=== PATIENT | male | born 1980 | race African-American/Black ===

== ENCOUNTER 2017-03-03 12:33 | Inpatient (IN) | payer OTHER ==
[~2017-03-03] VITALS: Ht 185.4 cm; Wt 127.0 kg
[~2017-03-03 12:33] MED LIST: AMOX1TAB11 PO; CYAN10005 PO; FERR325T72 PO; FURO40TA4 PO; GABA-585 PO; METF850T2 PO; OXYB5TAB7 PO; OXYC-323 PO; PANT40TA5 PO; SODIUM BICARB ADULT 8.4% 50 MEQ/50 ML DISP.SYRIN. ONE; WARF10TA PO; WARF7.5T PO
[2017-03-03 13:25] LABS: CALCIUM 8.1 mg/dL (8.5-10.1); CREATININE 3.4 mg/dL (0.7-1.3); GFR 25.1
[2017-03-03 13:28] LABS: BASO % 0 % (0-3); EOS % 0 % (0-3); HEMOGLOBIN 11.4 g/dL (13.0-17.5); LYMPH # 1.8 x10^3/uL (1.0-4.8); LYMPH % 19 % (24-48); MEAN CORPUSCULAR HEMOGLOBIN 25 pg (25-35); MEAN CORPUSCULAR HGB CONC 25 g/dL (31-37); MEAN CORPUSCULAR VOLUME 98 fL (79-100); MONO % 6 % (0-9); NEUT % 75 % (31-73); PLATELET COUNT 244 x10^3/uL (140-400); RED BLOOD COUNT 4.58 x10^6/uL (4.30-5.70); RED CELL DISTRIBUTION WIDTH 17.8 % (11.5-14.5); WHITE BLOOD COUNT 9.7 x10^3/uL (4.0-11.0)
--- NOTE | 2017-03-03 13:34 | EKG ---
[facility] [address] [place] [address] Test Date: 2017-03-03 Test Time: 12:43:57 Pat Name: AKIRA GROSS Department: Room: Gender: M Bi Data Architect: : 1980 Requested By: OMAYRA AVERY Order Number: [id number] Reading MD: Measurements Intervals [place] Rate: 127 P: 158 VA: 172 QRS: 29 QRSD: 106 T: 116 QT: 286 QTc: 421 Interpretive Statements SINUS TACHYCARDIA QRS(T) CONTOUR ABNORMALITY CONSIDER ANTEROSEPTAL MYOCARDIAL DAMAGE ST & T ABNORMALITY, CONSIDER ANTERIOR ISCHEMIA OR LEFT VENTRICULAR STRAIN HIGH LATERAL ISCHEMIA OR LEFT VENTRICULAR STRAIN RI6.01 No previous ECG available for comparison
[2017-03-03] MEDS ORDERED: ETOMIDATE 20 MG/10 ML VIAL. IV ONE (13:35)
[2017-03-03] MEDS ORDERED: MIDAZOLAM PREMIX 100 ML IV ONE (13:45)
[2017-03-03] MEDS ORDERED: SODIUM BICARBONATE VIAL 150 MEQ in IV 1/2 NORMAL SALINE 1,000 ML IV ONE (13:45)
[2017-03-03 13:48] LABS: POTASSIUM 2.8 mmol/L (3.5-5.1)
--- NOTE | 2017-03-03 13:50 | RAD ---
Portable chest, 03/03/2017: History: Check ET tube placement Comparison is made to a study from 04/26/2016. There has been a previous median sternotomy. Surgical clips are projected over the right infraclavicular region. The tip of the ET tube lies 5 cm above the ed. An NG tube extends into the proximal aspect of the stomach. The heart is enlarged. The pulmonary vascularity is within normal limits. No pulmonary. Infiltrates are seen. There is no evidence of pleural fluid. IMPRESSION: 1. The ET tube and NG tube are in satisfactory positions. 2. Mild cardiomegaly.
--- NOTE | 2017-03-03 13:50 | RAD ---
AP abdomen radiograph 03/03/2017 Clinical history: OG tube placement. A portable AP supine digital radiograph of the abdomen was obtained. The tip of an OG tube is seen overlying the expected location of the gastric body/fundus. Surgical clips are seen scattered throughout the mid abdomen. Air distention of small bowel loops is seen within the midabdomen raising the possibility of a small bowel obstruction. A moderate amount of stool is seen throughout the colon. The osseous structures are grossly intact. Impression: The tip of the OG tube overlies the gastric body/fundus.
--- NOTE | 2017-03-03 13:54 | PHYS DOC ---
Past Medical History Past Medical History: Other Additional Past Medical Histor: AAA X 3 Past Surgical History: Other Additional Past Surgical Histo: AAA REPAIR X 3 Alcohol Use: Occasionally Drug Use: None Adult General Chief Complaint Chief Complaint: CPR/FULL ARREST HPI HPI 36-year-old male who presents with history of cardiac arrest in the field. EMS was called out for respiratory difficulties and the patient was bradycardic and then his rhythm declined to asystole. CPR was administered with several rounds of epinephrine with return of spontaneous circulation. Patient arrives with a advanced airway and good pulse and vital signs. Patient is acutely altered and nonverbal. 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 Patient has been bedridden since this time. There is no family at bedside currently to provide any other history. Review of Systems Review of Systems 10 point review systems is unable to be obtained secondary to patient's mental status. Current Medications Current Medications Current Medications Medications (Trade) Dose Ordered Sig/Carlito Start Time Stop Time Status Last Admin Dose Admin Etomidate (Amidate) 20 mg STK-MED ONCE 03/03/17 13:35 03/03/17 13:36 DC Allergies Allergies Allergies Coded Allergies Type Severity Reaction Last Updated Verified iodine Allergy Intermediate 01/13/15 No Physical Exam Physical Exam Constitutional: Moderate distress, toxic in appearance. [] HENT: Normocephalic, atraumatic, bilateral external ears normal, oropharynx moist, no oral exudates, nose normal. [] Eyes: PERRLA, EOMI, conjunctiva normal, no discharge. [] Neck: Normal range of motion, no tenderness, supple, no stridor. [] Cardiovascular:Heart rate tachycardic with regular rhythm, no murmur [] Lungs & Thorax: Bilateral breath sounds clear to auscultation [] Abdomen: Bowel sounds normal, soft, no tenderness, no masses, no pulsatile masses. [] Skin: Warm, dry, no erythema, no rash. [] Back: No tenderness, no CVA tenderness. [] Extremities: No tenderness, no cyanosis, no clubbing, ROM intact, no edema. [] Neurologic: Intubated, unable to assess full neurologic exam, no focal deficits are seen Current Patient Data Vital Signs Vital Signs Date Time Temp Pulse Resp B/P Pulse Ox O2 Delivery O2 Flow Rate FiO2 03/03/17 13:30 Ventilator 03/03/17 12:33 98.7 126 24 98 15 98.7 Lab Values Laboratory Tests Test 03/03/17 12:55 03/03/17 13:07 03/03/17 13:20 White Blood Count 9.7x10^3/uL (4.0-11.0) Red Blood Count 4.58x10^6/uL (4.30-5.70) Hemoglobin 11.4g/dL (13.0-17.5) L Hematocrit 45.1% (39.0-53.0) Mean Corpuscular Volume 98fL (79-100) Mean Corpuscular Hemoglobin 25pg (25-35) Mean Corpuscular Hemoglobin Concent 25g/dL (31-37) L Red Cell Distribution Width 17.8% (11.5-14.5) H Platelet Count 244x10^3/uL (140-400) Neutrophils (%) (Auto) 75% (31-73) H Lymphocytes (%) (Auto) 19% (24-48) L Monocytes (%) (Auto) 6% (0-9) Eosinophils (%) (Auto) 0% (0-3) Basophils (%) (Auto) 0% (0-3) Neutrophils # (Auto) 7.3x10^3uL (1.8-7.7) Lymphocytes # (Auto) 1.8x10^3/uL (1.0-4.8) Monocytes # (Auto) 0.6x10^3/uL (0.0-1.1) Eosinophils # (Auto) 0.0x10^3/uL (0.0-0.7) Basophils # (Auto) 0.0x10^3/uL (0.0-0.2) Prothrombin Time 16.8SEC (11.7-14.0) H Prothrombin Time INR 1.5 (0.8-1.1) H Sodium Level 135mmol/L (136-145) L Potassium Level 2.8mmol/L (3.5-5.1) *L Chloride Level 93mmol/L (98-107) L Carbon Dioxide Level 21mmol/L (21-32) Anion Gap 21 (6-14) H Blood Urea Nitrogen 51mg/dL (8-26) H Creatinine 3.4mg/dL (0.7-1.3) H Estimated GFR (Cockcroft-Gault) 25.1 Glucose Level 2183mg/dL (70-99) *H Calcium Level 8.1mg/dL (8.5-10.1) L Troponin I Quantitative < 0.017ng/mL (0.000-0.055) GB-Yml-U-Type Natriuretic Peptide 930pg/mL (0-124) H Urine Opiates Screen Neg (NEG) Urine Methadone Screen Neg (NEG) Urine Barbiturates Neg (NEG) Urine Phencyclidine Screen Neg (NEG) Urine Amphetamine/Methamphetamine Neg (NEG) Urine Benzodiazepines Screen Neg (NEG) Urine Cocaine Screen Neg (NEG) Urine Cannabinoids Screen Neg (NEG) Urine Ethyl Alcohol Neg (NEG) O2 Saturation 99% (92-99) Arterial Blood pH 7.31 (7.35-7.45) L Arterial Blood pCO2 at Patient Temp 33mmHg (35-46) L Arterial Blood pO2 at Patient Temp 373mmHg (85-108) H Arterial Blood HCO3 16mmol/L (21-28) L Arterial Blood Base Excess -9mmol/L (-3-3) L FiO2 100 Laboratory Tests 03/03/17 12:55 Laboratory Tests 03/03/17 12:55 EKG EKG EKG as interpreted by me shows a sinus tachycardia with a rate of 127 bpm. There are some ST segment depressions in V2-V6. This EKG does not meet STEMI criteria. Radiology/Procedures Radiology/Procedures AP portable chest radiograph 03/03/2017 Clinical History: Post line placement. An AP portable erect digital radiograph of the chest was obtained. Comparison study is dated earlier today at 1317 hours.. The patient is status post CABG procedure. The ET tube and NG tube are unchanged in position. A right internal jugular central venous catheters been placed. The tip of this catheter extends to overlie the right atrium of the heart. Surgical clips overlie the right axilla. Left perihilar infiltrate is noted. The cardiac silhouette is mild to moderately enlarged. The thoracic aorta is tortuous. No pneumothorax or pleural effusion is seen. The osseous structures are unchanged. Impression: Interval placement of a right internal jugular central venous catheter. The tip of this catheter extends to overlie the right atrium of the heart. No pneumothorax is seen. DICTATED and SIGNED BY: LEYDI FULLER MD DATE: 03/03/17 1629 CC: OMAYRA AVERY DO; CECE GIRARD MD ~ AP abdomen radiograph 03/03/2017 Clinical history: OG tube placement. A portable AP supine digital radiograph of the abdomen was obtained. The tip of an OG tube is seen overlying the expected location of the gastric body/fundus. Surgical clips are seen scattered throughout the mid abdomen. Air distention of small bowel loops is seen within the midabdomen raising the possibility of a small bowel obstruction. A moderate amount of stool is seen throughout the colon. The osseous structures are grossly intact. Impression: The tip of the OG tube overlies the gastric body/fundus. DICTATED and SIGNED BY: LEYDI FULLER MD DATE: 03/03/17 1345 CC: OMAYRA AVERY DO; CECE GIRARD MD ~ Portable chest, 03/03/2017: History: Check ET tube placement Comparison is made to a study from 04/26/2016. There has been a previous median sternotomy. Surgical clips are projected over the right infraclavicular region. The tip of the ET tube lies 5 cm above the ed. An NG tube extends into the proximal aspect of the stomach. The heart is enlarged. The pulmonary vascularity is within normal limits. No pulmonary. Infiltrates are seen. There is no evidence of pleural fluid. IMPRESSION: 1. The ET tube and NG tube are in satisfactory positions. 2. Mild cardiomegaly. DICTATED and SIGNED BY: KYLER CARROLL MD DATE: 03/03/17 1346 CC: OMAYRA AVERY DO; CECE GIRARD MD ~ Course & Med Decision Making Course & Med Decision Making Pertinent Labs and Imaging studies reviewed. (See chart for details) 36-year-old male who presents in acute cardiac arrest with return of spontaneous circulation has laboratory workup that significant for a severely elevated blood glucose of 2183. This is likely hyperosmolar hyperglycemic coma. Serum osmolality was also elevated. Patient was intubated in the department so that an established airway could be confirmed. A right internal jugular central venous line was also placed for multiple medications and pressor support as needed. Patient was initially sedated with Versed but his blood pressure trended down on the department which required pressor support. Patient does appear to still be displaying some sort of neurologic function. A cardiology consult was obtained for his EKG findings. An echocardiogram at bedside was performed that was demonstrating a preserved EF of greater than 55% . Multiple chest x-rays confirmed ET tube and central venous line placement. A KUB demonstrated OG placement. Patient was given multiple fluid boluses and insulin bolus. A insulin drip was also initiated and titrated to effect. The case was fully discussed with the hospitalist, Dr. Girard, who agreed to admit to the ICU for further evaluation and management for his hyperglycemic coma. Approximately 30 minutes of critical care time were used in consultation with specialists. Dragon Disclaimer Dragon Disclaimer This electronic medical record was generated, in whole or in part, using a voice recognition dictation system. Critical Care Time Critical care time was 30 minutes exclusive of procedures. Intubation Procedure Intub Indication: Respiratory failure Consent: Unable to give consent due to emergent nature. Medications Used: see nursing note Procedure: The patient was placed in the appropriate position. Intubation was performed and cords were visualized and a 7.5 endotracheal tube was successfully placed and secured. Initial confirmation of placement included bilateral breath sounds, tube fogging, adequate chest rise, adequate pulse oximetry reading. A chest x-ray to verify correct placement of the tube showed appropriate tube position. The patient tolerated the procedure well. Complications: none. Central Line Placement Proc Central Line Indication: Vascular access Consent: The patient provided consent for this procedure. Procedure: The patient was positioned appropriately and the skin over the right internal jugular was prepped and draped in a sterile fashion. Local anesthesia was used. Ultrasound guidance utilized. A large bore needle was used to identify the vein. A guide wire was then inserted into the vein through the needle. A triple lumen catheter was then inserted into the vessel over the guide wire using the Seldinger technique. All ports showed good, free flowing blood return and were flushed with saline solution. The catheter was then securely fastened to the skin with sutures and covered with a sterile dressing. A post procedure X-ray was ordered. The patient tolerated the procedure well. Complications: none. [] Departure Departure Impression: Primary Impression: Acute respiratory failure Additional Impressions: Cardiac arrest Hyperglycemia Disposition: ADMITTED INPATIENT Admitting Physician: Cece Girard Condition: CRITICAL Referrals: CECE GIRARD MD (PCP) Problem Qualifiers OMAYRA AVERY DO Mar 03, 2017 13:54
[2017-03-03] MEDS ORDERED: INSULIN REGULAR VIAL 150 UNIT in 0.9 % SODIUM CHLORIDE 150ML 150 ML IV PRN ×2 (14:00→17:00)
[2017-03-03 14:03] LABS: HEMATOCRIT 45.1 % (39.0-53.0)
[2017-03-03] MEDS ORDERED: INSULIN,REGULAR 150 UNIT DRIP 150 ML IV ONE (14:05)
[2017-03-03 14:23] LABS: INR 1.5 (0.8-1.1); PROTHROMBIN TIME PATIENT 16.8 SEC (11.7-14.0)
[2017-03-03 14:26] LABS: PCO2 COOX 33 mmHg (35-46); PH COOX 7.31 (7.35-7.45)
[2017-03-03 14:27] LABS: PO2 COOX 373 mmHg (85-108)
[2017-03-03 14:28] LABS: BASE EXCESS COOX -9 mmol/L (-3-3); FIO2 COOX 100; HCO3 COOX 16 mmol/L (21-28); SAT O2 COOX 99 % (92-99)
[2017-03-03] MEDS ORDERED: INSULIN REGULAR 100 UNIT/ML 10ML VIAL. IV ONE (14:45)
--- NOTE | 2017-03-03 14:51 | PDOC2 ---
MIRZA GARCIA NUTRITION SERVICES WORKER 03/03/17 1451: CARDIAC CONSULT DATE OF CONSULT Date of Consult DATE: 03/03/17 TIME: 14:51 REASON FOR CONSULT Reason for Consult: CARDIAC ARREST REFERRING PHYSICIAN Referring Physician: DR OMAYRA AVERY SOURCE Source: Caregiver (father), Chart review HISTORY OF PRESENT ILLNESS HISTORY OF PRESENT ILLNESS 36 year old male with at least 2 day history of elevated CBG at home with difficulty speaking and dry mouth. Cardiac arrest with ROSC. Down time - ? SBP Patient now intubated/sedated. Blood glucose level of 2183 POA. Patient lives with girl friend but she is not present. Father reports recent dyspnea and dizziness as well as vomiting today with difficulty eating and drinking. SBP currently 66. EKG ST with ? of LVH. Reason for Visit: cardiac arrest PAST MEDICAL HISTORY Cardiovascular: HTN, Other (? thoracic aneurysm repair; 4 heart surgeries per father with 4th surgery leaving patient paralyzed from waist down) GI: Other (obesity) Endocrine: Diabetes PAST SURGICAL HISTORY Past Surgical History: Other (? 4 cardiac surgeries; repair of fractured leg with pins) FAMILY HISTORY Family History: Diabetes, Hypertension SOCIAL HISTORY Smoke: <1 pack per day (1/2 ppd) ALCOHOL: none Drugs: None Lives: Friends CURRENT MEDICATIONS CURRENT MEDICATIONS Current Medications Medications (Trade) Dose Ordered Sig/Carlito Route PRN Reason Start Time Stop Time Status Last Admin Dose Admin Midazolam HCl (Versed 100mg/ 100ml Premix) 100 ml @ 0 mls/hr 1X ONCE IV 03/03/17 13:45 03/03/17 13:46 DC 03/03/17 14:42 Insulin Human Regular (Novolin R Vial) 10 unit 1X ONCE IV 03/03/17 14:45 03/03/17 14:46 DC 03/03/17 14:37 ALLERGIES ALLERGIES: Coded Allergies: iodine (Unverified Allergy, Intermediate, 01/13/15) ROS Review of System see HPI; full review unobtainable PHYSICAL EXAM General: Other (intubated / sedated) HEENT: Atraumatic Lungs: Other (coarse) Heart: Regular rate, Other (heart tones difficulty to auscultate over breath and vent sounds) Abdomen: Soft Extremities: Other (2-3+ LE edema) VITALS VITALS Vital Signs Date Time Temp Pulse Resp B/P Pulse Ox O2 Delivery O2 Flow Rate FiO2 03/03/17 14:15 100 Ventilator LABS Lab: Laboratory Tests Test 03/03/17 12:55 03/03/17 13:20 White Blood Count 9.7x10^3/uL (4.0-11.0) Red Blood Count 4.58x10^6/uL (4.30-5.70) Hemoglobin 11.4g/dL (13.0-17.5) Hematocrit 45.1% (39.0-53.0) Mean Corpuscular Volume 98fL (79-100) Mean Corpuscular Hemoglobin 25pg (25-35) Mean Corpuscular Hemoglobin Concent 25g/dL (31-37) Red Cell Distribution Width 17.8% (11.5-14.5) Platelet Count 244x10^3/uL (140-400) Neutrophils (%) (Auto) 75% (31-73) Lymphocytes (%) (Auto) 19% (24-48) Monocytes (%) (Auto) 6% (0-9) Eosinophils (%) (Auto) 0% (0-3) Basophils (%) (Auto) 0% (0-3) Neutrophils # (Auto) 7.3x10^3uL (1.8-7.7) Lymphocytes # (Auto) 1.8x10^3/uL (1.0-4.8) Monocytes # (Auto) 0.6x10^3/uL (0.0-1.1) Eosinophils # (Auto) 0.0x10^3/uL (0.0-0.7) Basophils # (Auto) 0.0x10^3/uL (0.0-0.2) Prothrombin Time 16.8SEC (11.7-14.0) Prothromb Time International Ratio 1.5 (0.8-1.1) Sodium Level 135mmol/L (136-145) Potassium Level 2.8mmol/L (3.5-5.1) Chloride Level 93mmol/L (98-107) Carbon Dioxide Level 21mmol/L (21-32) Anion Gap 21 (6-14) Blood Urea Nitrogen 51mg/dL (8-26) Creatinine 3.4mg/dL (0.7-1.3) Estimated GFR (Cockcroft-Gault) 25.1 Glucose Level 2183mg/dL (70-99) Calcium Level 8.1mg/dL (8.5-10.1) Troponin I Quantitative < 0.017ng/mL (0.000-0.055) QM-Nor-P-Type Natriuretic Peptide 930pg/mL (0-124) O2 Saturation 99% (92-99) Arterial Blood pH 7.31 (7.35-7.45) Arterial Blood pCO2 at Patient Temp 33mmHg (35-46) Arterial Blood pO2 at Patient Temp 373mmHg (85-108) Arterial Blood HCO3 16mmol/L (21-28) Arterial Blood Base Excess -9mmol/L (-3-3) FiO2 100 IMAGES IMAGES CXR: Comparison is made to a study from 04/26/2016. There has been a previous median sternotomy. Surgical clips are projected over the right infraclavicular region. The tip of the ET tube lies 5 cm above the ed. An NG tube extends into the proximal aspect of the stomach. The heart is enlarged. The pulmonary vascularity is within normal limits. No pulmonary. Infiltrates are seen. There is no evidence of pleural fluid. IMPRESSION: 1. The ET tube and NG tube are in satisfactory positions. 2. Mild cardiomegaly. CT head pending ECHOCARDIOGRAM ECHOCARDIOGRAM echo pending ASSESSMENT/PLAN ASSESSMENT/PLAN 1. cardiac arrest in the setting of hypokalemia of 2.8 and serum glucose > 2000 insulin gtt and bicarb gtt running will need central line for potassium correction echo to evaluate LV function today and complete echo tomorrow Levophed gtt for hypotension 2. DM with DKA glucose being corrected with insulin and bicarb gtt 3. acute renal failure ? new nephrology consulting 4. paraplegic ? from repair of thoracic aorta records requested from [facility] 5. acuter respiratory failure intubated/vent per pulm 6. tobacco abuse Problems: KIRILL RUIZ MD 03/03/17 5401: CARDIAC CONSULT ALLERGIES ALLERGIES: Coded Allergies: iodine (Unverified Allergy, Intermediate, 01/13/15) ASSESSMENT/PLAN ASSESSMENT/PLAN Pt. seen and examined. Agree with above [employer] note. 36 y.o male presenting with asystolic arrest and resp failure Severe metabolic derangement possible seizure like activity. On exam he is non response, erratic eye movements No significant response to pain labs reviewed supportive care echo wnl No further cardiac w/u levophed for hypotension will follow. Problems: MIRZA GARCIA NUTRITION SERVICES WORKER Mar 03, 2017 14:51 KIRILL RUIZ MD Mar 03, 2017 21:41
--- NOTE | 2017-03-03 15:05 | ACF ---
Admission Forms Criteria INTENSIVE CARE UNIT ADMISSION Intensive Care Admission Guidelines ( Place 'X' for any and all applicable criteria): Admission to ICU may be indicated when need is demonstrated by ANY ONE of the following (1)(2)(3)(4)(5)(6)(7)(8)(9) : [ ]I. Vital sign abnormalities, including ANY ONE of the following: [ ]a) Systolic arterial pressure less than 90 mm Hg, or 20 mm Hg below the patient's usual pressure [ ]b) Diastolic arterial pressure greater than 120 mm Hg [ ]c) Mean arterial pressure less than 70 mm Hg [A] [ ]d) Pulse less than 40 or greater than 140 beats per minute (in adult) [ ]e) Respiratory rate greater than 35 or less than 8 breaths per minute [ ]II. Laboratory findings (new), including ANY ONE of the following (10): [ ]a) Saturation of arterial oxygen less than 88% or partial pressure of oxygen less than 60 mm Hg (8.0 kPa) despite oxygen supplementation [ ]b) Rising partial pressure of carbon dioxide with respiratory acidosis [ ]c) pH less than 7.2 or greater than 7.65 [ ]d) Serum glucose greater than 800 mg/dL (44.4 mmol/L) [ ]e) Serum sodium less than 110 mEq/L (mmol/L) or greater than 160 mEq/L (mmol/L) [ ]f) Serum potassium less than 2 mEq/L (mmol/L) or greater than 7 mEq /L (mmol/L) [ ]g) Serum calcium greater than 15 mg/dL (3.75 mmol/L) [ ]h) Serum phosphorus less than 1 mg/dL (0.32 mmol/L) [ ]i) Toxic drug level or poisoning causing or likely to cause neurologic or Hemodynamic instability [ ]j) Less severe laboratory abnormalities contributing to ANY ONE of the following: [ ]i) Seizure [ ]ii) Altered mental status [ ]iii) Muscle weakness [ ]iv) Arrhythmias [ ]v) Hemodynamic instability [ ]vi) Other significant clinical manifestations [ ]III. Electrocardiogram (or cardiac monitoring) findings, including ANY ONE of the following: [ ]a) Inherently unstable or life-threatening arrhythmia (eg, sustained ventricular tachycardia, ventricular fibrillation, asystole) [ ]b) Arrhythmia causing severe hypotension (eg, bradycardia, tachycardia) [ ]c) Complete heart block causing severe hypotension [ ]d) Other findings indicative of a need for intensive care (eg , VT) [ ]IV.Physical findings, including ANY ONE of the following: [ ]a) Threatened airway [ ]b) Sudden altered mental status [ ]c) Repeated or prolonged seizures [ ]d) Coma [ ]e) New-onset anuria (urine output <0.1 mL/kg/hr over 4 h) [ ]f) Cyanosis (new) [ ]g) Cardiac tamponade [ ]h) Status post respiratory or cardiac arrest [ ]i) Severe childers (eg, partial thickness childers over more than 10% of body surface, third-degree childers) [ ]j) Findings consistent with abdominal emergency (eg, peritoneal signs) [ ]V.Imaging findings, such as dissecting aneurysm or ruptured viscus [X].Specific intervention or monitoring needed, as indicated by ANY ONE of the following: [X]a) New need for assisted ventilation, invasive or noninvasive(11) [X]b) New need for intubation (eg, to protect airway) [ ]c) New tracheostomy (less than 48 hours old) [ ]d) Hourly vital signs or neurologic checks [ ]e) Pulmonary artery line monitoring needed [ ]f) Continuous arterial line monitoring needed [ ]g) Continuous IV vasoactive drugs [ ]h) Continuous IV antiarrhythmics [ ]i) Large volume IV fluid resuscitation (eg, greater than 6 L per day ) [ ]j) Large or rapid transfusion needs (eg, more than 6 units within 24 hours) [ ]k) High-risk IV treatment, such as bolus IV medicatns or mannitol infusion [ ]l) Acute cardiac pacing [ ]m) Intra-aortic balloon pump [ ]n) Ventricular assist device [ ]o) Cardioversion [ ]p) Pericardiocentesis [ ]q) Hemodialysis in unstable patient [ ]r) Continuous renal replacement therapy (eg, continuous veno-venous hemofiltration) [ ]s) Peritoneal dialysis initiation [ ]t) Emergency bronchoscopic therapy (eg, for hemoptysis) [ ]u) Emergency endoscopic therapy for bleeding [ ]v) Balloon tamponade for variceal bleeding [ ]w) Intracranial pressure monitoring or tissue oxygen monitoring [ ]x) Ventriculostomy monitoring [ ]y) Treatment of ongoing seizures [ ]z) Induced hypothermia or coma [ ]aa) Ongoing frequent testing and treatment for acute conditions, including ANY ONE of the following: [ ]i) Correction of severe metabolic acidosis/ alkalosis [ ]ii). Severe fluid overload [ ]iii) Cerebral edema [ ]iv) Monitoring or suctioning for respiratory insufficiency or acidosis [ ]v) Monitoring for active bleeding [ ]bb) Rapid desensitization for high-risk hypersensitivity reaction to required medication (eg, penicillin)(12) [ ]cc) Other need for treatment or monitoring not available outside the ICU [ ]VII.Cardiology diagnoses or procedures, including ANY ONE of the following (13)(14)(15)(16)(17): [ ]a) Chest pain with ANY ONE of the following: [ ]i) Hemodynamic instability [ ]ii) Suspicion of diagnoses needing ICU care (eg, aortic dissection) [ ]iii) New unstable or symptomatic arrhythmia or ECG finding (eg, ventricular tachycardia, ventricular fibrillation, advanced heart block) [ ]iv) Syncope or near-syncope [ ]v) SBP less than 100 mm Hg [ ]vi) Pulmonary edema thought to be due to ischemia [ ]vii) New or worsening mitral regurgitation murmur, S3 , or rales [ ]b) Acute VT with complications as indicated by ANY ONE of the following: [ ]i) Persistent chest pain [ ]ii) Hemodynamic instability [ ]iii) New unstable or symptomatic arrhythmia or ECG finding (eg, ventricular tachycardia, ventricular fibrillation, advanced heart block) [ ]iv) Syncope or near-syncope [ ]v) Pulmonary edema thought to be due to ischemia [ ]vi) New or worsening mitral regurgitation murmur, S3 , or rales [ ]vii) New-onset bundle branch block [ ]viii) Hemorrhagic complication (eg, intracranial or access site bleed following thrombolysis) [ ]c) Cardiac arrhythmia or conduction defect with Hemodynamic instability [ ]d) Complication of cardiac ablation, including ANY ONE of the following(18): [ ]i) Pericardial tamponade [ ]ii) Hemodynamic instability [ ]iii) Thromboembolic stroke [ ]iv) Aortic valve injury [ ]v) Vascular injuries [ ]vi) Esophageal perforation [ ]vii) Severe arrhythmia [ ]viii) Air embolism [ ]ix) Other severe complication [ ]e) Cardiogenic shock [ ]f) Hypertensive emergency, with need for ANY ONE of the following(19): [ ]i) IV antihypertensive therapy [ ]ii) Invasive hemodynamic monitoring (eg, arterial line) [ ]g) Pericardial tamponade [ ]h) Severe heart failure, with ANY ONE of the following(15): [ ]i) Respiratory failure [ ]ii) Cardiogenic shock [ ]iii) Severe arrhythmias [ ]iv) Evidence of cardiac ischemia [ ]i Myocarditis, with ANY ONE of the following [ ]i) Hemodynamic instability [ ]ii) Respiratory failure [ ]iii) Severe arrhythmias [ ]iv) Need for cardiac assist device (eg, left ventricular assist device or extracorporeal membrane oxygenator) [ ]j) Status post cardiac arrest(20) [ ]VIII. Cardiovascular Surgery diagnoses or procedures, including ANY ONE of the following.(21)(22): [ ]a) Acute aortic dissection [ ]b) Aortic surgery for ANY ONE of the following: [ ]i) Thoracic aneurysm [ ]ii) Abdominal aneurysm with ANY ONE of the following(23): [ ]1) Emergency repair [ ]2) Severe cardiopulmonary disease [ ]3) Dialysis-dependent renal failure [ ]4) Need for IV blood pressure control [ ]5) Need for ongoing ventilatory support [ ]6) Perioperative complications, including ANY ONE of the following: [ ]A. Sustained Hemodynamic instability [ ]B. Cardiac ischemia or arrhythmia [ ]C. Hypothermia (less than 35 degrees C (95 degrees F)) [ ]D. Blood transfusion greater than 3 L [ ]iii) Aortic coarctation operative excision or repair [ ]iv) Aortofemoral or aortoiliac bypass with ANY ONE of the following: [ ]1) Continued intubation [ ]2) Hemodynamic instability [ ]3) Need for IV blood pressure control [ ]4) Severe cardiopulmonary disease [ ]c) Cardiac surgery [ ]d) Carotid endarterectomy or stent placement with ANY ONE of the following: [ ]i) Blood pressure <100/60 mm Hg or >160/90 mm Hg despite 4 h of postanesthetic management [ ]ii) New or progressive neurologic defect [ ]iii) Chest pain [ ]iv) Continued intubation [ ]v) Heart failure [ ]vi) Airway compromise by hematoma or vocal cord paralysis [ ]vi) Need for IV blood pressure control [ ]e) Heart transplant [ ]f) Infrainguinal peripheral vascular surgery with ANY ONE of the following: [ ]i) Hemodynamic instability [ ]ii) Acute complications such as persistent chest pain or respiratory distress [ ]iii) Requirement for IV antiarrhythmic or vasoactive agent [ ]iv) Requirement for pulmonary artery catheter [ ]v) Severe hypertension despite 6 hours of recovery room management [ ]g) Complications of any surgery requiring ICU intervention as indicated by ANY ONE of the following(24): [ ]i) Hemodynamic instability [ ]ii) Myocardial infarction with complications (eg, severe arrhythmia, hypotension) [ ]iii) Excessive bleeding or severe coagulopathy [ ]iv) Respiratory failure [ ]v) Renal failure [ ]vi) Airway instability or obstruction [ ]vii) Neurologic deterioration [ ]viii) Infection with likelihood of sepsis syndrome or significant fluid shifts [ ]IX.Endocrinology diagnoses or procedures, including ANY ONE of the following(25)(26): [ ]a) Adrenal crisis with Hemodynamic instability(27) [ ]b) Pheochromocytoma with ANY ONE of the following(28): [ ]i) Hypertensive crisis [ ]ii) Postoperative Hemodynamic instability [ ]iii) Need for IV vasoactive therapy [ ]iv) Need for invasive arterial or central venous pressure monitoring [ ]v) Organ ischemia [ ]c) Diabetic hyperosmolar state with obtundation or coma [ ]d) Diabetic ketoacidosis with ANY ONE of the following: [ ]i) Serum pH less than 7.10 or bicarbonate level less than 10 mEq/L (mmol/L) [ ]ii) Rapidly changing electrolytes [ ]iii) Hypotension [ ]iv) Requirement for large-volume fluid resuscitation [ ]v) Respiratory insufficiency [ ]vi) Life-threatening cardiac dysrhythmias [ ]vii) Obtundation [ ]viii) Severe precipitating condition such as sepsis, stroke, or acute VT [ ]e) Severe hypoglycemia requiring continuous glucose infusion with frequent adjustment or glucagon infusion [ ]f) Hyperthyroidism associated with thyroid storm (also known as thyrotoxic crisis)(29) [ ]g) Myxedema with life-threatening neurologic, cardiovascular, electrolyte, or renal dysfunction(29) [ ]h) Diabetes insipidus that cannot be controlled with routine medication (30) [ ]X. Gastroenterology diagnoses or procedures, including ANY ONE of the following: [ ]a) Esophageal perforation(31) [ ]b) Severe caustic esophageal injury(31) [ ]c) Liver disease complications with ANY ONE of the following(32): [ ]i) Severe hepatic encephalopathy (eg, stage 3 (somnolent) or higher) [ ]ii) Type 1 hepatorenal syndrome [ ]iii) Other cirrhosis-associated causes of acute renal failure ( eg, severe hypovolemia, acute tubular necrosis, abdominal compartment syndrome) [ ]iv) Hemodynamic instability [ ]v) Respiratory insufficiency due to severe ascites [ ]vi) Sepsis due to spontaneous bacterial peritonitis [ ]d) Fulminant hepatic failure when aggressive intervention or transplant is anticipated (32) [ ]e) Gastrointestinal hemorrhage (upper or lower) with ANY ONE of the following(33)(34): [ ]i) Active ongoing bleeding [ ]ii) Transfusion requirement greater than 2 units of packed red cells [ ]iii) Bleeding ulcer or nonbleeding visible vessel seen on endoscopy [ ]iv) Bleeding ulcer, visible blood vessel, bleeding (or recently bleeding) esophageal varices seen on endoscopy [ ]v) Hypotension [ ]vi) Syncope [ ]vii) Coagulopathy [ ]viii) Hepatic cirrhosis [ ]ix) Abnormal mental status [ ]x) Unstable comorbid condition or end organ dysfunction [ ]xi) Ischemia due to poor perfusion [ ]xii) Need for hemodynamic monitoring (eg, for patients with heart failure or valvular disease) [ ]f) Severe pancreatitis indicated by ANY ONE of the following (35)(36): [ ]i) Requirement for aggressive fluid resuscitation [ ]ii) Life-threatening electrolyte abnormality [ ]iii) SBP less than 90 mm Hg [ ]iv) Persistent tachycardia greater than 120 beats per minute [ ]v) Patients at high risk of rapid deterioration, including ANY ONE of the following: [ ]1) Calculated [place] II score greater than 8 [ ]2) Age older than 55 years [ ]3) BMI greater than 30 [ ]4) Greater than 30% pancreatic necrosis on CT scan [ ]5) Admission hematocrit greater than 47% (0.47) [ ]vi) Organ failure as indicated by ANY ONE of the following: [ ]1) Serum creatinine greater than 1.9 mg/dL (168 micromoles/L) [ ]2) Requirement for mechanical ventilation [ ]3) Urine output less than 50 mL/hour [ ]4) Arterial partial pressure of oxygen less than 60 mm Hg (8.0 kPa) despite supplemental oxygen [ ]5) PiO2/FiO2 ratio less than 300 [ ]vii) Expanding pseudocyst [ ]viii) Infected pancreas [ ]ix) Pleural effusion [ ]x) Encephalopathy [ ]xi) Severe comorbidities [ ]XI. General Surgery diagnoses or procedures, including ANY ONE of the following (9)(24)(37): [ ]a) Acute abdominal catastrophe (eg, ischemic bowel, perforated viscus, abdominal compartment syndrome) [ ]b) Complications of any surgery requiring ICU intervention as indicated by ANY ONE of the following: [ ]i) Hemodynamic instability [ ]ii) VT with complications (eg, severe arrhythmia, hypotension) [ ]iii) Excessive bleeding or severe coagulopathy [ ]iv) Respiratory failure [ ]v) Renal failure [ ]vi) Airway instability or obstruction [ ]vii) Neurologic deterioration [ ]viii) Infection with likelihood of sepsis syndrome or significant fluid shifts [ ]c) Multiple trauma with complicating features as indicated by ANY ONE of the following(38): [ ]i) Impending acute respiratory failure due to lung contusion, unstable chest wall, aspiration, or hemorrhage [ ]ii) Facial or neck injury threatening airway patency [ ]iii) Cardiac contusion [ ]iv) Pericardial effusion [ ]v) Bronchial tear [ ]vi) Hemodynamic instability [ ]vii) Rhabdomyolisis requiring large volume IV fluid resuscitation [ ]viii)Other significant complicating feature [ ]d) Organ transplant(39)(40) [ ]e) Esophagectomy(31) [ ]f) Whipple procedure [ ]g) Preoperative or postoperative patients requiring ICU intervention, such as hemodynamic optimization, pulmonary artery monitoring, mechanical ventilation, or extensive nursing care [ ]h) Obesity surgery patients with ANY ONE of the following(41): [ ]i) ICU management needs for comorbid conditions, such as sleep apnea or airway management needs [ ]ii) Failed postoperative extubation [ ]iii) Intraoperative complications [ ]XII. Nephrology diagnoses or procedures, including acute, or acute on chronic renal insufficiency with ANY ONE of the following(44)(45): [ ]a) Life-threatening electrolyte or acid-base disorder [ ]b) Acute pulmonary edema [ ]c) Hypotension or significant volume depletion [ ]d) Hypertensive emergency [ ]e) Underlying critical illness contributing to renal failure (eg, septic shock, hepatorenal syndrome) [ ]f) Need for continuous renal replacement therapy [ ]XIII. Neurology diagnoses or procedures, including ANY ONE of the following (46)(47) [B] : [ ]a) Intracranial hypertension requiring ANY ONE of the following(49 ): [ ]i) Induced barbiturate coma [ ]ii) Pharmacologic paralysis or deep sedation and mechanical ventilation [ ]iii) Intracranial pressure or cerebral perfusion pressure monitoring [ ]iv) IV mannitol or hypertonic saline [ ]v) Frequent serum osmolality measurements [ ]b) Seizures with ANY ONE of the following(50): [ ]i) Status epilepticus [ ]ii) Airway compromise requiring or likely to require mechanical ventilation [ ]iii) Severe electrolyte abnormalities causing seizures [ ]c) Progressive acute neurologic dysfunction requiring or likely to require ANY ONE of the following: [ ]i) Mechanical ventilation [ ]ii) Intracranial pressure or cerebral perfusion pressure monitoring [ ]d) Meningitis with obtundation or respiratory insufficiency [C])(51 ) [ ]e) Stroke with ANY ONE of the following(52)(53): [ ]i) Need for observation after thrombolysis [ ]ii) Altered mental status [ ]iii) Need for mechanical ventilation [ ]iv) Elevated intracranial pressure [ ]v) Hypertensive emergency [ ]vi) High risk of progressive infarction or deterioration based on CT scan or MRI [ ]vii) Hemorrhage [ ]f) Acute coma [ ]g) Acute spontaneous intracranial hemorrhage(53)(54) [ ]h) Drug ingestion with ANY ONE of the following(56)(57): [ ]i) Hemodynamic instability [ ]ii) Respiratory depression (partial pressure of carbon dioxide >45 mm Hg (6.0 kPa), new) [ ]iii) Patient requires or is likely to require mechanical ventilation. [ ]iv) Arrhythmias [ ]v) Seizures [ ]vi) Altered mental status (Quail coma scale score less than 12, new) [ ]vii) Significant risk for acute deterioration (eg, toxic level of hypotension or arrhythmia-producing drug) [ ]viii) Drug-induced hypothermia or hyperthermia [ ]ix) Increasing metabolic acidosis [ ]x) Severe hypoglycemia requiring glucose infusion with frequent adjustment or glucagon administration [ ]xi) Ongoing antidote administration (eg, continuous naloxone infusion, organophosphate toxicity treatment) [ ]xii) Emergency intervention need (eg, dialysis, hemoperfusion, restraints) [ ]i) Brain with preparation for organ donation [ ]j) Traumatic brain injury with ANY ONE of the following(55): [ ]i) Altered mental status (eg, new onset Daya coma scale score less than 10) [ ]ii) Cerebral edema [ ]iii) Cerebral hemorrhage [ ]iv) Increased intracranial pressure [ ]XIV. Neurosurgery diagnoses or procedures, including ANY ONE of the following(49)(58)(59): [ ]a) Emergency craniotomy for tumor, hematoma, or trauma [ ]b) Elective craniotomy for posterior fossa tumor [ ]c) Elective craniotomy (supratentorial) for tumor with ANY ONE of the following: [ ]i) Postoperative neurologic deficit or impaired consciousness 6 hours after completion of procedure [ ]ii) SBP less than 110 mm Hg or greater than 180 mm Hg despite therapy [ ]iii) Extensive operative blood loss [ ]iv) High anesthesia risk (eg, [place] [employer] score greater than 3 [ ]d) Craniotomy for aneurysm with ANY ONE of the following: [ ]i) Postoperative neurologic deficit or impaired consciousness 6 hours after completion of procedure [ ]ii) Preoperative Hernandez-Kelley grade 3 or higher [ ]iii) SBP less than 110 mm Hg or greater than 180 mm Hg despite therapy [ ]iv) Intracranial pressure monitoring [ ]e) Acute spinal cord injury [ ]f) Subarachnoid hemorrhage [ ]g) Traumatic brain injury with ANY ONE of the following: [ ]i) Acute mental status change (Daya coma scale score less than 10) [ ]ii) CT scan showing cerebral edema or hemorrhage [ ]iii) Intracranial pressure monitoring [ ]h) Complications of any surgery requiring ICU intervention as indicated by ANY ONE of the following(60): [ ]i) Hemodynamic instability [ ]ii) VT with complications (eg, severe arrhythmia, hypotension) [ ]iii) Excessive bleeding or severe coagulopathy [ ]iv) Respiratory failure [ ] v) Renal failure [ ]vi) Airway instability or obstruction [ ]vii) Neurologic deterioration [ ]viii) Infection with likelihood of sepsis syndrome or significant fluid shifts [ ]i) Preoperative or postoperative patients requiring ICU intervention, such as hemodynamic optimization, pulmonary artery monitoring, mechanical ventilation, or extensive nursing care [ ]XV.Obstetrics and Gynecology diagnoses or procedures, including ANY ONE of the ffg. (61)(62)(63): [ ]a) Severe peripartum condition as indicated by ANY ONE of the following: [ ]i) Eclampsia [ ]ii) Hypertensive emergency [ ]iii) HELLP syndrome (hemolysis, elevated liver enzymes, and low platelet count) [ ]iv) Pulmonary edema [ ]v) Respiratory failure [ ]vi) Pulmonary embolism [ ]vii) Anaphylactoid syndrome of (amniotic fluid embolus) [ ]viii) Ovarian hyperstimulation syndrome [D] [ ]ix) Acute fatty liver of (hepatic failure) [ ]x) Complications such as placental abruption or severe hemorrhage [ ]xi) Sepsis (eg, puerperal sepsis, chorioamnionitis, septic ) [ ]xii) cardiomyopathy with severe congestive heart failure (eg, respiratory failure, cardiogenic shock) [ ]b) Ruptured ectopic [ ]c) Complications of any surgery requiring ICU intervention as indicated by ANY ONE of the following: [ ]i) Hemodynamic instability [ ]ii) VT with complications (eg, severe arrhythmia, hypotension) [ ]iii) Excessive bleeding or severe coagulopathy [ ]iv) Respiratory failure [ ]v) Renal failure [ ]vi) Airway instability or obstruction [ ]vii) Neurologic deterioration [ ]viii) Infection with likelihood of sepsis syndrome or significant fluid shifts [ ]d) Preoperative or postoperative patients requiring ICU intervention , such as hemodynamic optimization, pulmonary artery monitoring, mechanical ventilation, or extensive nursing care [ ]XVI.Ophthalmology diagnoses or procedures, including ANY ONE of the following (64): [ ]a) Complications of any surgery requiring ICU intervention, such as ANY ONE of the following: [ ]i) Hemodynamic instability [ ]ii) VT with complications (eg, severe arrhythmia, hypotension) [ ]iii) Excessive bleeding or severe coagulopathy [ ]iv) Respiratory failure [ ]v) Renal failure [ ]vi) Airway instability or obstruction [ ]vii) Neurologic deterioration [ ]viii) Infection with likelihood of sepsis syndrome or significant fluid shifts [ ]b) Preoperative or postoperative patients requiring ICU intervention , such as hemodynamic optimization, pulmonary artery monitoring, mechanical ventilation, or extensive nursing care [ ]XVII.Orthopedics diagnoses or procedures, including ANY ONE of the following ([phone]): [ ]a) Complications of any surgery requiring ICU intervention as indicated by ANY ONE of the following: [ ]i) Hemodynamic instability [ ]ii) VT with complications (eg, severe arrhythmia, hypotension) [ ]iii) Excessive bleeding or severe coagulopathy [ ]iv) Respiratory failure [ ]v) Renal failure [ ]vi) Airway instability or obstruction [ ] vii) Neurologic deterioration [ ]viii) Infection with likelihood of sepsis syndrome or significant fluid shifts [ ]b) Multiple trauma with complicating features as indicated by ANY ONE of the following(38): [ ]i) Impending acute respiratory failure due to lung contusion, unstable chest wall, pneumothorax, aspiration, or hemorrhage [ ]ii) Facial or neck injury threatening airway patency [ ]iii) Cardiac contusion [ ]iv) Rhabdomyolysis requiring large volume IV fluid resuscitation [ ]v) Pericardial effusion [ ]vi) Bronchial tear [ ]vii) Hemodynamic instability [ ]viii) Other significant complicating feature [ ]c) Threatened compartment syndrome [ ]d) Severe childers with ANY ONE of the following(68)(69)(70): [ ]i) Hypotension or requirement for aggressive fluid resuscitation [ ]ii) Respiratory insufficiency with requirement for high- flow oxygen or mechanical ventilation [ ]iii) Carbon monoxide poisoning [ ]iv) Life-threatening cardiac, renal, pulmonary, or neurologic dysfunction [ ]v) High-voltage (eg, 1000 volts or more) electrical burn [ ]vi) Requirement for frequent or intensive debridement and dressing changes; examples include: [ ]1) Partial thickness childers greater than 10% of body surface [ ]2) Childers on face, hands, feet, genitalia, perineum , or major joints [ ]3) Third-degree childers [ ]4) Any burn greater than 15% of body surface area [ ]vii) Inhalation lung injury [ ]viii) Concomitant trauma or other medical condition requiring ICU care [ ]e) Preoperative or postoperative patients requiring ICU intervention , such as hemodynamic optimization, pulmonary artery monitoring, mechanical ventilation, or extensive nursing care [ ]XVIII.Otolaryngology diagnoses or procedures, including ANY ONE of the following (71)(72): [ ]a) Complications of any surgery requiring ICU intervention as indicated by ANY ONE of the following: [ ]i) Hemodynamic instability [ ]ii) VT with complications (eg, severe arrhythmia, hypotension) [ ]iii) Excessive bleeding or severe coagulopathy [ ]iv) Respiratory failure [ ]v) Renal failure [ ]vi) Airway instability or obstruction [ ]vii) Neurologic deterioration [ ]viii) Infection with likelihood of sepsis syndrome or significant fluid shifts [ ]b) Airway or hemodynamic compromise that persists after 3 hours of observation in postanesthesia care unit following nasal, palate (eg, uvulopalatopharyngoplasty or palatoplasty), or tongue surgery for sleep apnea [ ]c) Preoperative or postoperative patient requiring ICU intervention, such as hemodynamic optimization, pulmonary artery monitoring, mechanical ventilation, or extensive nursing care [ ]d) Symptomatic upper airway compromise (eg, laryngeal edema, mass) [ ]e) Other airway-compromising procedure (eg, posterior nasal packing) [ ]XIX.Thoracic Surgery and Pulmonary Disease Diagnosis or procedures, including ANY ONE of the following(6): [ ]a) Asthma with ANY ONE of the following(73)(74): [ ]i) Impending or actual respiratory arrest [ ]ii) Need for mechanical ventilation [ ]iii) Peak expiratory flow rate less than 30% of predicted or personal best [ ]iv) Peak expiratory flow rate or FEV1 less than 40% predicted after 1 hour of initial treatment [ ]v) Acidosis [ ]vi) Persistent or worsening hypoxia after initial treatment [ ]vii) Hypercapnia (eg, partial pressure of carbon dioxide greater than 43 mm Hg (5.7 kPa)) [ ]viii) Severe drowsiness, confusion, or coma [ ]ix) Requiring continuous inhaled bronchodilator [ ]b) COPD with ANY ONE of the following(75): [ ]i) Need for assisted ventilation [ ]ii) Hemodynamic instability [ ]iii) Severe dyspnea unresponsive to initial treatment [ ]iv) Change in level of consciousness [ ]v) Persistent findings despite oxygen and outpatient management, including ANY ONE of the following: [ ]1) Partial pressure of oxygen less than 40 mm Hg ( 5.3 kPa) [ ]2) Partial pressure of carbon dioxide greater than 60 mm Hg (8.0 kPa) [ ]3) pH less than 7.25 [ ]4) Worsening hypoxemia or acidosis [ ]c) Cor pulmonale with ANY ONE of the following(75)(76)(77): [ ]i) Hemodynamic instability [ ]ii) Need for IV inotropic or vasoactive agent [ ]iii) Need for invasive hemodynamic monitoring (eg, central venous, pulmonary artery, or arterial catheter) [ ]iv) Hypoxemia with partial pressure of oxygen less than 40 mm Hg (5.3 kPa) [ ]v) Worsening hypoxemia or acidosis despite oxygen therapy [ ]vi) Need for assisted ventilation [ ]vii) Need for right ventricular assist device [ ]viii) Unstable atrial tachyarrhythmia [ ]ix) Need for inhaled nitric oxide [ ]d) Aspiration pneumonia with ANY ONE of the following(78): [ ]i) Acute respiratory distress syndrome (PaO2/FiO2 ratio of 300 or less) [ ]ii) Impending or actual respiratory arrest [ ]iii) Need for invasive or noninvasive mechanical ventilation [ ]e) Pneumocystis jiroveci pneumonia with ANY ONE of the following(79): [ ]i) Impending or actual respiratory arrest [ ]ii) Hypoxia (eg, PO260 mmGh (8.0 kPa) or less despite oxygen therapy) [ ]iii) Need for invasive or noninvasive mechanical ventilation [ ]f) Pneumonia with ANY ONE of the following(80)(81)(82): [ ]i) Need for invasive or noninvasive assisted ventilation [ ]ii) Hemodynamic instability [ ]iii) Severity factors as indicated by 3 or MORE of the following: [ ]1) Respiratory rate 30 breaths per minute or greater [ ]2) PaO2/FiO2 ratio of 250 or less [ ]3) Multilobed infiltrates [ ]4) Altered mental status [ ]5) BUN 20 mg/dL (7.1 mmol/L) or greater [ ]6) WBC count less than 4000/mm3 (4 x109/L) [ ]7) Platelet count <100,000/mm3 (100 x109/L) [ ]8) Temperature less than 36 degrees C (96.8 degrees F ) [ ]9) Hypotension requiring aggressive fluid resuscitation [ ]g) Pulmonary hypertension requiring initiation of parenteral pulmonary vasodilator or trial of inhaled nitric oxide (eg, need for right heart catheterization)(76) [ ]h) Impending respiratory failure as indicated by ANY ONE of the following: [ ]i) Respiratory rate greater than 30 or partial pressure of oxygen less than 60 mm Hg (8.0 kPa) on 50% oxygen or more [ ]ii) Partial pressure of carbon dioxide greater than 45 mm Hg (6.0 kPa) with pH less than 7.35 [ ]i) Respiratory failure with ANY ONE of the following (47): [ ]i) Need for invasive or noninvasive mechanical ventilation [ ]ii) High likelihood of requiring mechanical ventilation within 24 hours [ ]iii) Observation in the first several hours immediately after extubation from mechanical ventilation [ ]iv) Need for close observation and aggressive therapy, such as suctioning, chest physiotherapy, or inhalation treatments at intervals less than 1 hour [ ]v) Pharmacologic ventilatory paralysis [ ]j) Venous thromboembolism with need for systemic or catheter- directed thrombolysis (eg, for limb-threatening thrombosis, phlegmasia cerulea dolens) (83) [ ]k) Pulmonary embolus with ANY ONE of the following(83): [ ]i) Hypotension [ ]ii) Severe hypoxia [ ]iii) Dangerous arrhythmia [ ]iv) Bleeding [ ]v) Need for systemic or catheter-directed thrombolysis [ ]l) Lobectomy or other major thoracic surgery [ ]m) Lung transplant [ ]n) Symptomatic upper airway obstruction (eg, laryngeal edema, mass) [ ]o) Massive hemoptysis [ ]p) Infection or thrombosis of an intravenous device with ANY ONE of the following(6)(84): [ ]i) Hemodynamic instability [ ]ii) Requirement for frequent hemodynamic measurements [ ]iii) Shock [ ]iv) End organ dysfunction [ ] v) Acute renal failure due to missed dialysis [ ]vi) Unstable acute complication (eg, pericardial tamponade , tension pneumothorax) [ ]q) Traumatic rib fracture or fractures with ANY ONE of the following(85): [ ]i) Injury severity score of 19 or greater [ ]ii) Respiratory insufficiency [ ]iii) Flail chest [ ]iv) Sternum fracture [ ]v) Vascular injury (eg, heart or great vessels) [ ]r) Pleural effusion with ANY ONE of the following(86): [ ]i) Respiratory insufficiency [ ]ii) Hemothorax with active ongoing bleeding [ ]iii) Hemodynamic instability [ ]iv) Unstable comorbid condition (eg, sepsis or heart failure [ ]XX. Urology diagnoses or procedures, including ANY ONE of the following ( 87)(88): [ ]a) Renal transplant [ ]b) Complications of any surgery requiring ICU intervention as indicated by ANY ONE of the following: [ ]i) Hemodynamic instability [ ]ii) VT with complications (eg, severe arrhythmia, hypotension) [ ]iii) Excessive bleeding or severe coagulopathy [ ]iv) Respiratory failure [ ]v) Renal failure [ ]vi) Airway instability or obstruction [ ]vii) Neurologic deterioration [ ]viii) Infection with likelihood of sepsis syndrome or significant fluid shifts [ ]c) Preoperative or postoperative patients requiring ICU intervention , such as hemodynamic optimization, pulmonary artery monitoring, mechanical ventilation , or extensive nursing care [ ]XXI.Infectious Disease diagnoses or procedures, with ANY ONE of the following (6)(43): [ ]a) Hemodynamic instability [ ]b) Shock [ ]c) Requirement for frequent hemodynamic measurements (eg, arterial catheter, pulmonary artery catheter) [ ]d) Sepsis or suspected sepsis with end organ dysfunction (eg, acute kidney injury, acute respiratory distress syndrome) [ ]e) Necrotizing soft tissue infection [ ] XXII.Hematology - Oncology diagnoses or procedures, including chemotherapy administration with ANY ONE of the following(42): [ ]a) Hemodynamic instability [ ]b) Tumor lysis syndrome with ANY ONE of the following : [ ]1) Acute kidney injury [ ]2) Severe electrolyte abnormality [ ]3) Cardiac dysrhythmia [ ]XXIII. Systemic conditions, including ANY ONE of the following: [ ]a) Severe electrolyte or metabolic disturbance causing or likely to cause ANY ONE of the following(10)(89)(90): [ ]i) Life-threatening cardiac dysrhythmia [ ]ii) Respiratory insufficiency [ ]iii) Altered mental status [ ]iv) Seizures [ ]v) Hemodynamic instability [ ]vi) Muscular weakness [ ]b) Environmental injuries such as hypothermia, hyperthermia, electrical injuries, or near drowning(70)(91)(92) The original [facility] content created by [employer] has been revised. The portions of the content which have been revised are identified through the use of italic text or in bold, and [facility] has neither reviewed nor approved the modified material. All other unmodified content is copyright [facility]. Please see references footnoted in the original [facility] [employer] edition 2016 Admission Criteria Met?: Yes RICHARD BLANKENSHIP Mar 03, 2017 15:05
[2017-03-03] MEDS: NOREPINEPHRINE VIAL 8 MG in IV NORMAL SALINE 250ML 250 ML IV PRN (15:07)
--- NOTE | 2017-03-03 16:28 | CARD ---
APPROVED REPORT EXAM: Two-dimensional and M-mode echocardiogram with Doppler and color Doppler. Other Information Quality : LimitedHR: 97bpm Rhythm : NSR INDICATION Cardiac arrest, Hypotension, Evaluation for LV EF RISK FACTORS Obesity 2D DIMENSIONS IVSd2.0 (0.7-1.1cm)LVDd5.2 (3.9-5.9cm) PWd1.0 (0.7-1.1cm)LVDs2.9 (2.5-4.0cm) FS (%) 54.3 %SV109.3 ml LVEF(%)84.8 (>50%) LEFT VENTRICLE The left ventricle is normal size. There is normal left ventricular wall thickness. Left ventricle sy stolic function is normal. The Ejection Fraction is >55%. Suboptimal images to assess LV wall motion. AORTIC VALVE Not assessed at time of exam. MITRAL VALVE Not assessed at time of exam. TRICUSPID VALVE Not assessed at time of exam. PULMONIC VALVE Not assessed at time of exam. GREAT VESSELS Not assessed at time of exam. PERICARDIAL EFFUSION There is no evidence of significant pericardial effusion. Critical Notification Critical Value: No <Conclusion> Left ventricle systolic function is normal. The Ejection Fraction is >55%. Suboptimal images to assess LV wall motion. Limited study for LVEF only.
--- NOTE | 2017-03-03 16:34 | RAD ---
AP portable chest radiograph 03/03/2017 Clinical History: Post line placement. An AP portable erect digital radiograph of the chest was obtained. Comparison study is dated earlier today at 1317 hours.. The patient is status post CABG procedure. The ET tube and NG tube are unchanged in position. A right internal jugular central venous catheters been placed. The tip of this catheter extends to overlie the right atrium of the heart. Surgical clips overlie the right axilla. Left perihilar infiltrate is noted. The cardiac silhouette is mild to moderately enlarged. The thoracic aorta is tortuous. No pneumothorax or pleural effusion is seen. The osseous structures are unchanged. Impression: Interval placement of a right internal jugular central venous catheter. The tip of this catheter extends to overlie the right atrium of the heart. No pneumothorax is seen.
[2017-03-03 16:46] LABS: BARBITURATES NEG (NEG); BENZODIAZEPINES NEG (NEG); CANNABINOIDS NEG (NEG); COCAINE NEG (NEG); ETHANOL, URINE NEG (NEG); METHADONE NEG (NEG); OPIATES NEG (NEG); PHENCYCLIDINE NEG (NEG)
[2017-03-03] MEDS ORDERED: IV NORMAL SALINE 1000ML BAG 1,000 ML IV SCH (16:49)
[2017-03-03] MEDS ORDERED: POTASSIUM CHLORIDE 10MEQ 100 ML IV SCH (17:00)
[2017-03-03] MEDS ORDERED: POTASSIUM CHLORIDE 10MEQ 100 ML IV PRN ×5 (17:00)
[2017-03-03] MEDS ORDERED: VANCOMYCIN PER PHARMACY MC PRN (17:00)
--- NOTE | 2017-03-03 17:25 | PDOC ---
Provider Note Provider Note Pt seen in ER. critical care 42 [facility] coordinating care. H&P dictated. #[id number] PRINCE GIRARD MD Mar 03, 2017 17:25
[2017-03-03] MEDS ORDERED: ERTAPENEM 1 GM in IV NORMAL SALINE 50ML 50 ML IV SCH (17:30)
[2017-03-03 17:36] LABS: ALBUMIN 2.7 g/dL (3.4-5.0); ALBUMIN/GLOBULIN RATIO 0.6 (1.0-1.7); CALCIUM 8.1 mg/dL (8.5-10.1); CREATININE 3.3 mg/dL (0.7-1.3); GFR 25.9; PHOSPHORUS 2.2 mg/dL (2.6-4.7); TOTAL BILIRUBIN 0.2 mg/dL (0.2-1.0); TOTAL PROTEIN 7.6 g/dL (6.4-8.2)
--- NOTE | 2017-03-03 17:36 | RAD ---
PROCEDURE CT head without contrast. HISTORY Altered mental status. Post code. TECHNIQUE Helical CT imaging of the brain is performed without IV contrast. PQRS: One or more the following individualized dose reduction techniques were utilized for the study: 1. Automated exposure control. 2. Adjustment of the mA and/or kV according to patient size. 3. Use of iterative reconstruction technique. COMPARISON CT head without contrast January 13, 2009. FINDINGS There is no midline shift or mass effect. No extra-axial fluid collection or intraparenchymal hemorrhage. Duran-white matter differentiation is preserved. Ventricles and sulci are normal for patient age. Small right anterior middle cranial fossa arachnoid cyst is stable. The visualized paranasal sinuses and mastoid air cells are clear. The globes and orbits appear intact. No acute calvarial abnormality. IMPRESSION No acute intracranial abnormality. Electronically signed by: David Regan MD (Mar 03, 2017 17:35:51)
[2017-03-03] MEDS ORDERED: MIDAZOLAM HCL/PF 5 MG/5 ML VIAL. ONE (17:40)
[2017-03-03] MEDS ORDERED: VANCOMYCIN 2 GM in IV NORMAL SALINE 500ML BAG 500 ML IV ONE (18:00)
[2017-03-03] MEDS ORDERED: MIDAZOLAM PREMIX 100 ML IV PRN (18:15)
[2017-03-03] MEDS: POTASSIUM CHLORIDE 20MEQ 50 ML IV SCH ×4 (18:40→23:52)
[2017-03-03 18:42] LABS: ALBUMIN 2.7 g/dL (3.4-5.0); DIRECT BILIRUBIN 0.1 mg/dL (0.0-0.2); TOTAL BILIRUBIN 0.2 mg/dL (0.2-1.0); TOTAL PROTEIN 7.6 g/dL (6.4-8.2)
[2017-03-03 18:44] LABS: CHOLESTEROL/HDL RATIO 11.9
[2017-03-03 19:00] VITALS: BP 92/46
[2017-03-03 20:00] VITALS: BP 105/51
[2017-03-03 21:00] VITALS: BP 106/52
[2017-03-03] MEDS ORDERED: ENOXAPARIN 40 MG/0.4 ML SYRINGE. SQ SCH (21:00)
[2017-03-03 21:10] LABS: CALCIUM 7.7 mg/dL (8.5-10.1)
[2017-03-03 21:11] LABS: CREATININE 2.9 mg/dL (0.7-1.3); GFR 30.1; POTASSIUM 2.3 mmol/L (3.5-5.1)
[2017-03-03 21:12] LABS: MAGNESIUM 2.4 mg/dL (1.8-2.4); PHOSPHORUS 1.9 mg/dL (2.6-4.7)
[2017-03-03 22:00] VITALS: BP 77/40
[2017-03-03 22:21] LABS: BILIRUBIN,URINE NEGATIVE (NEG); GLUCOSE,URINE >=1000 mg/dL (NEG); NITRITE,URINE NEGATIVE (NEG); PROTEIN,URINE 30 mg/dL (NEG-TRACE); UROBILINOGEN,URINE 0.2 mg/dL (0.2 mg/dL)
[2017-03-03 22:29] LABS: BACTERIA,URINE FEW /HPF (0-FEW); SQUAMOUS EPITHELIAL CELL,UR OCC /LPF
[2017-03-03 23:00] VITALS: BP 102/54
[2017-03-03] MEDS ORDERED: ACETAMINOPHEN 325 MG SUPP.RECT. PR PRN (23:15)
[2017-03-03] MEDS ORDERED: POTASSIUM PHOSPHATE DIBASIC 40 MMOL in IV NORMAL SALINE 250ML 250 ML IV ONE (23:30)
--- NOTE | 2017-03-03 23:39 | RAD ---
INDICATION: Leg swelling with history of deep vein thrombosis and inferior vena cava filter COMPARISON: None TECHNIQUE: Grayscale, color and spectral doppler ultrasound images are obtained through the bilateral leg deep venous system. FINDINGS: Vascular flow is seen in the right common femoral, superficial femoral, popliteal and visualized calf veins. There is a thrombus seen in the left superficial femoral and popliteal vein. The left calf veins are not well seen. Common femoral vein patent. IMPRESSION: Thrombus is identified within the left leg deep venous system. Electronically signed by: Shady Hampton (Mar 03, 2017 23:38:35)
--- NOTE | 2017-03-03 23:41 | RAD ---
INDICATION: Elevated creatinine COMPARISON: None TECHNIQUE: Ultrasound images obtained of the bilateral kidneys. FINDINGS: No gross hydronephrosis of the right kidney. No gross hydronephrosis of the left kidney. Bladder largely decompressed with catheter. IMPRESSION: No gross hydronephrosis. The renal cortex is prominent bilaterally. This could be the patient's baseline but cannot exclude edema to the region. Partially visualized liver is echogenic. Nonspecific but can be seen with fatty infiltration. Electronically signed by: Shady Hampton (Mar 03, 2017 23:40:07)
[2017-03-03] MEDS: POTASSIUM CHLORIDE 20MEQ 50 ML IV PRN (23:52)
[2017-03-04] VITALS (24 sets, daily range): BP systolic 86–156; BP diastolic 51–103
--- NOTE | 2017-03-04 01:10 | HP ---
ADMIT DATE: 03/03/2017 LOCATION: Emergency Room. REASON FOR ADMISSION TO THE HOSPITAL: Cardiac arrest. HISTORY OF PRESENT ILLNESS: The patient is a 36-year-old male. The patient is known to me in last one year. The patient has a history of aortic valve surgery at least three valve surgeries in the last year of 01/2006. 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 He was in the and that was a four surgery he had related to heart as well as major blood vessels. At that time, the patient sustained paraplegia and he has been wheelchair since then and he also has problems with bladder, and self-catheterization, history of hypertension, diabetes on metformin and neuropathic pain as well as chronic pain - on pain medications. The patient was on Coumadin for anticoagulation and yesterday as per the patient's girlfriend; the patient has been not doing well for last 4-5 days. He has been having cough, congestion, and weak and easily able to transfer himself from wheelchair to the bed, but yesterday he was weak that they had to have four people to transfer him from the wheelchair to the bed and this morning he was having more problems with breathing and the girlfriend called paramedics. By the time he came in he was having problems with breathing and that intubating him and he had lost his pulse and heart, had to CPR and was brought in to the hospital. Once he was seen in the ER, he was stabilized the sugar was found to be 2000 and the patient was placed on vent and routine labs showed the sugar of close to 2000. The patient was started on insulin drip and was admitted to the ICU. Cardiology was consulted as well as critical care and also renal to help with the electrode imbalance and his creatinine was high around 3, normally does not have major kidney problems. PAST SURGICAL HISTORY: He had angioplasty of the mesenteric arteries, wrist fracture, had aortic valve surgery at least two or three and last one had an aortic rupture, descending aortic, had a major repair and he had complications followed including paraplegia and he has a history of diabetes, hypertension, and neuropathy. ALLERGIES: CONTRAST IVP DYE. MEDICATIONS: At the office he was on metformin twice a day 850 mg, Lasix 40 mg daily, Reglan, metoprolol 25 mg half a tablet twice a day, Protonix 40 mg daily, Zyrtec 10 mg daily, Flonase once daily, gabapentin 100 mg 3 times daily, and oxycodone one q6. PERSONAL HISTORY: Smokes 1 pack. 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 PHYSICAL EXAMINATION: GENERAL: The patient is unresponsive on ventilator. Pupils small and not reactive. VITAL SIGNS: Temperature 98, pulse 126, respirations 24, and 98% oximetry. HEENT: Head is atraumatic, orally intubated. NECK: No masses. CHEST: Scar in the sternum. CARDIOVASCULAR: S1, S2. LUNGS: Diminished breath sounds. ABDOMEN: Soft. EXTERNAL GENITALIA: Lacey placed. RECTAL: Deferred. EXTREMITIES: The patient has 1-2+ edema. The patient is paraplegic, has a sore over the sacral area, did not examine. LABORATORY DATA: Shows a white count of 9, hemoglobin 11, and platelets 244. Electrolytes show sodium 135, potassium 2.8, chloride 93, bicarbonate 21, anion gap 21, BUN 51, creatinine 3.4, glucose 2183, calcium 8.1. INR 1.5. Blood gas shows pH of 7.31, pCO2 of 33, pO2 373, bicarbonate 17, INR 1.5. Toxicology; urine was negative. DIAGNOSTIC DATA: Chest x-ray: ET tube in place, mild cardiomegaly. Stat echo shows a good left ventricular function. FINAL IMPRESSION: 1. Status post code blue, outside the hospital. 2. Fever and uncontrolled diabetes. Blood sugars 2000 range. 3. Metabolic acidosis. 4. 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 5. Resulting paraplegia. 6. Sacral ulcer+rt heal ulcer. 7. Self insertion of urinary catheter for blader retention. PLAN: At this time, was admitted to the hospital, was given IV fluids, insulin drip, and was intubated on a ventilator. We will have DKA protocol and we will also consult renal and also acute renal failure and also serial cardiac enzymes, EKG, blood cultures, urine cultures, started on broad spectrum antibiotics and see if the patient's condition improves. The patient is critically ill.Spoke with pts girl friend. ER doctor and renal , discussed electrolyte imbalance.critical care , spent 47 mts coordinating care. PRINCE GIRARD MD DR: CHETNA/miracle JOB#: [id number] / [id number] MARINO
[2017-03-04] MEDS: IV 1/2 NORMAL SALINE 1,000 ML IV SCH ×3 (01:17→10:24)
[2017-03-04] MEDS: NOREPINEPHRINE VIAL 8 MG in IV NORMAL SALINE 250ML 250 ML IV PRN (01:47)
[2017-03-04 01:54] LABS: CALCIUM 7.9 mg/dL (8.5-10.1); CREATININE 2.1 mg/dL (0.7-1.3); GFR 43.7; MAGNESIUM 2.1 mg/dL (1.8-2.4); PHOSPHORUS 2.1 mg/dL (2.6-4.7); POTASSIUM 3.2 mmol/L (3.5-5.1)
[2017-03-04] MEDS: ANTI-COAG MONITOR BY PHARMACY. MC PRN (03:30)
[2017-03-04] MEDS: POTASSIUM CHLORIDE 20MEQ 50 ML IV PRN ×3 (03:38→06:59)
[2017-03-04 04:47] LABS: BASO % 0 % (0-3); EOS % 0 % (0-3); HEMATOCRIT 38.2 % (39.0-53.0); HEMOGLOBIN 11.7 g/dL (13.0-17.5); LYMPH # 1.4 x10^3/uL (1.0-4.8); LYMPH % 11 % (24-48); MEAN CORPUSCULAR HEMOGLOBIN 24 pg (25-35); MEAN CORPUSCULAR HGB CONC 31 g/dL (31-37); MEAN CORPUSCULAR VOLUME 79 fL (79-100); MONO % 11 % (0-9); NEUT % 78 % (31-73); PLATELET COUNT 223 x10^3/uL (140-400); RED BLOOD COUNT 4.84 x10^6/uL (4.30-5.70); RED CELL DISTRIBUTION WIDTH 15.9 % (11.5-14.5); WHITE BLOOD COUNT 13.7 x10^3/uL (4.0-11.0)
[2017-03-04 05:13] LABS: ALBUMIN 2.6 g/dL (3.4-5.0); ALBUMIN/GLOBULIN RATIO 0.5 (1.0-1.7); CALCIUM 7.8 mg/dL (8.5-10.1); CREATININE 1.9 mg/dL (0.7-1.3); GFR 49.1; PHOSPHORUS 3.2 mg/dL (2.6-4.7); POTASSIUM 3.8 mmol/L (3.5-5.1); TOTAL BILIRUBIN 0.3 mg/dL (0.2-1.0); TOTAL PROTEIN 7.8 g/dL (6.4-8.2)
[2017-03-04 07:43] LABS: HCO3 ABG 22 mmol/L (21-28); PCO2 ABG 32 mmHg (35-46); PH ABG 7.45 (7.35-7.45); PO2 ABG 87 mmHg (85-108); SAT O2 ABG 97 % (92-99)
[2017-03-04 07:45] LABS: FIO2 ABG 40
--- NOTE | 2017-03-04 08:42 | PDOC ---
Infectious Disease Note Vital Sign Vital Signs Vital Signs Date Time Temp Pulse Resp B/P Pulse Ox O2 Delivery O2 Flow Rate FiO2 03/04/17 08:00 102.0 124 24 104/75 99 Ventilator 102.0 03/03/17 12:33 15 Labs Lab Laboratory Tests Test 03/03/17 12:55 03/03/17 13:07 03/03/17 13:20 03/03/17 14:28 White Blood Count 9.7x10^3/uL (4.0-11.0) Red Blood Count 4.58x10^6/uL (4.30-5.70) Hemoglobin 11.4g/dL (13.0-17.5) Hematocrit 45.1% (39.0-53.0) Mean Corpuscular Volume 98fL (79-100) Mean Corpuscular Hemoglobin 25pg (25-35) Mean Corpuscular Hemoglobin Concent 25g/dL (31-37) Red Cell Distribution Width 17.8% (11.5-14.5) Platelet Count 244x10^3/uL (140-400) Neutrophils (%) (Auto) 75% (31-73) Lymphocytes (%) (Auto) 19% (24-48) Monocytes (%) (Auto) 6% (0-9) Eosinophils (%) (Auto) 0% (0-3) Basophils (%) (Auto) 0% (0-3) Neutrophils # (Auto) 7.3x10^3uL (1.8-7.7) Lymphocytes # (Auto) 1.8x10^3/uL (1.0-4.8) Monocytes # (Auto) 0.6x10^3/uL (0.0-1.1) Eosinophils # (Auto) 0.0x10^3/uL (0.0-0.7) Basophils # (Auto) 0.0x10^3/uL (0.0-0.2) Prothrombin Time 16.8SEC (11.7-14.0) Prothromb Time International Ratio 1.5 (0.8-1.1) Sodium Level 135mmol/L (136-145) Potassium Level 2.8mmol/L (3.5-5.1) Chloride Level 93mmol/L (98-107) Carbon Dioxide Level 21mmol/L (21-32) Anion Gap 21 (6-14) Blood Urea Nitrogen 51mg/dL (8-26) Creatinine 3.4mg/dL (0.7-1.3) Estimated GFR (Cockcroft-Gault) 25.1 Glucose Level 2183mg/dL (70-99) 2003mg/dL (70-99) Hemoglobin A1c 10.0% (4.8-5.6) Calcium Level 8.1mg/dL (8.5-10.1) Troponin I Quantitative < 0.017ng/mL (0.000-0.055) XO-Nia-C-Type Natriuretic Peptide 930pg/mL (0-124) Urine Opiates Screen Neg (NEG) Urine Methadone Screen Neg (NEG) Urine Barbiturates Neg (NEG) Urine Phencyclidine Screen Neg (NEG) Urine Amphetamine/Methamphetamine Neg (NEG) Urine Benzodiazepines Screen Neg (NEG) Urine Cocaine Screen Neg (NEG) Urine Cannabinoids Screen Neg (NEG) Urine Ethyl Alcohol Neg (NEG) O2 Saturation 99% (92-99) Arterial Blood pH 7.31 (7.35-7.45) Arterial Blood pCO2 at Patient Temp 33mmHg (35-46) Arterial Blood pO2 at Patient Temp 373mmHg (85-108) Arterial Blood HCO3 16mmol/L (21-28) Arterial Blood Base Excess -9mmol/L (-3-3) FiO2 100 Serum Osmolality 429mOsm/Kg (279-304) Test 03/03/17 16:31 03/03/17 18:58 03/03/17 19:00 03/03/17 21:00 Sodium Level 140mmol/L (136-145) 148mmol/L (136-145) Potassium Level 2.0mmol/L (3.5-5.1) 2.3mmol/L (3.5-5.1) Chloride Level 99mmol/L (98-107) 106mmol/L (98-107) Carbon Dioxide Level 22mmol/L (21-32) 24mmol/L (21-32) Anion Gap 19 (6-14) 18 (6-14) Blood Urea Nitrogen 52mg/dL (8-26) 49mg/dL (8-26) Creatinine 3.3mg/dL (0.7-1.3) 2.9mg/dL (0.7-1.3) Estimated GFR (Cockcroft-Gault) 25.9 30.1 BUN/Creatinine Ratio 16 (6-20) Glucose Level 1704mg/dL (70-99) 1356mg/dL (70-99) 1037mg/dL (70-99) Calcium Level 8.1mg/dL (8.5-10.1) 7.7mg/dL (8.5-10.1) Phosphorus Level 2.2mg/dL (2.6-4.7) 1.9mg/dL (2.6-4.7) Magnesium Level 2.4mg/dL (1.8-2.4) 2.4mg/dL (1.8-2.4) Total Bilirubin 0.2mg/dL (0.2-1.0) Direct Bilirubin 0.1mg/dL (0.0-0.2) Aspartate Amino Transf (AST/SGOT) 44U/L (15-37) Alanine Aminotransferase (ALT/SGPT) 56U/L (16-63) Alkaline Phosphatase 134U/L (46-116) Total Protein 7.6g/dL (6.4-8.2) Albumin 2.7g/dL (3.4-5.0) Albumin/Globulin Ratio 0.6 (1.0-1.7) Triglycerides Level 304mg/dL (0-150) Cholesterol Level 166mg/dL (0-200) LDL Cholesterol, Calculated 91mg/dL (0-100) VLDL Cholesterol, Calculated 61mg/dL (0-40) HDL Cholesterol 14mg/dL (40-60) Cholesterol/HDL Ratio 11.9 Thyroid Stimulating Hormone (TSH) 0.555uIU/mL (0.358-3.74) Lactic Acid Level 6.7mmol/L (0.4-2.0) Procalcitonin 6.82ng/mL (0.00-0.10) Serum Osmolality 400mOsm/Kg (279-304) Test 03/03/17 22:00 03/03/17 23:30 03/04/17 01:15 03/04/17 01:30 Urine Collection Type Unknown Urine Color Yellow Urine Clarity Clear Urine pH 6.0 Urine Specific Gunter 1.020 Urine Protein 30mg/dL (NEG-TRACE) Urine Glucose (UA) >=1000mg/dL (NEG) Urine Ketones (Stick) Negativemg/dL (NEG) Urine Blood Large (NEG) Urine Nitrite Negative (NEG) Urine Bilirubin Negative (NEG) Urine Urobilinogen Dipstick 0.2mg/dL (0.2 mg/dL) Urine Leukocyte Esterase Small (NEG) Urine RBC 3-5/HPF (0-2) Urine WBC 11-20/HPF (0-4) Urine Squamous Epithelial Cells Occ/LPF Urine Bacteria Few/HPF (0-FEW) Urine Mucus Slight/LPF Glucose Level 804mg/dL (70-99) 641mg/dL (70-99) Sodium Level 158mmol/L (136-145) Potassium Level 3.2mmol/L (3.5-5.1) Chloride Level 119mmol/L (98-107) Carbon Dioxide Level 25mmol/L (21-32) Anion Gap 14 (6-14) Blood Urea Nitrogen 38mg/dL (8-26) Creatinine 2.1mg/dL (0.7-1.3) Estimated GFR (Cockcroft-Gault) 43.7 Lactic Acid Level 5.6mmol/L (0.4-2.0) Calcium Level 7.9mg/dL (8.5-10.1) Phosphorus Level 2.1mg/dL (2.6-4.7) Magnesium Level 2.1mg/dL (1.8-2.4) Serum Osmolality 368mOsm/Kg (279-304) Test 03/04/17 03:28 03/04/17 04:25 03/04/17 04:30 03/04/17 05:42 Glucose (Fingerstick) 490mg/dL (70-99) 439mg/dL (70-99) 440mg/dL (70-99) White Blood Count 13.7x10^3/uL (4.0-11.0) Red Blood Count 4.84x10^6/uL (4.30-5.70) Hemoglobin 11.7g/dL (13.0-17.5) Hematocrit 38.2% (39.0-53.0) Mean Corpuscular Volume 79fL (79-100) Mean Corpuscular Hemoglobin 24pg (25-35) Mean Corpuscular Hemoglobin Concent 31g/dL (31-37) Red Cell Distribution Width 15.9% (11.5-14.5) Platelet Count 223x10^3/uL (140-400) Neutrophils (%) (Auto) 78% (31-73) Lymphocytes (%) (Auto) 11% (24-48) Monocytes (%) (Auto) 11% (0-9) Eosinophils (%) (Auto) 0% (0-3) Basophils (%) (Auto) 0% (0-3) Neutrophils # (Auto) 10.7x10^3uL (1.8-7.7) Lymphocytes # (Auto) 1.4x10^3/uL (1.0-4.8) Monocytes # (Auto) 1.5x10^3/uL (0.0-1.1) Eosinophils # (Auto) 0.0x10^3/uL (0.0-0.7) Basophils # (Auto) 0.0x10^3/uL (0.0-0.2) Sodium Level 159mmol/L (136-145) Potassium Level 3.8mmol/L (3.5-5.1) Chloride Level 121mmol/L (98-107) Carbon Dioxide Level 23mmol/L (21-32) Anion Gap 15 (6-14) Blood Urea Nitrogen 34mg/dL (8-26) Creatinine 1.9mg/dL (0.7-1.3) Estimated GFR (Cockcroft-Gault) 49.1 BUN/Creatinine Ratio 18 (6-20) Glucose Level 472mg/dL (70-99) Serum Osmolality 357mOsm/Kg (279-304) Calcium Level 7.8mg/dL (8.5-10.1) Phosphorus Level 3.2mg/dL (2.6-4.7) Magnesium Level 2.0mg/dL (1.8-2.4) Total Bilirubin 0.3mg/dL (0.2-1.0) Aspartate Amino Transf (AST/SGOT) 37U/L (15-37) Alanine Aminotransferase (ALT/SGPT) 50U/L (16-63) Alkaline Phosphatase 138U/L (46-116) Total Protein 7.8g/dL (6.4-8.2) Albumin 2.6g/dL (3.4-5.0) Albumin/Globulin Ratio 0.5 (1.0-1.7) Test 03/04/17 06:56 03/04/17 08:00 Glucose (Fingerstick) 402mg/dL (70-99) O2 Saturation 97% (92-99) Arterial Blood pH 7.45 (7.35-7.45) Arterial Blood pCO2 at Patient Temp 32mmHg (35-46) Arterial Blood pO2 at Patient Temp 87mmHg (85-108) Arterial Blood HCO3 22mmol/L (21-28) Arterial Blood Base Excess -2mmol/L (-3-3) FiO2 40 Objective Assessment Hyperosmolar coma S/P Code blue Lactic acidosis Leukocytosis and fever DM Sacral decub Carlos heel wounds , left much worse Paraplegia JEFFERY Plan Plan of Care change vanc and invanz to zosyn and zyvox supportive care off load BS control prognosis poor HUBER LLOYD MD Mar 04, 2017 08:42
[2017-03-04] MEDS ORDERED: AMIODARONE 150 MG/3 ML VIAL ONE (10:00)
[2017-03-04] MEDS ORDERED: DOPAMINE 400MG/250ML PREMIX BAG. IV ONE (10:00)
[2017-03-04] MEDS ORDERED: MAGNESIUM SULFATE PREMIX 1 GM/100 ML BAG. IV ONE (10:00)
[2017-03-04] MEDS ORDERED: SODIUM BICARB ADULT 8.4% 50 MEQ/50 ML DISP.SYRIN. ONE (10:00)
[2017-03-04] MEDS ORDERED: EPINEPHRINE 1 MG/ML VIAL. ONE (10:00)
[2017-03-04 10:17] LABS: CREATININE 1.8 mg/dL (0.7-1.3); GFR 52.2; PHOSPHORUS 2.1 mg/dL (2.6-4.7); POTASSIUM 3.5 mmol/L (3.5-5.1)
[2017-03-04] MEDS: PIPERACILLIN/TAZOBACTAM 3.375 GM in IV NORMAL SALINE 50ML 50 ML IV SCH ×3 (10:19→21:22)
--- NOTE | 2017-03-04 11:05 | PDOC2 ---
CONSULT Date of Consult Date of Consult DATE: 03/04/17 TIME: 10:59 Reason for Consult Reason for Consult: JEFFERY Referring Physician Referring Physician: SHAJI Identification/Chief Complaint Chief Complaint CONFUSION Source Source: Chart review History of Present Illness Reason for Visit: THIS IS A 36 YR OLD ADMITTED WITH CONFUSION AND THEN ARREST. HE IS NOW IN THE ICU ON THE [facility]. HE HAS JEFFERY. HE ALSO HAS CKD WITH CR OF 1.5. ON ADMIT HIS BLOOD GLUCOSE IS OVER 2000!. ACCORDING HIS FATHER PT HAS BEEN SOMEWHAT CONFUSED FOR COUPLE DAYS. 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 4 cardiac surgeries; repair of fractured leg with pins) Family History Family History: Diabetes, Hypertension Social History <1 pack per day (1/2 ppd) ALCOHOL: none Drugs: None Lives: Friends Current Problem List Problem List Problems Medical Problems: (1) Acute respiratory failure Status: Acute (2) Acute respiratory failure Status: Acute (3) Cardiac arrest Status: Acute (4) Hyperglycemia Status: Acute Current Medications Current Medications Current Medications Midazolam HCl 100 ml @ 0 mls/hr 1X ONCE IV Last administered on 03/03/17 14: 42; Start 03/03/17 at 13:45; Stop 03/03/17 at 13:46; Status DC Sodium Bicarbonate/ Sodium Chloride (Iv Sodium Chloride 0.45%) 1,150 ml @ 125 mls/hr 1X ONCE IV Last administered on 03/03/17 18:40; Start 03/03/17 at 13: 45; Stop 03/03/17 at 22:56; Status DC Etomidate (Amidate) 20 mg STK-MED ONCE IV ; Start 03/03/17 at 13:35; Stop at 13:36; Status DC Insulin Human Regular 10 unit 10 unit 1X ONCE IV Last administered on 14:37; Start 03/03/17 at 14:45; Stop 03/03/17 at 14:46; Status DC Insulin Human Regular 150 unit/ Sodium Chloride 151.5 ml @ 0 mls/hr CONT PRN IV SEE I/O RECORD; Start 03/03/17 at 14:00; Stop 03/03/17 at 17:20; Status DC Insulin Human Regular 150 ml @ As Directed STK-MED ONCE IV ; Start 03/03/17 at 14:05; Stop 03/03/17 at 14:06; Status DC Potassium Chloride 100 ml @ 100 mls/hr Q1H IV ; Start 03/03/17 at 17:00; Stop 03/03/17 at 17:43; Status DC Sodium Chloride 1,000 ml @ 1,000 mls/hr Q1H IV ; Start 03/03/17 at 16:49; Stop 03/03/17 at 17:48; Status DC Insulin Human Regular 150 unit/ Sodium Chloride 151.5 ml @ 0 mls/hr CONT PRN PRN IV PER PROTOCOL; Start 03/03/17 at 17:00; Stop 03/03/17 at 17:20; Status DC Potassium Chloride 100 ml @ 100 mls/hr PRN Q1HR PRN IV SEE COMMENTS Last administered on 03/04/17 01:35; Start 03/03/17 at 17:00 Potassium Chloride 100 ml @ 100 mls/hr PRN Q1HR PRN IV SEE COMMENTS; Start at 17:00 Potassium Chloride 100 ml @ 100 mls/hr PRN Q1HR PRN IV SEE COMMENTS; Start at 17:00 Insulin Human Regular 150 unit/ Sodium Chloride 151.5 ml @ 0 mls/hr CONT PRN PRN IV PER PROTOCOL; Start 03/03/17 at 17:00 Potassium Chloride 100 ml @ 100 mls/hr PRN Q1HR PRN IV SEE COMMENTS; Start at 17:00; Stop 03/03/17 at 20:11; Status DC Potassium Chloride 100 ml @ 100 mls/hr PRN Q1HR PRN IV SEE COMMENTS; Start at 17:00; Stop 03/03/17 at 20:11; Status DC Potassium Chloride 100 ml @ 100 mls/hr PRN Q1HR PRN IV SEE COMMENTS; Start at 17:00; Stop 03/03/17 at 20:12; Status DC Vancomycin HCl/ Sodium Chloride (Iv Sodium Chloride 0.9% 500ml Bag) 500 ml @ 250 mls/hr 1X ONCE IV Last administered on 03/03/17t 18:33; Start 03/03/17 at 18:00; Stop 03/03/17 at 19:59; Status DC Vancomycin HCl 1 each 1 each PRN DAILY PRN MC SEE COMMENTS Last administered on 03/03/17 20:02; Start 03/03/17 at 17:00; Stop 03/04/17 at 08:51; Status DC Ertapenem/Sodium Chloride (Invanz/Iv Sodium Chloride 0.9% 50ml) 50 ml @ 100 mls /hr Q24H IV ; Start 03/03/17 at 17:30; Stop 03/04/17 at 08:51; Status DC Midazolam HCl 5 mg 5 mg STK-MED ONCE .ROUTE ; Start 03/03/17 at 17:40; Stop at 17:41; Status DC Potassium Chloride 50 ml @ 50 mls/hr Q1H IV Last administered on 03/03/17 23: 52; Start 03/03/17 at 18:00; Stop 03/03/17 at 21:59; Status DC Midazolam HCl 100 ml @ 0 mls/hr CONT PRN IV SEE I/O RECORD Last administered on 03/04/17 01:20; Start 03/03/17 at 18:15 Norepinephrine Bitartrate/Sodium Chloride (Levophed Vial/ Iv Sodium Chloride 0.9 % 250ml) 258 ml @ 0 mls/hr CONT PRN IV SEE I/O RECORD Last administered on 03/04 01:47; Start 03/03/17 at 19:15 Vancomycin HCl 1 each 1 each 1X ONCE MC ; Start 03/05/17 at 17:30; Stop at 17:30; Status DC Vancomycin HCl/ Sodium Chloride (Iv Sodium Chloride 0.9% 500ml Bag) 500 ml @ 250 mls/hr Q24H IV ; Start 03/04/17 at 18:00; Stop 03/04/17 at 18:00; Status DC Enoxaparin Sodium 40 mg 40 mg Q24H SQ ; Start 03/03/17 at 21:00; Status Cancel Potassium Phosphate 40 mmol/ Sodium Chloride 263.3333 ml @ 62.5 mls/hr 1X ONCE IV Last administered on 03/03/17 23:51; Start 03/03/17 at 23:30; Stop at 03:42; Status DC Potassium Chloride (KCl Premix 20meq) 50 ml @ 50 mls/hr PRN Q1HR PRN IV K LESS THAN 3 Last administered on 03/04/17 06:59; Start 03/03/17 at 22:45 Acetaminophen (Tylenol) 325 mg PRN Q6HRS PRN AR MILD PAIN / TEMP Last administered on 03/03/17 23:50; Start 03/03/17 at 23:15 Enoxaparin Sodium (Lovenox Per Pharmacy Treatment Dosing) 1 each PRN DAILY PRN MC SEE COMMENTS; Start 03/04/17 at 01:00 Enoxaparin Sodium (Lovenox 120mg Syringe) 120 mg Q12HR SQ Last administered on 03/04/17 10:17; Start 03/04/17 at 01:00 Info 1 each 1 each PRN DAILY PRN MC SEE COMMENTS Last administered on 03:30; Start 03/04/17 at 01:00 Sodium Chloride 1,000 ml @ 250 mls/hr Q4H IV Last administered on 03/04/17 10 :24; Start 03/04/17 at 01:00 Piperacillin Sod/ Tazobactam Sod 3.375 gm/Sodium Chloride 50 ml @ 100 mls/hr Q6H IV Last administered on 03/04/17 10:19; Start 03/04/17 at 09:00 Linezolid (Zyvox Premix) 300 ml @ 300 mls/hr Q12HR IV Last administered on 10:17; Start 03/04/17 at 09:00 Active Scripts Active Feosol (Ferrous Sulfate) 325 Mg Tablet 325 Mg PO BIDWMEALS 30 Days Vitamin B-12 (Cyanocobalamin (Vitamin B-12)) 1,000 Mcg Tablet 1,000 Mcg PO DAILY 30 Days Amox Tr-K Clv 875-125 Mg Tab (Amoxicillin/Potassium Clav) 1 Each Tablet 1 Tab PO BID 5 Days Reported Percocet 5-325 Mg Tablet (Oxycodone/Acetaminophen) 1 Each Tablet 1 Tab PO PRN Q6HRS PRN Metformin Hcl 850 Mg Tablet 1 Tab PO BID Furosemide 40 Mg Tablet 1 Tab PO DAILY Gabapentin 100 Mg Capsule 100 Mg PO QHS Pantoprazole Sodium 40 Mg Tablet.dr 1 Tab PO DAILY Coumadin (Warfarin Sodium) 10 Mg Tablet 1 Tab PO QHS Take on Mondays, Tuesdays, and Wednesdays Oxybutynin Chloride 5 Mg Tablet 1 Tab PO BID Coumadin (Warfarin Sodium) 7.5 Mg Tablet 1 Tab PO QHS To be taken on , Fridays, Saturdays, and Sundays Allergies Allergies: Coded Allergies: iodine (Unverified Allergy, Intermediate, 01/13/15) ROS Review of System UNABLE TO OBTAIN Physical Exam General: No acute distress HEENT: Atraumatic, Other (ET TUBE) Lungs: Clear to auscultation Heart: Regular rate, Normal S1, Normal S2 Abdomen: Normal bowel sounds, Soft Extremities: No clubbing Psych/Mental Status: Other MUSCULOSKELETAL: No deformity Vitals VITALS Vital Signs Date Time Temp Pulse Resp B/P Pulse Ox O2 Delivery O2 Flow Rate FiO2 03/04/17 10:00 102.2 92 16 87/58 100 Ventilator 102.2 03/03/17 12:33 15 Labs Labs Laboratory Tests Test 03/03/17 12:55 03/03/17 13:07 03/03/17 13:20 03/03/17 14:28 White Blood Count 9.7x10^3/uL (4.0-11.0) Red Blood Count 4.58x10^6/uL (4.30-5.70) Hemoglobin 11.4g/dL (13.0-17.5) Hematocrit 45.1% (39.0-53.0) Mean Corpuscular Volume 98fL (79-100) Mean Corpuscular Hemoglobin 25pg (25-35) Mean Corpuscular Hemoglobin Concent 25g/dL (31-37) Red Cell Distribution Width 17.8% (11.5-14.5) Platelet Count 244x10^3/uL (140-400) Neutrophils (%) (Auto) 75% (31-73) Lymphocytes (%) (Auto) 19% (24-48) Monocytes (%) (Auto) 6% (0-9) Eosinophils (%) (Auto) 0% (0-3) Basophils (%) (Auto) 0% (0-3) Neutrophils # (Auto) 7.3x10^3uL (1.8-7.7) Lymphocytes # (Auto) 1.8x10^3/uL (1.0-4.8) Monocytes # (Auto) 0.6x10^3/uL (0.0-1.1) Eosinophils # (Auto) 0.0x10^3/uL (0.0-0.7) Basophils # (Auto) 0.0x10^3/uL (0.0-0.2) Prothrombin Time 16.8SEC (11.7-14.0) Prothromb Time International Ratio 1.5 (0.8-1.1) Sodium Level 135mmol/L (136-145) Potassium Level 2.8mmol/L (3.5-5.1) Chloride Level 93mmol/L (98-107) Carbon Dioxide Level 21mmol/L (21-32) Anion Gap 21 (6-14) Blood Urea Nitrogen 51mg/dL (8-26) Creatinine 3.4mg/dL (0.7-1.3) Estimated GFR (Cockcroft-Gault) 25.1 Glucose Level 2183mg/dL (70-99) 2003mg/dL (70-99) Hemoglobin A1c 10.0% (4.8-5.6) Calcium Level 8.1mg/dL (8.5-10.1) Troponin I Quantitative < 0.017ng/mL (0.000-0.055) SI-Olr-U-Type Natriuretic Peptide 930pg/mL (0-124) Urine Opiates Screen Neg (NEG) Urine Methadone Screen Neg (NEG) Urine Barbiturates Neg (NEG) Urine Phencyclidine Screen Neg (NEG) Urine Amphetamine/Methamphetamine Neg (NEG) Urine Benzodiazepines Screen Neg (NEG) Urine Cocaine Screen Neg (NEG) Urine Cannabinoids Screen Neg (NEG) Urine Ethyl Alcohol Neg (NEG) O2 Saturation 99% (92-99) Arterial Blood pH 7.31 (7.35-7.45) Arterial Blood pCO2 at Patient Temp 33mmHg (35-46) Arterial Blood pO2 at Patient Temp 373mmHg (85-108) Arterial Blood HCO3 16mmol/L (21-28) Arterial Blood Base Excess -9mmol/L (-3-3) FiO2 100 Serum Osmolality 429mOsm/Kg (279-304) Test 03/03/17 16:31 03/03/17 18:58 03/03/17 19:00 03/03/17 21:00 Sodium Level 140mmol/L (136-145) 148mmol/L (136-145) Potassium Level 2.0mmol/L (3.5-5.1) 2.3mmol/L (3.5-5.1) Chloride Level 99mmol/L (98-107) 106mmol/L (98-107) Carbon Dioxide Level 22mmol/L (21-32) 24mmol/L (21-32) Anion Gap 19 (6-14) 18 (6-14) Blood Urea Nitrogen 52mg/dL (8-26) 49mg/dL (8-26) Creatinine 3.3mg/dL (0.7-1.3) 2.9mg/dL (0.7-1.3) Estimated GFR (Cockcroft-Gault) 25.9 30.1 BUN/Creatinine Ratio 16 (6-20) Glucose Level 1704mg/dL (70-99) 1356mg/dL (70-99) 1037mg/dL (70-99) Calcium Level 8.1mg/dL (8.5-10.1) 7.7mg/dL (8.5-10.1) Phosphorus Level 2.2mg/dL (2.6-4.7) 1.9mg/dL (2.6-4.7) Magnesium Level 2.4mg/dL (1.8-2.4) 2.4mg/dL (1.8-2.4) Total Bilirubin 0.2mg/dL (0.2-1.0) Direct Bilirubin 0.1mg/dL (0.0-0.2) Aspartate Amino Transf (AST/SGOT) 44U/L (15-37) Alanine Aminotransferase (ALT/SGPT) 56U/L (16-63) Alkaline Phosphatase 134U/L (46-116) Total Protein 7.6g/dL (6.4-8.2) Albumin 2.7g/dL (3.4-5.0) Albumin/Globulin Ratio 0.6 (1.0-1.7) Triglycerides Level 304mg/dL (0-150) Cholesterol Level 166mg/dL (0-200) LDL Cholesterol, Calculated 91mg/dL (0-100) VLDL Cholesterol, Calculated 61mg/dL (0-40) HDL Cholesterol 14mg/dL (40-60) Cholesterol/HDL Ratio 11.9 Thyroid Stimulating Hormone (TSH) 0.555uIU/mL (0.358-3.74) Lactic Acid Level 6.7mmol/L (0.4-2.0) Procalcitonin 6.82ng/mL (0.00-0.10) Serum Osmolality 400mOsm/Kg (279-304) Test 03/03/17 22:00 03/03/17 23:30 03/04/17 01:15 03/04/17 01:30 Urine Collection Type Unknown Urine Color Yellow Urine Clarity Clear Urine pH 6.0 Urine Specific [place] 1.020 Urine Protein 30mg/dL (NEG-TRACE) Urine Glucose (UA) >=1000mg/dL (NEG) Urine Ketones (Stick) Negativemg/dL (NEG) Urine Blood Large (NEG) Urine Nitrite Negative (NEG) Urine Bilirubin Negative (NEG) Urine Urobilinogen Dipstick 0.2mg/dL (0.2 mg/dL) Urine Leukocyte Esterase Small (NEG) Urine RBC 3-5/HPF (0-2) Urine WBC 11-20/HPF (0-4) Urine Squamous Epithelial Cells Occ/LPF Urine Bacteria Few/HPF (0-FEW) Urine Mucus Slight/LPF Glucose Level 804mg/dL (70-99) 641mg/dL (70-99) Sodium Level 158mmol/L (136-145) Potassium Level 3.2mmol/L (3.5-5.1) Chloride Level 119mmol/L (98-107) Carbon Dioxide Level 25mmol/L (21-32) Anion Gap 14 (6-14) Blood Urea Nitrogen 38mg/dL (8-26) Creatinine 2.1mg/dL (0.7-1.3) Estimated GFR (Cockcroft-Gault) 43.7 Lactic Acid Level 5.6mmol/L (0.4-2.0) Calcium Level 7.9mg/dL (8.5-10.1) Phosphorus Level 2.1mg/dL (2.6-4.7) Magnesium Level 2.1mg/dL (1.8-2.4) Serum Osmolality 368mOsm/Kg (279-304) Test 03/04/17 03:28 03/04/17 04:25 03/04/17 04:30 03/04/17 05:42 Glucose (Fingerstick) 490mg/dL (70-99) 439mg/dL (70-99) 440mg/dL (70-99) White Blood Count 13.7x10^3/uL (4.0-11.0) Red Blood Count 4.84x10^6/uL (4.30-5.70) Hemoglobin 11.7g/dL (13.0-17.5) Hematocrit 38.2% (39.0-53.0) Mean Corpuscular Volume 79fL (79-100) Mean Corpuscular Hemoglobin 24pg (25-35) Mean Corpuscular Hemoglobin Concent 31g/dL (31-37) Red Cell Distribution Width 15.9% (11.5-14.5) Platelet Count 223x10^3/uL (140-400) Neutrophils (%) (Auto) 78% (31-73) Lymphocytes (%) (Auto) 11% (24-48) Monocytes (%) (Auto) 11% (0-9) Eosinophils (%) (Auto) 0% (0-3) Basophils (%) (Auto) 0% (0-3) Neutrophils # (Auto) 10.7x10^3uL (1.8-7.7) Lymphocytes # (Auto) 1.4x10^3/uL (1.0-4.8) Monocytes # (Auto) 1.5x10^3/uL (0.0-1.1) Eosinophils # (Auto) 0.0x10^3/uL (0.0-0.7) Basophils # (Auto) 0.0x10^3/uL (0.0-0.2) Sodium Level 159mmol/L (136-145) Potassium Level 3.8mmol/L (3.5-5.1) Chloride Level 121mmol/L (98-107) Carbon Dioxide Level 23mmol/L (21-32) Anion Gap 15 (6-14) Blood Urea Nitrogen 34mg/dL (8-26) Creatinine 1.9mg/dL (0.7-1.3) Estimated GFR (Cockcroft-Gault) 49.1 BUN/Creatinine Ratio 18 (6-20) Glucose Level 472mg/dL (70-99) Serum Osmolality 357mOsm/Kg (279-304) Calcium Level 7.8mg/dL (8.5-10.1) Phosphorus Level 3.2mg/dL (2.6-4.7) Magnesium Level 2.0mg/dL (1.8-2.4) Total Bilirubin 0.3mg/dL (0.2-1.0) Aspartate Amino Transf (AST/SGOT) 37U/L (15-37) Alanine Aminotransferase (ALT/SGPT) 50U/L (16-63) Alkaline Phosphatase 138U/L (46-116) Total Protein 7.8g/dL (6.4-8.2) Albumin 2.6g/dL (3.4-5.0) Albumin/Globulin Ratio 0.5 (1.0-1.7) Test 03/04/17 06:56 03/04/17 07:36 03/04/17 08:00 03/04/17 08:53 Glucose (Fingerstick) 402mg/dL (70-99) 354mg/dL (70-99) 306mg/dL (70-99) O2 Saturation 97% (92-99) Arterial Blood pH 7.45 (7.35-7.45) Arterial Blood pCO2 at Patient Temp 32mmHg (35-46) Arterial Blood pO2 at Patient Temp 87mmHg (85-108) Arterial Blood HCO3 22mmol/L (21-28) Arterial Blood Base Excess -2mmol/L (-3-3) FiO2 40 Test 03/04/17 09:43 03/04/17 09:45 Glucose (Fingerstick) 257mg/dL (70-99) Sodium Level 162mmol/L (136-145) Potassium Level 3.5mmol/L (3.5-5.1) Chloride Level 124mmol/L (98-107) Carbon Dioxide Level 24mmol/L (21-32) Anion Gap 14 (6-14) Blood Urea Nitrogen 32mg/dL (8-26) Creatinine 1.8mg/dL (0.7-1.3) Estimated GFR (Cockcroft-Gault) 52.2 Glucose Level 218mg/dL (70-99) Calcium Level 8.0mg/dL (8.5-10.1) Phosphorus Level 2.1mg/dL (2.6-4.7) Magnesium Level 2.0mg/dL (1.8-2.4) Laboratory Tests Test 03/03/17 12:55 03/03/17 13:07 03/03/17 13:20 03/03/17 14:28 White Blood Count 9.7x10^3/uL (4.0-11.0) Red Blood Count 4.58x10^6/uL (4.30-5.70) Hemoglobin 11.4g/dL (13.0-17.5) Hematocrit 45.1% (39.0-53.0) Mean Corpuscular Volume 98fL (79-100) Mean Corpuscular Hemoglobin 25pg (25-35) Mean Corpuscular Hemoglobin Concent 25g/dL (31-37) Red Cell Distribution Width 17.8% (11.5-14.5) Platelet Count 244x10^3/uL (140-400) Neutrophils (%) (Auto) 75% (31-73) Lymphocytes (%) (Auto) 19% (24-48) Monocytes (%) (Auto) 6% (0-9) Eosinophils (%) (Auto) 0% (0-3) Basophils (%) (Auto) 0% (0-3) Neutrophils # (Auto) 7.3x10^3uL (1.8-7.7) Lymphocytes # (Auto) 1.8x10^3/uL (1.0-4.8) Monocytes # (Auto) 0.6x10^3/uL (0.0-1.1) Eosinophils # (Auto) 0.0x10^3/uL (0.0-0.7) Basophils # (Auto) 0.0x10^3/uL (0.0-0.2) Prothrombin Time 16.8SEC (11.7-14.0) Prothromb Time International Ratio 1.5 (0.8-1.1) Sodium Level 135mmol/L (136-145) Potassium Level 2.8mmol/L (3.5-5.1) Chloride Level 93mmol/L (98-107) Carbon Dioxide Level 21mmol/L (21-32) Anion Gap 21 (6-14) Blood Urea Nitrogen 51mg/dL (8-26) Creatinine 3.4mg/dL (0.7-1.3) Estimated GFR (Cockcroft-Gault) 25.1 Glucose Level 2183mg/dL (70-99) 2003mg/dL (70-99) Hemoglobin A1c 10.0% (4.8-5.6) Calcium Level 8.1mg/dL (8.5-10.1) Troponin I Quantitative < 0.017ng/mL (0.000-0.055) NR-Dcz-[id number]-Type Natriuretic Peptide 930pg/mL (0-124) Urine Opiates Screen Neg (NEG) Urine Methadone Screen Neg (NEG) Urine Barbiturates Neg (NEG) Urine Phencyclidine Screen Neg (NEG) Urine Amphetamine/Methamphetamine Neg (NEG) Urine Benzodiazepines Screen Neg (NEG) Urine Cocaine Screen Neg (NEG) Urine Cannabinoids Screen Neg (NEG) Urine Ethyl Alcohol Neg (NEG) O2 Saturation 99% (92-99) Arterial Blood pH 7.31 (7.35-7.45) Arterial Blood pCO2 at Patient Temp 33mmHg (35-46) Arterial Blood pO2 at Patient Temp 373mmHg (85-108) Arterial Blood HCO3 16mmol/L (21-28) Arterial Blood Base Excess -9mmol/L (-3-3) FiO2 100 Serum Osmolality 429mOsm/Kg (279-304) Test 03/03/17 16:31 03/03/17 18:58 03/03/17 19:00 03/03/17 21:00 Sodium Level 140mmol/L (136-145) 148mmol/L (136-145) Potassium Level 2.0mmol/L (3.5-5.1) 2.3mmol/L (3.5-5.1) Chloride Level 99mmol/L (98-107) 106mmol/L (98-107) Carbon Dioxide Level 22mmol/L (21-32) 24mmol/L (21-32) Anion Gap 19 (6-14) 18 (6-14) Blood Urea Nitrogen 52mg/dL (8-26) 49mg/dL (8-26) Creatinine 3.3mg/dL (0.7-1.3) 2.9mg/dL (0.7-1.3) Estimated GFR (Cockcroft-Gault) 25.9 30.1 BUN/Creatinine Ratio 16 (6-20) Glucose Level 1704mg/dL (70-99) 1356mg/dL (70-99) 1037mg/dL (70-99) Calcium Level 8.1mg/dL (8.5-10.1) 7.7mg/dL (8.5-10.1) Phosphorus Level 2.2mg/dL (2.6-4.7) 1.9mg/dL (2.6-4.7) Magnesium Level 2.4mg/dL (1.8-2.4) 2.4mg/dL (1.8-2.4) Total Bilirubin 0.2mg/dL (0.2-1.0) Direct Bilirubin 0.1mg/dL (0.0-0.2) Aspartate Amino Transf (AST/SGOT) 44U/L (15-37) Alanine Aminotransferase (ALT/SGPT) 56U/L (16-63) Alkaline Phosphatase 134U/L (46-116) Total Protein 7.6g/dL (6.4-8.2) Albumin 2.7g/dL (3.4-5.0) Albumin/Globulin Ratio 0.6 (1.0-1.7) Triglycerides Level 304mg/dL (0-150) Cholesterol Level 166mg/dL (0-200) LDL Cholesterol, Calculated 91mg/dL (0-100) VLDL Cholesterol, Calculated 61mg/dL (0-40) HDL Cholesterol 14mg/dL (40-60) Cholesterol/HDL Ratio 11.9 Thyroid Stimulating Hormone (TSH) 0.555uIU/mL (0.358-3.74) Lactic Acid Level 6.7mmol/L (0.4-2.0) Procalcitonin 6.82ng/mL (0.00-0.10) Serum Osmolality 400mOsm/Kg (279-304) Test 03/03/17 22:00 03/03/17 23:30 03/04/17 01:15 03/04/17 01:30 Urine Collection Type Unknown Urine Color Yellow Urine Clarity Clear Urine pH 6.0 Urine Specific [place] 1.020 Urine Protein 30mg/dL (NEG-TRACE) Urine Glucose (UA) >=1000mg/dL (NEG) Urine Ketones (Stick) Negativemg/dL (NEG) Urine Blood Large (NEG) Urine Nitrite Negative (NEG) Urine Bilirubin Negative (NEG) Urine Urobilinogen Dipstick 0.2mg/dL (0.2 mg/dL) Urine Leukocyte Esterase Small (NEG) Urine RBC 3-5/HPF (0-2) Urine WBC 11-20/HPF (0-4) Urine Squamous Epithelial Cells Occ/LPF Urine Bacteria Few/HPF (0-FEW) Urine Mucus Slight/LPF Glucose Level 804mg/dL (70-99) 641mg/dL (70-99) Sodium Level 158mmol/L (136-145) Potassium Level 3.2mmol/L (3.5-5.1) Chloride Level 119mmol/L (98-107) Carbon Dioxide Level 25mmol/L (21-32) Anion Gap 14 (6-14) Blood Urea Nitrogen 38mg/dL (8-26) Creatinine 2.1mg/dL (0.7-1.3) Estimated GFR (Cockcroft-Gault) 43.7 Lactic Acid Level 5.6mmol/L (0.4-2.0) Calcium Level 7.9mg/dL (8.5-10.1) Phosphorus Level 2.1mg/dL (2.6-4.7) Magnesium Level 2.1mg/dL (1.8-2.4) Serum Osmolality 368mOsm/Kg (279-304) Test 03/04/17 03:28 03/04/17 04:25 03/04/17 04:30 03/04/17 05:42 Glucose (Fingerstick) 490mg/dL (70-99) 439mg/dL (70-99) 440mg/dL (70-99) White Blood Count 13.7x10^3/uL (4.0-11.0) Red Blood Count 4.84x10^6/uL (4.30-5.70) Hemoglobin 11.7g/dL (13.0-17.5) Hematocrit 38.2% (39.0-53.0) Mean Corpuscular Volume 79fL (79-100) Mean Corpuscular Hemoglobin 24pg (25-35) Mean Corpuscular Hemoglobin Concent 31g/dL (31-37) Red Cell Distribution Width 15.9% (11.5-14.5) Platelet Count 223x10^3/uL (140-400) Neutrophils (%) (Auto) 78% (31-73) Lymphocytes (%) (Auto) 11% (24-48) Monocytes (%) (Auto) 11% (0-9) Eosinophils (%) (Auto) 0% (0-3) Basophils (%) (Auto) 0% (0-3) Neutrophils # (Auto) 10.7x10^3uL (1.8-7.7) Lymphocytes # (Auto) 1.4x10^3/uL (1.0-4.8) Monocytes # (Auto) 1.5x10^3/uL (0.0-1.1) Eosinophils # (Auto) 0.0x10^3/uL (0.0-0.7) Basophils # (Auto) 0.0x10^3/uL (0.0-0.2) Sodium Level 159mmol/L (136-145) Potassium Level 3.8mmol/L (3.5-5.1) Chloride Level 121mmol/L (98-107) Carbon Dioxide Level 23mmol/L (21-32) Anion Gap 15 (6-14) Blood Urea Nitrogen 34mg/dL (8-26) Creatinine 1.9mg/dL (0.7-1.3) Estimated GFR (Cockcroft-Gault) 49.1 BUN/Creatinine Ratio 18 (6-20) Glucose Level 472mg/dL (70-99) Serum Osmolality 357mOsm/Kg (279-304) Calcium Level 7.8mg/dL (8.5-10.1) Phosphorus Level 3.2mg/dL (2.6-4.7) Magnesium Level 2.0mg/dL (1.8-2.4) Total Bilirubin 0.3mg/dL (0.2-1.0) Aspartate Amino Transf (AST/SGOT) 37U/L (15-37) Alanine Aminotransferase (ALT/SGPT) 50U/L (16-63) Alkaline Phosphatase 138U/L (46-116) Total Protein 7.8g/dL (6.4-8.2) Albumin 2.6g/dL (3.4-5.0) Albumin/Globulin Ratio 0.5 (1.0-1.7) Test 03/04/17 06:56 03/04/17 07:36 03/04/17 08:00 03/04/17 08:53 Glucose (Fingerstick) 402mg/dL (70-99) 354mg/dL (70-99) 306mg/dL (70-99) O2 Saturation 97% (92-99) Arterial Blood pH 7.45 (7.35-7.45) Arterial Blood pCO2 at Patient Temp 32mmHg (35-46) Arterial Blood pO2 at Patient Temp 87mmHg (85-108) Arterial Blood HCO3 22mmol/L (21-28) Arterial Blood Base Excess -2mmol/L (-3-3) FiO2 40 Test 03/04/17 09:43 03/04/17 09:45 Glucose (Fingerstick) 257mg/dL (70-99) Sodium Level 162mmol/L (136-145) Potassium Level 3.5mmol/L (3.5-5.1) Chloride Level 124mmol/L (98-107) Carbon Dioxide Level 24mmol/L (21-32) Anion Gap 14 (6-14) Blood Urea Nitrogen 32mg/dL (8-26) Creatinine 1.8mg/dL (0.7-1.3) Estimated GFR (Cockcroft-Gault) 52.2 Glucose Level 218mg/dL (70-99) Calcium Level 8.0mg/dL (8.5-10.1) Phosphorus Level 2.1mg/dL (2.6-4.7) Magnesium Level 2.0mg/dL (1.8-2.4) Assessment/Plan Assessment/Plan IMP NON KETOTIC HYPEROSMOLAR STATE SEVERE HYPERGLYCEMIA TAKAYASU'S ARTERITIS DEHYDRATION HYPOTENSION RESP FAILURE ELECTROLYTE IMBALANCE JEFFERY CKD WITH CR OF 1.5 PLAN HOLD METFORMIN FOLLOW DKA PROTOCOL DUE TO SEVERITY OF HIS HYPERGLYCEMIA EMPIRIC ANTIBIOTICS VOLUME EXPAND PRESSORS NEEDED VENT SUPPORT CORRECT LYTES UPDATED HIS FATHER POOR PROGNOSIS WILL FOLLOW HUSSAIN CRUZ MD Mar 04, 2017 11:05
[2017-03-04] MEDS ORDERED: SODIUM PHOSPHATE 20 MMOL in IV DEXTROSE 5% 250 ML IV ONE (11:30)
--- NOTE | 2017-03-04 11:58 | PDOC ---
[address] [employer] 03/04/17 1158: CARDIO Progress Notes Date and Time Date of Service 03/04/2017 Time of Evaluation 1130 Subjective Subjective: Other (intubated/sedated) Vitals Vitals Vital Signs Date Time Temp Pulse Resp B/P Pulse Ox O2 Delivery O2 Flow Rate FiO2 03/04/17 10:52 97 Ventilator 03/04/17 10:00 102.2 92 16 87/58 102.2 03/03/17 12:33 15 Weight Weight [ ] Input and Output Intake and Output Intake and Output 03/04/17 07:00 Intake Total 2000 ml Output Total 3400 ml Balance -1400 ml Intake IV Total 2000 ml Output Urine Total 3400 ml # Bowel Movements 1 Laboratory Labs Laboratory Tests Test 03/03/17 12:55 03/03/17 13:07 03/03/17 13:20 03/03/17 14:28 White Blood Count 9.7x10^3/uL (4.0-11.0) Red Blood Count 4.58x10^6/uL (4.30-5.70) Hemoglobin 11.4g/dL (13.0-17.5) Hematocrit 45.1% (39.0-53.0) Mean Corpuscular Volume 98fL (79-100) Mean Corpuscular Hemoglobin 25pg (25-35) Mean Corpuscular Hemoglobin Concent 25g/dL (31-37) Red Cell Distribution Width 17.8% (11.5-14.5) Platelet Count 244x10^3/uL (140-400) Neutrophils (%) (Auto) 75% (31-73) Lymphocytes (%) (Auto) 19% (24-48) Monocytes (%) (Auto) 6% (0-9) Eosinophils (%) (Auto) 0% (0-3) Basophils (%) (Auto) 0% (0-3) Neutrophils # (Auto) 7.3x10^3uL (1.8-7.7) Lymphocytes # (Auto) 1.8x10^3/uL (1.0-4.8) Monocytes # (Auto) 0.6x10^3/uL (0.0-1.1) Eosinophils # (Auto) 0.0x10^3/uL (0.0-0.7) Basophils # (Auto) 0.0x10^3/uL (0.0-0.2) Prothrombin Time 16.8SEC (11.7-14.0) Prothromb Time International Ratio 1.5 (0.8-1.1) Sodium Level 135mmol/L (136-145) Potassium Level 2.8mmol/L (3.5-5.1) Chloride Level 93mmol/L (98-107) Carbon Dioxide Level 21mmol/L (21-32) Anion Gap 21 (6-14) Blood Urea Nitrogen 51mg/dL (8-26) Creatinine 3.4mg/dL (0.7-1.3) Estimated GFR (Cockcroft-Gault) 25.1 Glucose Level 2183mg/dL (70-99) 2003mg/dL (70-99) Hemoglobin A1c 10.0% (4.8-5.6) Calcium Level 8.1mg/dL (8.5-10.1) Troponin I Quantitative < 0.017ng/mL (0.000-0.055) IM-Fuv-U-Type Natriuretic Peptide 930pg/mL (0-124) Urine Opiates Screen Neg (NEG) Urine Methadone Screen Neg (NEG) Urine Barbiturates Neg (NEG) Urine Phencyclidine Screen Neg (NEG) Urine Amphetamine/Methamphetamine Neg (NEG) Urine Benzodiazepines Screen Neg (NEG) Urine Cocaine Screen Neg (NEG) Urine Cannabinoids Screen Neg (NEG) Urine Ethyl Alcohol Neg (NEG) O2 Saturation 99% (92-99) Arterial Blood pH 7.31 (7.35-7.45) Arterial Blood pCO2 at Patient Temp 33mmHg (35-46) Arterial Blood pO2 at Patient Temp 373mmHg (85-108) Arterial Blood HCO3 16mmol/L (21-28) Arterial Blood Base Excess -9mmol/L (-3-3) FiO2 100 Serum Osmolality 429mOsm/Kg (279-304) Test 03/03/17 16:31 03/03/17 18:58 03/03/17 19:00 03/03/17 21:00 Sodium Level 140mmol/L (136-145) 148mmol/L (136-145) Potassium Level 2.0mmol/L (3.5-5.1) 2.3mmol/L (3.5-5.1) Chloride Level 99mmol/L (98-107) 106mmol/L (98-107) Carbon Dioxide Level 22mmol/L (21-32) 24mmol/L (21-32) Anion Gap 19 (6-14) 18 (6-14) Blood Urea Nitrogen 52mg/dL (8-26) 49mg/dL (8-26) Creatinine 3.3mg/dL (0.7-1.3) 2.9mg/dL (0.7-1.3) Estimated GFR (Cockcroft-Gault) 25.9 30.1 BUN/Creatinine Ratio 16 (6-20) Glucose Level 1704mg/dL (70-99) 1356mg/dL (70-99) 1037mg/dL (70-99) Calcium Level 8.1mg/dL (8.5-10.1) 7.7mg/dL (8.5-10.1) Phosphorus Level 2.2mg/dL (2.6-4.7) 1.9mg/dL (2.6-4.7) Magnesium Level 2.4mg/dL (1.8-2.4) 2.4mg/dL (1.8-2.4) Total Bilirubin 0.2mg/dL (0.2-1.0) Direct Bilirubin 0.1mg/dL (0.0-0.2) Aspartate Amino Transf (AST/SGOT) 44U/L (15-37) Alanine Aminotransferase (ALT/SGPT) 56U/L (16-63) Alkaline Phosphatase 134U/L (46-116) Total Protein 7.6g/dL (6.4-8.2) Albumin 2.7g/dL (3.4-5.0) Albumin/Globulin Ratio 0.6 (1.0-1.7) Triglycerides Level 304mg/dL (0-150) Cholesterol Level 166mg/dL (0-200) LDL Cholesterol, Calculated 91mg/dL (0-100) VLDL Cholesterol, Calculated 61mg/dL (0-40) HDL Cholesterol 14mg/dL (40-60) Cholesterol/HDL Ratio 11.9 Thyroid Stimulating Hormone (TSH) 0.555uIU/mL (0.358-3.74) Lactic Acid Level 6.7mmol/L (0.4-2.0) Procalcitonin 6.82ng/mL (0.00-0.10) Serum Osmolality 400mOsm/Kg (279-304) Test 03/03/17 22:00 03/03/17 23:30 03/04/17 01:15 03/04/17 01:30 Urine Collection Type Unknown Urine Color Yellow Urine Clarity Clear Urine pH 6.0 Urine Specific [place] 1.020 Urine Protein 30mg/dL (NEG-TRACE) Urine Glucose (UA) >=1000mg/dL (NEG) Urine Ketones (Stick) Negativemg/dL (NEG) Urine Blood Large (NEG) Urine Nitrite Negative (NEG) Urine Bilirubin Negative (NEG) Urine Urobilinogen Dipstick 0.2mg/dL (0.2 mg/dL) Urine Leukocyte Esterase Small (NEG) Urine RBC 3-5/HPF (0-2) Urine WBC 11-20/HPF (0-4) Urine Squamous Epithelial Cells Occ/LPF Urine Bacteria Few/HPF (0-FEW) Urine Mucus Slight/LPF Glucose Level 804mg/dL (70-99) 641mg/dL (70-99) Sodium Level 158mmol/L (136-145) Potassium Level 3.2mmol/L (3.5-5.1) Chloride Level 119mmol/L (98-107) Carbon Dioxide Level 25mmol/L (21-32) Anion Gap 14 (6-14) Blood Urea Nitrogen 38mg/dL (8-26) Creatinine 2.1mg/dL (0.7-1.3) Estimated GFR (Cockcroft-Gault) 43.7 Lactic Acid Level 5.6mmol/L (0.4-2.0) Calcium Level 7.9mg/dL (8.5-10.1) Phosphorus Level 2.1mg/dL (2.6-4.7) Magnesium Level 2.1mg/dL (1.8-2.4) Serum Osmolality 368mOsm/Kg (279-304) Test 03/04/17 03:28 03/04/17 04:25 03/04/17 04:30 03/04/17 05:42 Glucose (Fingerstick) 490mg/dL (70-99) 439mg/dL (70-99) 440mg/dL (70-99) White Blood Count 13.7x10^3/uL (4.0-11.0) Red Blood Count 4.84x10^6/uL (4.30-5.70) Hemoglobin 11.7g/dL (13.0-17.5) Hematocrit 38.2% (39.0-53.0) Mean Corpuscular Volume 79fL (79-100) Mean Corpuscular Hemoglobin 24pg (25-35) Mean Corpuscular Hemoglobin Concent 31g/dL (31-37) Red Cell Distribution Width 15.9% (11.5-14.5) Platelet Count 223x10^3/uL (140-400) Neutrophils (%) (Auto) 78% (31-73) Lymphocytes (%) (Auto) 11% (24-48) Monocytes (%) (Auto) 11% (0-9) Eosinophils (%) (Auto) 0% (0-3) Basophils (%) (Auto) 0% (0-3) Neutrophils # (Auto) 10.7x10^3uL (1.8-7.7) Lymphocytes # (Auto) 1.4x10^3/uL (1.0-4.8) Monocytes # (Auto) 1.5x10^3/uL (0.0-1.1) Eosinophils # (Auto) 0.0x10^3/uL (0.0-0.7) Basophils # (Auto) 0.0x10^3/uL (0.0-0.2) Sodium Level 159mmol/L (136-145) Potassium Level 3.8mmol/L (3.5-5.1) Chloride Level 121mmol/L (98-107) Carbon Dioxide Level 23mmol/L (21-32) Anion Gap 15 (6-14) Blood Urea Nitrogen 34mg/dL (8-26) Creatinine 1.9mg/dL (0.7-1.3) Estimated GFR (Cockcroft-Gault) 49.1 BUN/Creatinine Ratio 18 (6-20) Glucose Level 472mg/dL (70-99) Serum Osmolality 357mOsm/Kg (279-304) Calcium Level 7.8mg/dL (8.5-10.1) Phosphorus Level 3.2mg/dL (2.6-4.7) Magnesium Level 2.0mg/dL (1.8-2.4) Total Bilirubin 0.3mg/dL (0.2-1.0) Aspartate Amino Transf (AST/SGOT) 37U/L (15-37) Alanine Aminotransferase (ALT/SGPT) 50U/L (16-63) Alkaline Phosphatase 138U/L (46-116) Total Protein 7.8g/dL (6.4-8.2) Albumin 2.6g/dL (3.4-5.0) Albumin/Globulin Ratio 0.5 (1.0-1.7) Test 03/04/17 06:56 03/04/17 07:36 03/04/17 08:00 03/04/17 08:53 Glucose (Fingerstick) 402mg/dL (70-99) 354mg/dL (70-99) 306mg/dL (70-99) O2 Saturation 97% (92-99) Arterial Blood pH 7.45 (7.35-7.45) Arterial Blood pCO2 at Patient Temp 32mmHg (35-46) Arterial Blood pO2 at Patient Temp 87mmHg (85-108) Arterial Blood HCO3 22mmol/L (21-28) Arterial Blood Base Excess -2mmol/L (-3-3) FiO2 40 Test 03/04/17 09:43 03/04/17 09:45 Glucose (Fingerstick) 257mg/dL (70-99) Sodium Level 162mmol/L (136-145) Potassium Level 3.5mmol/L (3.5-5.1) Chloride Level 124mmol/L (98-107) Carbon Dioxide Level 24mmol/L (21-32) Anion Gap 14 (6-14) Blood Urea Nitrogen 32mg/dL (8-26) Creatinine 1.8mg/dL (0.7-1.3) Estimated GFR (Cockcroft-Gault) 52.2 Glucose Level 218mg/dL (70-99) Serum Osmolality 345mOsm/Kg (279-304) Calcium Level 8.0mg/dL (8.5-10.1) Phosphorus Level 2.1mg/dL (2.6-4.7) Magnesium Level 2.0mg/dL (1.8-2.4) Microbiology Micro Microbiology 03/04/17 Gram Stain - Final, Complete Physical Exam Chest: Symmetric LUNGS: Other (coarse ) Heart: S1S2, RRR, other (tele: SR/ST) Abdomen: Other (obese abdomen) Extremities: Other (1+ bilateral LE edema; dressing on left foot) Neurology: other (sedated) Assessment Assessment 1. cardiac arrest in the setting of hypokalemia of 2.8 and serum glucose > 2000 insulin gtt and bicarb gtt running K corrected to 3.5 limited echo with preserved LV function CT head without shift or mass/no acute changes 2. DM with DKA glucose being corrected with insulin and bicarb gtt down into the 200 - 300 range 3. acute renal failure Cr trending downward with correction of BS; now hypernatremic nephrology consulting 4. paraplegic ? from repair of thoracic aorta records requested from [facility] 5. acute respiratory failure intubated/vent per pulm 6. tobacco abuse KIRILL RUIZ MD 03/06/17 2030: CARDIO Progress Notes Plan Plan Late entry 03/04/2017 Pt. seen and examined. Agree with above [employer] note. No acute events today. Stable from a CV perspective BP low but on pressors. Supportive care. Will follow. MIRZA [address] [employer] Mar 04, 2017 11:58 KIRILL RUIZ MD Mar 06, 2017 20:30
--- NOTE | 2017-03-04 12:20 | PDOC ---
PROGRESS NOTES Subjective Subjective temp 102,icu on vent ,unresponsive Objective Objective Vital Signs Date Time Temp Pulse Resp B/P Pulse Ox O2 Delivery O2 Flow Rate FiO2 03/04/17 10:52 97 Ventilator 03/04/17 10:00 102.2 92 16 87/58 102.2 03/03/17 12:33 15 Intake and Output 03/04/17 07:00 Intake Total 2000 ml Output Total 3400 ml Balance -1400 ml Intake IV Total 2000 ml Output Urine Total 3400 ml # Bowel Movements 1 Physical Exam Abdomen: Normal bowel sounds, Soft Heart: Regular rate, Normal S1, Normal S2 Extremities: No clubbing General: No acute distress HEENT: Atraumatic, Other (ET TUBE) Lungs: Clear to auscultation COMMENT lt heal ulcer Diagnosis Problem List Problems Medical Problems: (1) Acute respiratory failure Status: Acute (2) Acute respiratory failure Status: Acute (3) Cardiac arrest Status: Acute (4) Hyperglycemia Status: Acute FINAL IMPRESSION: Fever sepsis. DKA 1. Status post code blue, outside the hospital. 2. Fever and uncontrolled diabetes. DKA. Blood sugars 2000 range. 3. Metabolic acidosis.Lactic acidosis.Hyperosmolar coma. 4. 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 5. Resulting paraplegia. 6. Sacral ulcer.heal ulcer. 7. Self catheter for bladder retention PLAN: insulin drip sugars trending down to 500 today . fever 102 on antibiotics ID consulted. Renal consult spoke with Dr Kurtz. ECHO good lvf,. CT head -ve neuro consult pending. critical condition. spoke with pts father. At this time, was admitted to the hospital, was given IV fluids, insulin drip, and was intubated on a ventilator. We will have DKA protocol and we will also consult renal and also acute renal failure and also cardiac enzymes, EKG, blood cultures, urine cultures, started on broad spectrum antibiotics and see if the patient's condition improves. The patient is critically ill. Assessment Assessment Problems Medical Problems: (1) Acute respiratory failure Status: Acute (2) Acute respiratory failure Status: Acute (3) Cardiac arrest Status: Acute (4) Hyperglycemia Status: Acute Problems: Plan Plan of Care Problems Medical Problems: (1) Acute respiratory failure Status: Acute (2) Acute respiratory failure Status: Acute (3) Cardiac arrest Status: Acute (4) Hyperglycemia Status: Acute Comment Review of Relevant I have reviewed the following items reina (where applicable) has been applied. Labs Laboratory Tests Test 03/03/17 12:55 03/03/17 13:07 03/03/17 13:20 03/03/17 14:28 White Blood Count 9.7x10^3/uL (4.0-11.0) Red Blood Count 4.58x10^6/uL (4.30-5.70) Hemoglobin 11.4g/dL (13.0-17.5) Hematocrit 45.1% (39.0-53.0) Mean Corpuscular Volume 98fL (79-100) Mean Corpuscular Hemoglobin 25pg (25-35) Mean Corpuscular Hemoglobin Concent 25g/dL (31-37) Red Cell Distribution Width 17.8% (11.5-14.5) Platelet Count 244x10^3/uL (140-400) Neutrophils (%) (Auto) 75% (31-73) Lymphocytes (%) (Auto) 19% (24-48) Monocytes (%) (Auto) 6% (0-9) Eosinophils (%) (Auto) 0% (0-3) Basophils (%) (Auto) 0% (0-3) Neutrophils # (Auto) 7.3x10^3uL (1.8-7.7) Lymphocytes # (Auto) 1.8x10^3/uL (1.0-4.8) Monocytes # (Auto) 0.6x10^3/uL (0.0-1.1) Eosinophils # (Auto) 0.0x10^3/uL (0.0-0.7) Basophils # (Auto) 0.0x10^3/uL (0.0-0.2) Prothrombin Time 16.8SEC (11.7-14.0) Prothromb Time International Ratio 1.5 (0.8-1.1) Sodium Level 135mmol/L (136-145) Potassium Level 2.8mmol/L (3.5-5.1) Chloride Level 93mmol/L (98-107) Carbon Dioxide Level 21mmol/L (21-32) Anion Gap 21 (6-14) Blood Urea Nitrogen 51mg/dL (8-26) Creatinine 3.4mg/dL (0.7-1.3) Estimated GFR (Cockcroft-Gault) 25.1 Glucose Level 2183mg/dL (70-99) 2003mg/dL (70-99) Hemoglobin A1c 10.0% (4.8-5.6) Calcium Level 8.1mg/dL (8.5-10.1) Troponin I Quantitative < 0.017ng/mL (0.000-0.055) MI-Uvz-R-Type Natriuretic Peptide 930pg/mL (0-124) Urine Opiates Screen Neg (NEG) Urine Methadone Screen Neg (NEG) Urine Barbiturates Neg (NEG) Urine Phencyclidine Screen Neg (NEG) Urine Amphetamine/Methamphetamine Neg (NEG) Urine Benzodiazepines Screen Neg (NEG) Urine Cocaine Screen Neg (NEG) Urine Cannabinoids Screen Neg (NEG) Urine Ethyl Alcohol Neg (NEG) O2 Saturation 99% (92-99) Arterial Blood pH 7.31 (7.35-7.45) Arterial Blood pCO2 at Patient Temp 33mmHg (35-46) Arterial Blood pO2 at Patient Temp 373mmHg (85-108) Arterial Blood HCO3 16mmol/L (21-28) Arterial Blood Base Excess -9mmol/L (-3-3) FiO2 100 Serum Osmolality 429mOsm/Kg (279-304) Test 03/03/17 16:31 03/03/17 18:58 03/03/17 19:00 03/03/17 21:00 Sodium Level 140mmol/L (136-145) 148mmol/L (136-145) Potassium Level 2.0mmol/L (3.5-5.1) 2.3mmol/L (3.5-5.1) Chloride Level 99mmol/L (98-107) 106mmol/L (98-107) Carbon Dioxide Level 22mmol/L (21-32) 24mmol/L (21-32) Anion Gap 19 (6-14) 18 (6-14) Blood Urea Nitrogen 52mg/dL (8-26) 49mg/dL (8-26) Creatinine 3.3mg/dL (0.7-1.3) 2.9mg/dL (0.7-1.3) Estimated GFR (Cockcroft-Gault) 25.9 30.1 BUN/Creatinine Ratio 16 (6-20) Glucose Level 1704mg/dL (70-99) 1356mg/dL (70-99) 1037mg/dL (70-99) Calcium Level 8.1mg/dL (8.5-10.1) 7.7mg/dL (8.5-10.1) Phosphorus Level 2.2mg/dL (2.6-4.7) 1.9mg/dL (2.6-4.7) Magnesium Level 2.4mg/dL (1.8-2.4) 2.4mg/dL (1.8-2.4) Total Bilirubin 0.2mg/dL (0.2-1.0) Direct Bilirubin 0.1mg/dL (0.0-0.2) Aspartate Amino Transf (AST/SGOT) 44U/L (15-37) Alanine Aminotransferase (ALT/SGPT) 56U/L (16-63) Alkaline Phosphatase 134U/L (46-116) Total Protein 7.6g/dL (6.4-8.2) Albumin 2.7g/dL (3.4-5.0) Albumin/Globulin Ratio 0.6 (1.0-1.7) Triglycerides Level 304mg/dL (0-150) Cholesterol Level 166mg/dL (0-200) LDL Cholesterol, Calculated 91mg/dL (0-100) VLDL Cholesterol, Calculated 61mg/dL (0-40) HDL Cholesterol 14mg/dL (40-60) Cholesterol/HDL Ratio 11.9 Thyroid Stimulating Hormone (TSH) 0.555uIU/mL (0.358-3.74) Lactic Acid Level 6.7mmol/L (0.4-2.0) Procalcitonin 6.82ng/mL (0.00-0.10) Serum Osmolality 400mOsm/Kg (279-304) Test 03/03/17 22:00 03/03/17 23:30 03/04/17 01:15 03/04/17 01:30 Urine Collection Type Unknown Urine Color Yellow Urine Clarity Clear Urine pH 6.0 Urine Specific Archer 1.020 Urine Protein 30mg/dL (NEG-TRACE) Urine Glucose (UA) >=1000mg/dL (NEG) Urine Ketones (Stick) Negativemg/dL (NEG) Urine Blood Large (NEG) Urine Nitrite Negative (NEG) Urine Bilirubin Negative (NEG) Urine Urobilinogen Dipstick 0.2mg/dL (0.2 mg/dL) Urine Leukocyte Esterase Small (NEG) Urine RBC 3-5/HPF (0-2) Urine WBC 11-20/HPF (0-4) Urine Squamous Epithelial Cells Occ/LPF Urine Bacteria Few/HPF (0-FEW) Urine Mucus Slight/LPF Glucose Level 804mg/dL (70-99) 641mg/dL (70-99) Sodium Level 158mmol/L (136-145) Potassium Level 3.2mmol/L (3.5-5.1) Chloride Level 119mmol/L (98-107) Carbon Dioxide Level 25mmol/L (21-32) Anion Gap 14 (6-14) Blood Urea Nitrogen 38mg/dL (8-26) Creatinine 2.1mg/dL (0.7-1.3) Estimated GFR (Cockcroft-Gault) 43.7 Lactic Acid Level 5.6mmol/L (0.4-2.0) Calcium Level 7.9mg/dL (8.5-10.1) Phosphorus Level 2.1mg/dL (2.6-4.7) Magnesium Level 2.1mg/dL (1.8-2.4) Serum Osmolality 368mOsm/Kg (279-304) Test 03/04/17 03:28 03/04/17 04:25 03/04/17 04:30 03/04/17 05:42 Glucose (Fingerstick) 490mg/dL (70-99) 439mg/dL (70-99) 440mg/dL (70-99) White Blood Count 13.7x10^3/uL (4.0-11.0) Red Blood Count 4.84x10^6/uL (4.30-5.70) Hemoglobin 11.7g/dL (13.0-17.5) Hematocrit 38.2% (39.0-53.0) Mean Corpuscular Volume 79fL (79-100) Mean Corpuscular Hemoglobin 24pg (25-35) Mean Corpuscular Hemoglobin Concent 31g/dL (31-37) Red Cell Distribution Width 15.9% (11.5-14.5) Platelet Count 223x10^3/uL (140-400) Neutrophils (%) (Auto) 78% (31-73) Lymphocytes (%) (Auto) 11% (24-48) Monocytes (%) (Auto) 11% (0-9) Eosinophils (%) (Auto) 0% (0-3) Basophils (%) (Auto) 0% (0-3) Neutrophils # (Auto) 10.7x10^3uL (1.8-7.7) Lymphocytes # (Auto) 1.4x10^3/uL (1.0-4.8) Monocytes # (Auto) 1.5x10^3/uL (0.0-1.1) Eosinophils # (Auto) 0.0x10^3/uL (0.0-0.7) Basophils # (Auto) 0.0x10^3/uL (0.0-0.2) Sodium Level 159mmol/L (136-145) Potassium Level 3.8mmol/L (3.5-5.1) Chloride Level 121mmol/L (98-107) Carbon Dioxide Level 23mmol/L (21-32) Anion Gap 15 (6-14) Blood Urea Nitrogen 34mg/dL (8-26) Creatinine 1.9mg/dL (0.7-1.3) Estimated GFR (Cockcroft-Gault) 49.1 BUN/Creatinine Ratio 18 (6-20) Glucose Level 472mg/dL (70-99) Serum Osmolality 357mOsm/Kg (279-304) Calcium Level 7.8mg/dL (8.5-10.1) Phosphorus Level 3.2mg/dL (2.6-4.7) Magnesium Level 2.0mg/dL (1.8-2.4) Total Bilirubin 0.3mg/dL (0.2-1.0) Aspartate Amino Transf (AST/SGOT) 37U/L (15-37) Alanine Aminotransferase (ALT/SGPT) 50U/L (16-63) Alkaline Phosphatase 138U/L (46-116) Total Protein 7.8g/dL (6.4-8.2) Albumin 2.6g/dL (3.4-5.0) Albumin/Globulin Ratio 0.5 (1.0-1.7) Test 03/04/17 06:56 03/04/17 07:36 03/04/17 08:00 03/04/17 08:53 Glucose (Fingerstick) 402mg/dL (70-99) 354mg/dL (70-99) 306mg/dL (70-99) O2 Saturation 97% (92-99) Arterial Blood pH 7.45 (7.35-7.45) Arterial Blood pCO2 at Patient Temp 32mmHg (35-46) Arterial Blood pO2 at Patient Temp 87mmHg (85-108) Arterial Blood HCO3 22mmol/L (21-28) Arterial Blood Base Excess -2mmol/L (-3-3) FiO2 40 Test 03/04/17 09:43 03/04/17 09:45 Glucose (Fingerstick) 257mg/dL (70-99) Sodium Level 162mmol/L (136-145) Potassium Level 3.5mmol/L (3.5-5.1) Chloride Level 124mmol/L (98-107) Carbon Dioxide Level 24mmol/L (21-32) Anion Gap 14 (6-14) Blood Urea Nitrogen 32mg/dL (8-26) Creatinine 1.8mg/dL (0.7-1.3) Estimated GFR (Cockcroft-Gault) 52.2 Glucose Level 218mg/dL (70-99) Serum Osmolality 345mOsm/Kg (279-304) Calcium Level 8.0mg/dL (8.5-10.1) Phosphorus Level 2.1mg/dL (2.6-4.7) Magnesium Level 2.0mg/dL (1.8-2.4) Microbiology 03/04/17 Gram Stain - Final, Complete Medications Current Medications Acetaminophen (Tylenol) 325 mg PRN Q6HRS PRN GA MILD PAIN / TEMP Last administered on 03/03/17 23:50; Start 03/03/17 at 23:15 Enoxaparin Sodium (Lovenox 120mg Syringe) 120 mg Q12HR SQ Last administered on 03/04/17t 10:17; Start 03/04/17 at 01:00 Enoxaparin Sodium (Lovenox Per Pharmacy Treatment Dosing) 1 each PRN DAILY PRN MC SEE COMMENTS; Start 03/04/17 at 01:00 Enoxaparin Sodium 40 mg 40 mg Q24H SQ ; Start 03/03/17 at 21:00; Status Cancel Ertapenem/Sodium Chloride (Invanz/Iv Sodium Chloride 0.9% 50ml) 50 ml @ 100 mls /hr Q24H IV ; Start 03/03/17 at 17:30; Stop 03/04/17 at 08:51; Status DC Etomidate (Amidate) 20 mg STK-MED ONCE IV ; Start 03/03/17 at 13:35; Stop at 13:36; Status DC Info 1 each 1 each PRN DAILY PRN MC SEE COMMENTS Last administered on 03:30; Start 03/04/17 at 01:00 Insulin Human Regular 150 ml @ As Directed STK-MED ONCE IV ; Start 03/03/17 at 14:05; Stop 03/03/17 at 14:06; Status DC Insulin Human Regular 10 unit 10 unit 1X ONCE IV Last administered on 14:37; Start 03/03/17 at 14:45; Stop 03/03/17 at 14:46; Status DC Insulin Human Regular 150 unit/ Sodium Chloride 151.5 ml @ 0 mls/hr CONT PRN IV SEE I/O RECORD; Start 03/03/17 at 14:00; Stop 03/03/17 at 17:20; Status DC Insulin Human Regular 150 unit/ Sodium Chloride 151.5 ml @ 0 mls/hr CONT PRN PRN IV PER PROTOCOL; Start 03/03/17 at 17:00; Stop 03/03/17 at 17:20; Status DC Insulin Human Regular 150 unit/ Sodium Chloride 151.5 ml @ 0 mls/hr CONT PRN PRN IV PER PROTOCOL; Start 03/03/17 at 17:00 Linezolid 300 ml @ 300 mls/hr Q12HR IV Last administered on 03/04/17 10:17; Start 03/04/17 at 09:00 Midazolam HCl 100 ml @ 0 mls/hr 1X ONCE IV Last administered on 03/03/17 14: 42; Start 03/03/17 at 13:45; Stop 03/03/17 at 13:46; Status DC Midazolam HCl 100 ml @ 0 mls/hr CONT PRN IV SEE I/O RECORD Last administered on 03/04/17 01:20; Start 03/03/17 at 18:15 Midazolam HCl 5 mg 5 mg STK-MED ONCE .ROUTE ; Start 03/03/17 at 17:40; Stop at 17:41; Status DC Norepinephrine Bitartrate/Sodium Chloride (Levophed Vial/ Iv Sodium Chloride 0.9 % 250ml) 258 ml @ 0 mls/hr CONT PRN IV SEE I/O RECORD Last administered on 03/04 01:47; Start 03/03/17 at 19:15 Piperacillin Sod/ Tazobactam Sod 3.375 gm/Sodium Chloride 50 ml @ 100 mls/hr Q6H IV Last administered on 03/04/17 10:19; Start 03/04/17 at 09:00 Potassium Phosphate 40 mmol/ Sodium Chloride 263.3333 ml @ 62.5 mls/hr 1X ONCE IV Last administered on 03/03/17 23:51; Start 03/03/17 at 23:30; Stop at 03:42; Status DC Potassium Chloride 50 ml @ 50 mls/hr Q1H IV Last administered on 03/03/17 23: 52; Start 03/03/17 at 18:00; Stop 03/03/17 at 21:59; Status DC Potassium Chloride 50 ml @ 50 mls/hr Q1H IV ; Start 03/04/17 at 11:30; Stop at 13:29 Potassium Chloride 100 ml @ 100 mls/hr PRN Q1HR PRN IV SEE COMMENTS; Start at 17:00; Stop 03/03/17 at 20:11; Status DC Potassium Chloride 100 ml @ 100 mls/hr PRN Q1HR PRN IV SEE COMMENTS; Start at 17:00; Stop 03/03/17 at 20:11; Status DC Potassium Chloride 100 ml @ 100 mls/hr PRN Q1HR PRN IV SEE COMMENTS; Start at 17:00; Stop 03/03/17 at 20:12; Status DC Potassium Chloride 100 ml @ 100 mls/hr PRN Q1HR PRN IV SEE COMMENTS Last administered on 03/04/17 01:35; Start 03/03/17 at 17:00 Potassium Chloride 100 ml @ 100 mls/hr PRN Q1HR PRN IV SEE COMMENTS; Start at 17:00 Potassium Chloride 100 ml @ 100 mls/hr PRN Q1HR PRN IV SEE COMMENTS; Start at 17:00 Potassium Chloride 100 ml @ 100 mls/hr Q1H IV ; Start 03/03/17 at 17:00; Stop 03/03/17 at 17:43; Status DC Potassium Chloride (KCl Premix 20meq) 50 ml @ 50 mls/hr PRN Q1HR PRN IV K LESS THAN 3 Last administered on 03/04/17 06:59; Start 03/03/17 at 22:45 Sodium Bicarbonate/ Sodium Chloride (Iv Sodium Chloride 0.45%) 1,150 ml @ 125 mls/hr 1X ONCE IV Last administered on 03/03/17 18:40; Start 03/03/17 at 13: 45; Stop 03/03/17 at 22:56; Status DC Sodium Chloride 1,000 ml @ 250 mls/hr Q4H IV Last administered on 03/04/17 10 :24; Start 03/04/17 at 01:00 Sodium Chloride 1,000 ml @ 1,000 mls/hr Q1H IV ; Start 03/03/17 at 16:49; Stop 03/03/17 at 17:48; Status DC Sodium Phosphate/ Dextrose 256.6667 ml @ 64.167 m... 1X ONCE IV ; Start at 11:30; Stop 03/04/17 at 15:29 Vancomycin HCl 1 each 1 each 1X ONCE MC ; Start 03/05/17 at 17:30; Stop at 17:30; Status DC Vancomycin HCl 1 each 1 each PRN DAILY PRN MC SEE COMMENTS Last administered on 03/03/17 20:02; Start 03/03/17 at 17:00; Stop 03/04/17 at 08:51; Status DC Vancomycin HCl/ Sodium Chloride (Iv Sodium Chloride 0.9% 500ml Bag) 500 ml @ 250 mls/hr 1X ONCE IV Last administered on 03/03/17 18:33; Start 03/03/17 at 18:00; Stop 03/03/17 at 19:59; Status DC Vancomycin HCl/ Sodium Chloride (Iv Sodium Chloride 0.9% 500ml Bag) 500 ml @ 250 mls/hr Q24H IV ; Start 03/04/17 at 18:00; Stop 03/04/17 at 18:00; Status DC Vitals/I & O Vital Sign - Last 24 Hours 03/03/17 03/03/17 03/03/17 03/03/17 12:33 13:30 14:15 14:45 Temp 98.7 98.7 Pulse 126 96 Resp 24 23 B/P 150/103 Pulse Ox 98 100 100 O2 Delivery Bag Valve Mask Ventilator Ventilator Ventilator O2 Flow Rate 15 03/03/17 03/03/17 03/03/17 03/03/17 15:00 15:15 15:30 15:45 Pulse 94 94 96 104 Resp 24 25 24 24 B/P 66/43 79/50 93/54 92/55 Pulse Ox 100 100 100 100 O2 Delivery Ventilator Ventilator Ventilator Ventilator 03/03/17 03/03/17 03/03/17 03/03/17 16:00 16:15 16:30 16:45 Pulse 98 94 88 90 Resp 24 24 24 24 B/P 79/43 98/56 88/50 82/45 Pulse Ox 100 100 100 100 O2 Delivery Ventilator Ventilator Ventilator Ventilator 03/03/17 03/03/17 03/03/17 03/03/17 17:00 17:01 17:15 17:30 Pulse 88 90 102 Resp 24 24 24 B/P 85/46 76/40 79/41 Pulse Ox 100 100 100 100 O2 Delivery Ventilator Ventilator Ventilator Ventilator 03/03/17 03/03/17 03/03/17 03/03/17 19:00 20:00 20:23 21:00 Temp 99.7 100.0 99.7 100.0 Pulse 94 94 94 Resp 16 16 16 B/P 92/46 105/51 106/52 Pulse Ox 100 100 100 100 O2 Delivery Ventilator Ventilator Ventilator Ventilator 03/03/17 03/03/17 03/03/17 03/04/17 22:00 23:00 23:11 00:00 Temp 100.4 101.5 100.4 101.5 Pulse 94 94 Resp 16 16 B/P 77/40 102/54 Pulse Ox 100 100 100 O2 Delivery Ventilator Ventilator Ventilator Mechanical Ventilator 03/04/17 03/04/17 03/04/17 03/04/17 00:00 01:00 02:00 03:00 Temp 102.2 102.6 102.7 102.2 102.6 102.7 Pulse 94 94 108 106 Resp 16 16 16 16 B/P 107/58 118/67 117/77 126/66 Pulse Ox 100 100 100 100 O2 Delivery Ventilator Ventilator Ventilator Ventilator 03/04/17 03/04/17 03/04/17 03/04/17 03:02 03:45 04:00 04:00 Temp 102.2 102.2 Pulse 108 Resp 16 B/P 146/65 94/52 Pulse Ox 100 100 O2 Delivery Ventilator Mechanical Ventilator Ventilator 03/04/17 03/04/17 03/04/17 03/04/17 05:00 05:15 07:22 08:00 Temp 102.2 102.2 Pulse 110 Resp 16 B/P 131/72 123/63 Pulse Ox 100 98 O2 Delivery Ventilator Ventilator Mechanical Ventilator 03/04/17 03/04/17 03/04/17 03/04/17 08:00 09:00 09:02 10:00 Temp 102.0 102.2 102.2 102.0 102.2 102.2 Pulse 124 99 92 Resp 24 16 16 B/P 104/75 118/58 87/58 Pulse Ox 99 100 96 100 O2 Delivery Ventilator Ventilator Ventilator Ventilator 03/04/17 10:52 Pulse Ox 97 O2 Delivery Ventilator Intake and Output 03/03/17 03/03/17 03/04/17 15:00 23:00 07:00 Intake Total 1000 ml 1000 ml Output Total 3400 ml Balance 1000 ml 1000 ml -3400 ml Nutrition Consultation Malnutrition Findings: Weight Status: Obese PRINCE GIRARD MD Mar 04, 2017 12:20
[2017-03-04] MEDS: POTASSIUM CHLORIDE 20MEQ 50 ML IV SCH ×5 (12:24→23:31)
--- NOTE | 2017-03-04 14:29 | PDOC2 ---
PALLIATIVE CARE Palliative Care Note Palliative Care Consult requested by Dr Nunez to assist with plan of care Diagnosis; Fever sepsis. DKA 1. Status post code blue, outside the hospital x1 and 03/04/2017 2. Fever and uncontrolled diabetes. DKA. Blood sugars 2000 range. 3. Metabolic acidosis.Lactic acidosis.Hyperosmolar coma. 4. 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 5. Resulting paraplegia. 6. Sacral ulcer.heal ulcer. 7. Self catheter for bladder retention Patient post code; 03/04/2017 1330 Unknown etiology per staff. Spoke with patient's father Tonny. He is aware of the seriousness. Want to continue full aggressive care. Will meet again 1030 Tuesday03/07/2017 LORI ASHLEY Mar 04, 2017 14:29
[2017-03-04 14:32] LABS: CREATININE 2.1 mg/dL (0.7-1.3); GFR 43.7; MAGNESIUM 2.3 mg/dL (1.8-2.4); PHOSPHORUS 5.3 mg/dL (2.6-4.7); POTASSIUM 3.4 mmol/L (3.5-5.1)
--- NOTE | 2017-03-04 14:32 | RAD ---
Portable chest, 03/04/2017: History: Postcode evaluation Comparison is made to yesterday's study. The patient is rotated to the right. The tip of the ET tube lies well above the ed. An NG tube extends least to the GE junction level. Its tip is not visible. A right jugular central venous catheter extends to the atriocaval junction level. The heart is enlarged. The pulmonary vascularity is within normal limits. There is now mild streaky left infrahilar atelectasis/infiltrate. The right lung is clear. There is no evidence of pleural fluid or pneumothorax. IMPRESSION: 1. Stable tube positions. 2. Cardiomegaly. 3. Mild left infrahilar atelectasis/infiltrate.
[2017-03-04] MEDS ORDERED: NOREPINEPHRINE 8 MG in IV NORMAL SALINE 250 ML IV ONE (14:45)
--- NOTE | 2017-03-04 14:52 | PDOC2 ---
NEUROLOGY CONSULT Date of Admission Date of Admission DATE: 03/04/17 TIME: 14:23 Reason for Consult Reason for Consult: IMPRESSION: Hypoxia encephalopathy. Metabolic encephalopathy. Respiratory failure. S/p cardiac arrest as asystole, downtime about 10 minutes per his family (father ). Hyperglycemia, glucose 2183 Lactic acidosis. Fever. Hypokalemia, K+ 2.8 Hypernatremia Na+ 162 Hypocalcemia Renal failure. Multi-organ failure. 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 Smoking. RECOMMENDATIONS/PLAN: Life support in ICU at the present time. Cooling blanket. ID treatment. Continue medical and cardiologic treatment. Control hyperglycemia. Correct electrolytes imbalances. Repeat HCT when stable. Statin can be given by NG or OG. Discussed with his father, uncle, cousins in great detail at bedside in ICU. His father has high expectations and he still does not understand leeann severity of his son's diseases and condition. HISTORY OF THE PRESENT ILLNESS: 36-y-old AA male patient with Hx of aortic artery reportedly abdominal aortic A rupture and had repair and he has been paralysed since and has urinary cath q4h daily and constipations as well. He was said to have borderline DM, but has not known hyperglycemia. Per his father, he was not feeling well in the past 2 to 3 days. He had respiratory difficulties on 03/03/17 and EMS was called. He went bradycardia then asystole. After in site resuscitations, he was brought to the ER of [facility]. He remained unresponsiveness since being here. PAST MEDICAL HISTORY: Please see above. PAST SURGERY HISTORY: Aortic A rupture s/p repair x 3. ALLERGY: Contrast dye. MEDICATIONS: Refer to [facility] FAMILY HISTORY: HTN DM SOCIAL HISTORY: Lives at home. Denies drinking and illicit drug use. He smokes less than 1 pack of cigarettes a day for years. REVIEW OF SYSTEMS: Constitutional: No malnutrition, weight loss, cachexia. Head: No traumatic brain or head injury. Skin: No edema, or rash. Ear: No infection, tinnitus. Eyes: No vision loss or color blindness. Nose: No bleeding or purulent discharges. Hearing: No hearing decrease. Neck: No injury. Cardiac: Aortic A rupture, HTN, HLD. Pulmonary: URI. GI: No GI ulcer, GI bleeding. Urinary/genital: Incontinence, urinary retention. Endocrinologic: Possible diabetes Mellitus, obesity. Skeletomuscular: LE paralysis since 01/2016. Neurological: see HP. Psychiatric: Denies drug use/abuse. Otherwise, not [id number] review of systems. PHYSICAL EXAMINATION: General appearance is in acute distress. HEENT: Normocephalic and nontraumatic. Eyes, nose, ears, and throat are unremarkable. Neck is supple. No lymphadenopathy. No crepitus. Cardiovascular: S1, S2, regular rate and rhythm. PVC noted. Pulmonary: On vent. Abdomen: Bowel sounds are weak. Extremities: No rash, lesions, or edema. NEUROLOGICAL EXAMINATION: Unresponsiveness. On vent. Not oriented to time, place and person. Pupils 1 mm, insensitive to light stimuli. EOMI not elicited. CN: no focal findings. Muscle tone: decreased. Muscle strength: No movements observed. DTR: 0-1 Plantar reflex: No response bilaterally Gait: LE paralysis since 01/2016. Sensory exam: no response to pain stimuli. Not able to access cerebellar signs at the present time. Current Medications Current Medications Current Medications Midazolam HCl 100 ml @ 0 mls/hr 1X ONCE IV Last administered on 03/03/17 14: 42; Start 03/03/17 at 13:45; Stop 03/03/17 at 13:46; Status DC Sodium Bicarbonate/ Sodium Chloride (Iv Sodium Chloride 0.45%) 1,150 ml @ 125 mls/hr 1X ONCE IV Last administered on 03/03/17 18:40; Start 03/03/17 at 13: 45; Stop 03/03/17 at 22:56; Status DC Etomidate (Amidate) 20 mg STK-MED ONCE IV ; Start 03/03/17 at 13:35; Stop at 13:36; Status DC Insulin Human Regular 10 unit 10 unit 1X ONCE IV Last administered on 14:37; Start 03/03/17 at 14:45; Stop 03/03/17 at 14:46; Status DC Insulin Human Regular 150 unit/ Sodium Chloride 151.5 ml @ 0 mls/hr CONT PRN IV SEE I/O RECORD; Start 03/03/17 at 14:00; Stop 03/03/17 at 17:20; Status DC Insulin Human Regular 150 ml @ As Directed STK-MED ONCE IV ; Start 03/03/17 at 14:05; Stop 03/03/17 at 14:06; Status DC Potassium Chloride 100 ml @ 100 mls/hr Q1H IV ; Start 03/03/17 at 17:00; Stop 03/03/17 at 17:43; Status DC Sodium Chloride 1,000 ml @ 1,000 mls/hr Q1H IV ; Start 03/03/17 at 16:49; Stop 03/03/17 at 17:48; Status DC Insulin Human Regular 150 unit/ Sodium Chloride 151.5 ml @ 0 mls/hr CONT PRN PRN IV PER PROTOCOL; Start 03/03/17 at 17:00; Stop 03/03/17 at 17:20; Status DC Potassium Chloride 100 ml @ 100 mls/hr PRN Q1HR PRN IV SEE COMMENTS Last administered on 03/04/17t 01:35; Start 03/03/17 at 17:00 Potassium Chloride 100 ml @ 100 mls/hr PRN Q1HR PRN IV SEE COMMENTS; Start at 17:00 Potassium Chloride 100 ml @ 100 mls/hr PRN Q1HR PRN IV SEE COMMENTS; Start at 17:00 Insulin Human Regular 150 unit/ Sodium Chloride 151.5 ml @ 0 mls/hr CONT PRN PRN IV PER PROTOCOL; Start 03/03/17 at 17:00 Potassium Chloride 100 ml @ 100 mls/hr PRN Q1HR PRN IV SEE COMMENTS; Start at 17:00; Stop 03/03/17 at 20:11; Status DC Potassium Chloride 100 ml @ 100 mls/hr PRN Q1HR PRN IV SEE COMMENTS; Start at 17:00; Stop 03/03/17 at 20:11; Status DC Potassium Chloride 100 ml @ 100 mls/hr PRN Q1HR PRN IV SEE COMMENTS; Start at 17:00; Stop 03/03/17 at 20:12; Status DC Vancomycin HCl/ Sodium Chloride (Iv Sodium Chloride 0.9% 500ml Bag) 500 ml @ 250 mls/hr 1X ONCE IV Last administered on 03/03/17t 18:33; Start 03/03/17 at 18:00; Stop 03/03/17 at 19:59; Status DC Vancomycin HCl 1 each 1 each PRN DAILY PRN MC SEE COMMENTS Last administered on 03/03/17 20:02; Start 03/03/17 at 17:00; Stop 03/04/17 at 08:51; Status DC Ertapenem/Sodium Chloride (Invanz/Iv Sodium Chloride 0.9% 50ml) 50 ml @ 100 mls /hr Q24H IV ; Start 03/03/17 at 17:30; Stop 03/04/17 at 08:51; Status DC Midazolam HCl 5 mg 5 mg STK-MED ONCE .ROUTE ; Start 03/03/17 at 17:40; Stop at 17:41; Status DC Potassium Chloride 50 ml @ 50 mls/hr Q1H IV Last administered on 03/03/17 23: 52; Start 03/03/17 at 18:00; Stop 03/03/17 at 21:59; Status DC Midazolam HCl 100 ml @ 0 mls/hr CONT PRN IV SEE I/O RECORD Last administered on 03/04/17 01:20; Start 03/03/17 at 18:15 Norepinephrine Bitartrate/Sodium Chloride (Levophed Vial/ Iv Sodium Chloride 0.9 % 250ml) 258 ml @ 0 mls/hr CONT PRN IV SEE I/O RECORD Last administered on 03/04 01:47; Start 03/03/17 at 19:15 Vancomycin HCl 1 each 1 each 1X ONCE MC ; Start 03/05/17 at 17:30; Stop at 17:30; Status DC Vancomycin HCl/ Sodium Chloride (Iv Sodium Chloride 0.9% 500ml Bag) 500 ml @ 250 mls/hr Q24H IV ; Start 03/04/17 at 18:00; Stop 03/04/17 at 18:00; Status DC Enoxaparin Sodium 40 mg 40 mg Q24H SQ ; Start 03/03/17 at 21:00; Status Cancel Potassium Phosphate 40 mmol/ Sodium Chloride 263.3333 ml @ 62.5 mls/hr 1X ONCE IV Last administered on 03/03/17 23:51; Start 03/03/17 at 23:30; Stop at 03:42; Status DC Potassium Chloride (KCl Premix 20meq) 50 ml @ 50 mls/hr PRN Q1HR PRN IV K LESS THAN 3 Last administered on 03/04/17 06:59; Start 03/03/17 at 22:45 Acetaminophen (Tylenol) 325 mg PRN Q6HRS PRN ME MILD PAIN / TEMP Last administered on 03/03/17 23:50; Start 03/03/17 at 23:15 Enoxaparin Sodium (Lovenox Per Pharmacy Treatment Dosing) 1 each PRN DAILY PRN MC SEE COMMENTS; Start 03/04/17 at 01:00 Enoxaparin Sodium (Lovenox 120mg Syringe) 120 mg Q12HR SQ Last administered on 03/04/17 10:17; Start 03/04/17 at 01:00; Stop 03/04/17 at 13:29; Status DC Info 1 each 1 each PRN DAILY PRN MC SEE COMMENTS Last administered on 03:30; Start 03/04/17 at 01:00 Sodium Chloride 1,000 ml @ 250 mls/hr Q4H IV Last administered on 03/04/17 10 :24; Start 03/04/17 at 01:00 Piperacillin Sod/ Tazobactam Sod 3.375 gm/Sodium Chloride 50 ml @ 100 mls/hr Q6H IV Last administered on 03/04/17 10:19; Start 03/04/17 at 09:00 Linezolid 300 ml @ 300 mls/hr Q12HR IV Last administered on 03/04/17 10:17; Start 03/04/17 at 09:00 Potassium Chloride 50 ml @ 50 mls/hr Q1H IV Last administered on 03/04/17 12: 33; Start 03/04/17 at 11:30; Stop 03/04/17 at 13:29; Status DC Sodium Phosphate/ Dextrose 256.6667 ml @ 64.167 m... 1X ONCE IV Last administered on 03/04/17 12:23; Start 03/04/17 at 11:30; Stop 03/04/17 at 15:29 Sodium Bicarbonate 50 meq STK-MED ONCE .ROUTE ; Start 03/03/17 at 12:00; Stop at 11:39; Status DC Enoxaparin Sodium (Lovenox 120mg Syringe) 120 mg DAILY SQ ; Start 03/05/17 at 09 :00 Active Scripts Active Feosol (Ferrous Sulfate) 325 Mg Tablet 325 Mg PO BIDWMEALS 30 Days Vitamin B-12 (Cyanocobalamin (Vitamin B-12)) 1,000 Mcg Tablet 1,000 Mcg PO DAILY 30 Days Amox Tr-K Clv 875-125 Mg Tab (Amoxicillin/Potassium Clav) 1 Each Tablet 1 Tab PO BID 5 Days Reported Percocet 5-325 Mg Tablet (Oxycodone/Acetaminophen) 1 Each Tablet 1 Tab PO PRN Q6HRS PRN Metformin Hcl 850 Mg Tablet 1 Tab PO BID Furosemide 40 Mg Tablet 1 Tab PO DAILY Gabapentin 100 Mg Capsule 100 Mg PO QHS Pantoprazole Sodium 40 Mg Tablet.dr 1 Tab PO DAILY Coumadin (Warfarin Sodium) 10 Mg Tablet 1 Tab PO QHS Take on Mondays, Tuesdays, and Wednesdays Oxybutynin Chloride 5 Mg Tablet 1 Tab PO BID Coumadin (Warfarin Sodium) 7.5 Mg Tablet 1 Tab PO QHS To be taken on , Fridays, Saturdays, and Sundays Allergies Allergies: Coded Allergies: iodine (Unverified Allergy, Intermediate, 01/13/15) Vitals VITALS Vital Signs Date Time Temp Pulse Resp B/P Pulse Ox O2 Delivery O2 Flow Rate FiO2 03/04/17 14:11 98 Ventilator 03/04/17 12:00 102.0 124 24 104/75 102.0 03/03/17 12:33 15 Labs Labs Laboratory Tests Test 03/03/17 12:55 03/03/17 13:07 03/03/17 13:20 03/03/17 14:28 White Blood Count 9.7x10^3/uL (4.0-11.0) Red Blood Count 4.58x10^6/uL (4.30-5.70) Hemoglobin 11.4g/dL (13.0-17.5) Hematocrit 45.1% (39.0-53.0) Mean Corpuscular Volume 98fL (79-100) Mean Corpuscular Hemoglobin 25pg (25-35) Mean Corpuscular Hemoglobin Concent 25g/dL (31-37) Red Cell Distribution Width 17.8% (11.5-14.5) Platelet Count 244x10^3/uL (140-400) Neutrophils (%) (Auto) 75% (31-73) Lymphocytes (%) (Auto) 19% (24-48) Monocytes (%) (Auto) 6% (0-9) Eosinophils (%) (Auto) 0% (0-3) Basophils (%) (Auto) 0% (0-3) Neutrophils # (Auto) 7.3x10^3uL (1.8-7.7) Lymphocytes # (Auto) 1.8x10^3/uL (1.0-4.8) Monocytes # (Auto) 0.6x10^3/uL (0.0-1.1) Eosinophils # (Auto) 0.0x10^3/uL (0.0-0.7) Basophils # (Auto) 0.0x10^3/uL (0.0-0.2) Prothrombin Time 16.8SEC (11.7-14.0) Prothromb Time International Ratio 1.5 (0.8-1.1) Sodium Level 135mmol/L (136-145) Potassium Level 2.8mmol/L (3.5-5.1) Chloride Level 93mmol/L (98-107) Carbon Dioxide Level 21mmol/L (21-32) Anion Gap 21 (6-14) Blood Urea Nitrogen 51mg/dL (8-26) Creatinine 3.4mg/dL (0.7-1.3) Estimated GFR (Cockcroft-Gault) 25.1 Glucose Level 2183mg/dL (70-99) 2003mg/dL (70-99) Hemoglobin A1c 10.0% (4.8-5.6) Calcium Level 8.1mg/dL (8.5-10.1) Troponin I Quantitative < 0.017ng/mL (0.000-0.055) XX-Ibg-R-Type Natriuretic Peptide 930pg/mL (0-124) Urine Opiates Screen Neg (NEG) Urine Methadone Screen Neg (NEG) Urine Barbiturates Neg (NEG) Urine Phencyclidine Screen Neg (NEG) Urine Amphetamine/Methamphetamine Neg (NEG) Urine Benzodiazepines Screen Neg (NEG) Urine Cocaine Screen Neg (NEG) Urine Cannabinoids Screen Neg (NEG) Urine Ethyl Alcohol Neg (NEG) O2 Saturation 99% (92-99) Arterial Blood pH 7.31 (7.35-7.45) Arterial Blood pCO2 at Patient Temp 33mmHg (35-46) Arterial Blood pO2 at Patient Temp 373mmHg (85-108) Arterial Blood HCO3 16mmol/L (21-28) Arterial Blood Base Excess -9mmol/L (-3-3) FiO2 100 Serum Osmolality 429mOsm/Kg (279-304) Test 03/03/17 16:31 03/03/17 18:58 03/03/17 19:00 03/03/17 21:00 Sodium Level 140mmol/L (136-145) 148mmol/L (136-145) Potassium Level 2.0mmol/L (3.5-5.1) 2.3mmol/L (3.5-5.1) Chloride Level 99mmol/L (98-107) 106mmol/L (98-107) Carbon Dioxide Level 22mmol/L (21-32) 24mmol/L (21-32) Anion Gap 19 (6-14) 18 (6-14) Blood Urea Nitrogen 52mg/dL (8-26) 49mg/dL (8-26) Creatinine 3.3mg/dL (0.7-1.3) 2.9mg/dL (0.7-1.3) Estimated GFR (Cockcroft-Gault) 25.9 30.1 BUN/Creatinine Ratio 16 (6-20) Glucose Level 1704mg/dL (70-99) 1356mg/dL (70-99) 1037mg/dL (70-99) Calcium Level 8.1mg/dL (8.5-10.1) 7.7mg/dL (8.5-10.1) Phosphorus Level 2.2mg/dL (2.6-4.7) 1.9mg/dL (2.6-4.7) Magnesium Level 2.4mg/dL (1.8-2.4) 2.4mg/dL (1.8-2.4) Total Bilirubin 0.2mg/dL (0.2-1.0) Direct Bilirubin 0.1mg/dL (0.0-0.2) Aspartate Amino Transf (AST/SGOT) 44U/L (15-37) Alanine Aminotransferase (ALT/SGPT) 56U/L (16-63) Alkaline Phosphatase 134U/L (46-116) Total Protein 7.6g/dL (6.4-8.2) Albumin 2.7g/dL (3.4-5.0) Albumin/Globulin Ratio 0.6 (1.0-1.7) Triglycerides Level 304mg/dL (0-150) Cholesterol Level 166mg/dL (0-200) LDL Cholesterol, Calculated 91mg/dL (0-100) VLDL Cholesterol, Calculated 61mg/dL (0-40) HDL Cholesterol 14mg/dL (40-60) Cholesterol/HDL Ratio 11.9 Thyroid Stimulating Hormone (TSH) 0.555uIU/mL (0.358-3.74) Lactic Acid Level 6.7mmol/L (0.4-2.0) Procalcitonin 6.82ng/mL (0.00-0.10) Serum Osmolality 400mOsm/Kg (279-304) Test 03/03/17 22:00 03/03/17 23:30 03/04/17 01:15 03/04/17 01:30 Urine Collection Type Unknown Urine Color Yellow Urine Clarity Clear Urine pH 6.0 Urine Specific [place] 1.020 Urine Protein 30mg/dL (NEG-TRACE) Urine Glucose (UA) >=1000mg/dL (NEG) Urine Ketones (Stick) Negativemg/dL (NEG) Urine Blood Large (NEG) Urine Nitrite Negative (NEG) Urine Bilirubin Negative (NEG) Urine Urobilinogen Dipstick 0.2mg/dL (0.2 mg/dL) Urine Leukocyte Esterase Small (NEG) Urine RBC 3-5/HPF (0-2) Urine WBC 11-20/HPF (0-4) Urine Squamous Epithelial Cells Occ/LPF Urine Bacteria Few/HPF (0-FEW) Urine Mucus Slight/LPF Glucose Level 804mg/dL (70-99) 641mg/dL (70-99) Sodium Level 158mmol/L (136-145) Potassium Level 3.2mmol/L (3.5-5.1) Chloride Level 119mmol/L (98-107) Carbon Dioxide Level 25mmol/L (21-32) Anion Gap 14 (6-14) Blood Urea Nitrogen 38mg/dL (8-26) Creatinine 2.1mg/dL (0.7-1.3) Estimated GFR (Cockcroft-Gault) 43.7 Lactic Acid Level 5.6mmol/L (0.4-2.0) Calcium Level 7.9mg/dL (8.5-10.1) Phosphorus Level 2.1mg/dL (2.6-4.7) Magnesium Level 2.1mg/dL (1.8-2.4) Serum Osmolality 368mOsm/Kg (279-304) Test 03/04/17 03:28 03/04/17 04:25 03/04/17 04:30 03/04/17 05:42 Glucose (Fingerstick) 490mg/dL (70-99) 439mg/dL (70-99) 440mg/dL (70-99) White Blood Count 13.7x10^3/uL (4.0-11.0) Red Blood Count 4.84x10^6/uL (4.30-5.70) Hemoglobin 11.7g/dL (13.0-17.5) Hematocrit 38.2% (39.0-53.0) Mean Corpuscular Volume 79fL (79-100) Mean Corpuscular Hemoglobin 24pg (25-35) Mean Corpuscular Hemoglobin Concent 31g/dL (31-37) Red Cell Distribution Width 15.9% (11.5-14.5) Platelet Count 223x10^3/uL (140-400) Neutrophils (%) (Auto) 78% (31-73) Lymphocytes (%) (Auto) 11% (24-48) Monocytes (%) (Auto) 11% (0-9) Eosinophils (%) (Auto) 0% (0-3) Basophils (%) (Auto) 0% (0-3) Neutrophils # (Auto) 10.7x10^3uL (1.8-7.7) Lymphocytes # (Auto) 1.4x10^3/uL (1.0-4.8) Monocytes # (Auto) 1.5x10^3/uL (0.0-1.1) Eosinophils # (Auto) 0.0x10^3/uL (0.0-0.7) Basophils # (Auto) 0.0x10^3/uL (0.0-0.2) Sodium Level 159mmol/L (136-145) Potassium Level 3.8mmol/L (3.5-5.1) Chloride Level 121mmol/L (98-107) Carbon Dioxide Level 23mmol/L (21-32) Anion Gap 15 (6-14) Blood Urea Nitrogen 34mg/dL (8-26) Creatinine 1.9mg/dL (0.7-1.3) Estimated GFR (Cockcroft-Gault) 49.1 BUN/Creatinine Ratio 18 (6-20) Glucose Level 472mg/dL (70-99) Serum Osmolality 357mOsm/Kg (279-304) Calcium Level 7.8mg/dL (8.5-10.1) Phosphorus Level 3.2mg/dL (2.6-4.7) Magnesium Level 2.0mg/dL (1.8-2.4) Total Bilirubin 0.3mg/dL (0.2-1.0) Aspartate Amino Transf (AST/SGOT) 37U/L (15-37) Alanine Aminotransferase (ALT/SGPT) 50U/L (16-63) Alkaline Phosphatase 138U/L (46-116) Total Protein 7.8g/dL (6.4-8.2) Albumin 2.6g/dL (3.4-5.0) Albumin/Globulin Ratio 0.5 (1.0-1.7) Test 03/04/17 06:56 03/04/17 07:36 03/04/17 08:00 03/04/17 08:53 Glucose (Fingerstick) 402mg/dL (70-99) 354mg/dL (70-99) 306mg/dL (70-99) O2 Saturation 97% (92-99) Arterial Blood pH 7.45 (7.35-7.45) Arterial Blood pCO2 at Patient Temp 32mmHg (35-46) Arterial Blood pO2 at Patient Temp 87mmHg (85-108) Arterial Blood HCO3 22mmol/L (21-28) Arterial Blood Base Excess -2mmol/L (-3-3) FiO2 40 Test 03/04/17 09:43 03/04/17 09:45 03/04/17 12:58 Glucose (Fingerstick) 257mg/dL (70-99) 190mg/dL (70-99) Sodium Level 162mmol/L (136-145) Potassium Level 3.5mmol/L (3.5-5.1) Chloride Level 124mmol/L (98-107) Carbon Dioxide Level 24mmol/L (21-32) Anion Gap 14 (6-14) Blood Urea Nitrogen 32mg/dL (8-26) Creatinine 1.8mg/dL (0.7-1.3) Estimated GFR (Cockcroft-Gault) 52.2 Glucose Level 218mg/dL (70-99) Serum Osmolality 345mOsm/Kg (279-304) Calcium Level 8.0mg/dL (8.5-10.1) Phosphorus Level 2.1mg/dL (2.6-4.7) Magnesium Level 2.0mg/dL (1.8-2.4) Laboratory Tests Test 03/03/17 14:28 03/03/17 16:31 03/03/17 18:58 03/03/17 19:00 Glucose Level 2003mg/dL (70-99) 1704mg/dL (70-99) 1356mg/dL (70-99) Serum Osmolality 429mOsm/Kg (279-304) 400mOsm/Kg (279-304) Sodium Level 140mmol/L (136-145) 148mmol/L (136-145) Potassium Level 2.0mmol/L (3.5-5.1) 2.3mmol/L (3.5-5.1) Chloride Level 99mmol/L (98-107) 106mmol/L (98-107) Carbon Dioxide Level 22mmol/L (21-32) 24mmol/L (21-32) Anion Gap 19 (6-14) 18 (6-14) Blood Urea Nitrogen 52mg/dL (8-26) 49mg/dL (8-26) Creatinine 3.3mg/dL (0.7-1.3) 2.9mg/dL (0.7-1.3) Estimated GFR (Cockcroft-Gault) 25.9 30.1 BUN/Creatinine Ratio 16 (6-20) Calcium Level 8.1mg/dL (8.5-10.1) 7.7mg/dL (8.5-10.1) Phosphorus Level 2.2mg/dL (2.6-4.7) 1.9mg/dL (2.6-4.7) Magnesium Level 2.4mg/dL (1.8-2.4) 2.4mg/dL (1.8-2.4) Total Bilirubin 0.2mg/dL (0.2-1.0) Direct Bilirubin 0.1mg/dL (0.0-0.2) Aspartate Amino Transf (AST/SGOT) 44U/L (15-37) Alanine Aminotransferase (ALT/SGPT) 56U/L (16-63) Alkaline Phosphatase 134U/L (46-116) Total Protein 7.6g/dL (6.4-8.2) Albumin 2.7g/dL (3.4-5.0) Albumin/Globulin Ratio 0.6 (1.0-1.7) Triglycerides Level 304mg/dL (0-150) Cholesterol Level 166mg/dL (0-200) LDL Cholesterol, Calculated 91mg/dL (0-100) VLDL Cholesterol, Calculated 61mg/dL (0-40) HDL Cholesterol 14mg/dL (40-60) Cholesterol/HDL Ratio 11.9 Thyroid Stimulating Hormone (TSH) 0.555uIU/mL (0.358-3.74) Lactic Acid Level 6.7mmol/L (0.4-2.0) Procalcitonin 6.82ng/mL (0.00-0.10) Test 03/03/17 21:00 03/03/17 22:00 03/03/17 23:30 03/04/17 01:15 Glucose Level 1037mg/dL (70-99) 804mg/dL (70-99) 641mg/dL (70-99) Urine Collection Type Unknown Urine Color Yellow Urine Clarity Clear Urine pH 6.0 Urine Specific [place] 1.020 Urine Protein 30mg/dL (NEG-TRACE) Urine Glucose (UA) >=1000mg/dL (NEG) Urine Ketones (Stick) Negativemg/dL (NEG) Urine Blood Large (NEG) Urine Nitrite Negative (NEG) Urine Bilirubin Negative (NEG) Urine Urobilinogen Dipstick 0.2mg/dL (0.2 mg/dL) Urine Leukocyte Esterase Small (NEG) Urine RBC 3-5/HPF (0-2) Urine WBC 11-20/HPF (0-4) Urine Squamous Epithelial Cells Occ/LPF Urine Bacteria Few/HPF (0-FEW) Urine Mucus Slight/LPF Sodium Level 158mmol/L (136-145) Potassium Level 3.2mmol/L (3.5-5.1) Chloride Level 119mmol/L (98-107) Carbon Dioxide Level 25mmol/L (21-32) Anion Gap 14 (6-14) Blood Urea Nitrogen 38mg/dL (8-26) Creatinine 2.1mg/dL (0.7-1.3) Estimated GFR (Cockcroft-Gault) 43.7 Lactic Acid Level 5.6mmol/L (0.4-2.0) Calcium Level 7.9mg/dL (8.5-10.1) Phosphorus Level 2.1mg/dL (2.6-4.7) Magnesium Level 2.1mg/dL (1.8-2.4) Test 03/04/17 01:30 03/04/17 03:28 03/04/17 04:25 03/04/17 04:30 Serum Osmolality 368mOsm/Kg (279-304) 357mOsm/Kg (279-304) Glucose (Fingerstick) 490mg/dL (70-99) 439mg/dL (70-99) White Blood Count 13.7x10^3/uL (4.0-11.0) Red Blood Count 4.84x10^6/uL (4.30-5.70) Hemoglobin 11.7g/dL (13.0-17.5) Hematocrit 38.2% (39.0-53.0) Mean Corpuscular Volume 79fL (79-100) Mean Corpuscular Hemoglobin 24pg (25-35) Mean Corpuscular Hemoglobin Concent 31g/dL (31-37) Red Cell Distribution Width 15.9% (11.5-14.5) Platelet Count 223x10^3/uL (140-400) Neutrophils (%) (Auto) 78% (31-73) Lymphocytes (%) (Auto) 11% (24-48) Monocytes (%) (Auto) 11% (0-9) Eosinophils (%) (Auto) 0% (0-3) Basophils (%) (Auto) 0% (0-3) Neutrophils # (Auto) 10.7x10^3uL (1.8-7.7) Lymphocytes # (Auto) 1.4x10^3/uL (1.0-4.8) Monocytes # (Auto) 1.5x10^3/uL (0.0-1.1) Eosinophils # (Auto) 0.0x10^3/uL (0.0-0.7) Basophils # (Auto) 0.0x10^3/uL (0.0-0.2) Sodium Level 159mmol/L (136-145) Potassium Level 3.8mmol/L (3.5-5.1) Chloride Level 121mmol/L (98-107) Carbon Dioxide Level 23mmol/L (21-32) Anion Gap 15 (6-14) Blood Urea Nitrogen 34mg/dL (8-26) Creatinine 1.9mg/dL (0.7-1.3) Estimated GFR (Cockcroft-Gault) 49.1 BUN/Creatinine Ratio 18 (6-20) Glucose Level 472mg/dL (70-99) Calcium Level 7.8mg/dL (8.5-10.1) Phosphorus Level 3.2mg/dL (2.6-4.7) Magnesium Level 2.0mg/dL (1.8-2.4) Total Bilirubin 0.3mg/dL (0.2-1.0) Aspartate Amino Transf (AST/SGOT) 37U/L (15-37) Alanine Aminotransferase (ALT/SGPT) 50U/L (16-63) Alkaline Phosphatase 138U/L (46-116) Total Protein 7.8g/dL (6.4-8.2) Albumin 2.6g/dL (3.4-5.0) Albumin/Globulin Ratio 0.5 (1.0-1.7) Test 03/04/17 05:42 03/04/17 06:56 03/04/17 07:36 03/04/17 08:00 Glucose (Fingerstick) 440mg/dL (70-99) 402mg/dL (70-99) 354mg/dL (70-99) O2 Saturation 97% (92-99) Arterial Blood pH 7.45 (7.35-7.45) Arterial Blood pCO2 at Patient Temp 32mmHg (35-46) Arterial Blood pO2 at Patient Temp 87mmHg (85-108) Arterial Blood HCO3 22mmol/L (21-28) Arterial Blood Base Excess -2mmol/L (-3-3) FiO2 40 Test 03/04/17 08:53 03/04/17 09:43 03/04/17 09:45 03/04/17 12:58 Glucose (Fingerstick) 306mg/dL (70-99) 257mg/dL (70-99) 190mg/dL (70-99) Sodium Level 162mmol/L (136-145) Potassium Level 3.5mmol/L (3.5-5.1) Chloride Level 124mmol/L (98-107) Carbon Dioxide Level 24mmol/L (21-32) Anion Gap 14 (6-14) Blood Urea Nitrogen 32mg/dL (8-26) Creatinine 1.8mg/dL (0.7-1.3) Estimated GFR (Cockcroft-Gault) 52.2 Glucose Level 218mg/dL (70-99) Serum Osmolality 345mOsm/Kg (279-304) Calcium Level 8.0mg/dL (8.5-10.1) Phosphorus Level 2.1mg/dL (2.6-4.7) Magnesium Level 2.0mg/dL (1.8-2.4) FABIANA GARCIA MD Mar 04, 2017 14:52
--- NOTE | 2017-03-04 14:56 | PDOC ---
PULMONARY PROGRESS NOTES Vitals Vital Signs Date Time Temp Pulse Resp B/P Pulse Ox O2 Delivery O2 Flow Rate FiO2 03/04/17 14:11 98 Ventilator 03/04/17 12:00 102.0 124 24 104/75 102.0 03/03/17 12:33 15 Lungs: Clear Labs Laboratory Tests Test 03/03/17 12:55 03/03/17 13:07 03/03/17 13:20 03/03/17 14:28 White Blood Count 9.7x10^3/uL (4.0-11.0) Red Blood Count 4.58x10^6/uL (4.30-5.70) Hemoglobin 11.4g/dL (13.0-17.5) Hematocrit 45.1% (39.0-53.0) Mean Corpuscular Volume 98fL (79-100) Mean Corpuscular Hemoglobin 25pg (25-35) Mean Corpuscular Hemoglobin Concent 25g/dL (31-37) Red Cell Distribution Width 17.8% (11.5-14.5) Platelet Count 244x10^3/uL (140-400) Neutrophils (%) (Auto) 75% (31-73) Lymphocytes (%) (Auto) 19% (24-48) Monocytes (%) (Auto) 6% (0-9) Eosinophils (%) (Auto) 0% (0-3) Basophils (%) (Auto) 0% (0-3) Neutrophils # (Auto) 7.3x10^3uL (1.8-7.7) Lymphocytes # (Auto) 1.8x10^3/uL (1.0-4.8) Monocytes # (Auto) 0.6x10^3/uL (0.0-1.1) Eosinophils # (Auto) 0.0x10^3/uL (0.0-0.7) Basophils # (Auto) 0.0x10^3/uL (0.0-0.2) Prothrombin Time 16.8SEC (11.7-14.0) Prothromb Time International Ratio 1.5 (0.8-1.1) Sodium Level 135mmol/L (136-145) Potassium Level 2.8mmol/L (3.5-5.1) Chloride Level 93mmol/L (98-107) Carbon Dioxide Level 21mmol/L (21-32) Anion Gap 21 (6-14) Blood Urea Nitrogen 51mg/dL (8-26) Creatinine 3.4mg/dL (0.7-1.3) Estimated GFR (Cockcroft-Gault) 25.1 Glucose Level 2183mg/dL (70-99) 2003mg/dL (70-99) Hemoglobin A1c 10.0% (4.8-5.6) Calcium Level 8.1mg/dL (8.5-10.1) Troponin I Quantitative < 0.017ng/mL (0.000-0.055) BM-Zfl-X-Type Natriuretic Peptide 930pg/mL (0-124) Urine Opiates Screen Neg (NEG) Urine Methadone Screen Neg (NEG) Urine Barbiturates Neg (NEG) Urine Phencyclidine Screen Neg (NEG) Urine Amphetamine/Methamphetamine Neg (NEG) Urine Benzodiazepines Screen Neg (NEG) Urine Cocaine Screen Neg (NEG) Urine Cannabinoids Screen Neg (NEG) Urine Ethyl Alcohol Neg (NEG) O2 Saturation 99% (92-99) Arterial Blood pH 7.31 (7.35-7.45) Arterial Blood pCO2 at Patient Temp 33mmHg (35-46) Arterial Blood pO2 at Patient Temp 373mmHg (85-108) Arterial Blood HCO3 16mmol/L (21-28) Arterial Blood Base Excess -9mmol/L (-3-3) FiO2 100 Serum Osmolality 429mOsm/Kg (279-304) Test 03/03/17 16:31 03/03/17 18:58 03/03/17 19:00 03/03/17 21:00 Sodium Level 140mmol/L (136-145) 148mmol/L (136-145) Potassium Level 2.0mmol/L (3.5-5.1) 2.3mmol/L (3.5-5.1) Chloride Level 99mmol/L (98-107) 106mmol/L (98-107) Carbon Dioxide Level 22mmol/L (21-32) 24mmol/L (21-32) Anion Gap 19 (6-14) 18 (6-14) Blood Urea Nitrogen 52mg/dL (8-26) 49mg/dL (8-26) Creatinine 3.3mg/dL (0.7-1.3) 2.9mg/dL (0.7-1.3) Estimated GFR (Cockcroft-Gault) 25.9 30.1 BUN/Creatinine Ratio 16 (6-20) Glucose Level 1704mg/dL (70-99) 1356mg/dL (70-99) 1037mg/dL (70-99) Calcium Level 8.1mg/dL (8.5-10.1) 7.7mg/dL (8.5-10.1) Phosphorus Level 2.2mg/dL (2.6-4.7) 1.9mg/dL (2.6-4.7) Magnesium Level 2.4mg/dL (1.8-2.4) 2.4mg/dL (1.8-2.4) Total Bilirubin 0.2mg/dL (0.2-1.0) Direct Bilirubin 0.1mg/dL (0.0-0.2) Aspartate Amino Transf (AST/SGOT) 44U/L (15-37) Alanine Aminotransferase (ALT/SGPT) 56U/L (16-63) Alkaline Phosphatase 134U/L (46-116) Total Protein 7.6g/dL (6.4-8.2) Albumin 2.7g/dL (3.4-5.0) Albumin/Globulin Ratio 0.6 (1.0-1.7) Triglycerides Level 304mg/dL (0-150) Cholesterol Level 166mg/dL (0-200) LDL Cholesterol, Calculated 91mg/dL (0-100) VLDL Cholesterol, Calculated 61mg/dL (0-40) HDL Cholesterol 14mg/dL (40-60) Cholesterol/HDL Ratio 11.9 Thyroid Stimulating Hormone (TSH) 0.555uIU/mL (0.358-3.74) Lactic Acid Level 6.7mmol/L (0.4-2.0) Procalcitonin 6.82ng/mL (0.00-0.10) Serum Osmolality 400mOsm/Kg (279-304) Test 03/03/17 22:00 03/03/17 23:30 03/04/17 01:15 03/04/17 01:30 Urine Collection Type Unknown Urine Color Yellow Urine Clarity Clear Urine pH 6.0 Urine Specific [place] 1.020 Urine Protein 30mg/dL (NEG-TRACE) Urine Glucose (UA) >=1000mg/dL (NEG) Urine Ketones (Stick) Negativemg/dL (NEG) Urine Blood Large (NEG) Urine Nitrite Negative (NEG) Urine Bilirubin Negative (NEG) Urine Urobilinogen Dipstick 0.2mg/dL (0.2 mg/dL) Urine Leukocyte Esterase Small (NEG) Urine RBC 3-5/HPF (0-2) Urine WBC 11-20/HPF (0-4) Urine Squamous Epithelial Cells Occ/LPF Urine Bacteria Few/HPF (0-FEW) Urine Mucus Slight/LPF Glucose Level 804mg/dL (70-99) 641mg/dL (70-99) Sodium Level 158mmol/L (136-145) Potassium Level 3.2mmol/L (3.5-5.1) Chloride Level 119mmol/L (98-107) Carbon Dioxide Level 25mmol/L (21-32) Anion Gap 14 (6-14) Blood Urea Nitrogen 38mg/dL (8-26) Creatinine 2.1mg/dL (0.7-1.3) Estimated GFR (Cockcroft-Gault) 43.7 Lactic Acid Level 5.6mmol/L (0.4-2.0) Calcium Level 7.9mg/dL (8.5-10.1) Phosphorus Level 2.1mg/dL (2.6-4.7) Magnesium Level 2.1mg/dL (1.8-2.4) Serum Osmolality 368mOsm/Kg (279-304) Test 03/04/17 03:28 03/04/17 04:25 03/04/17 04:30 03/04/17 05:42 Glucose (Fingerstick) 490mg/dL (70-99) 439mg/dL (70-99) 440mg/dL (70-99) White Blood Count 13.7x10^3/uL (4.0-11.0) Red Blood Count 4.84x10^6/uL (4.30-5.70) Hemoglobin 11.7g/dL (13.0-17.5) Hematocrit 38.2% (39.0-53.0) Mean Corpuscular Volume 79fL (79-100) Mean Corpuscular Hemoglobin 24pg (25-35) Mean Corpuscular Hemoglobin Concent 31g/dL (31-37) Red Cell Distribution Width 15.9% (11.5-14.5) Platelet Count 223x10^3/uL (140-400) Neutrophils (%) (Auto) 78% (31-73) Lymphocytes (%) (Auto) 11% (24-48) Monocytes (%) (Auto) 11% (0-9) Eosinophils (%) (Auto) 0% (0-3) Basophils (%) (Auto) 0% (0-3) Neutrophils # (Auto) 10.7x10^3uL (1.8-7.7) Lymphocytes # (Auto) 1.4x10^3/uL (1.0-4.8) Monocytes # (Auto) 1.5x10^3/uL (0.0-1.1) Eosinophils # (Auto) 0.0x10^3/uL (0.0-0.7) Basophils # (Auto) 0.0x10^3/uL (0.0-0.2) Sodium Level 159mmol/L (136-145) Potassium Level 3.8mmol/L (3.5-5.1) Chloride Level 121mmol/L (98-107) Carbon Dioxide Level 23mmol/L (21-32) Anion Gap 15 (6-14) Blood Urea Nitrogen 34mg/dL (8-26) Creatinine 1.9mg/dL (0.7-1.3) Estimated GFR (Cockcroft-Gault) 49.1 BUN/Creatinine Ratio 18 (6-20) Glucose Level 472mg/dL (70-99) Serum Osmolality 357mOsm/Kg (279-304) Calcium Level 7.8mg/dL (8.5-10.1) Phosphorus Level 3.2mg/dL (2.6-4.7) Magnesium Level 2.0mg/dL (1.8-2.4) Total Bilirubin 0.3mg/dL (0.2-1.0) Aspartate Amino Transf (AST/SGOT) 37U/L (15-37) Alanine Aminotransferase (ALT/SGPT) 50U/L (16-63) Alkaline Phosphatase 138U/L (46-116) Total Protein 7.8g/dL (6.4-8.2) Albumin 2.6g/dL (3.4-5.0) Albumin/Globulin Ratio 0.5 (1.0-1.7) Test 03/04/17 06:56 03/04/17 07:36 03/04/17 08:00 03/04/17 08:53 Glucose (Fingerstick) 402mg/dL (70-99) 354mg/dL (70-99) 306mg/dL (70-99) O2 Saturation 97% (92-99) Arterial Blood pH 7.45 (7.35-7.45) Arterial Blood pCO2 at Patient Temp 32mmHg (35-46) Arterial Blood pO2 at Patient Temp 87mmHg (85-108) Arterial Blood HCO3 22mmol/L (21-28) Arterial Blood Base Excess -2mmol/L (-3-3) FiO2 40 Test 03/04/17 09:43 03/04/17 09:45 03/04/17 12:58 03/04/17 13:55 Glucose (Fingerstick) 257mg/dL (70-99) 190mg/dL (70-99) Sodium Level 162mmol/L (136-145) 165mmol/L (136-145) Potassium Level 3.5mmol/L (3.5-5.1) 3.4mmol/L (3.5-5.1) Chloride Level 124mmol/L (98-107) 123mmol/L (98-107) Carbon Dioxide Level 24mmol/L (21-32) 22mmol/L (21-32) Anion Gap 14 (6-14) 20 (6-14) Blood Urea Nitrogen 32mg/dL (8-26) 30mg/dL (8-26) Creatinine 1.8mg/dL (0.7-1.3) 2.1mg/dL (0.7-1.3) Estimated GFR (Cockcroft-Gault) 52.2 43.7 Glucose Level 218mg/dL (70-99) 274mg/dL (70-99) Serum Osmolality 345mOsm/Kg (279-304) Calcium Level 8.0mg/dL (8.5-10.1) 7.0mg/dL (8.5-10.1) Phosphorus Level 2.1mg/dL (2.6-4.7) 5.3mg/dL (2.6-4.7) Magnesium Level 2.0mg/dL (1.8-2.4) 2.3mg/dL (1.8-2.4) Laboratory Tests Test 03/03/17 16:31 03/03/17 18:58 03/03/17 19:00 03/03/17 21:00 Sodium Level 140mmol/L (136-145) 148mmol/L (136-145) Potassium Level 2.0mmol/L (3.5-5.1) 2.3mmol/L (3.5-5.1) Chloride Level 99mmol/L (98-107) 106mmol/L (98-107) Carbon Dioxide Level 22mmol/L (21-32) 24mmol/L (21-32) Anion Gap 19 (6-14) 18 (6-14) Blood Urea Nitrogen 52mg/dL (8-26) 49mg/dL (8-26) Creatinine 3.3mg/dL (0.7-1.3) 2.9mg/dL (0.7-1.3) Estimated GFR (Cockcroft-Gault) 25.9 30.1 BUN/Creatinine Ratio 16 (6-20) Glucose Level 1704mg/dL (70-99) 1356mg/dL (70-99) 1037mg/dL (70-99) Calcium Level 8.1mg/dL (8.5-10.1) 7.7mg/dL (8.5-10.1) Phosphorus Level 2.2mg/dL (2.6-4.7) 1.9mg/dL (2.6-4.7) Magnesium Level 2.4mg/dL (1.8-2.4) 2.4mg/dL (1.8-2.4) Total Bilirubin 0.2mg/dL (0.2-1.0) Direct Bilirubin 0.1mg/dL (0.0-0.2) Aspartate Amino Transf (AST/SGOT) 44U/L (15-37) Alanine Aminotransferase (ALT/SGPT) 56U/L (16-63) Alkaline Phosphatase 134U/L (46-116) Total Protein 7.6g/dL (6.4-8.2) Albumin 2.7g/dL (3.4-5.0) Albumin/Globulin Ratio 0.6 (1.0-1.7) Triglycerides Level 304mg/dL (0-150) Cholesterol Level 166mg/dL (0-200) LDL Cholesterol, Calculated 91mg/dL (0-100) VLDL Cholesterol, Calculated 61mg/dL (0-40) HDL Cholesterol 14mg/dL (40-60) Cholesterol/HDL Ratio 11.9 Thyroid Stimulating Hormone (TSH) 0.555uIU/mL (0.358-3.74) Lactic Acid Level 6.7mmol/L (0.4-2.0) Procalcitonin 6.82ng/mL (0.00-0.10) Serum Osmolality 400mOsm/Kg (279-304) Test 03/03/17 22:00 03/03/17 23:30 03/04/17 01:15 03/04/17 01:30 Urine Collection Type Unknown Urine Color Yellow Urine Clarity Clear Urine pH 6.0 Urine Specific [place] 1.020 Urine Protein 30mg/dL (NEG-TRACE) Urine Glucose (UA) >=1000mg/dL (NEG) Urine Ketones (Stick) Negativemg/dL (NEG) Urine Blood Large (NEG) Urine Nitrite Negative (NEG) Urine Bilirubin Negative (NEG) Urine Urobilinogen Dipstick 0.2mg/dL (0.2 mg/dL) Urine Leukocyte Esterase Small (NEG) Urine RBC 3-5/HPF (0-2) Urine WBC 11-20/HPF (0-4) Urine Squamous Epithelial Cells Occ/LPF Urine Bacteria Few/HPF (0-FEW) Urine Mucus Slight/LPF Glucose Level 804mg/dL (70-99) 641mg/dL (70-99) Sodium Level 158mmol/L (136-145) Potassium Level 3.2mmol/L (3.5-5.1) Chloride Level 119mmol/L (98-107) Carbon Dioxide Level 25mmol/L (21-32) Anion Gap 14 (6-14) Blood Urea Nitrogen 38mg/dL (8-26) Creatinine 2.1mg/dL (0.7-1.3) Estimated GFR (Cockcroft-Gault) 43.7 Lactic Acid Level 5.6mmol/L (0.4-2.0) Calcium Level 7.9mg/dL (8.5-10.1) Phosphorus Level 2.1mg/dL (2.6-4.7) Magnesium Level 2.1mg/dL (1.8-2.4) Serum Osmolality 368mOsm/Kg (279-304) Test 03/04/17 03:28 03/04/17 04:25 03/04/17 04:30 03/04/17 05:42 Glucose (Fingerstick) 490mg/dL (70-99) 439mg/dL (70-99) 440mg/dL (70-99) White Blood Count 13.7x10^3/uL (4.0-11.0) Red Blood Count 4.84x10^6/uL (4.30-5.70) Hemoglobin 11.7g/dL (13.0-17.5) Hematocrit 38.2% (39.0-53.0) Mean Corpuscular Volume 79fL (79-100) Mean Corpuscular Hemoglobin 24pg (25-35) Mean Corpuscular Hemoglobin Concent 31g/dL (31-37) Red Cell Distribution Width 15.9% (11.5-14.5) Platelet Count 223x10^3/uL (140-400) Neutrophils (%) (Auto) 78% (31-73) Lymphocytes (%) (Auto) 11% (24-48) Monocytes (%) (Auto) 11% (0-9) Eosinophils (%) (Auto) 0% (0-3) Basophils (%) (Auto) 0% (0-3) Neutrophils # (Auto) 10.7x10^3uL (1.8-7.7) Lymphocytes # (Auto) 1.4x10^3/uL (1.0-4.8) Monocytes # (Auto) 1.5x10^3/uL (0.0-1.1) Eosinophils # (Auto) 0.0x10^3/uL (0.0-0.7) Basophils # (Auto) 0.0x10^3/uL (0.0-0.2) Sodium Level 159mmol/L (136-145) Potassium Level 3.8mmol/L (3.5-5.1) Chloride Level 121mmol/L (98-107) Carbon Dioxide Level 23mmol/L (21-32) Anion Gap 15 (6-14) Blood Urea Nitrogen 34mg/dL (8-26) Creatinine 1.9mg/dL (0.7-1.3) Estimated GFR (Cockcroft-Gault) 49.1 BUN/Creatinine Ratio 18 (6-20) Glucose Level 472mg/dL (70-99) Serum Osmolality 357mOsm/Kg (279-304) Calcium Level 7.8mg/dL (8.5-10.1) Phosphorus Level 3.2mg/dL (2.6-4.7) Magnesium Level 2.0mg/dL (1.8-2.4) Total Bilirubin 0.3mg/dL (0.2-1.0) Aspartate Amino Transf (AST/SGOT) 37U/L (15-37) Alanine Aminotransferase (ALT/SGPT) 50U/L (16-63) Alkaline Phosphatase 138U/L (46-116) Total Protein 7.8g/dL (6.4-8.2) Albumin 2.6g/dL (3.4-5.0) Albumin/Globulin Ratio 0.5 (1.0-1.7) Test 03/04/17 06:56 03/04/17 07:36 03/04/17 08:00 03/04/17 08:53 Glucose (Fingerstick) 402mg/dL (70-99) 354mg/dL (70-99) 306mg/dL (70-99) O2 Saturation 97% (92-99) Arterial Blood pH 7.45 (7.35-7.45) Arterial Blood pCO2 at Patient Temp 32mmHg (35-46) Arterial Blood pO2 at Patient Temp 87mmHg (85-108) Arterial Blood HCO3 22mmol/L (21-28) Arterial Blood Base Excess -2mmol/L (-3-3) FiO2 40 Test 03/04/17 09:43 03/04/17 09:45 03/04/17 12:58 03/04/17 13:55 Glucose (Fingerstick) 257mg/dL (70-99) 190mg/dL (70-99) Sodium Level 162mmol/L (136-145) 165mmol/L (136-145) Potassium Level 3.5mmol/L (3.5-5.1) 3.4mmol/L (3.5-5.1) Chloride Level 124mmol/L (98-107) 123mmol/L (98-107) Carbon Dioxide Level 24mmol/L (21-32) 22mmol/L (21-32) Anion Gap 14 (6-14) 20 (6-14) Blood Urea Nitrogen 32mg/dL (8-26) 30mg/dL (8-26) Creatinine 1.8mg/dL (0.7-1.3) 2.1mg/dL (0.7-1.3) Estimated GFR (Cockcroft-Gault) 52.2 43.7 Glucose Level 218mg/dL (70-99) 274mg/dL (70-99) Serum Osmolality 345mOsm/Kg (279-304) Calcium Level 8.0mg/dL (8.5-10.1) 7.0mg/dL (8.5-10.1) Phosphorus Level 2.1mg/dL (2.6-4.7) 5.3mg/dL (2.6-4.7) Magnesium Level 2.0mg/dL (1.8-2.4) 2.3mg/dL (1.8-2.4) Medications Active Scripts Medications Dose Route/Sig Days Date Category Dose Instructions Feosol (Ferrous Sulfate) 325 Mg Tablet 325 Mg PO BIDWMEALS 30 04/29/16 Rx Vitamin B-12 (Cyanocobalamin (Vitamin B-12)) 1,000 Mcg Tablet 1,000 Mcg PO DAILY 30 04/29/16 Rx Amox Tr-K Clv 875-125 Mg Tab (Amoxicillin/Potassium Clav) 1 Each Tablet 1 Tab PO BID 5 04/29/16 Rx Percocet 5-325 Mg Tablet (Oxycodone/Acetaminophen) 1 Each Tablet 1 Tab PO PRN Q6HRS PRN 04/28/16 Reported Metformin Hcl 850 Mg Tablet 1 Tab PO BID 04/28/16 Reported Furosemide 40 Mg Tablet 1 Tab PO DAILY 04/28/16 Reported Gabapentin 100 Mg Capsule 100 Mg PO QHS 04/28/16 Reported Pantoprazole Sodium 40 Mg Tablet.dr 1 Tab PO DAILY 04/28/16 Reported Coumadin (Warfarin Sodium) 10 Mg Tablet 1 Tab PO QHS 04/28/16 Reported Take on Mondays, Tuesdays, and Wednesdays Oxybutynin Chloride 5 Mg Tablet 1 Tab PO BID 04/28/16 Reported Coumadin (Warfarin Sodium) 7.5 Mg Tablet 1 Tab PO QHS 04/28/16 Reported To be taken on , Fridays, Saturdays, and Sundays Impression . [id number] acute resp failure s/p code blue out of hospital and in hospital Hyperosmolar come sepsis DVT TENA BETH MD Mar 04, 2017 14:56
[2017-03-04] MEDS ORDERED: VASOPRESSIN 40 UNIT in IV DEXTROSE 5% 100 ML IV PRN (15:15)
[2017-03-04] MEDS ORDERED: VASOPRESSIN 40 UNIT in IV DEXTROSE 5% 100 ML IV ONE (15:15)
--- NOTE | 2017-03-04 15:33 | PDOC5 ---
CODE REPORT CODE REPORT CODE NOTE PT IN THE ICU INTUBATED THAT WENT INTO V-FIB CODE WAS CALLED PT DEFIBRILLATED, CPR INITIATED. MULTIPLE MEDS GIVEN, PT HAD V-FIB, V-TACH, ASYSTOLE AND EVENTUALLY HE RESPONDED TO TREATMENT AND WAS IN SINUS TACH. PULSE PALPABLE BP 160/80 DR MENA WAS INFORMED OF THE CODE. DR GIRARD WAS INFORMED BY NITA. MARY MEZA MD Mar 04, 2017 15:33
[2017-03-04 16:29] LABS: HCO3 ABG 19 mmol/L (21-28); PCO2 ABG 28 mmHg (35-46); PH ABG 7.45 (7.35-7.45); PO2 ABG 71 mmHg (85-108); SAT O2 ABG 95 % (92-99)
[2017-03-04 16:30] LABS: BODY TEMP ABG 100.6 DEG; CORRECTED PCO2 ABG 30 mmHg; CORRECTED PH ABG 7.43; CORRECTED PO2 ABG 77 mmHg
[2017-03-04 16:38] LABS: FIO2 ABG 40
[2017-03-04] MEDS ORDERED: VANCOMYCIN 1.75 GM in IV NORMAL SALINE 500ML BAG 500 ML IV SCH (18:00)
[2017-03-04 20:16] LABS: CREATININE 1.8 mg/dL (0.7-1.3); GFR 52.2; PHOSPHORUS 3.5 mg/dL (2.6-4.7)
[2017-03-04] MEDS: IV DEXTROSE 5 %-0.2 % NACL 1,000 ML IV SCH (21:07)
[2017-03-04] MEDS: INSULIN REGULAR VIAL 150 UNIT in 0.9 % SODIUM CHLORIDE 150ML 150 ML IV PRN (23:34)
[2017-03-05] VITALS (24 sets, daily range): BP systolic 84–159; BP diastolic 51–87
[2017-03-05] MEDS: NOREPINEPHRINE VIAL 8 MG in IV NORMAL SALINE 250ML 250 ML IV PRN (00:13)
[2017-03-05 01:19] LABS: CALCIUM 6.9 mg/dL (8.5-10.1); CREATININE 1.8 mg/dL (0.7-1.3); GFR 52.2; PHOSPHORUS 3.2 mg/dL (2.6-4.7); POTASSIUM 3.8 mmol/L (3.5-5.1)
[2017-03-05] MEDS: IV DEXTROSE 5 %-0.2 % NACL 1,000 ML IV SCH (01:19)
[2017-03-05] MEDS: IV DEXTROSE 5% 1,000 ML IV SCH ×6 (01:37→22:56)
--- NOTE | 2017-03-05 01:53 | CONS ---
DATE OF CONSULTATION: 03/04/2017 REQUESTING PHYSICIAN: Dr. Cece Nunez. REASON FOR CONSULTATION: Sepsis. 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 The patient was found down on the field with cardiac arrest. There is no information about patient had been sick or how long he was sick, etc. The patient was found to be bradycardic and then asystole. The patient had CPR done, several rounds of epinephrine given and return of spontaneous circulation was obtained, intubated and transported to the hospital. The patient was found to have 2100 blood sugar, acute renal failure, and low potassium. The patient has been admitted, lines have been placed and management of hyperosmolar coma was added. The patient also was found later on to have fever and lactic acidosis. The patient received Invanz and vancomycin and consult has been requested. The patient is currently orally intubated on the ventilator. The patient has multiple wounds and there is no vomiting noted. CT of the head was done, which was not showing any acute bleed. No family member at the bedside to be able to communicate. PAST MEDICAL HISTORY: Positive for patient had 3 cardiac surgery done with aortic aneurysm rupture repair as well as aortic valve surgery, this caused him to have paraplegia, also has diabetes, hypertension, neuropathy, has had mesenteric angioplasty done in the past and a wrist fracture. ALLERGIES: No known drug allergies. MEDICATIONS: Reviewed. The patient is on vancomycin and Invanz. REVIEW OF SYSTEMS: Unable to obtain. CURRENT MEDICATIONS: Reviewed. PHYSICAL EXAMINATION: GENERAL: This patient is unresponsive on ventilator, orally intubated on ventilator. VITAL SIGNS: Temperature 102, pulse 124, respirations 24, blood pressure 104/75. HEENT: Pupils round. The patient does not have a doll's eye movement. No conjunctival lesion. Mouth cannot be visualized, orally intubated. NECK: Supple, no JVP, no lymphadenopathy. LUNGS: Clear. CARDIOVASCULAR: S1, S2, regular. ABDOMEN: Soft, nontender. EXTREMITIES: He does have edema. The patient does have extensive deep wound on the left heel, superficial wound on the right heel and a superficial wound on the sacrococcygeal area. The patient is totally unresponsive and maybe at times posturing. NEUROLOGIC: The patient is unresponsive and at times seemed to be posturing. LABORATORY DATA: White count is 13.7. Platelets are normal. BUN 34, creatinine 1.9. Blood sugar is down into 400 range from almost 2200. A urine drug screen was negative. Urinalysis reviewed. Cultures are pending. Chest x-ray is not showing any acute infiltrate. He does have cardiomegaly. CT of the head was unremarkable. Renal ultrasound was unremarkable. IMPRESSION: 1. Hyperosmolar coma. 2. Status post code blue. 3. Lactic acidosis. Rule out sepsis. 4. Leukocytosis and fever. 5. Diabetes. 6. Sacral decubitus. 7. Bilateral heel decubitus with left much worse than right. 8. Paraplegia. 9. Acute kidney injury. RECOMMENDATIONS: We will change vancomycin and Invanz to Zosyn and Zyvox, supportive care, offload, blood sugar control. Overall, patient's prognosis is poor. Thank you very much Dr. Nunez for giving me opportunity to participate in this patient's care. HUBER LLOYD MD DR: MELVIN/miracle JOB#: [id number] / [id number]
[2017-03-05] MEDS: POTASSIUM CHLORIDE 10MEQ 100 ML IV PRN ×4 (02:22→05:42)
[2017-03-05] MEDS: PIPERACILLIN/TAZOBACTAM 3.375 GM in IV NORMAL SALINE 50ML 50 ML IV SCH ×4 (03:11→21:16)
--- NOTE | 2017-03-05 03:56 | CONS ---
DATE OF CONSULTATION: 03/04/2017 ATTENDING PHYSICIAN: Dr. Nunez. REASON FOR CONSULTATION: The patient seen in pulmonary consultation at the request of Dr. Nunez for acute respiratory failure, status post code blue. HISTORY OF PRESENT ILLNESS: The patient is a 36-year-old with complex past medical history. He has had previous aortic surgery in 2005. 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 His course was complicated with paraplegia. He is in a wheelchair. The patient is on anticoagulation for prior DVT. Apparently for the last 4-5 days, he was not feeling well. He presented to the Emergency Department status post cardiac arrest in the field. EMS was called for respiratory difficulty. The patient was bradycardic, then rhythm declined to asystole. ACLS was followed for resuscitation. The patient was given several rounds of epinephrine, spontaneous circulation was obtained. The patient was admitted to the intensive care unit with the initial diagnosis of hyperosmolar coma. He had an initial lactic acidosis, leukocytosis and fever. He has been seen by the Infectious Disease Service and is currently on vancomycin, Zosyn and Zyvox. He was given Lovenox for DVT treatment. Earlier today, he had a second code. He is currently on pressors Levophed. He is on an insulin drip. He is on assist control rate of 24, tidal volume ____ FiO2. PAST MEDICAL HISTORY: As indicated above, previous aortic valve replacement, descending aortic rupture with repair complicated with paraplegia. He has a history of diabetes, hypertension, neuropathy, and DVT. ALLERGIES: IV CONTRAST DYE. CURRENT MEDICATIONS: List was reviewed. Please see the MRAD. SOCIAL HISTORY: He smokes. No history given of alcohol. REVIEW OF SYSTEMS: Unobtainable secondary to the patient's condition. PHYSICAL EXAMINATION: VITAL SIGNS: Stable. O2 saturation was greater than 92%. He currently had a T-max of 102.0. HEENT: Eyes, the sclerae were nonicteric. NECK: JVD could not be assessed secondary to body habitus. CHEST: Full expansion. LUNGS: Coarse breath sounds, no wheezes. CARDIOVASCULAR: Regular rate and rhythm with S1, S2, no S3. ABDOMEN: Soft, nontender, nondistended. EXTREMITIES: No clubbing, cyanosis, some edema. Evidence of skin changes compatible with peripheral vascular disease. LABORATORY DATA: White count was 13,000, hemoglobin and hematocrit were noted. Electrolytes were noted. Sodium was 165. Upon admission his glucose level was 2183. Chest x-ray revealed left-sided infiltrate. IMPRESSION: 1. Acute respiratory failure, status post out of the hospital cardiac arrest. 2. Hyperosmolar coma. 3. Left-sided deep venous thrombosis. 4. History of aortic valve replacement and descending thoracic aortic aneurysm repair. 5. History of paraplegia. 6. Bilateral heel wounds. 7. Sacral wounds. 8. Diabetes. 9. Metabolic and toxic encephalopathy. 10. Hypernatremia. 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 12. Chronic kidney disease. 13. Acute kidney disease. PLAN: 1. Continue current mechanical support. Repeat arterial blood gas. 2. Continue Lovenox. 3. Empiric antibiotics. 4. Consult Nephrology, already performed. 5. Correct electrolytes. The above was discussed with father and girlfriend at the bedside. I do appreciate the privilege in sharing in the patient's care. TENA BETH MD DR: JOSE/miracle JOB#: [id number] / [id number]
[2017-03-05 05:51] LABS: BASO % 0 % (0-3); EOS % 1 % (0-3); HEMOGLOBIN 12.7 g/dL (13.0-17.5); LYMPH # 2.4 x10^3/uL (1.0-4.8); LYMPH % 19 % (24-48); MEAN CORPUSCULAR HEMOGLOBIN 25 pg (25-35); MEAN CORPUSCULAR HGB CONC 32 g/dL (31-37); MEAN CORPUSCULAR VOLUME 77 fL (79-100); MONO % 5 % (0-9); NEUT % 75 % (31-73); PLATELET COUNT 216 x10^3/uL (140-400); RED BLOOD COUNT 5.16 x10^6/uL (4.30-5.70); RED CELL DISTRIBUTION WIDTH 16.4 % (11.5-14.5); WHITE BLOOD COUNT 12.7 x10^3/uL (4.0-11.0)
[2017-03-05 06:18] LABS: CALCIUM 7.3 mg/dL (8.5-10.1); CREATININE 1.8 mg/dL (0.7-1.3); GFR 52.2; MAGNESIUM 2.1 mg/dL (1.8-2.4); POTASSIUM 3.6 mmol/L (3.5-5.1)
[2017-03-05] MEDS: INSULIN REGULAR VIAL 150 UNIT in 0.9 % SODIUM CHLORIDE 150ML 150 ML IV PRN ×4 (07:08→23:56)
[2017-03-05] MEDS: NOREPINEPHRINE VIAL 8 MG in IV DEXTROSE 5% 250 ML IV PRN ×3 (07:08→21:14)
[2017-03-05] MEDS: POTASSIUM CHLORIDE 20MEQ 50 ML IV PRN ×4 (07:58→23:20)
--- NOTE | 2017-03-05 08:41 | PDOC ---
PULMONARY PROGRESS NOTES Subjective on vent, no response, on levo, insulin gtt Vitals Vital Signs Date Time Temp Pulse Resp B/P Pulse Ox O2 Delivery O2 Flow Rate FiO2 03/05/17 06:00 84 24 113/64 100 Ventilator 03/05/17 04:00 98.4 98.4 Comments ros discussed w rn, as mentioned as above other sys otherwise neg HEENT: Other (nc at pupils are fixed oreally intubated nose clear neck no lap thyromegaly) Lungs: Crackles Cardiovascular: S1, S2 Abdomen: Soft, Non-tender, Other (no mass) Extremities: Other (edema) Skin: Warm Labs Laboratory Tests Test 03/03/17 12:55 03/03/17 13:07 03/03/17 13:20 03/03/17 14:28 White Blood Count 9.7x10^3/uL (4.0-11.0) Red Blood Count 4.58x10^6/uL (4.30-5.70) Hemoglobin 11.4g/dL (13.0-17.5) Hematocrit 45.1% (39.0-53.0) Mean Corpuscular Volume 98fL (79-100) Mean Corpuscular Hemoglobin 25pg (25-35) Mean Corpuscular Hemoglobin Concent 25g/dL (31-37) Red Cell Distribution Width 17.8% (11.5-14.5) Platelet Count 244x10^3/uL (140-400) Neutrophils (%) (Auto) 75% (31-73) Lymphocytes (%) (Auto) 19% (24-48) Monocytes (%) (Auto) 6% (0-9) Eosinophils (%) (Auto) 0% (0-3) Basophils (%) (Auto) 0% (0-3) Neutrophils # (Auto) 7.3x10^3uL (1.8-7.7) Lymphocytes # (Auto) 1.8x10^3/uL (1.0-4.8) Monocytes # (Auto) 0.6x10^3/uL (0.0-1.1) Eosinophils # (Auto) 0.0x10^3/uL (0.0-0.7) Basophils # (Auto) 0.0x10^3/uL (0.0-0.2) Prothrombin Time 16.8SEC (11.7-14.0) Prothromb Time International Ratio 1.5 (0.8-1.1) Sodium Level 135mmol/L (136-145) Potassium Level 2.8mmol/L (3.5-5.1) Chloride Level 93mmol/L (98-107) Carbon Dioxide Level 21mmol/L (21-32) Anion Gap 21 (6-14) Blood Urea Nitrogen 51mg/dL (8-26) Creatinine 3.4mg/dL (0.7-1.3) Estimated GFR (Cockcroft-Gault) 25.1 Glucose Level 2183mg/dL (70-99) 2003mg/dL (70-99) Hemoglobin A1c 10.0% (4.8-5.6) Calcium Level 8.1mg/dL (8.5-10.1) Troponin I Quantitative < 0.017ng/mL (0.000-0.055) KK-Oty-T-Type Natriuretic Peptide 930pg/mL (0-124) Urine Opiates Screen Neg (NEG) Urine Methadone Screen Neg (NEG) Urine Barbiturates Neg (NEG) Urine Phencyclidine Screen Neg (NEG) Urine Amphetamine/Methamphetamine Neg (NEG) Urine Benzodiazepines Screen Neg (NEG) Urine Cocaine Screen Neg (NEG) Urine Cannabinoids Screen Neg (NEG) Urine Ethyl Alcohol Neg (NEG) O2 Saturation 99% (92-99) Arterial Blood pH 7.31 (7.35-7.45) Arterial Blood pCO2 at Patient Temp 33mmHg (35-46) Arterial Blood pO2 at Patient Temp 373mmHg (85-108) Arterial Blood HCO3 16mmol/L (21-28) Arterial Blood Base Excess -9mmol/L (-3-3) FiO2 100 Serum Osmolality 429mOsm/Kg (279-304) Test 03/03/17 16:31 03/03/17 18:58 03/03/17 19:00 03/03/17 21:00 Sodium Level 140mmol/L (136-145) 148mmol/L (136-145) Potassium Level 2.0mmol/L (3.5-5.1) 2.3mmol/L (3.5-5.1) Chloride Level 99mmol/L (98-107) 106mmol/L (98-107) Carbon Dioxide Level 22mmol/L (21-32) 24mmol/L (21-32) Anion Gap 19 (6-14) 18 (6-14) Blood Urea Nitrogen 52mg/dL (8-26) 49mg/dL (8-26) Creatinine 3.3mg/dL (0.7-1.3) 2.9mg/dL (0.7-1.3) Estimated GFR (Cockcroft-Gault) 25.9 30.1 BUN/Creatinine Ratio 16 (6-20) Glucose Level 1704mg/dL (70-99) 1356mg/dL (70-99) 1037mg/dL (70-99) Calcium Level 8.1mg/dL (8.5-10.1) 7.7mg/dL (8.5-10.1) Phosphorus Level 2.2mg/dL (2.6-4.7) 1.9mg/dL (2.6-4.7) Magnesium Level 2.4mg/dL (1.8-2.4) 2.4mg/dL (1.8-2.4) Total Bilirubin 0.2mg/dL (0.2-1.0) Direct Bilirubin 0.1mg/dL (0.0-0.2) Aspartate Amino Transf (AST/SGOT) 44U/L (15-37) Alanine Aminotransferase (ALT/SGPT) 56U/L (16-63) Alkaline Phosphatase 134U/L (46-116) Total Protein 7.6g/dL (6.4-8.2) Albumin 2.7g/dL (3.4-5.0) Albumin/Globulin Ratio 0.6 (1.0-1.7) Triglycerides Level 304mg/dL (0-150) Cholesterol Level 166mg/dL (0-200) LDL Cholesterol, Calculated 91mg/dL (0-100) VLDL Cholesterol, Calculated 61mg/dL (0-40) HDL Cholesterol 14mg/dL (40-60) Cholesterol/HDL Ratio 11.9 Thyroid Stimulating Hormone (TSH) 0.555uIU/mL (0.358-3.74) Lactic Acid Level 6.7mmol/L (0.4-2.0) Procalcitonin 6.82ng/mL (0.00-0.10) Serum Osmolality 400mOsm/Kg (279-304) Test 03/03/17 22:00 03/03/17 23:30 03/04/17 01:15 03/04/17 01:30 Urine Collection Type Unknown Urine Color Yellow Urine Clarity Clear Urine pH 6.0 Urine Specific Joanna 1.020 Urine Protein 30mg/dL (NEG-TRACE) Urine Glucose (UA) >=1000mg/dL (NEG) Urine Ketones (Stick) Negativemg/dL (NEG) Urine Blood Large (NEG) Urine Nitrite Negative (NEG) Urine Bilirubin Negative (NEG) Urine Urobilinogen Dipstick 0.2mg/dL (0.2 mg/dL) Urine Leukocyte Esterase Small (NEG) Urine RBC 3-5/HPF (0-2) Urine WBC 11-20/HPF (0-4) Urine Squamous Epithelial Cells Occ/LPF Urine Bacteria Few/HPF (0-FEW) Urine Mucus Slight/LPF Glucose Level 804mg/dL (70-99) 641mg/dL (70-99) Sodium Level 158mmol/L (136-145) Potassium Level 3.2mmol/L (3.5-5.1) Chloride Level 119mmol/L (98-107) Carbon Dioxide Level 25mmol/L (21-32) Anion Gap 14 (6-14) Blood Urea Nitrogen 38mg/dL (8-26) Creatinine 2.1mg/dL (0.7-1.3) Estimated GFR (Cockcroft-Gault) 43.7 Lactic Acid Level 5.6mmol/L (0.4-2.0) Calcium Level 7.9mg/dL (8.5-10.1) Phosphorus Level 2.1mg/dL (2.6-4.7) Magnesium Level 2.1mg/dL (1.8-2.4) Serum Osmolality 368mOsm/Kg (279-304) Test 03/04/17 03:28 03/04/17 04:25 03/04/17 04:30 03/04/17 05:42 Glucose (Fingerstick) 490mg/dL (70-99) 439mg/dL (70-99) 440mg/dL (70-99) White Blood Count 13.7x10^3/uL (4.0-11.0) Red Blood Count 4.84x10^6/uL (4.30-5.70) Hemoglobin 11.7g/dL (13.0-17.5) Hematocrit 38.2% (39.0-53.0) Mean Corpuscular Volume 79fL (79-100) Mean Corpuscular Hemoglobin 24pg (25-35) Mean Corpuscular Hemoglobin Concent 31g/dL (31-37) Red Cell Distribution Width 15.9% (11.5-14.5) Platelet Count 223x10^3/uL (140-400) Neutrophils (%) (Auto) 78% (31-73) Lymphocytes (%) (Auto) 11% (24-48) Monocytes (%) (Auto) 11% (0-9) Eosinophils (%) (Auto) 0% (0-3) Basophils (%) (Auto) 0% (0-3) Neutrophils # (Auto) 10.7x10^3uL (1.8-7.7) Lymphocytes # (Auto) 1.4x10^3/uL (1.0-4.8) Monocytes # (Auto) 1.5x10^3/uL (0.0-1.1) Eosinophils # (Auto) 0.0x10^3/uL (0.0-0.7) Basophils # (Auto) 0.0x10^3/uL (0.0-0.2) Sodium Level 159mmol/L (136-145) Potassium Level 3.8mmol/L (3.5-5.1) Chloride Level 121mmol/L (98-107) Carbon Dioxide Level 23mmol/L (21-32) Anion Gap 15 (6-14) Blood Urea Nitrogen 34mg/dL (8-26) Creatinine 1.9mg/dL (0.7-1.3) Estimated GFR (Cockcroft-Gault) 49.1 BUN/Creatinine Ratio 18 (6-20) Glucose Level 472mg/dL (70-99) Serum Osmolality 357mOsm/Kg (279-304) Calcium Level 7.8mg/dL (8.5-10.1) Phosphorus Level 3.2mg/dL (2.6-4.7) Magnesium Level 2.0mg/dL (1.8-2.4) Total Bilirubin 0.3mg/dL (0.2-1.0) Aspartate Amino Transf (AST/SGOT) 37U/L (15-37) Alanine Aminotransferase (ALT/SGPT) 50U/L (16-63) Alkaline Phosphatase 138U/L (46-116) Total Protein 7.8g/dL (6.4-8.2) Albumin 2.6g/dL (3.4-5.0) Albumin/Globulin Ratio 0.5 (1.0-1.7) Test 03/04/17 06:56 03/04/17 07:36 03/04/17 08:00 03/04/17 08:53 Glucose (Fingerstick) 402mg/dL (70-99) 354mg/dL (70-99) 306mg/dL (70-99) O2 Saturation 97% (92-99) Arterial Blood pH 7.45 (7.35-7.45) Arterial Blood pCO2 at Patient Temp 32mmHg (35-46) Arterial Blood pO2 at Patient Temp 87mmHg (85-108) Arterial Blood HCO3 22mmol/L (21-28) Arterial Blood Base Excess -2mmol/L (-3-3) FiO2 40 Test 03/04/17 09:40 03/04/17 09:43 03/04/17 09:45 03/04/17 12:58 Nasal Screen MRSA (PCR) Positive (Negative) Glucose (Fingerstick) 257mg/dL (70-99) 190mg/dL (70-99) Sodium Level 162mmol/L (136-145) Potassium Level 3.5mmol/L (3.5-5.1) Chloride Level 124mmol/L (98-107) Carbon Dioxide Level 24mmol/L (21-32) Anion Gap 14 (6-14) Blood Urea Nitrogen 32mg/dL (8-26) Creatinine 1.8mg/dL (0.7-1.3) Estimated GFR (Cockcroft-Gault) 52.2 Glucose Level 218mg/dL (70-99) Serum Osmolality 345mOsm/Kg (279-304) Calcium Level 8.0mg/dL (8.5-10.1) Phosphorus Level 2.1mg/dL (2.6-4.7) Magnesium Level 2.0mg/dL (1.8-2.4) Test 03/04/17 13:55 03/04/17 13:56 03/04/17 15:31 03/04/17 16:15 Sodium Level 165mmol/L (136-145) Potassium Level 3.4mmol/L (3.5-5.1) Chloride Level 123mmol/L (98-107) Carbon Dioxide Level 22mmol/L (21-32) Anion Gap 20 (6-14) Blood Urea Nitrogen 30mg/dL (8-26) Creatinine 2.1mg/dL (0.7-1.3) Estimated GFR (Cockcroft-Gault) 43.7 Glucose Level 274mg/dL (70-99) Serum Osmolality 349mOsm/Kg (279-304) Calcium Level 7.0mg/dL (8.5-10.1) Phosphorus Level 5.3mg/dL (2.6-4.7) Magnesium Level 2.3mg/dL (1.8-2.4) Glucose (Fingerstick) 254mg/dL (70-99) 182mg/dL (70-99) O2 Saturation 95% (92-99) Arterial Blood pH 7.45 (7.35-7.45) Arterial Blood pH (Temp corrected) 7.43 Arterial Blood pCO2 at Patient Temp 28mmHg (35-46) Arterial Blood pCO2 (Temp correct) 30mmHg Arterial Blood pO2 at Patient Temp 71mmHg (85-108) Arterial Blood pO2 (Temp corrected) 77mmHg Arterial Blood HCO3 19mmol/L (21-28) Arterial Blood Base Excess -4mmol/L (-3-3) FiO2 40 Test 03/04/17 16:41 03/04/17 19:00 03/04/17 19:30 03/05/17 00:30 Glucose (Fingerstick) 147mg/dL (70-99) 152mg/dL (70-99) Sodium Level 167mmol/L (136-145) 169mmol/L (136-145) Potassium Level 2.9mmol/L (3.5-5.1) 3.8mmol/L (3.5-5.1) Chloride Level 126mmol/L (98-107) 129mmol/L (98-107) Carbon Dioxide Level 23mmol/L (21-32) 24mmol/L (21-32) Anion Gap 18 (6-14) 16 (6-14) Blood Urea Nitrogen 29mg/dL (8-26) 26mg/dL (8-26) Creatinine 1.8mg/dL (0.7-1.3) 1.8mg/dL (0.7-1.3) Estimated GFR (Cockcroft-Gault) 52.2 52.2 Glucose Level 157mg/dL (70-99) 236mg/dL (70-99) Serum Osmolality 346mOsm/Kg (279-304) 350mOsm/Kg (279-304) Calcium Level 7.0mg/dL (8.5-10.1) 6.9mg/dL (8.5-10.1) Phosphorus Level 3.5mg/dL (2.6-4.7) 3.2mg/dL (2.6-4.7) Magnesium Level 2.0mg/dL (1.8-2.4) 2.0mg/dL (1.8-2.4) Test 03/05/17 05:30 White Blood Count 12.7x10^3/uL (4.0-11.0) Red Blood Count 5.16x10^6/uL (4.30-5.70) Hemoglobin 12.7g/dL (13.0-17.5) Hematocrit 40.0% (39.0-53.0) Mean Corpuscular Volume 77fL (79-100) Mean Corpuscular Hemoglobin 25pg (25-35) Mean Corpuscular Hemoglobin Concent 32g/dL (31-37) Red Cell Distribution Width 16.4% (11.5-14.5) Platelet Count 216x10^3/uL (140-400) Neutrophils (%) (Auto) 75% (31-73) Lymphocytes (%) (Auto) 19% (24-48) Monocytes (%) (Auto) 5% (0-9) Eosinophils (%) (Auto) 1% (0-3) Basophils (%) (Auto) 0% (0-3) Neutrophils # (Auto) 9.4x10^3uL (1.8-7.7) Lymphocytes # (Auto) 2.4x10^3/uL (1.0-4.8) Monocytes # (Auto) 0.7x10^3/uL (0.0-1.1) Eosinophils # (Auto) 0.1x10^3/uL (0.0-0.7) Basophils # (Auto) 0.0x10^3/uL (0.0-0.2) Sodium Level 169mmol/L (136-145) Potassium Level 3.6mmol/L (3.5-5.1) Chloride Level 130mmol/L (98-107) Carbon Dioxide Level 22mmol/L (21-32) Anion Gap 17 (6-14) Blood Urea Nitrogen 22mg/dL (8-26) Creatinine 1.8mg/dL (0.7-1.3) Estimated GFR (Cockcroft-Gault) 52.2 Glucose Level 191mg/dL (70-99) Serum Osmolality 344mOsm/Kg (279-304) Calcium Level 7.3mg/dL (8.5-10.1) Phosphorus Level 3.0mg/dL (2.6-4.7) Magnesium Level 2.1mg/dL (1.8-2.4) Laboratory Tests Test 03/04/17 08:53 03/04/17 09:40 03/04/17 09:43 03/04/17 09:45 Glucose (Fingerstick) 306mg/dL (70-99) 257mg/dL (70-99) Nasal Screen MRSA (PCR) Positive (Negative) Sodium Level 162mmol/L (136-145) Potassium Level 3.5mmol/L (3.5-5.1) Chloride Level 124mmol/L (98-107) Carbon Dioxide Level 24mmol/L (21-32) Anion Gap 14 (6-14) Blood Urea Nitrogen 32mg/dL (8-26) Creatinine 1.8mg/dL (0.7-1.3) Estimated GFR (Cockcroft-Gault) 52.2 Glucose Level 218mg/dL (70-99) Serum Osmolality 345mOsm/Kg (279-304) Calcium Level 8.0mg/dL (8.5-10.1) Phosphorus Level 2.1mg/dL (2.6-4.7) Magnesium Level 2.0mg/dL (1.8-2.4) Test 03/04/17 12:58 03/04/17 13:55 03/04/17 13:56 03/04/17 15:31 Glucose (Fingerstick) 190mg/dL (70-99) 254mg/dL (70-99) 182mg/dL (70-99) Sodium Level 165mmol/L (136-145) Potassium Level 3.4mmol/L (3.5-5.1) Chloride Level 123mmol/L (98-107) Carbon Dioxide Level 22mmol/L (21-32) Anion Gap 20 (6-14) Blood Urea Nitrogen 30mg/dL (8-26) Creatinine 2.1mg/dL (0.7-1.3) Estimated GFR (Cockcroft-Gault) 43.7 Glucose Level 274mg/dL (70-99) Serum Osmolality 349mOsm/Kg (279-304) Calcium Level 7.0mg/dL (8.5-10.1) Phosphorus Level 5.3mg/dL (2.6-4.7) Magnesium Level 2.3mg/dL (1.8-2.4) Test 03/04/17 16:15 03/04/17 16:41 03/04/17 19:00 03/04/17 19:30 O2 Saturation 95% (92-99) Arterial Blood pH 7.45 (7.35-7.45) Arterial Blood pH (Temp corrected) 7.43 Arterial Blood pCO2 at Patient Temp 28mmHg (35-46) Arterial Blood pCO2 (Temp correct) 30mmHg Arterial Blood pO2 at Patient Temp 71mmHg (85-108) Arterial Blood pO2 (Temp corrected) 77mmHg Arterial Blood HCO3 19mmol/L (21-28) Arterial Blood Base Excess -4mmol/L (-3-3) FiO2 40 Glucose (Fingerstick) 147mg/dL (70-99) 152mg/dL (70-99) Sodium Level 167mmol/L (136-145) Potassium Level 2.9mmol/L (3.5-5.1) Chloride Level 126mmol/L (98-107) Carbon Dioxide Level 23mmol/L (21-32) Anion Gap 18 (6-14) Blood Urea Nitrogen 29mg/dL (8-26) Creatinine 1.8mg/dL (0.7-1.3) Estimated GFR (Cockcroft-Gault) 52.2 Glucose Level 157mg/dL (70-99) Serum Osmolality 346mOsm/Kg (279-304) Calcium Level 7.0mg/dL (8.5-10.1) Phosphorus Level 3.5mg/dL (2.6-4.7) Magnesium Level 2.0mg/dL (1.8-2.4) Test 03/05/17 00:30 03/05/17 05:30 Sodium Level 169mmol/L (136-145) 169mmol/L (136-145) Potassium Level 3.8mmol/L (3.5-5.1) 3.6mmol/L (3.5-5.1) Chloride Level 129mmol/L (98-107) 130mmol/L (98-107) Carbon Dioxide Level 24mmol/L (21-32) 22mmol/L (21-32) Anion Gap 16 (6-14) 17 (6-14) Blood Urea Nitrogen 26mg/dL (8-26) 22mg/dL (8-26) Creatinine 1.8mg/dL (0.7-1.3) 1.8mg/dL (0.7-1.3) Estimated GFR (Cockcroft-Gault) 52.2 52.2 Glucose Level 236mg/dL (70-99) 191mg/dL (70-99) Serum Osmolality 350mOsm/Kg (279-304) 344mOsm/Kg (279-304) Calcium Level 6.9mg/dL (8.5-10.1) 7.3mg/dL (8.5-10.1) Phosphorus Level 3.2mg/dL (2.6-4.7) 3.0mg/dL (2.6-4.7) Magnesium Level 2.0mg/dL (1.8-2.4) 2.1mg/dL (1.8-2.4) White Blood Count 12.7x10^3/uL (4.0-11.0) Red Blood Count 5.16x10^6/uL (4.30-5.70) Hemoglobin 12.7g/dL (13.0-17.5) Hematocrit 40.0% (39.0-53.0) Mean Corpuscular Volume 77fL (79-100) Mean Corpuscular Hemoglobin 25pg (25-35) Mean Corpuscular Hemoglobin Concent 32g/dL (31-37) Red Cell Distribution Width 16.4% (11.5-14.5) Platelet Count 216x10^3/uL (140-400) Neutrophils (%) (Auto) 75% (31-73) Lymphocytes (%) (Auto) 19% (24-48) Monocytes (%) (Auto) 5% (0-9) Eosinophils (%) (Auto) 1% (0-3) Basophils (%) (Auto) 0% (0-3) Neutrophils # (Auto) 9.4x10^3uL (1.8-7.7) Lymphocytes # (Auto) 2.4x10^3/uL (1.0-4.8) Monocytes # (Auto) 0.7x10^3/uL (0.0-1.1) Eosinophils # (Auto) 0.1x10^3/uL (0.0-0.7) Basophils # (Auto) 0.0x10^3/uL (0.0-0.2) Medications Active Scripts Medications Dose Route/Sig Days Date Category Dose Instructions Feosol (Ferrous Sulfate) 325 Mg Tablet 325 Mg PO BIDWMEALS 30 04/29/16 Rx Vitamin B-12 (Cyanocobalamin (Vitamin B-12)) 1,000 Mcg Tablet 1,000 Mcg PO DAILY 30 04/29/16 Rx Amox Tr-K Clv 875-125 Mg Tab (Amoxicillin/Potassium Clav) 1 Each Tablet 1 Tab PO BID 5 04/29/16 Rx Percocet 5-325 Mg Tablet (Oxycodone/Acetaminophen) 1 Each Tablet 1 Tab PO PRN Q6HRS PRN 04/28/16 Reported Metformin Hcl 850 Mg Tablet 1 Tab PO BID 04/28/16 Reported Furosemide 40 Mg Tablet 1 Tab PO DAILY 04/28/16 Reported Gabapentin 100 Mg Capsule 100 Mg PO QHS 04/28/16 Reported Pantoprazole Sodium 40 Mg Tablet.dr 1 Tab PO DAILY 04/28/16 Reported Coumadin (Warfarin Sodium) 10 Mg Tablet 1 Tab PO QHS 04/28/16 Reported Take on Mondays, Tuesdays, and Wednesdays Oxybutynin Chloride 5 Mg Tablet 1 Tab PO BID 04/28/16 Reported Coumadin (Warfarin Sodium) 7.5 Mg Tablet 1 Tab PO QHS 04/28/16 Reported To be taken on , Fridays, Saturdays, and Sundays Comments cxr reviewed. 1. Stable tube positions. 2. Cardiomegaly. 3. Mild left infrahilar atelectasis/infiltrate. Impression . IMPRESSION: 1. Acute respiratory failure, status post out of the hospital cardiac arrest. 2. Hyperosmolar coma. 3. Left-sided deep venous thrombosis. 4. History of aortic valve replacement and descending thoracic aortic aneurysm repair. 5. History of paraplegia. 6. Bilateral heel wounds. 7. Sacral wounds. 8. Diabetes. 9. Metabolic and toxic encephalopathy. 10. Hypernatremia. 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 12. Chronic kidney disease. 13. Acute kidney disease. Plan . PLAN: 1. Continue current mechanical support. setting reviewed, Repeat arterial blood gas. 2. Continue Lovenox. 3. Empiric antibiotics. 4. Consult Nephrology, already performed. 5. Correct electrolytes 6. consult neuro discussed w GAURANG Rivera MD Mar 05, 2017 08:41
[2017-03-05] MEDS: ANTI-COAG MONITOR BY PHARMACY. MC PRN (08:45)
--- NOTE | 2017-03-05 10:04 | PDOC ---
Infectious Disease Note Subjective Subjective Off sedation. Remains unresponsive Intubated/vent. FiO2 40% Hypotensive. On Levophed 22 mcg Insulin gtt Less fever.Tmax 102.7 ROS ROS Unobtainable Vital Sign Vital Signs Vital Signs Date Time Temp Pulse Resp B/P Pulse Ox O2 Delivery O2 Flow Rate FiO2 03/05/17 08:00 Mechanical Ventilator 03/05/17 06:00 84 24 113/64 100 03/05/17 04:00 98.4 98.4 Physical Exam PHYSICAL EXAM GENERAL: intubated HEENT: Pupils dilated nonreactive. ETT, OGT LUNGS: + rhochi R > L. HEART: S1S2 ABD: BS quiet, soft : Lacey EXT: Generalized edema. 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 No gag reflex SKIN: Multiple wounds. RIJ. clean Labs Lab Laboratory Tests Test 03/04/17 12:58 03/04/17 13:55 03/04/17 13:56 03/04/17 15:31 Glucose (Fingerstick) 190mg/dL (70-99) 254mg/dL (70-99) 182mg/dL (70-99) Sodium Level 165mmol/L (136-145) Potassium Level 3.4mmol/L (3.5-5.1) Chloride Level 123mmol/L (98-107) Carbon Dioxide Level 22mmol/L (21-32) Anion Gap 20 (6-14) Blood Urea Nitrogen 30mg/dL (8-26) Creatinine 2.1mg/dL (0.7-1.3) Estimated GFR (Cockcroft-Gault) 43.7 Glucose Level 274mg/dL (70-99) Serum Osmolality 349mOsm/Kg (279-304) Calcium Level 7.0mg/dL (8.5-10.1) Phosphorus Level 5.3mg/dL (2.6-4.7) Magnesium Level 2.3mg/dL (1.8-2.4) Test 03/04/17 16:15 03/04/17 16:41 03/04/17 19:00 03/04/17 19:30 O2 Saturation 95% (92-99) Arterial Blood pH 7.45 (7.35-7.45) Arterial Blood pH (Temp corrected) 7.43 Arterial Blood pCO2 at Patient Temp 28mmHg (35-46) Arterial Blood pCO2 (Temp correct) 30mmHg Arterial Blood pO2 at Patient Temp 71mmHg (85-108) Arterial Blood pO2 (Temp corrected) 77mmHg Arterial Blood HCO3 19mmol/L (21-28) Arterial Blood Base Excess -4mmol/L (-3-3) FiO2 40 Glucose (Fingerstick) 147mg/dL (70-99) 152mg/dL (70-99) Sodium Level 167mmol/L (136-145) Potassium Level 2.9mmol/L (3.5-5.1) Chloride Level 126mmol/L (98-107) Carbon Dioxide Level 23mmol/L (21-32) Anion Gap 18 (6-14) Blood Urea Nitrogen 29mg/dL (8-26) Creatinine 1.8mg/dL (0.7-1.3) Estimated GFR (Cockcroft-Gault) 52.2 Glucose Level 157mg/dL (70-99) Serum Osmolality 346mOsm/Kg (279-304) Calcium Level 7.0mg/dL (8.5-10.1) Phosphorus Level 3.5mg/dL (2.6-4.7) Magnesium Level 2.0mg/dL (1.8-2.4) Test 03/04/17 20:08 03/04/17 21:31 03/04/17 22:31 03/04/17 23:36 Glucose (Fingerstick) 177mg/dL (70-99) 171mg/dL (70-99) 188mg/dL (70-99) 235mg/dL (70-99) Test 03/05/17 00:30 03/05/17 00:42 03/05/17 02:11 03/05/17 03:15 Sodium Level 169mmol/L (136-145) Potassium Level 3.8mmol/L (3.5-5.1) Chloride Level 129mmol/L (98-107) Carbon Dioxide Level 24mmol/L (21-32) Anion Gap 16 (6-14) Blood Urea Nitrogen 26mg/dL (8-26) Creatinine 1.8mg/dL (0.7-1.3) Estimated GFR (Cockcroft-Gault) 52.2 Glucose Level 236mg/dL (70-99) Serum Osmolality 350mOsm/Kg (279-304) Calcium Level 6.9mg/dL (8.5-10.1) Phosphorus Level 3.2mg/dL (2.6-4.7) Magnesium Level 2.0mg/dL (1.8-2.4) Glucose (Fingerstick) 227mg/dL (70-99) 211mg/dL (70-99) 194mg/dL (70-99) Test 03/05/17 04:24 03/05/17 05:30 03/05/17 05:37 03/05/17 06:39 Glucose (Fingerstick) 198mg/dL (70-99) 172mg/dL (70-99) 168mg/dL (70-99) White Blood Count 12.7x10^3/uL (4.0-11.0) Red Blood Count 5.16x10^6/uL (4.30-5.70) Hemoglobin 12.7g/dL (13.0-17.5) Hematocrit 40.0% (39.0-53.0) Mean Corpuscular Volume 77fL (79-100) Mean Corpuscular Hemoglobin 25pg (25-35) Mean Corpuscular Hemoglobin Concent 32g/dL (31-37) Red Cell Distribution Width 16.4% (11.5-14.5) Platelet Count 216x10^3/uL (140-400) Neutrophils (%) (Auto) 75% (31-73) Lymphocytes (%) (Auto) 19% (24-48) Monocytes (%) (Auto) 5% (0-9) Eosinophils (%) (Auto) 1% (0-3) Basophils (%) (Auto) 0% (0-3) Neutrophils # (Auto) 9.4x10^3uL (1.8-7.7) Lymphocytes # (Auto) 2.4x10^3/uL (1.0-4.8) Monocytes # (Auto) 0.7x10^3/uL (0.0-1.1) Eosinophils # (Auto) 0.1x10^3/uL (0.0-0.7) Basophils # (Auto) 0.0x10^3/uL (0.0-0.2) Sodium Level 169mmol/L (136-145) Potassium Level 3.6mmol/L (3.5-5.1) Chloride Level 130mmol/L (98-107) Carbon Dioxide Level 22mmol/L (21-32) Anion Gap 17 (6-14) Blood Urea Nitrogen 22mg/dL (8-26) Creatinine 1.8mg/dL (0.7-1.3) Estimated GFR (Cockcroft-Gault) 52.2 Glucose Level 191mg/dL (70-99) Serum Osmolality 344mOsm/Kg (279-304) Calcium Level 7.3mg/dL (8.5-10.1) Phosphorus Level 3.0mg/dL (2.6-4.7) Magnesium Level 2.1mg/dL (1.8-2.4) Micro BLOOD CULTURE Preliminary NO GROWTH AFTER 1 DAY Left foot GRAM STAIN Final WBCS FEW RBCS MANY GRAM POSITIVE COCCI MANY GRAM POSITIVE RODS MODERATE YEAST MODERATE SQUAMOUS EPITHELIAL CELLS OCCASIONAL MANY TINY GRAM POSITIVE COCCI, SUGGESTIVE OF ANAEROBES. Objective Assessment Hyperosmolar coma S/P Code blue pupils dilated Lactic acidosis Leukocytosis Fever DM Sacral decub Carlos heel wounds , left much worse polymicrobial Paraplegia JEFFERY MRSA nares positive Plan Plan of Care Zyvox and Zosyn off load BS control f/u am labs/cultures prognosis poor D/w family Attending Co-Sign Attending Co-Sign The patient was seen and interviewed as well as examined at the bedside. The chart was reviewed. The case was discussed. Agree with the plan of care. BERTO ESPARZA APRN Mar 05, 2017 10:04 JAYME CORTES MD Mar 05, 2017 11:56
[2017-03-05 10:24] LABS: HCO3 ABG 19 mmol/L (21-28); PCO2 ABG 31 mmHg (35-46); PO2 ABG 69 mmHg (85-108); SAT O2 ABG 93 % (92-99)
--- NOTE | 2017-03-05 10:41 | PDOC ---
IM PROGRESS NOTES- Subjective Subjective Not responsive- unable to do systems review. Objective Vitals Vital Signs Date Time Temp Pulse Resp B/P Pulse Ox O2 Delivery O2 Flow Rate FiO2 03/05/17 08:00 Mechanical Ventilator 03/05/17 06:00 84 24 113/64 100 03/05/17 04:00 98.4 98.4 Input & Output Intake and Output 03/05/17 07:00 Intake Total 2450 ml Output Total 7110 ml Balance -4660 ml Intake IV Total 2450 ml Output Urine Total 7110 ml Physical Exam Physical Exam General appearance - not responsive,on mechanical ventilation Head - normal Chest - occasional rhonchi Heart - S1 and S2 normal Abdomen - soft, nontender, nondistended, no masses or organomegaly Neurological - not responsive- pupils dilated,fixed Musculoskeletal - no muscular tenderness noted Extremities - ++ pedal edema,dressing in place Skin - warm and dry Labs Laboratory Tests Test 03/03/17 12:55 03/03/17 13:07 03/03/17 13:20 03/03/17 14:28 White Blood Count 9.7x10^3/uL (4.0-11.0) Red Blood Count 4.58x10^6/uL (4.30-5.70) Hemoglobin 11.4g/dL (13.0-17.5) Hematocrit 45.1% (39.0-53.0) Mean Corpuscular Volume 98fL (79-100) Mean Corpuscular Hemoglobin 25pg (25-35) Mean Corpuscular Hemoglobin Concent 25g/dL (31-37) Red Cell Distribution Width 17.8% (11.5-14.5) Platelet Count 244x10^3/uL (140-400) Neutrophils (%) (Auto) 75% (31-73) Lymphocytes (%) (Auto) 19% (24-48) Monocytes (%) (Auto) 6% (0-9) Eosinophils (%) (Auto) 0% (0-3) Basophils (%) (Auto) 0% (0-3) Neutrophils # (Auto) 7.3x10^3uL (1.8-7.7) Lymphocytes # (Auto) 1.8x10^3/uL (1.0-4.8) Monocytes # (Auto) 0.6x10^3/uL (0.0-1.1) Eosinophils # (Auto) 0.0x10^3/uL (0.0-0.7) Basophils # (Auto) 0.0x10^3/uL (0.0-0.2) Prothrombin Time 16.8SEC (11.7-14.0) Prothromb Time International Ratio 1.5 (0.8-1.1) Sodium Level 135mmol/L (136-145) Potassium Level 2.8mmol/L (3.5-5.1) Chloride Level 93mmol/L (98-107) Carbon Dioxide Level 21mmol/L (21-32) Anion Gap 21 (6-14) Blood Urea Nitrogen 51mg/dL (8-26) Creatinine 3.4mg/dL (0.7-1.3) Estimated GFR (Cockcroft-Gault) 25.1 Glucose Level 2183mg/dL (70-99) 2003mg/dL (70-99) Hemoglobin A1c 10.0% (4.8-5.6) Calcium Level 8.1mg/dL (8.5-10.1) Troponin I Quantitative < 0.017ng/mL (0.000-0.055) OB-Nwg-G-Type Natriuretic Peptide 930pg/mL (0-124) Urine Opiates Screen Neg (NEG) Urine Methadone Screen Neg (NEG) Urine Barbiturates Neg (NEG) Urine Phencyclidine Screen Neg (NEG) Urine Amphetamine/Methamphetamine Neg (NEG) Urine Benzodiazepines Screen Neg (NEG) Urine Cocaine Screen Neg (NEG) Urine Cannabinoids Screen Neg (NEG) Urine Ethyl Alcohol Neg (NEG) O2 Saturation 99% (92-99) Arterial Blood pH 7.31 (7.35-7.45) Arterial Blood pCO2 at Patient Temp 33mmHg (35-46) Arterial Blood pO2 at Patient Temp 373mmHg (85-108) Arterial Blood HCO3 16mmol/L (21-28) Arterial Blood Base Excess -9mmol/L (-3-3) FiO2 100 Serum Osmolality 429mOsm/Kg (279-304) Test 03/03/17 16:31 03/03/17 18:58 03/03/17 19:00 03/03/17 21:00 Sodium Level 140mmol/L (136-145) 148mmol/L (136-145) Potassium Level 2.0mmol/L (3.5-5.1) 2.3mmol/L (3.5-5.1) Chloride Level 99mmol/L (98-107) 106mmol/L (98-107) Carbon Dioxide Level 22mmol/L (21-32) 24mmol/L (21-32) Anion Gap 19 (6-14) 18 (6-14) Blood Urea Nitrogen 52mg/dL (8-26) 49mg/dL (8-26) Creatinine 3.3mg/dL (0.7-1.3) 2.9mg/dL (0.7-1.3) Estimated GFR (Cockcroft-Gault) 25.9 30.1 BUN/Creatinine Ratio 16 (6-20) Glucose Level 1704mg/dL (70-99) 1356mg/dL (70-99) 1037mg/dL (70-99) Calcium Level 8.1mg/dL (8.5-10.1) 7.7mg/dL (8.5-10.1) Phosphorus Level 2.2mg/dL (2.6-4.7) 1.9mg/dL (2.6-4.7) Magnesium Level 2.4mg/dL (1.8-2.4) 2.4mg/dL (1.8-2.4) Total Bilirubin 0.2mg/dL (0.2-1.0) Direct Bilirubin 0.1mg/dL (0.0-0.2) Aspartate Amino Transf (AST/SGOT) 44U/L (15-37) Alanine Aminotransferase (ALT/SGPT) 56U/L (16-63) Alkaline Phosphatase 134U/L (46-116) Total Protein 7.6g/dL (6.4-8.2) Albumin 2.7g/dL (3.4-5.0) Albumin/Globulin Ratio 0.6 (1.0-1.7) Triglycerides Level 304mg/dL (0-150) Cholesterol Level 166mg/dL (0-200) LDL Cholesterol, Calculated 91mg/dL (0-100) VLDL Cholesterol, Calculated 61mg/dL (0-40) HDL Cholesterol 14mg/dL (40-60) Cholesterol/HDL Ratio 11.9 Thyroid Stimulating Hormone (TSH) 0.555uIU/mL (0.358-3.74) Lactic Acid Level 6.7mmol/L (0.4-2.0) Procalcitonin 6.82ng/mL (0.00-0.10) Serum Osmolality 400mOsm/Kg (279-304) Test 03/03/17 22:00 03/03/17 23:30 03/04/17 01:15 03/04/17 01:30 Urine Collection Type Unknown Urine Color Yellow Urine Clarity Clear Urine pH 6.0 Urine Specific [place] 1.020 Urine Protein 30mg/dL (NEG-TRACE) Urine Glucose (UA) >=1000mg/dL (NEG) Urine Ketones (Stick) Negativemg/dL (NEG) Urine Blood Large (NEG) Urine Nitrite Negative (NEG) Urine Bilirubin Negative (NEG) Urine Urobilinogen Dipstick 0.2mg/dL (0.2 mg/dL) Urine Leukocyte Esterase Small (NEG) Urine RBC 3-5/HPF (0-2) Urine WBC 11-20/HPF (0-4) Urine Squamous Epithelial Cells Occ/LPF Urine Bacteria Few/HPF (0-FEW) Urine Mucus Slight/LPF Glucose Level 804mg/dL (70-99) 641mg/dL (70-99) Sodium Level 158mmol/L (136-145) Potassium Level 3.2mmol/L (3.5-5.1) Chloride Level 119mmol/L (98-107) Carbon Dioxide Level 25mmol/L (21-32) Anion Gap 14 (6-14) Blood Urea Nitrogen 38mg/dL (8-26) Creatinine 2.1mg/dL (0.7-1.3) Estimated GFR (Cockcroft-Gault) 43.7 Lactic Acid Level 5.6mmol/L (0.4-2.0) Calcium Level 7.9mg/dL (8.5-10.1) Phosphorus Level 2.1mg/dL (2.6-4.7) Magnesium Level 2.1mg/dL (1.8-2.4) Serum Osmolality 368mOsm/Kg (279-304) Test 03/04/17 03:28 03/04/17 04:25 03/04/17 04:30 4/14/17 05:42 Glucose (Fingerstick) 490mg/dL (70-99) 439mg/dL (70-99) 440mg/dL (70-99) White Blood Count 13.7x10^3/uL (4.0-11.0) Red Blood Count 4.84x10^6/uL (4.30-5.70) Hemoglobin 11.7g/dL (13.0-17.5) Hematocrit 38.2% (39.0-53.0) Mean Corpuscular Volume 79fL (79-100) Mean Corpuscular Hemoglobin 24pg (25-35) Mean Corpuscular Hemoglobin Concent 31g/dL (31-37) Red Cell Distribution Width 15.9% (11.5-14.5) Platelet Count 223x10^3/uL (140-400) Neutrophils (%) (Auto) 78% (31-73) Lymphocytes (%) (Auto) 11% (24-48) Monocytes (%) (Auto) 11% (0-9) Eosinophils (%) (Auto) 0% (0-3) Basophils (%) (Auto) 0% (0-3) Neutrophils # (Auto) 10.7x10^3uL (1.8-7.7) Lymphocytes # (Auto) 1.4x10^3/uL (1.0-4.8) Monocytes # (Auto) 1.5x10^3/uL (0.0-1.1) Eosinophils # (Auto) 0.0x10^3/uL (0.0-0.7) Basophils # (Auto) 0.0x10^3/uL (0.0-0.2) Sodium Level 159mmol/L (136-145) Potassium Level 3.8mmol/L (3.5-5.1) Chloride Level 121mmol/L (98-107) Carbon Dioxide Level 23mmol/L (21-32) Anion Gap 15 (6-14) Blood Urea Nitrogen 34mg/dL (8-26) Creatinine 1.9mg/dL (0.7-1.3) Estimated GFR (Cockcroft-Gault) 49.1 BUN/Creatinine Ratio 18 (6-20) Glucose Level 472mg/dL (70-99) Serum Osmolality 357mOsm/Kg (279-304) Calcium Level 7.8mg/dL (8.5-10.1) Phosphorus Level 3.2mg/dL (2.6-4.7) Magnesium Level 2.0mg/dL (1.8-2.4) Total Bilirubin 0.3mg/dL (0.2-1.0) Aspartate Amino Transf (AST/SGOT) 37U/L (15-37) Alanine Aminotransferase (ALT/SGPT) 50U/L (16-63) Alkaline Phosphatase 138U/L (46-116) Total Protein 7.8g/dL (6.4-8.2) Albumin 2.6g/dL (3.4-5.0) Albumin/Globulin Ratio 0.5 (1.0-1.7) Test 03/04/17 06:56 03/04/17 07:36 03/04/17 08:00 03/04/17 08:53 Glucose (Fingerstick) 402mg/dL (70-99) 354mg/dL (70-99) 306mg/dL (70-99) O2 Saturation 97% (92-99) Arterial Blood pH 7.45 (7.35-7.45) Arterial Blood pCO2 at Patient Temp 32mmHg (35-46) Arterial Blood pO2 at Patient Temp 87mmHg (85-108) Arterial Blood HCO3 22mmol/L (21-28) Arterial Blood Base Excess -2mmol/L (-3-3) FiO2 40 Test 03/04/17 09:40 03/04/17 09:43 03/04/17 09:45 03/04/17 12:58 Nasal Screen MRSA (PCR) Positive (Negative) Glucose (Fingerstick) 257mg/dL (70-99) 190mg/dL (70-99) Sodium Level 162mmol/L (136-145) Potassium Level 3.5mmol/L (3.5-5.1) Chloride Level 124mmol/L (98-107) Carbon Dioxide Level 24mmol/L (21-32) Anion Gap 14 (6-14) Blood Urea Nitrogen 32mg/dL (8-26) Creatinine 1.8mg/dL (0.7-1.3) Estimated GFR (Cockcroft-Gault) 52.2 Glucose Level 218mg/dL (70-99) Serum Osmolality 345mOsm/Kg (279-304) Calcium Level 8.0mg/dL (8.5-10.1) Phosphorus Level 2.1mg/dL (2.6-4.7) Magnesium Level 2.0mg/dL (1.8-2.4) Test 03/04/17 13:55 03/04/17 13:56 03/04/17 15:31 03/04/17 16:15 Sodium Level 165mmol/L (136-145) Potassium Level 3.4mmol/L (3.5-5.1) Chloride Level 123mmol/L (98-107) Carbon Dioxide Level 22mmol/L (21-32) Anion Gap 20 (6-14) Blood Urea Nitrogen 30mg/dL (8-26) Creatinine 2.1mg/dL (0.7-1.3) Estimated GFR (Cockcroft-Gault) 43.7 Glucose Level 274mg/dL (70-99) Serum Osmolality 349mOsm/Kg (279-304) Calcium Level 7.0mg/dL (8.5-10.1) Phosphorus Level 5.3mg/dL (2.6-4.7) Magnesium Level 2.3mg/dL (1.8-2.4) Glucose (Fingerstick) 254mg/dL (70-99) 182mg/dL (70-99) O2 Saturation 95% (92-99) Arterial Blood pH 7.45 (7.35-7.45) Arterial Blood pH (Temp corrected) 7.43 Arterial Blood pCO2 at Patient Temp 28mmHg (35-46) Arterial Blood pCO2 (Temp correct) 30mmHg Arterial Blood pO2 at Patient Temp 71mmHg (85-108) Arterial Blood pO2 (Temp corrected) 77mmHg Arterial Blood HCO3 19mmol/L (21-28) Arterial Blood Base Excess -4mmol/L (-3-3) FiO2 40 Test 03/04/17 16:41 03/04/17 19:00 03/04/17 19:30 03/04/17 20:08 Glucose (Fingerstick) 147mg/dL (70-99) 152mg/dL (70-99) 177mg/dL (70-99) Sodium Level 167mmol/L (136-145) Potassium Level 2.9mmol/L (3.5-5.1) Chloride Level 126mmol/L (98-107) Carbon Dioxide Level 23mmol/L (21-32) Anion Gap 18 (6-14) Blood Urea Nitrogen 29mg/dL (8-26) Creatinine 1.8mg/dL (0.7-1.3) Estimated GFR (Cockcroft-Gault) 52.2 Glucose Level 157mg/dL (70-99) Serum Osmolality 346mOsm/Kg (279-304) Calcium Level 7.0mg/dL (8.5-10.1) Phosphorus Level 3.5mg/dL (2.6-4.7) Magnesium Level 2.0mg/dL (1.8-2.4) Test 03/04/17 21:31 03/04/17 22:31 03/04/17 23:36 03/05/17 00:30 Glucose (Fingerstick) 171mg/dL (70-99) 188mg/dL (70-99) 235mg/dL (70-99) Sodium Level 169mmol/L (136-145) Potassium Level 3.8mmol/L (3.5-5.1) Chloride Level 129mmol/L (98-107) Carbon Dioxide Level 24mmol/L (21-32) Anion Gap 16 (6-14) Blood Urea Nitrogen 26mg/dL (8-26) Creatinine 1.8mg/dL (0.7-1.3) Estimated GFR (Cockcroft-Gault) 52.2 Glucose Level 236mg/dL (70-99) Serum Osmolality 350mOsm/Kg (279-304) Calcium Level 6.9mg/dL (8.5-10.1) Phosphorus Level 3.2mg/dL (2.6-4.7) Magnesium Level 2.0mg/dL (1.8-2.4) Test 03/05/17 00:42 03/05/17 02:11 03/05/17 03:15 03/05/17 04:24 Glucose (Fingerstick) 227mg/dL (70-99) 211mg/dL (70-99) 194mg/dL (70-99) 198mg/dL (70-99) Test 03/05/17 05:30 03/05/17 05:37 03/05/17 06:39 03/05/17 07:43 White Blood Count 12.7x10^3/uL (4.0-11.0) Red Blood Count 5.16x10^6/uL (4.30-5.70) Hemoglobin 12.7g/dL (13.0-17.5) Hematocrit 40.0% (39.0-53.0) Mean Corpuscular Volume 77fL (79-100) Mean Corpuscular Hemoglobin 25pg (25-35) Mean Corpuscular Hemoglobin Concent 32g/dL (31-37) Red Cell Distribution Width 16.4% (11.5-14.5) Platelet Count 216x10^3/uL (140-400) Neutrophils (%) (Auto) 75% (31-73) Lymphocytes (%) (Auto) 19% (24-48) Monocytes (%) (Auto) 5% (0-9) Eosinophils (%) (Auto) 1% (0-3) Basophils (%) (Auto) 0% (0-3) Neutrophils # (Auto) 9.4x10^3uL (1.8-7.7) Lymphocytes # (Auto) 2.4x10^3/uL (1.0-4.8) Monocytes # (Auto) 0.7x10^3/uL (0.0-1.1) Eosinophils # (Auto) 0.1x10^3/uL (0.0-0.7) Basophils # (Auto) 0.0x10^3/uL (0.0-0.2) Sodium Level 169mmol/L (136-145) Potassium Level 3.6mmol/L (3.5-5.1) Chloride Level 130mmol/L (98-107) Carbon Dioxide Level 22mmol/L (21-32) Anion Gap 17 (6-14) Blood Urea Nitrogen 22mg/dL (8-26) Creatinine 1.8mg/dL (0.7-1.3) Estimated GFR (Cockcroft-Gault) 52.2 Glucose Level 191mg/dL (70-99) Serum Osmolality 344mOsm/Kg (279-304) Calcium Level 7.3mg/dL (8.5-10.1) Phosphorus Level 3.0mg/dL (2.6-4.7) Magnesium Level 2.1mg/dL (1.8-2.4) Glucose (Fingerstick) 172mg/dL (70-99) 168mg/dL (70-99) 176mg/dL (70-99) Test 03/05/17 08:54 03/05/17 09:57 Glucose (Fingerstick) 157mg/dL (70-99) 143mg/dL (70-99) Laboratory Tests Test 03/04/17 12:58 03/04/17 13:55 03/04/17 13:56 03/04/17 15:31 Glucose (Fingerstick) 190mg/dL (70-99) 254mg/dL (70-99) 182mg/dL (70-99) Sodium Level 165mmol/L (136-145) Potassium Level 3.4mmol/L (3.5-5.1) Chloride Level 123mmol/L (98-107) Carbon Dioxide Level 22mmol/L (21-32) Anion Gap 20 (6-14) Blood Urea Nitrogen 30mg/dL (8-26) Creatinine 2.1mg/dL (0.7-1.3) Estimated GFR (Cockcroft-Gault) 43.7 Glucose Level 274mg/dL (70-99) Serum Osmolality 349mOsm/Kg (279-304) Calcium Level 7.0mg/dL (8.5-10.1) Phosphorus Level 5.3mg/dL (2.6-4.7) Magnesium Level 2.3mg/dL (1.8-2.4) Test 03/04/17 16:15 03/04/17 16:41 03/04/17 19:00 03/04/17 19:30 O2 Saturation 95% (92-99) Arterial Blood pH 7.45 (7.35-7.45) Arterial Blood pH (Temp corrected) 7.43 Arterial Blood pCO2 at Patient Temp 28mmHg (35-46) Arterial Blood pCO2 (Temp correct) 30mmHg Arterial Blood pO2 at Patient Temp 71mmHg (85-108) Arterial Blood pO2 (Temp corrected) 77mmHg Arterial Blood HCO3 19mmol/L (21-28) Arterial Blood Base Excess -4mmol/L (-3-3) FiO2 40 Glucose (Fingerstick) 147mg/dL (70-99) 152mg/dL (70-99) Sodium Level 167mmol/L (136-145) Potassium Level 2.9mmol/L (3.5-5.1) Chloride Level 126mmol/L (98-107) Carbon Dioxide Level 23mmol/L (21-32) Anion Gap 18 (6-14) Blood Urea Nitrogen 29mg/dL (8-26) Creatinine 1.8mg/dL (0.7-1.3) Estimated GFR (Cockcroft-Gault) 52.2 Glucose Level 157mg/dL (70-99) Serum Osmolality 346mOsm/Kg (279-304) Calcium Level 7.0mg/dL (8.5-10.1) Phosphorus Level 3.5mg/dL (2.6-4.7) Magnesium Level 2.0mg/dL (1.8-2.4) Test 03/04/17 20:08 03/04/17 21:31 03/04/17 22:31 03/04/17 23:36 Glucose (Fingerstick) 177mg/dL (70-99) 171mg/dL (70-99) 188mg/dL (70-99) 235mg/dL (70-99) Test 03/05/17 00:30 03/05/17 00:42 03/05/17 02:11 03/05/17 03:15 Sodium Level 169mmol/L (136-145) Potassium Level 3.8mmol/L (3.5-5.1) Chloride Level 129mmol/L (98-107) Carbon Dioxide Level 24mmol/L (21-32) Anion Gap 16 (6-14) Blood Urea Nitrogen 26mg/dL (8-26) Creatinine 1.8mg/dL (0.7-1.3) Estimated GFR (Cockcroft-Gault) 52.2 Glucose Level 236mg/dL (70-99) Serum Osmolality 350mOsm/Kg (279-304) Calcium Level 6.9mg/dL (8.5-10.1) Phosphorus Level 3.2mg/dL (2.6-4.7) Magnesium Level 2.0mg/dL (1.8-2.4) Glucose (Fingerstick) 227mg/dL (70-99) 211mg/dL (70-99) 194mg/dL (70-99) Test 03/05/17 04:24 03/05/17 05:30 03/05/17 05:37 03/05/17 06:39 Glucose (Fingerstick) 198mg/dL (70-99) 172mg/dL (70-99) 168mg/dL (70-99) White Blood Count 12.7x10^3/uL (4.0-11.0) Red Blood Count 5.16x10^6/uL (4.30-5.70) Hemoglobin 12.7g/dL (13.0-17.5) Hematocrit 40.0% (39.0-53.0) Mean Corpuscular Volume 77fL (79-100) Mean Corpuscular Hemoglobin 25pg (25-35) Mean Corpuscular Hemoglobin Concent 32g/dL (31-37) Red Cell Distribution Width 16.4% (11.5-14.5) Platelet Count 216x10^3/uL (140-400) Neutrophils (%) (Auto) 75% (31-73) Lymphocytes (%) (Auto) 19% (24-48) Monocytes (%) (Auto) 5% (0-9) Eosinophils (%) (Auto) 1% (0-3) Basophils (%) (Auto) 0% (0-3) Neutrophils # (Auto) 9.4x10^3uL (1.8-7.7) Lymphocytes # (Auto) 2.4x10^3/uL (1.0-4.8) Monocytes # (Auto) 0.7x10^3/uL (0.0-1.1) Eosinophils # (Auto) 0.1x10^3/uL (0.0-0.7) Basophils # (Auto) 0.0x10^3/uL (0.0-0.2) Sodium Level 169mmol/L (136-145) Potassium Level 3.6mmol/L (3.5-5.1) Chloride Level 130mmol/L (98-107) Carbon Dioxide Level 22mmol/L (21-32) Anion Gap 17 (6-14) Blood Urea Nitrogen 22mg/dL (8-26) Creatinine 1.8mg/dL (0.7-1.3) Estimated GFR (Cockcroft-Gault) 52.2 Glucose Level 191mg/dL (70-99) Serum Osmolality 344mOsm/Kg (279-304) Calcium Level 7.3mg/dL (8.5-10.1) Phosphorus Level 3.0mg/dL (2.6-4.7) Magnesium Level 2.1mg/dL (1.8-2.4) Test 03/05/17 07:43 03/05/17 08:54 03/05/17 09:57 Glucose (Fingerstick) 176mg/dL (70-99) 157mg/dL (70-99) 143mg/dL (70-99) Meds Current Medications Chlorhexidine Gluconate (Peridex) 15 ml BID SWSP ; Start 03/05/17 at 11:00 Dextrose 1,000 ml @ 250 mls/hr Q4H IV Last administered on 03/05/17 10:05; Start 03/05/17 at 01:30 Dextrose/Sodium Chloride 1,000 ml @ 250 mls/hr Q4H IV Last administered on 01:19; Start 03/04/17 at 21:00; Stop 03/05/17 at 01:32; Status DC Enoxaparin Sodium 120 mg 120 mg BID SQ Last administered on 03/05/17 10:04; Start 03/04/17 at 21:00 Enoxaparin Sodium 120 mg 120 mg DAILY SQ ; Start 03/05/17 at 09:00; Stop at 09:00; Status DC Norepinephrine Bitartrate 8 mg/ Sodium Chloride 258 ml @ 1.93 mls/hr ONCE ONCE IV Last administered on 03/04/17 19:21; Start 03/04/17 at 14:45; Stop at 04:25 Norepinephrine Bitartrate/ Dextrose (Levophed Vial) 258 ml @ 0 mls/hr CONT PRN IV HYPOTENSION Last administered on 03/05/17 07:08; Start 03/05/17 at 06:00 Pantoprazole Sodium (Protonix Vial) 40 mg DAILYAC IVP ; Start 03/05/17 at 11:00 Potassium Chloride 50 ml @ 50 mls/hr Q1H IV Last administered on 03/04/17 12: 33; Start 03/04/17 at 11:30; Stop 03/04/17 at 13:29; Status DC Potassium Chloride 50 ml @ 50 mls/hr Q1HR IV Last administered on 03/04/17 23: 31; Start 03/04/17 at 21:00; Stop 03/04/17 at 23:59; Status DC Sodium Phosphate/ Dextrose 256.6667 ml @ 64.167 m... 1X ONCE IV Last administered on 03/04/17t 12:23; Start 03/04/17 at 11:30; Stop 03/04/17 at 15:29 ; Status DC Vancomycin HCl 1.75 gm/Sodium Chloride 500 ml @ 250 mls/hr Q24H IV ; Start at 18:00; Stop 03/04/17 at 18:00; Status DC Vancomycin HCl 1 each 1 each 1X ONCE MC ; Start 03/05/17 at 17:30; Stop at 17:30; Status DC Vasopressin 40 unit/Dextrose 102 ml @ 6 mls/hr CONT PRN IV SEE I/O RECORD; Start 03/04/17 at 15:15; Stop 03/04/17 at 15:15; Status DC Vasopressin 40 unit/Dextrose 102 ml @ 6 mls/hr ONCE ONCE IV ; Start 03/04/17 at 15:15; Stop 03/05/17 at 08:14; Status DC Vasopressin/ Dextrose (Vasostrict) 102 ml @ 6 mls/hr CONT PRN IV SEE I/O RECORD ; Start 03/04/17 at 15:15 Assessment Assessment Problems Medical Problems: (1) Acute respiratory failure Status: Acute (2) Acute respiratory failure Status: Acute (3) Cardiac arrest Status: Acute (4) Hyperglycemia Status: Acute sepsis. DKA 1. Status post code blue, outside the hospital. 2. Fever and uncontrolled diabetes. DKA. Blood sugars 2000 range. 3. Metabolic acidosis.Lactic acidosis.Hyperosmolar coma. 4. 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 5. Resulting paraplegia. 6. Sacral ulcer.heal ulcer. 7. Self catheter for bladder retention PLAN: DM - insulin drip,sugars 172-118 Hypernatremia - Na 169.continue D%W Hypokalemia- K 3.6 Acute renal failure- creat 1.8. Prognosis is extemely poor. Anoxic encephalopathy. On Zosyn,Zyvox. critical condition. Condition, treatment and options discussed with pt's father at bedside. Plan Plan For more details regarding further plans, please refer to the orders. Nutrition Consultation Dietary Evaluation: Recommendations by RD: Increase Calorie Intake, PPN/TPN Comments: Rec. TF's if remains on the ventilator: Diabetisource AC, goal rate 65 ml/hr Start at 20 ml/hr, increase by 20 ml/hr q8h to goal rate flushes 200 cc q4h if no IVF's running Expected Outcomes/Goals: TF initiation tolerate TF's at goal rate Malnutrition Findings: Reduced Gas Maker Strength: N/A Malnutrition related to morbid: No Weight Status: Obese MARLEY BOOGIE MD Mar 05, 2017 10:41
[2017-03-05 11:02] LABS: FIO2 ABG 40
[2017-03-05 11:45] LABS: HEMATOCRIT 39.1 % (39.0-53.0); HEMOGLOBIN 12.3 g/dL (13.0-17.5); RED BLOOD COUNT 5.05 x10^6/uL (4.30-5.70); WHITE BLOOD COUNT 13.5 x10^3/uL (4.0-11.0)
[2017-03-05 11:46] LABS: RED CELL DISTRIBUTION WIDTH 16.5 % (11.5-14.5)
--- NOTE | 2017-03-05 11:53 | PDOC ---
PROGRESS NOTES Subjective Subjective SEEN IN FOLLOW UP OF DEHYDRATION AND HYPERNATREMIA Objective Objective Vital Signs Date Time Temp Pulse Resp B/P Pulse Ox O2 Delivery O2 Flow Rate FiO2 03/05/17 11:00 82 24 103/58 100 Ventilator 03/05/17 08:00 98.4 98.4 03/03/17 12:33 15 Intake and Output 03/05/17 07:00 Intake Total 2450 ml Output Total 7110 ml Balance -4660 ml Intake IV Total 2450 ml Output Urine Total 7110 ml Physical Exam Abdomen: Normal bowel sounds, Soft, No tenderness, No hepatosplenomegaly, No masses Heart: Regular rate, Normal S1, Normal S2, No murmurs, Gallops Extremities: No clubbing, No cyanosis, No edema, Normal pulses, No tenderness/ swelling General: Other (ON VENT) Lungs: Clear to auscultation, Normal air movement, Other (ON VENT) Diagnosis RENAL FAILURE: Acute, Other (DEHYDRATION WITH HYPERNATREMIA) Assessment Assessment Problems Medical Problems: (1) Acute respiratory failure Status: Acute (2) Acute respiratory failure Status: Acute (3) Cardiac arrest Status: Acute (4) Hyperglycemia Status: Acute Plan Plan of Care INCREASE FREE WATER VIA GI TRACT. CONT IVF Comment Review of Relevant I have reviewed the following items reina (where applicable) has been applied. Labs Laboratory Tests Test 03/03/17 12:55 03/03/17 13:07 03/03/17 13:20 03/03/17 14:28 White Blood Count 9.7x10^3/uL (4.0-11.0) Red Blood Count 4.58x10^6/uL (4.30-5.70) Hemoglobin 11.4g/dL (13.0-17.5) Hematocrit 45.1% (39.0-53.0) Mean Corpuscular Volume 98fL (79-100) Mean Corpuscular Hemoglobin 25pg (25-35) Mean Corpuscular Hemoglobin Concent 25g/dL (31-37) Red Cell Distribution Width 17.8% (11.5-14.5) Platelet Count 244x10^3/uL (140-400) Neutrophils (%) (Auto) 75% (31-73) Lymphocytes (%) (Auto) 19% (24-48) Monocytes (%) (Auto) 6% (0-9) Eosinophils (%) (Auto) 0% (0-3) Basophils (%) (Auto) 0% (0-3) Neutrophils # (Auto) 7.3x10^3uL (1.8-7.7) Lymphocytes # (Auto) 1.8x10^3/uL (1.0-4.8) Monocytes # (Auto) 0.6x10^3/uL (0.0-1.1) Eosinophils # (Auto) 0.0x10^3/uL (0.0-0.7) Basophils # (Auto) 0.0x10^3/uL (0.0-0.2) Prothrombin Time 16.8SEC (11.7-14.0) Prothromb Time International Ratio 1.5 (0.8-1.1) Sodium Level 135mmol/L (136-145) Potassium Level 2.8mmol/L (3.5-5.1) Chloride Level 93mmol/L (98-107) Carbon Dioxide Level 21mmol/L (21-32) Anion Gap 21 (6-14) Blood Urea Nitrogen 51mg/dL (8-26) Creatinine 3.4mg/dL (0.7-1.3) Estimated GFR (Cockcroft-Gault) 25.1 Glucose Level 2183mg/dL (70-99) 2003mg/dL (70-99) Hemoglobin A1c 10.0% (4.8-5.6) Calcium Level 8.1mg/dL (8.5-10.1) Troponin I Quantitative < 0.017ng/mL (0.000-0.055) KQ-Vxy-E-Type Natriuretic Peptide 930pg/mL (0-124) Urine Opiates Screen Neg (NEG) Urine Methadone Screen Neg (NEG) Urine Barbiturates Neg (NEG) Urine Phencyclidine Screen Neg (NEG) Urine Amphetamine/Methamphetamine Neg (NEG) Urine Benzodiazepines Screen Neg (NEG) Urine Cocaine Screen Neg (NEG) Urine Cannabinoids Screen Neg (NEG) Urine Ethyl Alcohol Neg (NEG) O2 Saturation 99% (92-99) Arterial Blood pH 7.31 (7.35-7.45) Arterial Blood pCO2 at Patient Temp 33mmHg (35-46) Arterial Blood pO2 at Patient Temp 373mmHg (85-108) Arterial Blood HCO3 16mmol/L (21-28) Arterial Blood Base Excess -9mmol/L (-3-3) FiO2 100 Serum Osmolality 429mOsm/Kg (279-304) Test 03/03/17 16:31 03/03/17 18:58 03/03/17 19:00 03/03/17 21:00 Sodium Level 140mmol/L (136-145) 148mmol/L (136-145) Potassium Level 2.0mmol/L (3.5-5.1) 2.3mmol/L (3.5-5.1) Chloride Level 99mmol/L (98-107) 106mmol/L (98-107) Carbon Dioxide Level 22mmol/L (21-32) 24mmol/L (21-32) Anion Gap 19 (6-14) 18 (6-14) Blood Urea Nitrogen 52mg/dL (8-26) 49mg/dL (8-26) Creatinine 3.3mg/dL (0.7-1.3) 2.9mg/dL (0.7-1.3) Estimated GFR (Cockcroft-Gault) 25.9 30.1 BUN/Creatinine Ratio 16 (6-20) Glucose Level 1704mg/dL (70-99) 1356mg/dL (70-99) 1037mg/dL (70-99) Calcium Level 8.1mg/dL (8.5-10.1) 7.7mg/dL (8.5-10.1) Phosphorus Level 2.2mg/dL (2.6-4.7) 1.9mg/dL (2.6-4.7) Magnesium Level 2.4mg/dL (1.8-2.4) 2.4mg/dL (1.8-2.4) Total Bilirubin 0.2mg/dL (0.2-1.0) Direct Bilirubin 0.1mg/dL (0.0-0.2) Aspartate Amino Transf (AST/SGOT) 44U/L (15-37) Alanine Aminotransferase (ALT/SGPT) 56U/L (16-63) Alkaline Phosphatase 134U/L (46-116) Total Protein 7.6g/dL (6.4-8.2) Albumin 2.7g/dL (3.4-5.0) Albumin/Globulin Ratio 0.6 (1.0-1.7) Triglycerides Level 304mg/dL (0-150) Cholesterol Level 166mg/dL (0-200) LDL Cholesterol, Calculated 91mg/dL (0-100) VLDL Cholesterol, Calculated 61mg/dL (0-40) HDL Cholesterol 14mg/dL (40-60) Cholesterol/HDL Ratio 11.9 Thyroid Stimulating Hormone (TSH) 0.555uIU/mL (0.358-3.74) Lactic Acid Level 6.7mmol/L (0.4-2.0) Procalcitonin 6.82ng/mL (0.00-0.10) Serum Osmolality 400mOsm/Kg (279-304) Test 03/03/17 22:00 03/03/17 23:30 03/04/17 01:15 03/04/17 01:30 Urine Collection Type Unknown Urine Color Yellow Urine Clarity Clear Urine pH 6.0 Urine Specific [place] 1.020 Urine Protein 30mg/dL (NEG-TRACE) Urine Glucose (UA) >=1000mg/dL (NEG) Urine Ketones (Stick) Negativemg/dL (NEG) Urine Blood Large (NEG) Urine Nitrite Negative (NEG) Urine Bilirubin Negative (NEG) Urine Urobilinogen Dipstick 0.2mg/dL (0.2 mg/dL) Urine Leukocyte Esterase Small (NEG) Urine RBC 3-5/HPF (0-2) Urine WBC 11-20/HPF (0-4) Urine Squamous Epithelial Cells Occ/LPF Urine Bacteria Few/HPF (0-FEW) Urine Mucus Slight/LPF Glucose Level 804mg/dL (70-99) 641mg/dL (70-99) Sodium Level 158mmol/L (136-145) Potassium Level 3.2mmol/L (3.5-5.1) Chloride Level 119mmol/L (98-107) Carbon Dioxide Level 25mmol/L (21-32) Anion Gap 14 (6-14) Blood Urea Nitrogen 38mg/dL (8-26) Creatinine 2.1mg/dL (0.7-1.3) Estimated GFR (Cockcroft-Gault) 43.7 Lactic Acid Level 5.6mmol/L (0.4-2.0) Calcium Level 7.9mg/dL (8.5-10.1) Phosphorus Level 2.1mg/dL (2.6-4.7) Magnesium Level 2.1mg/dL (1.8-2.4) Serum Osmolality 368mOsm/Kg (279-304) Test 03/04/17 03:28 03/04/17 04:25 03/04/17 04:30 03/04/17 05:42 Glucose (Fingerstick) 490mg/dL (70-99) 439mg/dL (70-99) 440mg/dL (70-99) White Blood Count 13.7x10^3/uL (4.0-11.0) Red Blood Count 4.84x10^6/uL (4.30-5.70) Hemoglobin 11.7g/dL (13.0-17.5) Hematocrit 38.2% (39.0-53.0) Mean Corpuscular Volume 79fL (79-100) Mean Corpuscular Hemoglobin 24pg (25-35) Mean Corpuscular Hemoglobin Concent 31g/dL (31-37) Red Cell Distribution Width 15.9% (11.5-14.5) Platelet Count 223x10^3/uL (140-400) Neutrophils (%) (Auto) 78% (31-73) Lymphocytes (%) (Auto) 11% (24-48) Monocytes (%) (Auto) 11% (0-9) Eosinophils (%) (Auto) 0% (0-3) Basophils (%) (Auto) 0% (0-3) Neutrophils # (Auto) 10.7x10^3uL (1.8-7.7) Lymphocytes # (Auto) 1.4x10^3/uL (1.0-4.8) Monocytes # (Auto) 1.5x10^3/uL (0.0-1.1) Eosinophils # (Auto) 0.0x10^3/uL (0.0-0.7) Basophils # (Auto) 0.0x10^3/uL (0.0-0.2) Sodium Level 159mmol/L (136-145) Potassium Level 3.8mmol/L (3.5-5.1) Chloride Level 121mmol/L (98-107) Carbon Dioxide Level 23mmol/L (21-32) Anion Gap 15 (6-14) Blood Urea Nitrogen 34mg/dL (8-26) Creatinine 1.9mg/dL (0.7-1.3) Estimated GFR (Cockcroft-Gault) 49.1 BUN/Creatinine Ratio 18 (6-20) Glucose Level 472mg/dL (70-99) Serum Osmolality 357mOsm/Kg (279-304) Calcium Level 7.8mg/dL (8.5-10.1) Phosphorus Level 3.2mg/dL (2.6-4.7) Magnesium Level 2.0mg/dL (1.8-2.4) Total Bilirubin 0.3mg/dL (0.2-1.0) Aspartate Amino Transf (AST/SGOT) 37U/L (15-37) Alanine Aminotransferase (ALT/SGPT) 50U/L (16-63) Alkaline Phosphatase 138U/L (46-116) Total Protein 7.8g/dL (6.4-8.2) Albumin 2.6g/dL (3.4-5.0) Albumin/Globulin Ratio 0.5 (1.0-1.7) Test 03/04/17 06:56 03/04/17 07:36 03/04/17 08:00 03/04/17 08:53 Glucose (Fingerstick) 402mg/dL (70-99) 354mg/dL (70-99) 306mg/dL (70-99) O2 Saturation 97% (92-99) Arterial Blood pH 7.45 (7.35-7.45) Arterial Blood pCO2 at Patient Temp 32mmHg (35-46) Arterial Blood pO2 at Patient Temp 87mmHg (85-108) Arterial Blood HCO3 22mmol/L (21-28) Arterial Blood Base Excess -2mmol/L (-3-3) FiO2 40 Test 03/04/17 09:40 03/04/17 09:43 03/04/17 09:45 03/04/17 12:58 Nasal Screen MRSA (PCR) Positive (Negative) Glucose (Fingerstick) 257mg/dL (70-99) 190mg/dL (70-99) Sodium Level 162mmol/L (136-145) Potassium Level 3.5mmol/L (3.5-5.1) Chloride Level 124mmol/L (98-107) Carbon Dioxide Level 24mmol/L (21-32) Anion Gap 14 (6-14) Blood Urea Nitrogen 32mg/dL (8-26) Creatinine 1.8mg/dL (0.7-1.3) Estimated GFR (Cockcroft-Gault) 52.2 Glucose Level 218mg/dL (70-99) Serum Osmolality 345mOsm/Kg (279-304) Calcium Level 8.0mg/dL (8.5-10.1) Phosphorus Level 2.1mg/dL (2.6-4.7) Magnesium Level 2.0mg/dL (1.8-2.4) Test 03/04/17 13:55 03/04/17 13:56 03/04/17 15:31 03/04/17 16:15 Sodium Level 165mmol/L (136-145) Potassium Level 3.4mmol/L (3.5-5.1) Chloride Level 123mmol/L (98-107) Carbon Dioxide Level 22mmol/L (21-32) Anion Gap 20 (6-14) Blood Urea Nitrogen 30mg/dL (8-26) Creatinine 2.1mg/dL (0.7-1.3) Estimated GFR (Cockcroft-Gault) 43.7 Glucose Level 274mg/dL (70-99) Serum Osmolality 349mOsm/Kg (279-304) Calcium Level 7.0mg/dL (8.5-10.1) Phosphorus Level 5.3mg/dL (2.6-4.7) Magnesium Level 2.3mg/dL (1.8-2.4) Glucose (Fingerstick) 254mg/dL (70-99) 182mg/dL (70-99) O2 Saturation 95% (92-99) Arterial Blood pH 7.45 (7.35-7.45) Arterial Blood pH (Temp corrected) 7.43 Arterial Blood pCO2 at Patient Temp 28mmHg (35-46) Arterial Blood pCO2 (Temp correct) 30mmHg Arterial Blood pO2 at Patient Temp 71mmHg (85-108) Arterial Blood pO2 (Temp corrected) 77mmHg Arterial Blood HCO3 19mmol/L (21-28) Arterial Blood Base Excess -4mmol/L (-3-3) FiO2 40 Test 03/04/17 16:41 03/04/17 19:00 03/04/17 19:30 03/04/17 20:08 Glucose (Fingerstick) 147mg/dL (70-99) 152mg/dL (70-99) 177mg/dL (70-99) Sodium Level 167mmol/L (136-145) Potassium Level 2.9mmol/L (3.5-5.1) Chloride Level 126mmol/L (98-107) Carbon Dioxide Level 23mmol/L (21-32) Anion Gap 18 (6-14) Blood Urea Nitrogen 29mg/dL (8-26) Creatinine 1.8mg/dL (0.7-1.3) Estimated GFR (Cockcroft-Gault) 52.2 Glucose Level 157mg/dL (70-99) Serum Osmolality 346mOsm/Kg (279-304) Calcium Level 7.0mg/dL (8.5-10.1) Phosphorus Level 3.5mg/dL (2.6-4.7) Magnesium Level 2.0mg/dL (1.8-2.4) Test 03/04/17 21:31 03/04/17 22:31 03/04/17 23:36 03/05/17 00:30 Glucose (Fingerstick) 171mg/dL (70-99) 188mg/dL (70-99) 235mg/dL (70-99) Sodium Level 169mmol/L (136-145) Potassium Level 3.8mmol/L (3.5-5.1) Chloride Level 129mmol/L (98-107) Carbon Dioxide Level 24mmol/L (21-32) Anion Gap 16 (6-14) Blood Urea Nitrogen 26mg/dL (8-26) Creatinine 1.8mg/dL (0.7-1.3) Estimated GFR (Cockcroft-Gault) 52.2 Glucose Level 236mg/dL (70-99) Serum Osmolality 350mOsm/Kg (279-304) Calcium Level 6.9mg/dL (8.5-10.1) Phosphorus Level 3.2mg/dL (2.6-4.7) Magnesium Level 2.0mg/dL (1.8-2.4) Test 03/05/17 00:42 03/05/17 02:11 03/05/17 03:15 03/05/17 04:24 Glucose (Fingerstick) 227mg/dL (70-99) 211mg/dL (70-99) 194mg/dL (70-99) 198mg/dL (70-99) Test 03/05/17 05:30 03/05/17 05:37 03/05/17 06:39 03/05/17 07:43 White Blood Count 12.7x10^3/uL (4.0-11.0) Red Blood Count 5.16x10^6/uL (4.30-5.70) Hemoglobin 12.7g/dL (13.0-17.5) Hematocrit 40.0% (39.0-53.0) Mean Corpuscular Volume 77fL (79-100) Mean Corpuscular Hemoglobin 25pg (25-35) Mean Corpuscular Hemoglobin Concent 32g/dL (31-37) Red Cell Distribution Width 16.4% (11.5-14.5) Platelet Count 216x10^3/uL (140-400) Neutrophils (%) (Auto) 75% (31-73) Lymphocytes (%) (Auto) 19% (24-48) Monocytes (%) (Auto) 5% (0-9) Eosinophils (%) (Auto) 1% (0-3) Basophils (%) (Auto) 0% (0-3) Neutrophils # (Auto) 9.4x10^3uL (1.8-7.7) Lymphocytes # (Auto) 2.4x10^3/uL (1.0-4.8) Monocytes # (Auto) 0.7x10^3/uL (0.0-1.1) Eosinophils # (Auto) 0.1x10^3/uL (0.0-0.7) Basophils # (Auto) 0.0x10^3/uL (0.0-0.2) Sodium Level 169mmol/L (136-145) Potassium Level 3.6mmol/L (3.5-5.1) Chloride Level 130mmol/L (98-107) Carbon Dioxide Level 22mmol/L (21-32) Anion Gap 17 (6-14) Blood Urea Nitrogen 22mg/dL (8-26) Creatinine 1.8mg/dL (0.7-1.3) Estimated GFR (Cockcroft-Gault) 52.2 Glucose Level 191mg/dL (70-99) Serum Osmolality 344mOsm/Kg (279-304) Calcium Level 7.3mg/dL (8.5-10.1) Phosphorus Level 3.0mg/dL (2.6-4.7) Magnesium Level 2.1mg/dL (1.8-2.4) Glucose (Fingerstick) 172mg/dL (70-99) 168mg/dL (70-99) 176mg/dL (70-99) Test 03/05/17 08:00 03/05/17 08:54 03/05/17 09:57 03/05/17 11:04 O2 Saturation 93% (92-99) Arterial Blood pH 7.40 (7.35-7.45) Arterial Blood pCO2 at Patient Temp 31mmHg (35-46) Arterial Blood pO2 at Patient Temp 69mmHg (85-108) Arterial Blood HCO3 19mmol/L (21-28) Arterial Blood Base Excess -5mmol/L (-3-3) FiO2 40 Glucose (Fingerstick) 157mg/dL (70-99) 143mg/dL (70-99) 152mg/dL (70-99) Laboratory Tests Test 03/04/17 12:58 03/04/17 13:55 03/04/17 13:56 03/04/17 15:31 Glucose (Fingerstick) 190mg/dL (70-99) 254mg/dL (70-99) 182mg/dL (70-99) Sodium Level 165mmol/L (136-145) Potassium Level 3.4mmol/L (3.5-5.1) Chloride Level 123mmol/L (98-107) Carbon Dioxide Level 22mmol/L (21-32) Anion Gap 20 (6-14) Blood Urea Nitrogen 30mg/dL (8-26) Creatinine 2.1mg/dL (0.7-1.3) Estimated GFR (Cockcroft-Gault) 43.7 Glucose Level 274mg/dL (70-99) Serum Osmolality 349mOsm/Kg (279-304) Calcium Level 7.0mg/dL (8.5-10.1) Phosphorus Level 5.3mg/dL (2.6-4.7) Magnesium Level 2.3mg/dL (1.8-2.4) Test 03/04/17 16:15 03/04/17 16:41 03/04/17 19:00 03/04/17 19:30 O2 Saturation 95% (92-99) Arterial Blood pH 7.45 (7.35-7.45) Arterial Blood pH (Temp corrected) 7.43 Arterial Blood pCO2 at Patient Temp 28mmHg (35-46) Arterial Blood pCO2 (Temp correct) 30mmHg Arterial Blood pO2 at Patient Temp 71mmHg (85-108) Arterial Blood pO2 (Temp corrected) 77mmHg Arterial Blood HCO3 19mmol/L (21-28) Arterial Blood Base Excess -4mmol/L (-3-3) FiO2 40 Glucose (Fingerstick) 147mg/dL (70-99) 152mg/dL (70-99) Sodium Level 167mmol/L (136-145) Potassium Level 2.9mmol/L (3.5-5.1) Chloride Level 126mmol/L (98-107) Carbon Dioxide Level 23mmol/L (21-32) Anion Gap 18 (6-14) Blood Urea Nitrogen 29mg/dL (8-26) Creatinine 1.8mg/dL (0.7-1.3) Estimated GFR (Cockcroft-Gault) 52.2 Glucose Level 157mg/dL (70-99) Serum Osmolality 346mOsm/Kg (279-304) Calcium Level 7.0mg/dL (8.5-10.1) Phosphorus Level 3.5mg/dL (2.6-4.7) Magnesium Level 2.0mg/dL (1.8-2.4) Test 03/04/17 20:08 03/04/17 21:31 03/04/17 22:31 03/04/17 23:36 Glucose (Fingerstick) 177mg/dL (70-99) 171mg/dL (70-99) 188mg/dL (70-99) 235mg/dL (70-99) Test 03/05/17 00:30 03/05/17 00:42 03/05/17 02:11 03/05/17 03:15 Sodium Level 169mmol/L (136-145) Potassium Level 3.8mmol/L (3.5-5.1) Chloride Level 129mmol/L (98-107) Carbon Dioxide Level 24mmol/L (21-32) Anion Gap 16 (6-14) Blood Urea Nitrogen 26mg/dL (8-26) Creatinine 1.8mg/dL (0.7-1.3) Estimated GFR (Cockcroft-Gault) 52.2 Glucose Level 236mg/dL (70-99) Serum Osmolality 350mOsm/Kg (279-304) Calcium Level 6.9mg/dL (8.5-10.1) Phosphorus Level 3.2mg/dL (2.6-4.7) Magnesium Level 2.0mg/dL (1.8-2.4) Glucose (Fingerstick) 227mg/dL (70-99) 211mg/dL (70-99) 194mg/dL (70-99) Test 03/05/17 04:24 03/05/17 05:30 03/05/17 05:37 03/05/17 06:39 Glucose (Fingerstick) 198mg/dL (70-99) 172mg/dL (70-99) 168mg/dL (70-99) White Blood Count 12.7x10^3/uL (4.0-11.0) Red Blood Count 5.16x10^6/uL (4.30-5.70) Hemoglobin 12.7g/dL (13.0-17.5) Hematocrit 40.0% (39.0-53.0) Mean Corpuscular Volume 77fL (79-100) Mean Corpuscular Hemoglobin 25pg (25-35) Mean Corpuscular Hemoglobin Concent 32g/dL (31-37) Red Cell Distribution Width 16.4% (11.5-14.5) Platelet Count 216x10^3/uL (140-400) Neutrophils (%) (Auto) 75% (31-73) Lymphocytes (%) (Auto) 19% (24-48) Monocytes (%) (Auto) 5% (0-9) Eosinophils (%) (Auto) 1% (0-3) Basophils (%) (Auto) 0% (0-3) Neutrophils # (Auto) 9.4x10^3uL (1.8-7.7) Lymphocytes # (Auto) 2.4x10^3/uL (1.0-4.8) Monocytes # (Auto) 0.7x10^3/uL (0.0-1.1) Eosinophils # (Auto) 0.1x10^3/uL (0.0-0.7) Basophils # (Auto) 0.0x10^3/uL (0.0-0.2) Sodium Level 169mmol/L (136-145) Potassium Level 3.6mmol/L (3.5-5.1) Chloride Level 130mmol/L (98-107) Carbon Dioxide Level 22mmol/L (21-32) Anion Gap 17 (6-14) Blood Urea Nitrogen 22mg/dL (8-26) Creatinine 1.8mg/dL (0.7-1.3) Estimated GFR (Cockcroft-Gault) 52.2 Glucose Level 191mg/dL (70-99) Serum Osmolality 344mOsm/Kg (279-304) Calcium Level 7.3mg/dL (8.5-10.1) Phosphorus Level 3.0mg/dL (2.6-4.7) Magnesium Level 2.1mg/dL (1.8-2.4) Test 03/05/17 07:43 03/05/17 08:00 03/05/17 08:54 03/05/17 09:57 Glucose (Fingerstick) 176mg/dL (70-99) 157mg/dL (70-99) 143mg/dL (70-99) O2 Saturation 93% (92-99) Arterial Blood pH 7.40 (7.35-7.45) Arterial Blood pCO2 at Patient Temp 31mmHg (35-46) Arterial Blood pO2 at Patient Temp 69mmHg (85-108) Arterial Blood HCO3 19mmol/L (21-28) Arterial Blood Base Excess -5mmol/L (-3-3) FiO2 40 Test 03/05/17 11:04 Glucose (Fingerstick) 152mg/dL (70-99) Microbiology 03/04/17 Blood Culture - Preliminary, Resulted NO GROWTH AFTER 1 DAY 03/04/17 Gram Stain - Final, Complete Medications Current Medications Midazolam HCl 100 ml @ 0 mls/hr 1X ONCE IV Last administered on 03/03/17 14: 42; Start 03/03/17 at 13:45; Stop 03/03/17 at 13:46; Status DC Sodium Bicarbonate/ Sodium Chloride (Iv Sodium Chloride 0.45%) 1,150 ml @ 125 mls/hr 1X ONCE IV Last administered on 03/03/17 18:40; Start 03/03/17 at 13: 45; Stop 03/03/17 at 22:56; Status DC Etomidate (Amidate) 20 mg STK-MED ONCE IV ; Start 03/03/17 at 13:35; Stop at 13:36; Status DC Insulin Human Regular 10 unit 10 unit 1X ONCE IV Last administered on 14:37; Start 03/03/17 at 14:45; Stop 03/03/17 at 14:46; Status DC Insulin Human Regular 150 unit/ Sodium Chloride 151.5 ml @ 0 mls/hr CONT PRN IV SEE I/O RECORD; Start 03/03/17 at 14:00; Stop 03/03/17 at 17:20; Status DC Insulin Human Regular 150 ml @ As Directed STK-MED ONCE IV ; Start 03/03/17 at 14:05; Stop 03/03/17 at 14:06; Status DC Potassium Chloride 100 ml @ 100 mls/hr Q1H IV ; Start 03/03/17 at 17:00; Stop 03/03/17 at 17:43; Status DC Sodium Chloride 1,000 ml @ 1,000 mls/hr Q1H IV ; Start 03/03/17 at 16:49; Stop 03/03/17 at 17:48; Status DC Insulin Human Regular 150 unit/ Sodium Chloride 151.5 ml @ 0 mls/hr CONT PRN PRN IV PER PROTOCOL; Start 03/03/17 at 17:00; Stop 03/03/17 at 17:20; Status DC Potassium Chloride 100 ml @ 100 mls/hr PRN Q1HR PRN IV SEE COMMENTS Last administered on 03/04/17 01:35; Start 03/03/17 at 17:00 Potassium Chloride 100 ml @ 100 mls/hr PRN Q1HR PRN IV SEE COMMENTS Last administered on 03/05/17 05:42; Start 03/03/17 at 17:00 Potassium Chloride 100 ml @ 100 mls/hr PRN Q1HR PRN IV SEE COMMENTS; Start at 17:00 Insulin Human Regular 150 unit/ Sodium Chloride 151.5 ml @ 0 mls/hr CONT PRN PRN IV PER PROTOCOL Last administered on 03/05/17 07:08; Start 03/03/17 at 17: 00 Potassium Chloride 100 ml @ 100 mls/hr PRN Q1HR PRN IV SEE COMMENTS; Start at 17:00; Stop 03/03/17 at 20:11; Status DC Potassium Chloride 100 ml @ 100 mls/hr PRN Q1HR PRN IV SEE COMMENTS; Start at 17:00; Stop 03/03/17 at 20:11; Status DC Potassium Chloride 100 ml @ 100 mls/hr PRN Q1HR PRN IV SEE COMMENTS; Start at 17:00; Stop 03/03/17 at 20:12; Status DC Vancomycin HCl/ Sodium Chloride (Iv Sodium Chloride 0.9% 500ml Bag) 500 ml @ 250 mls/hr 1X ONCE IV Last administered on 03/03/17 18:33; Start 03/03/17 at 18:00; Stop 03/03/17 at 19:59; Status DC Vancomycin HCl 1 each 1 each PRN DAILY PRN MC SEE COMMENTS Last administered on 03/03/17 20:02; Start 03/03/17 at 17:00; Stop 03/04/17 at 08:51; Status DC Ertapenem/Sodium Chloride (Invanz/Iv Sodium Chloride 0.9% 50ml) 50 ml @ 100 mls /hr Q24H IV ; Start 03/03/17 at 17:30; Stop 03/04/17 at 08:51; Status DC Midazolam HCl 5 mg 5 mg STK-MED ONCE .ROUTE ; Start 03/03/17 at 17:40; Stop at 17:41; Status DC Potassium Chloride 50 ml @ 50 mls/hr Q1H IV Last administered on 03/03/17 23: 52; Start 03/03/17 at 18:00; Stop 03/03/17 at 21:59; Status DC Midazolam HCl 100 ml @ 0 mls/hr CONT PRN IV SEE I/O RECORD Last administered on 03/04/17 01:20; Start 03/03/17 at 18:15 Norepinephrine Bitartrate/Sodium Chloride (Levophed Vial/ Iv Sodium Chloride 0.9 % 250ml) 258 ml @ 0 mls/hr CONT PRN IV SEE I/O RECORD Last administered on 03/05 00:13; Start 03/03/17 at 19:15; Stop 03/05/17 at 05:52; Status DC Vancomycin HCl 1 each 1 each 1X ONCE MC ; Start 03/05/17 at 17:30; Stop at 17:30; Status DC Vancomycin HCl/ Sodium Chloride (Iv Sodium Chloride 0.9% 500ml Bag) 500 ml @ 250 mls/hr Q24H IV ; Start 03/04/17 at 18:00; Stop 03/04/17 at 18:00; Status DC Enoxaparin Sodium 40 mg 40 mg Q24H SQ ; Start 03/03/17 at 21:00; Status Cancel Potassium Phosphate 40 mmol/ Sodium Chloride 263.3333 ml @ 62.5 mls/hr 1X ONCE IV Last administered on 03/03/17 23:51; Start 03/03/17 at 23:30; Stop at 03:42; Status DC Potassium Chloride (KCl Premix 20meq) 50 ml @ 50 mls/hr PRN Q1HR PRN IV K LESS THAN 3 Last administered on 03/05/17 08:53; Start 03/03/17 at 22:45 Acetaminophen (Tylenol) 325 mg PRN Q6HRS PRN CA MILD PAIN / TEMP Last administered on 03/03/17 23:50; Start 03/03/17 at 23:15 Enoxaparin Sodium (Lovenox Per Pharmacy Treatment Dosing) 1 each PRN DAILY PRN MC SEE COMMENTS; Start 03/04/17 at 01:00 Enoxaparin Sodium (Lovenox 120mg Syringe) 120 mg Q12HR SQ Last administered on 03/04/17 10:17; Start 03/04/17 at 01:00; Stop 03/04/17 at 13:29; Status DC Info 1 each 1 each PRN DAILY PRN MC SEE COMMENTS Last administered on 08:45; Start 03/04/17 at 01:00 Sodium Chloride 1,000 ml @ 250 mls/hr Q4H IV Last administered on 03/04/17 10 :24; Start 03/04/17 at 01:00; Stop 03/05/17 at 09:48; Status DC Piperacillin Sod/ Tazobactam Sod 3.375 gm/Sodium Chloride 50 ml @ 100 mls/hr Q6H IV Last administered on 03/05/17 10:05; Start 03/04/17 at 09:00 Linezolid 300 ml @ 300 mls/hr Q12HR IV Last administered on 03/05/17 11:22; Start 03/04/17 at 09:00 Potassium Chloride 50 ml @ 50 mls/hr Q1H IV Last administered on 03/04/17 12: 33; Start 03/04/17 at 11:30; Stop 03/04/17 at 13:29; Status DC Sodium Phosphate/ Dextrose 256.6667 ml @ 64.167 m... 1X ONCE IV Last administered on 03/04/17 12:23; Start 03/04/17 at 11:30; Stop 03/04/17 at 15:29 ; Status DC Sodium Bicarbonate 50 meq STK-MED ONCE .ROUTE ; Start 03/03/17 at 12:00; Stop at 11:39; Status DC Enoxaparin Sodium 120 mg 120 mg DAILY SQ ; Start 03/05/17 at 09:00; Stop at 09:00; Status DC Norepinephrine Bitartrate 8 mg/ Sodium Chloride 258 ml @ 1.93 mls/hr ONCE ONCE IV Last administered on 03/04/17 19:21; Start 03/04/17 at 14:45; Stop at 04:25 Vasopressin 40 unit/Dextrose 102 ml @ 6 mls/hr CONT PRN IV SEE I/O RECORD; Start 03/04/17 at 15:15; Stop 03/04/17 at 15:15; Status DC Vasopressin 40 unit/Dextrose 102 ml @ 6 mls/hr ONCE ONCE IV ; Start 03/04/17 at 15:15; Stop 03/05/17 at 08:14; Status DC Vasopressin/ Dextrose (Vasostrict) 102 ml @ 6 mls/hr CONT PRN IV SEE I/O RECORD ; Start 03/04/17 at 15:15 Enoxaparin Sodium 120 mg 120 mg BID SQ Last administered on 03/05/17 10:04; Start 03/04/17 at 21:00 Potassium Chloride 50 ml @ 50 mls/hr Q1HR IV Last administered on 03/04/17 23: 31; Start 03/04/17 at 21:00; Stop 03/04/17 at 23:59; Status DC Dextrose/Sodium Chloride 1,000 ml @ 250 mls/hr Q4H IV Last administered on 01:19; Start 03/04/17 at 21:00; Stop 03/05/17 at 01:32; Status DC Dextrose 1,000 ml @ 250 mls/hr Q4H IV Last administered on 03/05/17 10:05; Start 03/05/17 at 01:30 Norepinephrine Bitartrate/ Dextrose (Levophed Vial) 258 ml @ 0 mls/hr CONT PRN IV HYPOTENSION Last administered on 03/05/17 07:08; Start 03/05/17 at 06:00 Pantoprazole Sodium (Protonix Vial) 40 mg DAILYAC IVP ; Start 03/05/17 at 11:00 Chlorhexidine Gluconate (Peridex) 15 ml BID SWSP ; Start 03/05/17 at 11:00 Active Scripts Active Feosol (Ferrous Sulfate) 325 Mg Tablet 325 Mg PO BIDWMEALS 30 Days Vitamin B-12 (Cyanocobalamin (Vitamin B-12)) 1,000 Mcg Tablet 1,000 Mcg PO DAILY 30 Days Amox Tr-K Clv 875-125 Mg Tab (Amoxicillin/Potassium Clav) 1 Each Tablet 1 Tab PO BID 5 Days Reported Percocet 5-325 Mg Tablet (Oxycodone/Acetaminophen) 1 Each Tablet 1 Tab PO PRN Q6HRS PRN Metformin Hcl 850 Mg Tablet 1 Tab PO BID Furosemide 40 Mg Tablet 1 Tab PO DAILY Gabapentin 100 Mg Capsule 100 Mg PO QHS Pantoprazole Sodium 40 Mg Tablet.dr 1 Tab PO DAILY Coumadin (Warfarin Sodium) 10 Mg Tablet 1 Tab PO QHS Take on Mondays, Tuesdays, and Wednesdays Oxybutynin Chloride 5 Mg Tablet 1 Tab PO BID Coumadin (Warfarin Sodium) 7.5 Mg Tablet 1 Tab PO QHS To be taken on , Fridays, Saturdays, and Sundays Vitals/I & O Vital Sign - Last 24 Hours 03/04/17 03/04/17 03/04/17 03/04/17 12:00 12:00 13:00 14:00 Temp 102.0 102.7 102.4 102.0 102.7 102.4 Pulse 124 124 124 Resp 24 24 24 B/P 104/75 156/103 147/84 Pulse Ox 99 99 99 O2 Delivery Ventilator Mechanical Ventilator Ventilator Ventilator 03/04/17 03/04/17 03/04/17 03/04/17 14:11 15:00 16:00 16:00 Temp 100.1 99.1 100.1 99.1 Pulse 124 124 Resp 24 24 B/P 86/66 113/66 Pulse Ox 98 99 99 O2 Delivery Ventilator Ventilator Mechanical Ventilator Ventilator 03/04/17 03/04/17 03/04/17 03/04/17 16:12 17:00 18:00 18:16 Temp 99.0 99.4 99.0 99.4 Pulse 124 124 Resp 24 24 B/P 94/59 110/65 Pulse Ox 99 99 99 100 O2 Delivery Ventilator Ventilator Ventilator Ventilator 03/04/17 03/04/17 03/04/17 03/04/17 19:00 20:00 20:00 20:50 Temp 99.1 99.1 Pulse 84 86 Resp 24 24 B/P 98/54 121/70 Pulse Ox 100 100 100 O2 Delivery Ventilator Mechanical Ventilator Ventilator Ventilator 03/04/17 03/04/17 03/04/17 03/04/17 21:00 22:00 23:00 23:41 Pulse 86 85 87 Resp 24 24 24 B/P 115/64 94/55 91/51 Pulse Ox 100 100 100 100 O2 Delivery Ventilator Ventilator Ventilator Ventilator 03/05/17 03/05/17 03/05/17 03/05/17 00:00 00:00 01:06 02:00 Temp 98.5 98.5 Pulse 86 79 83 Resp 24 24 24 B/P 159/87 108/53 106/67 Pulse Ox 100 100 100 O2 Delivery Ventilator Mechanical Ventilator Ventilator Ventilator 03/05/17 03/05/17 03/05/17 03/05/17 03:00 03:50 04:00 04:00 Temp 98.4 98.4 Pulse 84 83 Resp 24 24 B/P 118/67 116/62 Pulse Ox 100 100 100 O2 Delivery Ventilator Ventilator Mechanical Ventilator Ventilator 03/05/17 03/05/17 03/05/17 03/05/17 05:00 06:00 07:00 08:00 Temp 98.4 98.4 Pulse 82 84 84 82 Resp 24 24 24 24 B/P 127/67 113/64 112/65 108/61 Pulse Ox 100 100 100 100 O2 Delivery Ventilator Ventilator Ventilator Ventilator 03/05/17 03/05/17 03/05/17 03/05/17 08:00 09:00 09:15 10:00 Pulse 82 81 Resp 24 24 B/P 107/52 108/64 Pulse Ox 99 100 99 O2 Delivery Mechanical Ventilator Ventilator Ventilator Ventilator 03/05/17 11:00 Pulse 82 Resp 24 B/P 103/58 Pulse Ox 100 O2 Delivery Ventilator Intake and Output 03/04/17 03/04/17 03/05/17 15:00 23:00 07:00 Intake Total 2450 ml Output Total 300 ml 4450 ml 2360 ml Balance -300 ml -4450 ml 90 ml Nutrition Consultation Dietary Evaluation: Recommendations by RD: Increase Calorie Intake, PPN/TPN Comments: Rec. 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
[2017-03-05 11:57] LABS: CALCIUM 7.1 mg/dL (8.5-10.1); CREATININE 1.8 mg/dL (0.7-1.3); GFR 52.2; PHOSPHORUS 2.6 mg/dL (2.6-4.7); POTASSIUM 3.5 mmol/L (3.5-5.1)
[2017-03-05] MEDS: PANTOPRAZOLE IV PUSH 40 MG VIAL. IVP SCH (12:02)
[2017-03-05] MEDS: CHLORHEXIDINE 0.12% 15 ML MOUTHWASH. SWSP SCH ×2 (12:02→21:41)
[2017-03-05] MEDS: POTASSIUM CHLORIDE 20MEQ 50 ML IV SCH ×2 (13:33→16:17)
--- NOTE | 2017-03-05 16:24 | RAD ---
PROCEDURE One view chest HISTORY Respiratory failure. TECHNIQUE Single supine portable view chest. COMPARISON Single-view chest from 03/04/2017. FINDINGS Endotracheal tube, feeding tube, right IJ line are in similar position is previously. Heart size and mediastinal silhouette is within limits of normal for supine position. Increasing airspace opacities are seen in the left mid and lower lung as well as in the right lower lobe. There is no pleural effusion or pneumothorax. IMPRESSION Increasing airspace opacities in the left mid and lower as well as right lower lung. Stable support lines and tubes. Electronically signed by: Tessa Cruz MD (Mar 05, 2017 16:22:35)
[2017-03-05 18:00] LABS: CALCIUM 6.8 mg/dL (8.5-10.1); CREATININE 1.8 mg/dL (0.7-1.3); GFR 52.2; MAGNESIUM 1.9 mg/dL (1.8-2.4); PHOSPHORUS 2.6 mg/dL (2.6-4.7); POTASSIUM 3.8 mmol/L (3.5-5.1)
[2017-03-05 21:59] LABS: CREATININE 1.7 mg/dL (0.7-1.3); GFR 55.8; MAGNESIUM 1.7 mg/dL (1.8-2.4); PHOSPHORUS 2.5 mg/dL (2.6-4.7); POTASSIUM 3.4 mmol/L (3.5-5.1)
[2017-03-06] VITALS (24 sets, daily range): BP systolic 70–160; BP diastolic 45–78
[2017-03-06 02:27] LABS: CREATININE 1.8 mg/dL (0.7-1.3); GFR 52.2; MAGNESIUM 1.9 mg/dL (1.8-2.4); PHOSPHORUS 2.5 mg/dL (2.6-4.7); POTASSIUM 3.8 mmol/L (3.5-5.1)
[2017-03-06] MEDS: NOREPINEPHRINE VIAL 8 MG in IV DEXTROSE 5% 250 ML IV PRN ×4 (02:27→21:19)
[2017-03-06] MEDS: INSULIN REGULAR VIAL 150 UNIT in 0.9 % SODIUM CHLORIDE 150ML 150 ML IV PRN ×7 (02:28→22:31)
[2017-03-06] MEDS: PIPERACILLIN/TAZOBACTAM 3.375 GM in IV NORMAL SALINE 50ML 50 ML IV SCH ×4 (02:59→21:10)
[2017-03-06] MEDS: POTASSIUM CHLORIDE 20MEQ 50 ML IV PRN ×2 (02:59→04:35)
[2017-03-06] MEDS: IV DEXTROSE 5% 1,000 ML IV SCH ×6 (03:06→19:48)
--- NOTE | 2017-03-06 05:26 | PDOC ---
PULMONARY PROGRESS NOTES Subjective on vent, no response, on levo, insulin gtt Vitals Vital Signs Date Time Temp Pulse Resp B/P Pulse Ox O2 Delivery O2 Flow Rate FiO2 03/06/17 04:18 100 Ventilator 03/06/17 04:00 97.7 90 24 133/70 97.7 Comments ros discussed w rn, as mentioned as above other sys otherwise neg HEENT: Other (nc at pupils are fixed oreally intubated nose clear neck no lap thyromegaly) Lungs: Crackles Cardiovascular: S1, S2 Abdomen: Soft, Non-tender, Other (no mass) Extremities: Other (edema) Skin: Warm Labs Laboratory Tests Test 03/04/17 05:42 03/04/17 06:56 03/04/17 07:36 03/04/17 08:00 Glucose (Fingerstick) 440mg/dL (70-99) 402mg/dL (70-99) 354mg/dL (70-99) O2 Saturation 97% (92-99) Arterial Blood pH 7.45 (7.35-7.45) Arterial Blood pCO2 at Patient Temp 32mmHg (35-46) Arterial Blood pO2 at Patient Temp 87mmHg (85-108) Arterial Blood HCO3 22mmol/L (21-28) Arterial Blood Base Excess -2mmol/L (-3-3) FiO2 40 Test 03/04/17 08:53 03/04/17 09:40 03/04/17 09:43 03/04/17 09:45 Glucose (Fingerstick) 306mg/dL (70-99) 257mg/dL (70-99) Nasal Screen MRSA (PCR) Positive (Negative) Sodium Level 162mmol/L (136-145) Potassium Level 3.5mmol/L (3.5-5.1) Chloride Level 124mmol/L (98-107) Carbon Dioxide Level 24mmol/L (21-32) Anion Gap 14 (6-14) Blood Urea Nitrogen 32mg/dL (8-26) Creatinine 1.8mg/dL (0.7-1.3) Estimated GFR (Cockcroft-Gault) 52.2 Glucose Level 218mg/dL (70-99) Serum Osmolality 345mOsm/Kg (279-304) Calcium Level 8.0mg/dL (8.5-10.1) Phosphorus Level 2.1mg/dL (2.6-4.7) Magnesium Level 2.0mg/dL (1.8-2.4) Test 03/04/17 12:58 03/04/17 13:55 03/04/17 13:56 03/04/17 15:31 Glucose (Fingerstick) 190mg/dL (70-99) 254mg/dL (70-99) 182mg/dL (70-99) Sodium Level 165mmol/L (136-145) Potassium Level 3.4mmol/L (3.5-5.1) Chloride Level 123mmol/L (98-107) Carbon Dioxide Level 22mmol/L (21-32) Anion Gap 20 (6-14) Blood Urea Nitrogen 30mg/dL (8-26) Creatinine 2.1mg/dL (0.7-1.3) Estimated GFR (Cockcroft-Gault) 43.7 Glucose Level 274mg/dL (70-99) Serum Osmolality 349mOsm/Kg (279-304) Calcium Level 7.0mg/dL (8.5-10.1) Phosphorus Level 5.3mg/dL (2.6-4.7) Magnesium Level 2.3mg/dL (1.8-2.4) Test 03/04/17 16:15 03/04/17 16:41 03/04/17 19:00 03/04/17 19:30 O2 Saturation 95% (92-99) Arterial Blood pH 7.45 (7.35-7.45) Arterial Blood pH (Temp corrected) 7.43 Arterial Blood pCO2 at Patient Temp 28mmHg (35-46) Arterial Blood pCO2 (Temp correct) 30mmHg Arterial Blood pO2 at Patient Temp 71mmHg (85-108) Arterial Blood pO2 (Temp corrected) 77mmHg Arterial Blood HCO3 19mmol/L (21-28) Arterial Blood Base Excess -4mmol/L (-3-3) FiO2 40 Glucose (Fingerstick) 147mg/dL (70-99) 152mg/dL (70-99) Sodium Level 167mmol/L (136-145) Potassium Level 2.9mmol/L (3.5-5.1) Chloride Level 126mmol/L (98-107) Carbon Dioxide Level 23mmol/L (21-32) Anion Gap 18 (6-14) Blood Urea Nitrogen 29mg/dL (8-26) Creatinine 1.8mg/dL (0.7-1.3) Estimated GFR (Cockcroft-Gault) 52.2 Glucose Level 157mg/dL (70-99) Serum Osmolality 346mOsm/Kg (279-304) Calcium Level 7.0mg/dL (8.5-10.1) Phosphorus Level 3.5mg/dL (2.6-4.7) Magnesium Level 2.0mg/dL (1.8-2.4) Test 03/04/17 20:08 03/04/17 21:31 03/04/17 22:31 03/04/17 23:36 Glucose (Fingerstick) 177mg/dL (70-99) 171mg/dL (70-99) 188mg/dL (70-99) 235mg/dL (70-99) Test 03/05/17 00:30 03/05/17 00:42 03/05/17 02:11 03/05/17 03:15 Sodium Level 169mmol/L (136-145) Potassium Level 3.8mmol/L (3.5-5.1) Chloride Level 129mmol/L (98-107) Carbon Dioxide Level 24mmol/L (21-32) Anion Gap 16 (6-14) Blood Urea Nitrogen 26mg/dL (8-26) Creatinine 1.8mg/dL (0.7-1.3) Estimated GFR (Cockcroft-Gault) 52.2 Glucose Level 236mg/dL (70-99) Serum Osmolality 350mOsm/Kg (279-304) Calcium Level 6.9mg/dL (8.5-10.1) Phosphorus Level 3.2mg/dL (2.6-4.7) Magnesium Level 2.0mg/dL (1.8-2.4) Glucose (Fingerstick) 227mg/dL (70-99) 211mg/dL (70-99) 194mg/dL (70-99) Test 03/05/17 04:24 03/05/17 05:30 03/05/17 05:37 03/05/17 06:39 Glucose (Fingerstick) 198mg/dL (70-99) 172mg/dL (70-99) 168mg/dL (70-99) White Blood Count 12.7x10^3/uL (4.0-11.0) Red Blood Count 5.16x10^6/uL (4.30-5.70) Hemoglobin 12.7g/dL (13.0-17.5) Hematocrit 40.0% (39.0-53.0) Mean Corpuscular Volume 77fL (79-100) Mean Corpuscular Hemoglobin 25pg (25-35) Mean Corpuscular Hemoglobin Concent 32g/dL (31-37) Red Cell Distribution Width 16.4% (11.5-14.5) Platelet Count 216x10^3/uL (140-400) Neutrophils (%) (Auto) 75% (31-73) Lymphocytes (%) (Auto) 19% (24-48) Monocytes (%) (Auto) 5% (0-9) Eosinophils (%) (Auto) 1% (0-3) Basophils (%) (Auto) 0% (0-3) Neutrophils # (Auto) 9.4x10^3uL (1.8-7.7) Lymphocytes # (Auto) 2.4x10^3/uL (1.0-4.8) Monocytes # (Auto) 0.7x10^3/uL (0.0-1.1) Eosinophils # (Auto) 0.1x10^3/uL (0.0-0.7) Basophils # (Auto) 0.0x10^3/uL (0.0-0.2) Sodium Level 169mmol/L (136-145) Potassium Level 3.6mmol/L (3.5-5.1) Chloride Level 130mmol/L (98-107) Carbon Dioxide Level 22mmol/L (21-32) Anion Gap 17 (6-14) Blood Urea Nitrogen 22mg/dL (8-26) Creatinine 1.8mg/dL (0.7-1.3) Estimated GFR (Cockcroft-Gault) 52.2 Glucose Level 191mg/dL (70-99) Serum Osmolality 344mOsm/Kg (279-304) Calcium Level 7.3mg/dL (8.5-10.1) Phosphorus Level 3.0mg/dL (2.6-4.7) Magnesium Level 2.1mg/dL (1.8-2.4) Test 03/05/17 07:43 03/05/17 08:00 03/05/17 08:54 03/05/17 09:57 Glucose (Fingerstick) 176mg/dL (70-99) 157mg/dL (70-99) 143mg/dL (70-99) O2 Saturation 93% (92-99) Arterial Blood pH 7.40 (7.35-7.45) Arterial Blood pCO2 at Patient Temp 31mmHg (35-46) Arterial Blood pO2 at Patient Temp 69mmHg (85-108) Arterial Blood HCO3 19mmol/L (21-28) Arterial Blood Base Excess -5mmol/L (-3-3) FiO2 40 Test 03/05/17 11:04 03/05/17 11:15 03/05/17 12:08 03/05/17 13:08 Glucose (Fingerstick) 152mg/dL (70-99) 199mg/dL (70-99) 193mg/dL (70-99) White Blood Count 13.5x10^3/uL (4.0-11.0) Red Blood Count 5.05x10^6/uL (4.30-5.70) Hemoglobin 12.3g/dL (13.0-17.5) Hematocrit 39.1% (39.0-53.0) Mean Corpuscular Volume 77fL (79-100) Mean Corpuscular Hemoglobin 24pg (25-35) Mean Corpuscular Hemoglobin Concent 32g/dL (31-37) Red Cell Distribution Width 16.5% (11.5-14.5) Platelet Count 196x10^3/uL (140-400) Sodium Level 168mmol/L (136-145) Potassium Level 3.5mmol/L (3.5-5.1) Chloride Level 131mmol/L (98-107) Carbon Dioxide Level 22mmol/L (21-32) Anion Gap 15 (6-14) Blood Urea Nitrogen 21mg/dL (8-26) Creatinine 1.8mg/dL (0.7-1.3) Estimated GFR (Cockcroft-Gault) 52.2 Glucose Level 166mg/dL (70-99) Serum Osmolality 344mOsm/Kg (279-304) Calcium Level 7.1mg/dL (8.5-10.1) Phosphorus Level 2.6mg/dL (2.6-4.7) Magnesium Level 2.0mg/dL (1.8-2.4) Test 03/05/17 14:10 03/05/17 15:11 03/05/17 16:18 03/05/17 17:30 Glucose (Fingerstick) 182mg/dL (70-99) 187mg/dL (70-99) 166mg/dL (70-99) Sodium Level 165mmol/L (136-145) Potassium Level 3.8mmol/L (3.5-5.1) Chloride Level 128mmol/L (98-107) Carbon Dioxide Level 23mmol/L (21-32) Anion Gap 14 (6-14) Blood Urea Nitrogen 20mg/dL (8-26) Creatinine 1.8mg/dL (0.7-1.3) Estimated GFR (Cockcroft-Gault) 52.2 Glucose Level 181mg/dL (70-99) Serum Osmolality 336mOsm/Kg (279-304) Calcium Level 6.8mg/dL (8.5-10.1) Phosphorus Level 2.6mg/dL (2.6-4.7) Magnesium Level 1.9mg/dL (1.8-2.4) Test 03/05/17 17:33 03/05/17 18:40 03/05/17 19:50 03/05/17 20:56 Glucose (Fingerstick) 176mg/dL (70-99) 181mg/dL (70-99) 173mg/dL (70-99) 179mg/dL (70-99) Test 03/05/17 21:30 03/05/17 21:59 03/05/17 23:04 03/06/17 00:20 Sodium Level 163mmol/L (136-145) Potassium Level 3.4mmol/L (3.5-5.1) Chloride Level 127mmol/L (98-107) Carbon Dioxide Level 23mmol/L (21-32) Anion Gap 13 (6-14) Blood Urea Nitrogen 19mg/dL (8-26) Creatinine 1.7mg/dL (0.7-1.3) Estimated GFR (Cockcroft-Gault) 55.8 Glucose Level 177mg/dL (70-99) Calcium Level 7.0mg/dL (8.5-10.1) Phosphorus Level 2.5mg/dL (2.6-4.7) Magnesium Level 1.7mg/dL (1.8-2.4) Glucose (Fingerstick) 172mg/dL (70-99) 192mg/dL (70-99) 214mg/dL (70-99) Test 03/06/17 01:23 03/06/17 01:30 03/06/17 02:30 03/06/17 03:34 Glucose (Fingerstick) 218mg/dL (70-99) 203mg/dL (70-99) 179mg/dL (70-99) Sodium Level 161mmol/L (136-145) Potassium Level 3.8mmol/L (3.5-5.1) Chloride Level 127mmol/L (98-107) Carbon Dioxide Level 23mmol/L (21-32) Anion Gap 11 (6-14) Blood Urea Nitrogen 18mg/dL (8-26) Creatinine 1.8mg/dL (0.7-1.3) Estimated GFR (Cockcroft-Gault) 52.2 Glucose Level 211mg/dL (70-99) Calcium Level 7.0mg/dL (8.5-10.1) Phosphorus Level 2.5mg/dL (2.6-4.7) Magnesium Level 1.9mg/dL (1.8-2.4) Laboratory Tests Test 03/05/17 05:30 03/05/17 05:37 03/05/17 06:39 03/05/17 07:43 White Blood Count 12.7x10^3/uL (4.0-11.0) Red Blood Count 5.16x10^6/uL (4.30-5.70) Hemoglobin 12.7g/dL (13.0-17.5) Hematocrit 40.0% (39.0-53.0) Mean Corpuscular Volume 77fL (79-100) Mean Corpuscular Hemoglobin 25pg (25-35) Mean Corpuscular Hemoglobin Concent 32g/dL (31-37) Red Cell Distribution Width 16.4% (11.5-14.5) Platelet Count 216x10^3/uL (140-400) Neutrophils (%) (Auto) 75% (31-73) Lymphocytes (%) (Auto) 19% (24-48) Monocytes (%) (Auto) 5% (0-9) Eosinophils (%) (Auto) 1% (0-3) Basophils (%) (Auto) 0% (0-3) Neutrophils # (Auto) 9.4x10^3uL (1.8-7.7) Lymphocytes # (Auto) 2.4x10^3/uL (1.0-4.8) Monocytes # (Auto) 0.7x10^3/uL (0.0-1.1) Eosinophils # (Auto) 0.1x10^3/uL (0.0-0.7) Basophils # (Auto) 0.0x10^3/uL (0.0-0.2) Sodium Level 169mmol/L (136-145) Potassium Level 3.6mmol/L (3.5-5.1) Chloride Level 130mmol/L (98-107) Carbon Dioxide Level 22mmol/L (21-32) Anion Gap 17 (6-14) Blood Urea Nitrogen 22mg/dL (8-26) Creatinine 1.8mg/dL (0.7-1.3) Estimated GFR (Cockcroft-Gault) 52.2 Glucose Level 191mg/dL (70-99) Serum Osmolality 344mOsm/Kg (279-304) Calcium Level 7.3mg/dL (8.5-10.1) Phosphorus Level 3.0mg/dL (2.6-4.7) Magnesium Level 2.1mg/dL (1.8-2.4) Glucose (Fingerstick) 172mg/dL (70-99) 168mg/dL (70-99) 176mg/dL (70-99) Test 03/05/17 08:00 03/05/17 08:54 03/05/17 09:57 03/05/17 11:04 O2 Saturation 93% (92-99) Arterial Blood pH 7.40 (7.35-7.45) Arterial Blood pCO2 at Patient Temp 31mmHg (35-46) Arterial Blood pO2 at Patient Temp 69mmHg (85-108) Arterial Blood HCO3 19mmol/L (21-28) Arterial Blood Base Excess -5mmol/L (-3-3) FiO2 40 Glucose (Fingerstick) 157mg/dL (70-99) 143mg/dL (70-99) 152mg/dL (70-99) Test 03/05/17 11:15 03/05/17 12:08 03/05/17 13:08 03/05/17 14:10 White Blood Count 13.5x10^3/uL (4.0-11.0) Red Blood Count 5.05x10^6/uL (4.30-5.70) Hemoglobin 12.3g/dL (13.0-17.5) Hematocrit 39.1% (39.0-53.0) Mean Corpuscular Volume 77fL (79-100) Mean Corpuscular Hemoglobin 24pg (25-35) Mean Corpuscular Hemoglobin Concent 32g/dL (31-37) Red Cell Distribution Width 16.5% (11.5-14.5) Platelet Count 196x10^3/uL (140-400) Sodium Level 168mmol/L (136-145) Potassium Level 3.5mmol/L (3.5-5.1) Chloride Level 131mmol/L (98-107) Carbon Dioxide Level 22mmol/L (21-32) Anion Gap 15 (6-14) Blood Urea Nitrogen 21mg/dL (8-26) Creatinine 1.8mg/dL (0.7-1.3) Estimated GFR (Cockcroft-Gault) 52.2 Glucose Level 166mg/dL (70-99) Serum Osmolality 344mOsm/Kg (279-304) Calcium Level 7.1mg/dL (8.5-10.1) Phosphorus Level 2.6mg/dL (2.6-4.7) Magnesium Level 2.0mg/dL (1.8-2.4) Glucose (Fingerstick) 199mg/dL (70-99) 193mg/dL (70-99) 182mg/dL (70-99) Test 03/05/17 15:11 03/05/17 16:18 03/05/17 17:30 03/05/17 17:33 Glucose (Fingerstick) 187mg/dL (70-99) 166mg/dL (70-99) 176mg/dL (70-99) Sodium Level 165mmol/L (136-145) Potassium Level 3.8mmol/L (3.5-5.1) Chloride Level 128mmol/L (98-107) Carbon Dioxide Level 23mmol/L (21-32) Anion Gap 14 (6-14) Blood Urea Nitrogen 20mg/dL (8-26) Creatinine 1.8mg/dL (0.7-1.3) Estimated GFR (Cockcroft-Gault) 52.2 Glucose Level 181mg/dL (70-99) Serum Osmolality 336mOsm/Kg (279-304) Calcium Level 6.8mg/dL (8.5-10.1) Phosphorus Level 2.6mg/dL (2.6-4.7) Magnesium Level 1.9mg/dL (1.8-2.4) Test 03/05/17 18:40 03/05/17 19:50 03/05/17 20:56 03/05/17 21:30 Glucose (Fingerstick) 181mg/dL (70-99) 173mg/dL (70-99) 179mg/dL (70-99) Sodium Level 163mmol/L (136-145) Potassium Level 3.4mmol/L (3.5-5.1) Chloride Level 127mmol/L (98-107) Carbon Dioxide Level 23mmol/L (21-32) Anion Gap 13 (6-14) Blood Urea Nitrogen 19mg/dL (8-26) Creatinine 1.7mg/dL (0.7-1.3) Estimated GFR (Cockcroft-Gault) 55.8 Glucose Level 177mg/dL (70-99) Calcium Level 7.0mg/dL (8.5-10.1) Phosphorus Level 2.5mg/dL (2.6-4.7) Magnesium Level 1.7mg/dL (1.8-2.4) Test 03/05/17 21:59 03/05/17 23:04 03/06/17 00:20 03/06/17 01:23 Glucose (Fingerstick) 172mg/dL (70-99) 192mg/dL (70-99) 214mg/dL (70-99) 218mg/dL (70-99) Test 03/06/17 01:30 03/06/17 02:30 03/06/17 03:34 Sodium Level 161mmol/L (136-145) Potassium Level 3.8mmol/L (3.5-5.1) Chloride Level 127mmol/L (98-107) Carbon Dioxide Level 23mmol/L (21-32) Anion Gap 11 (6-14) Blood Urea Nitrogen 18mg/dL (8-26) Creatinine 1.8mg/dL (0.7-1.3) Estimated GFR (Cockcroft-Gault) 52.2 Glucose Level 211mg/dL (70-99) Calcium Level 7.0mg/dL (8.5-10.1) Phosphorus Level 2.5mg/dL (2.6-4.7) Magnesium Level 1.9mg/dL (1.8-2.4) Glucose (Fingerstick) 203mg/dL (70-99) 179mg/dL (70-99) Medications Active Scripts Medications Dose Route/Sig Days Date Category Dose Instructions Feosol (Ferrous Sulfate) 325 Mg Tablet 325 Mg PO BIDWMEALS 30 04/29/16 Rx Vitamin B-12 (Cyanocobalamin (Vitamin B-12)) 1,000 Mcg Tablet 1,000 Mcg PO DAILY 30 04/29/16 Rx Amox Tr-K Clv 875-125 Mg Tab (Amoxicillin/Potassium Clav) 1 Each Tablet 1 Tab PO BID 5 04/29/16 Rx Percocet 5-325 Mg Tablet (Oxycodone/Acetaminophen) 1 Each Tablet 1 Tab PO PRN Q6HRS PRN 04/28/16 Reported Metformin Hcl 850 Mg Tablet 1 Tab PO BID 04/28/16 Reported Furosemide 40 Mg Tablet 1 Tab PO DAILY 04/28/16 Reported Gabapentin 100 Mg Capsule 100 Mg PO QHS 04/28/16 Reported Pantoprazole Sodium 40 Mg Tablet.dr 1 Tab PO DAILY 04/28/16 Reported Coumadin (Warfarin Sodium) 10 Mg Tablet 1 Tab PO QHS 04/28/16 Reported Take on Mondays, Tuesdays, and Wednesdays Oxybutynin Chloride 5 Mg Tablet 1 Tab PO BID 04/28/16 Reported Coumadin (Warfarin Sodium) 7.5 Mg Tablet 1 Tab PO QHS 04/28/16 Reported To be taken on , Fridays, Saturdays, and Sundays Comments cxr reviewed. 1. Stable tube positions. 2. Cardiomegaly. 3. Mild left infrahilar atelectasis/infiltrate. Impression . IMPRESSION: 1. Acute respiratory failure, status post out of the hospital cardiac arrest. 2. Hyperosmolar coma. 3. Left-sided deep venous thrombosis. 4. History of aortic valve replacement and descending thoracic aortic aneurysm repair. 5. History of paraplegia. 6. Bilateral heel wounds. 7. Sacral wounds. 8. Diabetes. 9. Metabolic and toxic encephalopathy. 10. Hypernatremia. 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 12. Chronic kidney disease. 13. Acute kidney disease. Plan . PLAN: 1. Continue vent support until more alert. setting reviewed. 2. Continue Lovenox. 3. Empiric antibiotics. 4. folloe Nephrology recommendations 5. Correct electrolytes 6. neuro consulted discussed w GAURANG Rivera MD Mar 06, 2017 05:26
[2017-03-06 05:54] LABS: BASO % 0 % (0-3); EOS % 5 % (0-3); HEMOGLOBIN 12.1 g/dL (13.0-17.5); LYMPH # 2.5 x10^3/uL (1.0-4.8); LYMPH % 23 % (24-48); MEAN CORPUSCULAR HEMOGLOBIN 25 pg (25-35); MEAN CORPUSCULAR HGB CONC 31 g/dL (31-37); MEAN CORPUSCULAR VOLUME 79 fL (79-100); MONO % 4 % (0-9); NEUT % 68 % (31-73); PLATELET COUNT 160 x10^3/uL (140-400); RED BLOOD COUNT 4.92 x10^6/uL (4.30-5.70); RED CELL DISTRIBUTION WIDTH 16.4 % (11.5-14.5); WHITE BLOOD COUNT 10.7 x10^3/uL (4.0-11.0)
[2017-03-06 06:43] LABS: ALBUMIN/GLOBULIN RATIO 0.4 (1.0-1.7); CALCIUM 7.3 mg/dL (8.5-10.1); CREATININE 1.6 mg/dL (0.7-1.3); GFR 59.8; POTASSIUM 4.4 mmol/L (3.5-5.1); TOTAL BILIRUBIN 0.5 mg/dL (0.2-1.0); TOTAL PROTEIN 7.1 g/dL (6.4-8.2)
[2017-03-06] MEDS: ANTI-COAG MONITOR BY PHARMACY. MC PRN (07:42)
[2017-03-06] MEDS: PANTOPRAZOLE IV PUSH 40 MG VIAL. IVP SCH (07:51)
[2017-03-06] MEDS: CHLORHEXIDINE 0.12% 15 ML MOUTHWASH. SWSP SCH ×2 (07:51→21:11)
[2017-03-06 08:16] LABS: FIO2 ABG 40; HCO3 ABG 17 mmol/L (21-28); PCO2 ABG 32 mmHg (35-46); PH ABG 7.36 (7.35-7.45); PO2 ABG 74 mmHg (85-108); SAT O2 ABG 94 % (92-99)
--- NOTE | 2017-03-06 09:57 | PDOC ---
IM PROGRESS NOTES- Subjective Subjective Not responsive- unable to do systems review. Objective Vitals Vital Signs Date Time Temp Pulse Resp B/P Pulse Ox O2 Delivery O2 Flow Rate FiO2 03/06/17 09:00 94 24 97/58 100 Ventilator 03/06/17 08:00 97.7 97.7 Input & Output Intake and Output 03/06/17 07:00 Intake Total 8931 ml Output Total 8575 ml Balance 356 ml Intake IV Total 7981 ml Other 950 ml Output Urine Total 6200 ml Stool Total 1475 ml Gastric Drainage Total 900 ml Physical Exam Physical Exam General appearance - not responsive,on mechanical ventilation Head - normal Chest - occasional rhonchi Heart - S1 and S2 normal Abdomen - soft, nontender, nondistended, no masses or organomegaly Neurological - not responsive- pupils dilated,fixed Musculoskeletal - no muscular tenderness noted Extremities - ++ pedal edema,dressing in place Skin - warm and dry Labs Laboratory Tests Test 03/04/17 12:58 03/04/17 13:55 03/04/17 13:56 03/04/17 15:31 Glucose (Fingerstick) 190mg/dL (70-99) 254mg/dL (70-99) 182mg/dL (70-99) Sodium Level 165mmol/L (136-145) Potassium Level 3.4mmol/L (3.5-5.1) Chloride Level 123mmol/L (98-107) Carbon Dioxide Level 22mmol/L (21-32) Anion Gap 20 (6-14) Blood Urea Nitrogen 30mg/dL (8-26) Creatinine 2.1mg/dL (0.7-1.3) Estimated GFR (Cockcroft-Gault) 43.7 Glucose Level 274mg/dL (70-99) Serum Osmolality 349mOsm/Kg (279-304) Calcium Level 7.0mg/dL (8.5-10.1) Phosphorus Level 5.3mg/dL (2.6-4.7) Magnesium Level 2.3mg/dL (1.8-2.4) Test 03/04/17 16:15 03/04/17 16:41 03/04/17 19:00 03/04/17 19:30 O2 Saturation 95% (92-99) Arterial Blood pH 7.45 (7.35-7.45) Arterial Blood pH (Temp corrected) 7.43 Arterial Blood pCO2 at Patient Temp 28mmHg (35-46) Arterial Blood pCO2 (Temp correct) 30mmHg Arterial Blood pO2 at Patient Temp 71mmHg (85-108) Arterial Blood pO2 (Temp corrected) 77mmHg Arterial Blood HCO3 19mmol/L (21-28) Arterial Blood Base Excess -4mmol/L (-3-3) FiO2 40 Glucose (Fingerstick) 147mg/dL (70-99) 152mg/dL (70-99) Sodium Level 167mmol/L (136-145) Potassium Level 2.9mmol/L (3.5-5.1) Chloride Level 126mmol/L (98-107) Carbon Dioxide Level 23mmol/L (21-32) Anion Gap 18 (6-14) Blood Urea Nitrogen 29mg/dL (8-26) Creatinine 1.8mg/dL (0.7-1.3) Estimated GFR (Cockcroft-Gault) 52.2 Glucose Level 157mg/dL (70-99) Serum Osmolality 346mOsm/Kg (279-304) Calcium Level 7.0mg/dL (8.5-10.1) Phosphorus Level 3.5mg/dL (2.6-4.7) Magnesium Level 2.0mg/dL (1.8-2.4) Test 03/04/17 20:08 03/04/17 21:31 03/04/17 22:31 03/04/17 23:36 Glucose (Fingerstick) 177mg/dL (70-99) 171mg/dL (70-99) 188mg/dL (70-99) 235mg/dL (70-99) Test 03/05/17 00:30 03/05/17 00:42 03/05/17 02:11 03/05/17 03:15 Sodium Level 169mmol/L (136-145) Potassium Level 3.8mmol/L (3.5-5.1) Chloride Level 129mmol/L (98-107) Carbon Dioxide Level 24mmol/L (21-32) Anion Gap 16 (6-14) Blood Urea Nitrogen 26mg/dL (8-26) Creatinine 1.8mg/dL (0.7-1.3) Estimated GFR (Cockcroft-Gault) 52.2 Glucose Level 236mg/dL (70-99) Serum Osmolality 350mOsm/Kg (279-304) Calcium Level 6.9mg/dL (8.5-10.1) Phosphorus Level 3.2mg/dL (2.6-4.7) Magnesium Level 2.0mg/dL (1.8-2.4) Glucose (Fingerstick) 227mg/dL (70-99) 211mg/dL (70-99) 194mg/dL (70-99) Test 03/05/17 04:24 03/05/17 05:30 03/05/17 05:37 03/05/17 06:39 Glucose (Fingerstick) 198mg/dL (70-99) 172mg/dL (70-99) 168mg/dL (70-99) White Blood Count 12.7x10^3/uL (4.0-11.0) Red Blood Count 5.16x10^6/uL (4.30-5.70) Hemoglobin 12.7g/dL (13.0-17.5) Hematocrit 40.0% (39.0-53.0) Mean Corpuscular Volume 77fL (79-100) Mean Corpuscular Hemoglobin 25pg (25-35) Mean Corpuscular Hemoglobin Concent 32g/dL (31-37) Red Cell Distribution Width 16.4% (11.5-14.5) Platelet Count 216x10^3/uL (140-400) Neutrophils (%) (Auto) 75% (31-73) Lymphocytes (%) (Auto) 19% (24-48) Monocytes (%) (Auto) 5% (0-9) Eosinophils (%) (Auto) 1% (0-3) Basophils (%) (Auto) 0% (0-3) Neutrophils # (Auto) 9.4x10^3uL (1.8-7.7) Lymphocytes # (Auto) 2.4x10^3/uL (1.0-4.8) Monocytes # (Auto) 0.7x10^3/uL (0.0-1.1) Eosinophils # (Auto) 0.1x10^3/uL (0.0-0.7) Basophils # (Auto) 0.0x10^3/uL (0.0-0.2) Sodium Level 169mmol/L (136-145) Potassium Level 3.6mmol/L (3.5-5.1) Chloride Level 130mmol/L (98-107) Carbon Dioxide Level 22mmol/L (21-32) Anion Gap 17 (6-14) Blood Urea Nitrogen 22mg/dL (8-26) Creatinine 1.8mg/dL (0.7-1.3) Estimated GFR (Cockcroft-Gault) 52.2 Glucose Level 191mg/dL (70-99) Serum Osmolality 344mOsm/Kg (279-304) Calcium Level 7.3mg/dL (8.5-10.1) Phosphorus Level 3.0mg/dL (2.6-4.7) Magnesium Level 2.1mg/dL (1.8-2.4) Test 03/05/17 07:43 03/05/17 08:00 03/05/17 08:54 03/05/17 09:57 Glucose (Fingerstick) 176mg/dL (70-99) 157mg/dL (70-99) 143mg/dL (70-99) O2 Saturation 93% (92-99) Arterial Blood pH 7.40 (7.35-7.45) Arterial Blood pCO2 at Patient Temp 31mmHg (35-46) Arterial Blood pO2 at Patient Temp 69mmHg (85-108) Arterial Blood HCO3 19mmol/L (21-28) Arterial Blood Base Excess -5mmol/L (-3-3) FiO2 40 Test 03/05/17 11:04 03/05/17 11:15 03/05/17 12:08 03/05/17 13:08 Glucose (Fingerstick) 152mg/dL (70-99) 199mg/dL (70-99) 193mg/dL (70-99) White Blood Count 13.5x10^3/uL (4.0-11.0) Red Blood Count 5.05x10^6/uL (4.30-5.70) Hemoglobin 12.3g/dL (13.0-17.5) Hematocrit 39.1% (39.0-53.0) Mean Corpuscular Volume 77fL (79-100) Mean Corpuscular Hemoglobin 24pg (25-35) Mean Corpuscular Hemoglobin Concent 32g/dL (31-37) Red Cell Distribution Width 16.5% (11.5-14.5) Platelet Count 196x10^3/uL (140-400) Sodium Level 168mmol/L (136-145) Potassium Level 3.5mmol/L (3.5-5.1) Chloride Level 131mmol/L (98-107) Carbon Dioxide Level 22mmol/L (21-32) Anion Gap 15 (6-14) Blood Urea Nitrogen 21mg/dL (8-26) Creatinine 1.8mg/dL (0.7-1.3) Estimated GFR (Cockcroft-Gault) 52.2 Glucose Level 166mg/dL (70-99) Serum Osmolality 344mOsm/Kg (279-304) Calcium Level 7.1mg/dL (8.5-10.1) Phosphorus Level 2.6mg/dL (2.6-4.7) Magnesium Level 2.0mg/dL (1.8-2.4) Test 03/05/17 14:10 03/05/17 15:11 03/05/17 16:18 03/05/17 17:30 Glucose (Fingerstick) 182mg/dL (70-99) 187mg/dL (70-99) 166mg/dL (70-99) Sodium Level 165mmol/L (136-145) Potassium Level 3.8mmol/L (3.5-5.1) Chloride Level 128mmol/L (98-107) Carbon Dioxide Level 23mmol/L (21-32) Anion Gap 14 (6-14) Blood Urea Nitrogen 20mg/dL (8-26) Creatinine 1.8mg/dL (0.7-1.3) Estimated GFR (Cockcroft-Gault) 52.2 Glucose Level 181mg/dL (70-99) Serum Osmolality 336mOsm/Kg (279-304) Calcium Level 6.8mg/dL (8.5-10.1) Phosphorus Level 2.6mg/dL (2.6-4.7) Magnesium Level 1.9mg/dL (1.8-2.4) Test 03/05/17 17:33 03/05/17 18:40 03/05/17 19:50 03/05/17 20:56 Glucose (Fingerstick) 176mg/dL (70-99) 181mg/dL (70-99) 173mg/dL (70-99) 179mg/dL (70-99) Test 03/05/17 21:30 03/05/17 21:59 03/05/17 23:04 03/06/17 00:20 Sodium Level 163mmol/L (136-145) Potassium Level 3.4mmol/L (3.5-5.1) Chloride Level 127mmol/L (98-107) Carbon Dioxide Level 23mmol/L (21-32) Anion Gap 13 (6-14) Blood Urea Nitrogen 19mg/dL (8-26) Creatinine 1.7mg/dL (0.7-1.3) Estimated GFR (Cockcroft-Gault) 55.8 Glucose Level 177mg/dL (70-99) Calcium Level 7.0mg/dL (8.5-10.1) Phosphorus Level 2.5mg/dL (2.6-4.7) Magnesium Level 1.7mg/dL (1.8-2.4) Glucose (Fingerstick) 172mg/dL (70-99) 192mg/dL (70-99) 214mg/dL (70-99) Test 03/06/17 01:23 03/06/17 01:30 03/06/17 02:30 03/06/17 03:34 Glucose (Fingerstick) 218mg/dL (70-99) 203mg/dL (70-99) 179mg/dL (70-99) Sodium Level 161mmol/L (136-145) Potassium Level 3.8mmol/L (3.5-5.1) Chloride Level 127mmol/L (98-107) Carbon Dioxide Level 23mmol/L (21-32) Anion Gap 11 (6-14) Blood Urea Nitrogen 18mg/dL (8-26) Creatinine 1.8mg/dL (0.7-1.3) Estimated GFR (Cockcroft-Gault) 52.2 Glucose Level 211mg/dL (70-99) Calcium Level 7.0mg/dL (8.5-10.1) Phosphorus Level 2.5mg/dL (2.6-4.7) Magnesium Level 1.9mg/dL (1.8-2.4) Test 03/06/17 04:38 03/06/17 05:30 03/06/17 06:30 03/06/17 07:53 Glucose (Fingerstick) 176mg/dL (70-99) 179mg/dL (70-99) 191mg/dL (70-99) 191mg/dL (70-99) White Blood Count 10.7x10^3/uL (4.0-11.0) Red Blood Count 4.92x10^6/uL (4.30-5.70) Hemoglobin 12.1g/dL (13.0-17.5) Hematocrit 39.0% (39.0-53.0) Mean Corpuscular Volume 79fL (79-100) Mean Corpuscular Hemoglobin 25pg (25-35) Mean Corpuscular Hemoglobin Concent 31g/dL (31-37) Red Cell Distribution Width 16.4% (11.5-14.5) Platelet Count 160x10^3/uL (140-400) Neutrophils (%) (Auto) 68% (31-73) Lymphocytes (%) (Auto) 23% (24-48) Monocytes (%) (Auto) 4% (0-9) Eosinophils (%) (Auto) 5% (0-3) Basophils (%) (Auto) 0% (0-3) Neutrophils # (Auto) 7.3x10^3uL (1.8-7.7) Lymphocytes # (Auto) 2.5x10^3/uL (1.0-4.8) Monocytes # (Auto) 0.4x10^3/uL (0.0-1.1) Eosinophils # (Auto) 0.6x10^3/uL (0.0-0.7) Basophils # (Auto) 0.0x10^3/uL (0.0-0.2) Sodium Level 164mmol/L (136-145) Potassium Level 4.4mmol/L (3.5-5.1) Chloride Level 129mmol/L (98-107) Carbon Dioxide Level 19mmol/L (21-32) Anion Gap 16 (6-14) Blood Urea Nitrogen 17mg/dL (8-26) Creatinine 1.6mg/dL (0.7-1.3) Estimated GFR (Cockcroft-Gault) 59.8 BUN/Creatinine Ratio 11 (6-20) Glucose Level 200mg/dL (70-99) Calcium Level 7.3mg/dL (8.5-10.1) Total Bilirubin 0.5mg/dL (0.2-1.0) Aspartate Amino Transf (AST/SGOT) 54U/L (15-37) Alanine Aminotransferase (ALT/SGPT) 96U/L (16-63) Alkaline Phosphatase 91U/L (46-116) Total Protein 7.1g/dL (6.4-8.2) Albumin 2.0g/dL (3.4-5.0) Albumin/Globulin Ratio 0.4 (1.0-1.7) Test 03/06/17 08:00 03/06/17 09:03 O2 Saturation 94% (92-99) Arterial Blood pH 7.36 (7.35-7.45) Arterial Blood pCO2 at Patient Temp 32mmHg (35-46) Arterial Blood pO2 at Patient Temp 74mmHg (85-108) Arterial Blood HCO3 17mmol/L (21-28) Arterial Blood Base Excess -7mmol/L (-3-3) FiO2 40 Glucose (Fingerstick) 161mg/dL (70-99) Laboratory Tests Test 03/05/17 09:57 03/05/17 11:04 03/05/17 11:15 03/05/17 12:08 Glucose (Fingerstick) 143mg/dL (70-99) 152mg/dL (70-99) 199mg/dL (70-99) White Blood Count 13.5x10^3/uL (4.0-11.0) Red Blood Count 5.05x10^6/uL (4.30-5.70) Hemoglobin 12.3g/dL (13.0-17.5) Hematocrit 39.1% (39.0-53.0) Mean Corpuscular Volume 77fL (79-100) Mean Corpuscular Hemoglobin 24pg (25-35) Mean Corpuscular Hemoglobin Concent 32g/dL (31-37) Red Cell Distribution Width 16.5% (11.5-14.5) Platelet Count 196x10^3/uL (140-400) Sodium Level 168mmol/L (136-145) Potassium Level 3.5mmol/L (3.5-5.1) Chloride Level 131mmol/L (98-107) Carbon Dioxide Level 22mmol/L (21-32) Anion Gap 15 (6-14) Blood Urea Nitrogen 21mg/dL (8-26) Creatinine 1.8mg/dL (0.7-1.3) Estimated GFR (Cockcroft-Gault) 52.2 Glucose Level 166mg/dL (70-99) Serum Osmolality 344mOsm/Kg (279-304) Calcium Level 7.1mg/dL (8.5-10.1) Phosphorus Level 2.6mg/dL (2.6-4.7) Magnesium Level 2.0mg/dL (1.8-2.4) Test 03/05/17 13:08 03/05/17 14:10 03/05/17 15:11 03/05/17 16:18 Glucose (Fingerstick) 193mg/dL (70-99) 182mg/dL (70-99) 187mg/dL (70-99) 166mg/dL (70-99) Test 03/05/17 17:30 03/05/17 17:33 03/05/17 18:40 03/05/17 19:50 Sodium Level 165mmol/L (136-145) Potassium Level 3.8mmol/L (3.5-5.1) Chloride Level 128mmol/L (98-107) Carbon Dioxide Level 23mmol/L (21-32) Anion Gap 14 (6-14) Blood Urea Nitrogen 20mg/dL (8-26) Creatinine 1.8mg/dL (0.7-1.3) Estimated GFR (Cockcroft-Gault) 52.2 Glucose Level 181mg/dL (70-99) Serum Osmolality 336mOsm/Kg (279-304) Calcium Level 6.8mg/dL (8.5-10.1) Phosphorus Level 2.6mg/dL (2.6-4.7) Magnesium Level 1.9mg/dL (1.8-2.4) Glucose (Fingerstick) 176mg/dL (70-99) 181mg/dL (70-99) 173mg/dL (70-99) Test 03/05/17 20:56 03/05/17 21:30 03/05/17 21:59 03/05/17 23:04 Glucose (Fingerstick) 179mg/dL (70-99) 172mg/dL (70-99) 192mg/dL (70-99) Sodium Level 163mmol/L (136-145) Potassium Level 3.4mmol/L (3.5-5.1) Chloride Level 127mmol/L (98-107) Carbon Dioxide Level 23mmol/L (21-32) Anion Gap 13 (6-14) Blood Urea Nitrogen 19mg/dL (8-26) Creatinine 1.7mg/dL (0.7-1.3) Estimated GFR (Cockcroft-Gault) 55.8 Glucose Level 177mg/dL (70-99) Calcium Level 7.0mg/dL (8.5-10.1) Phosphorus Level 2.5mg/dL (2.6-4.7) Magnesium Level 1.7mg/dL (1.8-2.4) Test 03/06/17 00:20 03/06/17 01:23 03/06/17 01:30 03/06/17 02:30 Glucose (Fingerstick) 214mg/dL (70-99) 218mg/dL (70-99) 203mg/dL (70-99) Sodium Level 161mmol/L (136-145) Potassium Level 3.8mmol/L (3.5-5.1) Chloride Level 127mmol/L (98-107) Carbon Dioxide Level 23mmol/L (21-32) Anion Gap 11 (6-14) Blood Urea Nitrogen 18mg/dL (8-26) Creatinine 1.8mg/dL (0.7-1.3) Estimated GFR (Cockcroft-Gault) 52.2 Glucose Level 211mg/dL (70-99) Calcium Level 7.0mg/dL (8.5-10.1) Phosphorus Level 2.5mg/dL (2.6-4.7) Magnesium Level 1.9mg/dL (1.8-2.4) Test 03/06/17 03:34 03/06/17 04:38 03/06/17 05:30 03/06/17 06:30 Glucose (Fingerstick) 179mg/dL (70-99) 176mg/dL (70-99) 179mg/dL (70-99) 191mg/dL (70-99) White Blood Count 10.7x10^3/uL (4.0-11.0) Red Blood Count 4.92x10^6/uL (4.30-5.70) Hemoglobin 12.1g/dL (13.0-17.5) Hematocrit 39.0% (39.0-53.0) Mean Corpuscular Volume 79fL (79-100) Mean Corpuscular Hemoglobin 25pg (25-35) Mean Corpuscular Hemoglobin Concent 31g/dL (31-37) Red Cell Distribution Width 16.4% (11.5-14.5) Platelet Count 160x10^3/uL (140-400) Neutrophils (%) (Auto) 68% (31-73) Lymphocytes (%) (Auto) 23% (24-48) Monocytes (%) (Auto) 4% (0-9) Eosinophils (%) (Auto) 5% (0-3) Basophils (%) (Auto) 0% (0-3) Neutrophils # (Auto) 7.3x10^3uL (1.8-7.7) Lymphocytes # (Auto) 2.5x10^3/uL (1.0-4.8) Monocytes # (Auto) 0.4x10^3/uL (0.0-1.1) Eosinophils # (Auto) 0.6x10^3/uL (0.0-0.7) Basophils # (Auto) 0.0x10^3/uL (0.0-0.2) Sodium Level 164mmol/L (136-145) Potassium Level 4.4mmol/L (3.5-5.1) Chloride Level 129mmol/L (98-107) Carbon Dioxide Level 19mmol/L (21-32) Anion Gap 16 (6-14) Blood Urea Nitrogen 17mg/dL (8-26) Creatinine 1.6mg/dL (0.7-1.3) Estimated GFR (Cockcroft-Gault) 59.8 BUN/Creatinine Ratio 11 (6-20) Glucose Level 200mg/dL (70-99) Calcium Level 7.3mg/dL (8.5-10.1) Total Bilirubin 0.5mg/dL (0.2-1.0) Aspartate Amino Transf (AST/SGOT) 54U/L (15-37) Alanine Aminotransferase (ALT/SGPT) 96U/L (16-63) Alkaline Phosphatase 91U/L (46-116) Total Protein 7.1g/dL (6.4-8.2) Albumin 2.0g/dL (3.4-5.0) Albumin/Globulin Ratio 0.4 (1.0-1.7) Test 03/06/17 07:53 03/06/17 08:00 03/06/17 09:03 Glucose (Fingerstick) 191mg/dL (70-99) 161mg/dL (70-99) O2 Saturation 94% (92-99) Arterial Blood pH 7.36 (7.35-7.45) Arterial Blood pCO2 at Patient Temp 32mmHg (35-46) Arterial Blood pO2 at Patient Temp 74mmHg (85-108) Arterial Blood HCO3 17mmol/L (21-28) Arterial Blood Base Excess -7mmol/L (-3-3) FiO2 40 Meds Current Medications Chlorhexidine Gluconate 15 ml 15 ml BID SWSP Last administered on 03/06/17 07: 51; Start 03/05/17 at 11:00 Pantoprazole Sodium (Protonix Vial) 40 mg DAILYAC IVP Last administered on 03/06 07:51; Start 03/05/17 at 11:00 Potassium Chloride (KCl Premix 20meq) 50 ml @ 50 mls/hr Q1H IV Last administered on 03/05/17 16:17; Start 03/05/17 at 13:30; Stop 03/05/17 at 15:29 ; Status DC Vancomycin HCl 1 each 1X ONCE MC ; Start 03/05/17 at 17:30; Stop 03/05/17 at 17 :30; Status DC Assessment Assessment Problems Medical Problems: (1) Acute respiratory failure Status: Acute (2) Acute respiratory failure Status: Acute (3) Cardiac arrest Status: Acute (4) Hyperglycemia Status: Acute sepsis. DKA 1. Status post code blue, outside the hospital. 2. Fever and uncontrolled diabetes. DKA. Blood sugars 2000 range. 3. Metabolic acidosis.Lactic acidosis.Hyperosmolar coma. 4. 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 5. Resulting paraplegia. 6. Sacral ulcer.heal ulcer. 7. Self catheter for bladder retention PLAN: Remains unresponsive. DM - insulin drip,sugars 179-191.Insulin high dose 42 units/hour Hypernatremia - Na 164.continue D5W.Patient is also getting lot of free water. Hypokalemia- better. Acute renal failure- creat 1.6 Improving. Prognosis is extremely poor. Anoxic encephalopathy. On Zosyn,Zyvox. Condition, treatment and options discussed with pt's father at bedside. RENAL FAILURE: Acute, Other (DEHYDRATION WITH HYPERNATREMIA) Plan Plan For more details regarding further plans, please refer to the orders. Nutrition Consultation Dietary Evaluation: Recommendations by RD: Increase Calorie Intake, PPN/TPN Comments: Rec. TF's if remains on the ventilator: Diabetisource AC, goal rate 65 ml/hr Start at 20 ml/hr, increase by 20 ml/hr q8h to goal rate flushes 200 cc q4h if no IVF's running Expected Outcomes/Goals: TF initiation tolerate TF's at goal rate Malnutrition Findings: Reduced Claim Analyst Strength: N/A Malnutrition related to morbid: No Weight Status: Obese MARLEY BOOGIE MD Mar 06, 2017 09:56
--- NOTE | 2017-03-06 10:36 | PDOC ---
Infectious Disease Note Subjective Subjective Off sedation. Remains unresponsive Intubated/vent. FiO2 40% Hypotensive. On Levophed 19 mcg Insulin gtt Less fever ROS ROS Unobtainable Vital Sign Vital Signs Vital Signs Date Time Temp Pulse Resp B/P Pulse Ox O2 Delivery O2 Flow Rate FiO2 03/06/17 10:00 105 24 119/67 100 Ventilator 03/06/17 08:00 97.7 97.7 Physical Exam PHYSICAL EXAM GENERAL: intubated HEENT: Pupils dilated nonreactive. ETT, OGT LUNGS: + rhochi R > L. HEART: S1S2 ABD: BS quiet, soft : Lacey EXT: Generalized edema. Feet cool RECEIVING MANAGER: Unresponsive to verbal and tactile stimuli. No gag reflex SKIN: Multiple wounds. RIJ. clean Labs Lab Laboratory Tests Test 03/05/17 11:04 03/05/17 11:15 03/05/17 12:08 03/05/17 13:08 Glucose (Fingerstick) 152mg/dL (70-99) 199mg/dL (70-99) 193mg/dL (70-99) White Blood Count 13.5x10^3/uL (4.0-11.0) Red Blood Count 5.05x10^6/uL (4.30-5.70) Hemoglobin 12.3g/dL (13.0-17.5) Hematocrit 39.1% (39.0-53.0) Mean Corpuscular Volume 77fL (79-100) Mean Corpuscular Hemoglobin 24pg (25-35) Mean Corpuscular Hemoglobin Concent 32g/dL (31-37) Red Cell Distribution Width 16.5% (11.5-14.5) Platelet Count 196x10^3/uL (140-400) Sodium Level 168mmol/L (136-145) Potassium Level 3.5mmol/L (3.5-5.1) Chloride Level 131mmol/L (98-107) Carbon Dioxide Level 22mmol/L (21-32) Anion Gap 15 (6-14) Blood Urea Nitrogen 21mg/dL (8-26) Creatinine 1.8mg/dL (0.7-1.3) Estimated GFR (Cockcroft-Gault) 52.2 Glucose Level 166mg/dL (70-99) Serum Osmolality 344mOsm/Kg (279-304) Calcium Level 7.1mg/dL (8.5-10.1) Phosphorus Level 2.6mg/dL (2.6-4.7) Magnesium Level 2.0mg/dL (1.8-2.4) Test 03/05/17 14:10 03/05/17 15:11 03/05/17 16:18 03/05/17 17:30 Glucose (Fingerstick) 182mg/dL (70-99) 187mg/dL (70-99) 166mg/dL (70-99) Sodium Level 165mmol/L (136-145) Potassium Level 3.8mmol/L (3.5-5.1) Chloride Level 128mmol/L (98-107) Carbon Dioxide Level 23mmol/L (21-32) Anion Gap 14 (6-14) Blood Urea Nitrogen 20mg/dL (8-26) Creatinine 1.8mg/dL (0.7-1.3) Estimated GFR (Cockcroft-Gault) 52.2 Glucose Level 181mg/dL (70-99) Serum Osmolality 336mOsm/Kg (279-304) Calcium Level 6.8mg/dL (8.5-10.1) Phosphorus Level 2.6mg/dL (2.6-4.7) Magnesium Level 1.9mg/dL (1.8-2.4) Test 03/05/17 17:33 03/05/17 18:40 03/05/17 19:50 03/05/17 20:56 Glucose (Fingerstick) 176mg/dL (70-99) 181mg/dL (70-99) 173mg/dL (70-99) 179mg/dL (70-99) Test 03/05/17 21:30 03/05/17 21:59 03/05/17 23:04 03/06/17 00:20 Sodium Level 163mmol/L (136-145) Potassium Level 3.4mmol/L (3.5-5.1) Chloride Level 127mmol/L (98-107) Carbon Dioxide Level 23mmol/L (21-32) Anion Gap 13 (6-14) Blood Urea Nitrogen 19mg/dL (8-26) Creatinine 1.7mg/dL (0.7-1.3) Estimated GFR (Cockcroft-Gault) 55.8 Glucose Level 177mg/dL (70-99) Calcium Level 7.0mg/dL (8.5-10.1) Phosphorus Level 2.5mg/dL (2.6-4.7) Magnesium Level 1.7mg/dL (1.8-2.4) Glucose (Fingerstick) 172mg/dL (70-99) 192mg/dL (70-99) 214mg/dL (70-99) Test 03/06/17 01:23 03/06/17 01:30 03/06/17 02:30 03/06/17 03:34 Glucose (Fingerstick) 218mg/dL (70-99) 203mg/dL (70-99) 179mg/dL (70-99) Sodium Level 161mmol/L (136-145) Potassium Level 3.8mmol/L (3.5-5.1) Chloride Level 127mmol/L (98-107) Carbon Dioxide Level 23mmol/L (21-32) Anion Gap 11 (6-14) Blood Urea Nitrogen 18mg/dL (8-26) Creatinine 1.8mg/dL (0.7-1.3) Estimated GFR (Cockcroft-Gault) 52.2 Glucose Level 211mg/dL (70-99) Calcium Level 7.0mg/dL (8.5-10.1) Phosphorus Level 2.5mg/dL (2.6-4.7) Magnesium Level 1.9mg/dL (1.8-2.4) Test 03/06/17 04:38 03/06/17 05:30 03/06/17 06:30 03/06/17 07:53 Glucose (Fingerstick) 176mg/dL (70-99) 179mg/dL (70-99) 191mg/dL (70-99) 191mg/dL (70-99) White Blood Count 10.7x10^3/uL (4.0-11.0) Red Blood Count 4.92x10^6/uL (4.30-5.70) Hemoglobin 12.1g/dL (13.0-17.5) Hematocrit 39.0% (39.0-53.0) Mean Corpuscular Volume 79fL (79-100) Mean Corpuscular Hemoglobin 25pg (25-35) Mean Corpuscular Hemoglobin Concent 31g/dL (31-37) Red Cell Distribution Width 16.4% (11.5-14.5) Platelet Count 160x10^3/uL (140-400) Neutrophils (%) (Auto) 68% (31-73) Lymphocytes (%) (Auto) 23% (24-48) Monocytes (%) (Auto) 4% (0-9) Eosinophils (%) (Auto) 5% (0-3) Basophils (%) (Auto) 0% (0-3) Neutrophils # (Auto) 7.3x10^3uL (1.8-7.7) Lymphocytes # (Auto) 2.5x10^3/uL (1.0-4.8) Monocytes # (Auto) 0.4x10^3/uL (0.0-1.1) Eosinophils # (Auto) 0.6x10^3/uL (0.0-0.7) Basophils # (Auto) 0.0x10^3/uL (0.0-0.2) Sodium Level 164mmol/L (136-145) Potassium Level 4.4mmol/L (3.5-5.1) Chloride Level 129mmol/L (98-107) Carbon Dioxide Level 19mmol/L (21-32) Anion Gap 16 (6-14) Blood Urea Nitrogen 17mg/dL (8-26) Creatinine 1.6mg/dL (0.7-1.3) Estimated GFR (Cockcroft-Gault) 59.8 BUN/Creatinine Ratio 11 (6-20) Glucose Level 200mg/dL (70-99) Calcium Level 7.3mg/dL (8.5-10.1) Total Bilirubin 0.5mg/dL (0.2-1.0) Aspartate Amino Transf (AST/SGOT) 54U/L (15-37) Alanine Aminotransferase (ALT/SGPT) 96U/L (16-63) Alkaline Phosphatase 91U/L (46-116) Total Protein 7.1g/dL (6.4-8.2) Albumin 2.0g/dL (3.4-5.0) Albumin/Globulin Ratio 0.4 (1.0-1.7) Test 03/06/17 08:00 03/06/17 09:03 O2 Saturation 94% (92-99) Arterial Blood pH 7.36 (7.35-7.45) Arterial Blood pCO2 at Patient Temp 32mmHg (35-46) Arterial Blood pO2 at Patient Temp 74mmHg (85-108) Arterial Blood HCO3 17mmol/L (21-28) Arterial Blood Base Excess -7mmol/L (-3-3) FiO2 40 Glucose (Fingerstick) 161mg/dL (70-99) Objective Assessment Hyperosmolar coma S/P Code blue pupils dilated Lactic acidosis Leukocytosis Fever DM Sacral decub Carlos heel wounds , left much worse polymicrobial Kleb/proteus/Group B Paraplegia JEFFERY MRSA nares positive Plan Plan of Care Zyvox and Zosyn off load BS control f/u am labs/cultures prognosis poor JAYME CORTES MD Mar 06, 2017 10:36
--- NOTE | 2017-03-06 11:29 | PDOC ---
PROGRESS NOTES Subjective Subjective SEEN IN FOLLOW UP OF ARF AND HYPERNATREMIA DUE TO DEHYDRATION Objective Objective Vital Signs Date Time Temp Pulse Resp B/P Pulse Ox O2 Delivery O2 Flow Rate FiO2 03/06/17 11:00 95 24 91/51 100 Ventilator 03/06/17 08:00 97.7 97.7 03/03/17 12:33 15 Intake and Output 03/06/17 07:00 Intake Total 8931 ml Output Total 8575 ml Balance 356 ml Intake IV Total 7981 ml Other 950 ml Output Urine Total 6200 ml Stool Total 1475 ml Gastric Drainage Total 900 ml Physical Exam Abdomen: Normal bowel sounds, Soft, No tenderness, No hepatosplenomegaly, No masses Heart: Regular rate, Normal S1, Normal S2, No murmurs, Gallops Extremities: No clubbing, No cyanosis, No edema, Normal pulses, No tenderness/ swelling Lungs: Clear to auscultation, Normal air movement Diagnosis DIABETES: Type I (DKA) RENAL FAILURE: Acute, Other (DEHYDRATION WITH HYPERNATREMIA) Assessment Assessment Problems Medical Problems: (1) Acute respiratory failure Status: Acute (2) Acute respiratory failure Status: Acute (3) Cardiac arrest Status: Acute (4) Hyperglycemia Status: Acute Plan Plan of Care WILL INCREASE FREE WATER PER GI TRACT. PROGNOSIS POOR Comment Review of Relevant I have reviewed the following items reina (where applicable) has been applied. Labs Laboratory Tests Test 03/04/17 12:58 03/04/17 13:55 03/04/17 13:56 03/04/17 15:31 Glucose (Fingerstick) 190mg/dL (70-99) 254mg/dL (70-99) 182mg/dL (70-99) Sodium Level 165mmol/L (136-145) Potassium Level 3.4mmol/L (3.5-5.1) Chloride Level 123mmol/L (98-107) Carbon Dioxide Level 22mmol/L (21-32) Anion Gap 20 (6-14) Blood Urea Nitrogen 30mg/dL (8-26) Creatinine 2.1mg/dL (0.7-1.3) Estimated GFR (Cockcroft-Gault) 43.7 Glucose Level 274mg/dL (70-99) Serum Osmolality 349mOsm/Kg (279-304) Calcium Level 7.0mg/dL (8.5-10.1) Phosphorus Level 5.3mg/dL (2.6-4.7) Magnesium Level 2.3mg/dL (1.8-2.4) Test 03/04/17 16:15 03/04/17 16:41 03/04/17 19:00 03/04/17 19:30 O2 Saturation 95% (92-99) Arterial Blood pH 7.45 (7.35-7.45) Arterial Blood pH (Temp corrected) 7.43 Arterial Blood pCO2 at Patient Temp 28mmHg (35-46) Arterial Blood pCO2 (Temp correct) 30mmHg Arterial Blood pO2 at Patient Temp 71mmHg (85-108) Arterial Blood pO2 (Temp corrected) 77mmHg Arterial Blood HCO3 19mmol/L (21-28) Arterial Blood Base Excess -4mmol/L (-3-3) FiO2 40 Glucose (Fingerstick) 147mg/dL (70-99) 152mg/dL (70-99) Sodium Level 167mmol/L (136-145) Potassium Level 2.9mmol/L (3.5-5.1) Chloride Level 126mmol/L (98-107) Carbon Dioxide Level 23mmol/L (21-32) Anion Gap 18 (6-14) Blood Urea Nitrogen 29mg/dL (8-26) Creatinine 1.8mg/dL (0.7-1.3) Estimated GFR (Cockcroft-Gault) 52.2 Glucose Level 157mg/dL (70-99) Serum Osmolality 346mOsm/Kg (279-304) Calcium Level 7.0mg/dL (8.5-10.1) Phosphorus Level 3.5mg/dL (2.6-4.7) Magnesium Level 2.0mg/dL (1.8-2.4) Test 03/04/17 20:08 03/04/17 21:31 03/04/17 22:31 03/04/17 23:36 Glucose (Fingerstick) 177mg/dL (70-99) 171mg/dL (70-99) 188mg/dL (70-99) 235mg/dL (70-99) Test 03/05/17 00:30 03/05/17 00:42 03/05/17 02:11 03/05/17 03:15 Sodium Level 169mmol/L (136-145) Potassium Level 3.8mmol/L (3.5-5.1) Chloride Level 129mmol/L (98-107) Carbon Dioxide Level 24mmol/L (21-32) Anion Gap 16 (6-14) Blood Urea Nitrogen 26mg/dL (8-26) Creatinine 1.8mg/dL (0.7-1.3) Estimated GFR (Cockcroft-Gault) 52.2 Glucose Level 236mg/dL (70-99) Serum Osmolality 350mOsm/Kg (279-304) Calcium Level 6.9mg/dL (8.5-10.1) Phosphorus Level 3.2mg/dL (2.6-4.7) Magnesium Level 2.0mg/dL (1.8-2.4) Glucose (Fingerstick) 227mg/dL (70-99) 211mg/dL (70-99) 194mg/dL (70-99) Test 03/05/17 04:24 03/05/17 05:30 03/05/17 05:37 03/05/17 06:39 Glucose (Fingerstick) 198mg/dL (70-99) 172mg/dL (70-99) 168mg/dL (70-99) White Blood Count 12.7x10^3/uL (4.0-11.0) Red Blood Count 5.16x10^6/uL (4.30-5.70) Hemoglobin 12.7g/dL (13.0-17.5) Hematocrit 40.0% (39.0-53.0) Mean Corpuscular Volume 77fL (79-100) Mean Corpuscular Hemoglobin 25pg (25-35) Mean Corpuscular Hemoglobin Concent 32g/dL (31-37) Red Cell Distribution Width 16.4% (11.5-14.5) Platelet Count 216x10^3/uL (140-400) Neutrophils (%) (Auto) 75% (31-73) Lymphocytes (%) (Auto) 19% (24-48) Monocytes (%) (Auto) 5% (0-9) Eosinophils (%) (Auto) 1% (0-3) Basophils (%) (Auto) 0% (0-3) Neutrophils # (Auto) 9.4x10^3uL (1.8-7.7) Lymphocytes # (Auto) 2.4x10^3/uL (1.0-4.8) Monocytes # (Auto) 0.7x10^3/uL (0.0-1.1) Eosinophils # (Auto) 0.1x10^3/uL (0.0-0.7) Basophils # (Auto) 0.0x10^3/uL (0.0-0.2) Sodium Level 169mmol/L (136-145) Potassium Level 3.6mmol/L (3.5-5.1) Chloride Level 130mmol/L (98-107) Carbon Dioxide Level 22mmol/L (21-32) Anion Gap 17 (6-14) Blood Urea Nitrogen 22mg/dL (8-26) Creatinine 1.8mg/dL (0.7-1.3) Estimated GFR (Cockcroft-Gault) 52.2 Glucose Level 191mg/dL (70-99) Serum Osmolality 344mOsm/Kg (279-304) Calcium Level 7.3mg/dL (8.5-10.1) Phosphorus Level 3.0mg/dL (2.6-4.7) Magnesium Level 2.1mg/dL (1.8-2.4) Test 03/05/17 07:43 03/05/17 08:00 03/05/17 08:54 03/05/17 09:57 Glucose (Fingerstick) 176mg/dL (70-99) 157mg/dL (70-99) 143mg/dL (70-99) O2 Saturation 93% (92-99) Arterial Blood pH 7.40 (7.35-7.45) Arterial Blood pCO2 at Patient Temp 31mmHg (35-46) Arterial Blood pO2 at Patient Temp 69mmHg (85-108) Arterial Blood HCO3 19mmol/L (21-28) Arterial Blood Base Excess -5mmol/L (-3-3) FiO2 40 Test 03/05/17 11:04 03/05/17 11:15 03/05/17 12:08 03/05/17 13:08 Glucose (Fingerstick) 152mg/dL (70-99) 199mg/dL (70-99) 193mg/dL (70-99) White Blood Count 13.5x10^3/uL (4.0-11.0) Red Blood Count 5.05x10^6/uL (4.30-5.70) Hemoglobin 12.3g/dL (13.0-17.5) Hematocrit 39.1% (39.0-53.0) Mean Corpuscular Volume 77fL (79-100) Mean Corpuscular Hemoglobin 24pg (25-35) Mean Corpuscular Hemoglobin Concent 32g/dL (31-37) Red Cell Distribution Width 16.5% (11.5-14.5) Platelet Count 196x10^3/uL (140-400) Sodium Level 168mmol/L (136-145) Potassium Level 3.5mmol/L (3.5-5.1) Chloride Level 131mmol/L (98-107) Carbon Dioxide Level 22mmol/L (21-32) Anion Gap 15 (6-14) Blood Urea Nitrogen 21mg/dL (8-26) Creatinine 1.8mg/dL (0.7-1.3) Estimated GFR (Cockcroft-Gault) 52.2 Glucose Level 166mg/dL (70-99) Serum Osmolality 344mOsm/Kg (279-304) Calcium Level 7.1mg/dL (8.5-10.1) Phosphorus Level 2.6mg/dL (2.6-4.7) Magnesium Level 2.0mg/dL (1.8-2.4) Test 03/05/17 14:10 03/05/17 15:11 03/05/17 16:18 03/05/17 17:30 Glucose (Fingerstick) 182mg/dL (70-99) 187mg/dL (70-99) 166mg/dL (70-99) Sodium Level 165mmol/L (136-145) Potassium Level 3.8mmol/L (3.5-5.1) Chloride Level 128mmol/L (98-107) Carbon Dioxide Level 23mmol/L (21-32) Anion Gap 14 (6-14) Blood Urea Nitrogen 20mg/dL (8-26) Creatinine 1.8mg/dL (0.7-1.3) Estimated GFR (Cockcroft-Gault) 52.2 Glucose Level 181mg/dL (70-99) Serum Osmolality 336mOsm/Kg (279-304) Calcium Level 6.8mg/dL (8.5-10.1) Phosphorus Level 2.6mg/dL (2.6-4.7) Magnesium Level 1.9mg/dL (1.8-2.4) Test 03/05/17 17:33 03/05/17 18:40 03/05/17 19:50 03/05/17 20:56 Glucose (Fingerstick) 176mg/dL (70-99) 181mg/dL (70-99) 173mg/dL (70-99) 179mg/dL (70-99) Test 03/05/17 21:30 03/05/17 21:59 03/05/17 23:04 03/06/17 00:20 Sodium Level 163mmol/L (136-145) Potassium Level 3.4mmol/L (3.5-5.1) Chloride Level 127mmol/L (98-107) Carbon Dioxide Level 23mmol/L (21-32) Anion Gap 13 (6-14) Blood Urea Nitrogen 19mg/dL (8-26) Creatinine 1.7mg/dL (0.7-1.3) Estimated GFR (Cockcroft-Gault) 55.8 Glucose Level 177mg/dL (70-99) Calcium Level 7.0mg/dL (8.5-10.1) Phosphorus Level 2.5mg/dL (2.6-4.7) Magnesium Level 1.7mg/dL (1.8-2.4) Glucose (Fingerstick) 172mg/dL (70-99) 192mg/dL (70-99) 214mg/dL (70-99) Test 03/06/17 01:23 03/06/17 01:30 03/06/17 02:30 03/06/17 03:34 Glucose (Fingerstick) 218mg/dL (70-99) 203mg/dL (70-99) 179mg/dL (70-99) Sodium Level 161mmol/L (136-145) Potassium Level 3.8mmol/L (3.5-5.1) Chloride Level 127mmol/L (98-107) Carbon Dioxide Level 23mmol/L (21-32) Anion Gap 11 (6-14) Blood Urea Nitrogen 18mg/dL (8-26) Creatinine 1.8mg/dL (0.7-1.3) Estimated GFR (Cockcroft-Gault) 52.2 Glucose Level 211mg/dL (70-99) Calcium Level 7.0mg/dL (8.5-10.1) Phosphorus Level 2.5mg/dL (2.6-4.7) Magnesium Level 1.9mg/dL (1.8-2.4) Test 03/06/17 04:38 03/06/17 05:30 03/06/17 06:30 03/06/17 07:53 Glucose (Fingerstick) 176mg/dL (70-99) 179mg/dL (70-99) 191mg/dL (70-99) 191mg/dL (70-99) White Blood Count 10.7x10^3/uL (4.0-11.0) Red Blood Count 4.92x10^6/uL (4.30-5.70) Hemoglobin 12.1g/dL (13.0-17.5) Hematocrit 39.0% (39.0-53.0) Mean Corpuscular Volume 79fL (79-100) Mean Corpuscular Hemoglobin 25pg (25-35) Mean Corpuscular Hemoglobin Concent 31g/dL (31-37) Red Cell Distribution Width 16.4% (11.5-14.5) Platelet Count 160x10^3/uL (140-400) Neutrophils (%) (Auto) 68% (31-73) Lymphocytes (%) (Auto) 23% (24-48) Monocytes (%) (Auto) 4% (0-9) Eosinophils (%) (Auto) 5% (0-3) Basophils (%) (Auto) 0% (0-3) Neutrophils # (Auto) 7.3x10^3uL (1.8-7.7) Lymphocytes # (Auto) 2.5x10^3/uL (1.0-4.8) Monocytes # (Auto) 0.4x10^3/uL (0.0-1.1) Eosinophils # (Auto) 0.6x10^3/uL (0.0-0.7) Basophils # (Auto) 0.0x10^3/uL (0.0-0.2) Sodium Level 164mmol/L (136-145) Potassium Level 4.4mmol/L (3.5-5.1) Chloride Level 129mmol/L (98-107) Carbon Dioxide Level 19mmol/L (21-32) Anion Gap 16 (6-14) Blood Urea Nitrogen 17mg/dL (8-26) Creatinine 1.6mg/dL (0.7-1.3) Estimated GFR (Cockcroft-Gault) 59.8 BUN/Creatinine Ratio 11 (6-20) Glucose Level 200mg/dL (70-99) Calcium Level 7.3mg/dL (8.5-10.1) Total Bilirubin 0.5mg/dL (0.2-1.0) Aspartate Amino Transf (AST/SGOT) 54U/L (15-37) Alanine Aminotransferase (ALT/SGPT) 96U/L (16-63) Alkaline Phosphatase 91U/L (46-116) Total Protein 7.1g/dL (6.4-8.2) Albumin 2.0g/dL (3.4-5.0) Albumin/Globulin Ratio 0.4 (1.0-1.7) Test 03/06/17 08:00 03/06/17 09:03 03/06/17 11:19 O2 Saturation 94% (92-99) Arterial Blood pH 7.36 (7.35-7.45) Arterial Blood pCO2 at Patient Temp 32mmHg (35-46) Arterial Blood pO2 at Patient Temp 74mmHg (85-108) Arterial Blood HCO3 17mmol/L (21-28) Arterial Blood Base Excess -7mmol/L (-3-3) FiO2 40 Glucose (Fingerstick) 161mg/dL (70-99) 213mg/dL (70-99) Laboratory Tests Test 03/05/17 12:08 03/05/17 13:08 03/05/17 14:10 03/05/17 15:11 Glucose (Fingerstick) 199mg/dL (70-99) 193mg/dL (70-99) 182mg/dL (70-99) 187mg/dL (70-99) Test 03/05/17 16:18 03/05/17 17:30 03/05/17 17:33 03/05/17 18:40 Glucose (Fingerstick) 166mg/dL (70-99) 176mg/dL (70-99) 181mg/dL (70-99) Sodium Level 165mmol/L (136-145) Potassium Level 3.8mmol/L (3.5-5.1) Chloride Level 128mmol/L (98-107) Carbon Dioxide Level 23mmol/L (21-32) Anion Gap 14 (6-14) Blood Urea Nitrogen 20mg/dL (8-26) Creatinine 1.8mg/dL (0.7-1.3) Estimated GFR (Cockcroft-Gault) 52.2 Glucose Level 181mg/dL (70-99) Serum Osmolality 336mOsm/Kg (279-304) Calcium Level 6.8mg/dL (8.5-10.1) Phosphorus Level 2.6mg/dL (2.6-4.7) Magnesium Level 1.9mg/dL (1.8-2.4) Test 03/05/17 19:50 03/05/17 20:56 03/05/17 21:30 03/05/17 21:59 Glucose (Fingerstick) 173mg/dL (70-99) 179mg/dL (70-99) 172mg/dL (70-99) Sodium Level 163mmol/L (136-145) Potassium Level 3.4mmol/L (3.5-5.1) Chloride Level 127mmol/L (98-107) Carbon Dioxide Level 23mmol/L (21-32) Anion Gap 13 (6-14) Blood Urea Nitrogen 19mg/dL (8-26) Creatinine 1.7mg/dL (0.7-1.3) Estimated GFR (Cockcroft-Gault) 55.8 Glucose Level 177mg/dL (70-99) Calcium Level 7.0mg/dL (8.5-10.1) Phosphorus Level 2.5mg/dL (2.6-4.7) Magnesium Level 1.7mg/dL (1.8-2.4) Test 03/05/17 23:04 03/06/17 00:20 03/06/17 01:23 03/06/17 01:30 Glucose (Fingerstick) 192mg/dL (70-99) 214mg/dL (70-99) 218mg/dL (70-99) Sodium Level 161mmol/L (136-145) Potassium Level 3.8mmol/L (3.5-5.1) Chloride Level 127mmol/L (98-107) Carbon Dioxide Level 23mmol/L (21-32) Anion Gap 11 (6-14) Blood Urea Nitrogen 18mg/dL (8-26) Creatinine 1.8mg/dL (0.7-1.3) Estimated GFR (Cockcroft-Gault) 52.2 Glucose Level 211mg/dL (70-99) Calcium Level 7.0mg/dL (8.5-10.1) Phosphorus Level 2.5mg/dL (2.6-4.7) Magnesium Level 1.9mg/dL (1.8-2.4) Test 03/06/17 02:30 03/06/17 03:34 03/06/17 04:38 03/06/17 05:30 Glucose (Fingerstick) 203mg/dL (70-99) 179mg/dL (70-99) 176mg/dL (70-99) 179mg/dL (70-99) White Blood Count 10.7x10^3/uL (4.0-11.0) Red Blood Count 4.92x10^6/uL (4.30-5.70) Hemoglobin 12.1g/dL (13.0-17.5) Hematocrit 39.0% (39.0-53.0) Mean Corpuscular Volume 79fL (79-100) Mean Corpuscular Hemoglobin 25pg (25-35) Mean Corpuscular Hemoglobin Concent 31g/dL (31-37) Red Cell Distribution Width 16.4% (11.5-14.5) Platelet Count 160x10^3/uL (140-400) Neutrophils (%) (Auto) 68% (31-73) Lymphocytes (%) (Auto) 23% (24-48) Monocytes (%) (Auto) 4% (0-9) Eosinophils (%) (Auto) 5% (0-3) Basophils (%) (Auto) 0% (0-3) Neutrophils # (Auto) 7.3x10^3uL (1.8-7.7) Lymphocytes # (Auto) 2.5x10^3/uL (1.0-4.8) Monocytes # (Auto) 0.4x10^3/uL (0.0-1.1) Eosinophils # (Auto) 0.6x10^3/uL (0.0-0.7) Basophils # (Auto) 0.0x10^3/uL (0.0-0.2) Sodium Level 164mmol/L (136-145) Potassium Level 4.4mmol/L (3.5-5.1) Chloride Level 129mmol/L (98-107) Carbon Dioxide Level 19mmol/L (21-32) Anion Gap 16 (6-14) Blood Urea Nitrogen 17mg/dL (8-26) Creatinine 1.6mg/dL (0.7-1.3) Estimated GFR (Cockcroft-Gault) 59.8 BUN/Creatinine Ratio 11 (6-20) Glucose Level 200mg/dL (70-99) Calcium Level 7.3mg/dL (8.5-10.1) Total Bilirubin 0.5mg/dL (0.2-1.0) Aspartate Amino Transf (AST/SGOT) 54U/L (15-37) Alanine Aminotransferase (ALT/SGPT) 96U/L (16-63) Alkaline Phosphatase 91U/L (46-116) Total Protein 7.1g/dL (6.4-8.2) Albumin 2.0g/dL (3.4-5.0) Albumin/Globulin Ratio 0.4 (1.0-1.7) Test 03/06/17 06:30 03/06/17 07:53 03/06/17 08:00 03/06/17 09:03 Glucose (Fingerstick) 191mg/dL (70-99) 191mg/dL (70-99) 161mg/dL (70-99) O2 Saturation 94% (92-99) Arterial Blood pH 7.36 (7.35-7.45) Arterial Blood pCO2 at Patient Temp 32mmHg (35-46) Arterial Blood pO2 at Patient Temp 74mmHg (85-108) Arterial Blood HCO3 17mmol/L (21-28) Arterial Blood Base Excess -7mmol/L (-3-3) FiO2 40 Test 03/06/17 11:19 Glucose (Fingerstick) 213mg/dL (70-99) Microbiology 03/04/17 Blood Culture - Preliminary, Resulted NO GROWTH AFTER 2 DAYS 03/03/17 Urine Culture - Final, Complete 03/03/17 Urine Culture Result 1 (ALLAN) - Final, Complete 03/04/17 Gram Stain - Final, Complete Medications Current Medications Midazolam HCl 100 ml @ 0 mls/hr 1X ONCE IV Last administered on 03/03/17 14: 42; Start 03/03/17 at 13:45; Stop 03/03/17 at 13:46; Status DC Sodium Bicarbonate/ Sodium Chloride (Iv Sodium Chloride 0.45%) 1,150 ml @ 125 mls/hr 1X ONCE IV Last administered on 03/03/17 18:40; Start 03/03/17 at 13: 45; Stop 03/03/17 at 22:56; Status DC Etomidate (Amidate) 20 mg STK-MED ONCE IV ; Start 03/03/17 at 13:35; Stop at 13:36; Status DC Insulin Human Regular 10 unit 10 unit 1X ONCE IV Last administered on 14:37; Start 03/03/17 at 14:45; Stop 03/03/17 at 14:46; Status DC Insulin Human Regular 150 unit/ Sodium Chloride 151.5 ml @ 0 mls/hr CONT PRN IV SEE I/O RECORD; Start 03/03/17 at 14:00; Stop 03/03/17 at 17:20; Status DC Insulin Human Regular 150 ml @ As Directed STK-MED ONCE IV ; Start 03/03/17 at 14:05; Stop 03/03/17 at 14:06; Status DC Potassium Chloride 100 ml @ 100 mls/hr Q1H IV ; Start 03/03/17 at 17:00; Stop 03/03/17 at 17:43; Status DC Sodium Chloride 1,000 ml @ 1,000 mls/hr Q1H IV ; Start 03/03/17 at 16:49; Stop 03/03/17 at 17:48; Status DC Insulin Human Regular 150 unit/ Sodium Chloride 151.5 ml @ 0 mls/hr CONT PRN PRN IV PER PROTOCOL; Start 03/03/17 at 17:00; Stop 03/03/17 at 17:20; Status DC Potassium Chloride 100 ml @ 100 mls/hr PRN Q1HR PRN IV SEE COMMENTS Last administered on 03/04/17 01:35; Start 03/03/17 at 17:00 Potassium Chloride 100 ml @ 100 mls/hr PRN Q1HR PRN IV SEE COMMENTS Last administered on 03/05/17 05:42; Start 03/03/17 at 17:00 Potassium Chloride 100 ml @ 100 mls/hr PRN Q1HR PRN IV SEE COMMENTS; Start at 17:00 Insulin Human Regular 150 unit/ Sodium Chloride 151.5 ml @ 0 mls/hr CONT PRN PRN IV PER PROTOCOL Last administered on 03/06/17 09:36; Start 03/03/17 at 17: 00 Potassium Chloride 100 ml @ 100 mls/hr PRN Q1HR PRN IV SEE COMMENTS; Start at 17:00; Stop 03/03/17 at 20:11; Status DC Potassium Chloride 100 ml @ 100 mls/hr PRN Q1HR PRN IV SEE COMMENTS; Start at 17:00; Stop 03/03/17 at 20:11; Status DC Potassium Chloride 100 ml @ 100 mls/hr PRN Q1HR PRN IV SEE COMMENTS; Start at 17:00; Stop 03/03/17 at 20:12; Status DC Vancomycin HCl/ Sodium Chloride (Iv Sodium Chloride 0.9% 500ml Bag) 500 ml @ 250 mls/hr 1X ONCE IV Last administered on 03/03/17 18:33; Start 03/03/17 at 18:00; Stop 03/03/17 at 19:59; Status DC Vancomycin HCl 1 each 1 each PRN DAILY PRN MC SEE COMMENTS Last administered on 03/03/17 20:02; Start 03/03/17 at 17:00; Stop 03/04/17 at 08:51; Status DC Ertapenem/Sodium Chloride (Invanz/Iv Sodium Chloride 0.9% 50ml) 50 ml @ 100 mls /hr Q24H IV ; Start 03/03/17 at 17:30; Stop 03/04/17 at 08:51; Status DC Midazolam HCl 5 mg 5 mg STK-MED ONCE .ROUTE ; Start 03/03/17 at 17:40; Stop at 17:41; Status DC Potassium Chloride 50 ml @ 50 mls/hr Q1H IV Last administered on 03/03/17 23: 52; Start 03/03/17 at 18:00; Stop 03/03/17 at 21:59; Status DC Midazolam HCl 100 ml @ 0 mls/hr CONT PRN IV SEE I/O RECORD Last administered on 03/04/17 01:20; Start 03/03/17 at 18:15 Norepinephrine Bitartrate/Sodium Chloride (Levophed Vial/ Iv Sodium Chloride 0.9 % 250ml) 258 ml @ 0 mls/hr CONT PRN IV SEE I/O RECORD Last administered on 03/05 00:13; Start 03/03/17 at 19:15; Stop 03/05/17 at 05:52; Status DC Vancomycin HCl 1 each 1 each 1X ONCE MC ; Start 03/05/17 at 17:30; Stop at 17:30; Status DC Vancomycin HCl/ Sodium Chloride (Iv Sodium Chloride 0.9% 500ml Bag) 500 ml @ 250 mls/hr Q24H IV ; Start 03/04/17 at 18:00; Stop 03/04/17 at 18:00; Status DC Enoxaparin Sodium 40 mg 40 mg Q24H SQ ; Start 03/03/17 at 21:00; Status Cancel Potassium Phosphate 40 mmol/ Sodium Chloride 263.3333 ml @ 62.5 mls/hr 1X ONCE IV Last administered on 03/03/17 23:51; Start 03/03/17 at 23:30; Stop at 03:42; Status DC Potassium Chloride (KCl Premix 20meq) 50 ml @ 50 mls/hr PRN Q1HR PRN IV K LESS THAN 3 Last administered on 03/06/17 04:35; Start 03/03/17 at 22:45 Acetaminophen (Tylenol) 325 mg PRN Q6HRS PRN WA MILD PAIN / TEMP Last administered on 03/03/17 23:50; Start 03/03/17 at 23:15 Enoxaparin Sodium (Lovenox Per Pharmacy Treatment Dosing) 1 each PRN DAILY PRN MC SEE COMMENTS; Start 03/04/17 at 01:00 Enoxaparin Sodium (Lovenox 120mg Syringe) 120 mg Q12HR SQ Last administered on 03/04/17 10:17; Start 03/04/17 at 01:00; Stop 03/04/17 at 13:29; Status DC Info 1 each 1 each PRN DAILY PRN MC SEE COMMENTS Last administered on 07:42; Start 03/04/17 at 01:00 Sodium Chloride 1,000 ml @ 250 mls/hr Q4H IV Last administered on 03/04/17 10 :24; Start 03/04/17 at 01:00; Stop 03/05/17 at 09:48; Status DC Piperacillin Sod/ Tazobactam Sod 3.375 gm/Sodium Chloride 50 ml @ 100 mls/hr Q6H IV Last administered on 03/06/17 07:51; Start 03/04/17 at 09:00 Linezolid 300 ml @ 300 mls/hr Q12HR IV Last administered on 03/06/17 09:05; Start 03/04/17 at 09:00 Potassium Chloride 50 ml @ 50 mls/hr Q1H IV Last administered on 03/04/17 12: 33; Start 03/04/17 at 11:30; Stop 03/04/17 at 13:29; Status DC Sodium Phosphate/ Dextrose 256.6667 ml @ 64.167 m... 1X ONCE IV Last administered on 03/04/17 12:23; Start 03/04/17 at 11:30; Stop 03/04/17 at 15:29 ; Status DC Sodium Bicarbonate 50 meq STK-MED ONCE .ROUTE ; Start 03/03/17 at 12:00; Stop at 11:39; Status DC Enoxaparin Sodium 120 mg 120 mg DAILY SQ ; Start 03/05/17 at 09:00; Stop at 09:00; Status DC Norepinephrine Bitartrate 8 mg/ Sodium Chloride 258 ml @ 1.93 mls/hr ONCE ONCE IV Last administered on 03/04/17 19:21; Start 03/04/17 at 14:45; Stop at 17:25; Status DC Vasopressin 40 unit/Dextrose 102 ml @ 6 mls/hr CONT PRN IV SEE I/O RECORD; Start 03/04/17 at 15:15; Stop 03/04/17 at 15:15; Status DC Vasopressin 40 unit/Dextrose 102 ml @ 6 mls/hr ONCE ONCE IV ; Start 03/04/17 at 15:15; Stop 03/05/17 at 08:14; Status DC Vasopressin/ Dextrose (Vasostrict) 102 ml @ 6 mls/hr CONT PRN IV SEE I/O RECORD ; Start 03/04/17 at 15:15 Enoxaparin Sodium 120 mg 120 mg BID SQ Last administered on 03/06/17 07:52; Start 03/04/17 at 21:00 Potassium Chloride 50 ml @ 50 mls/hr Q1HR IV Last administered on 03/04/17 23: 31; Start 03/04/17 at 21:00; Stop 03/04/17 at 23:59; Status DC Dextrose/Sodium Chloride 1,000 ml @ 250 mls/hr Q4H IV Last administered on 01:19; Start 03/04/17 at 21:00; Stop 03/05/17 at 01:32; Status DC Dextrose 1,000 ml @ 250 mls/hr Q4H IV Last administered on 03/06/17 11:23; Start 03/05/17 at 01:30 Norepinephrine Bitartrate/ Dextrose (Levophed Vial) 258 ml @ 0 mls/hr CONT PRN IV HYPOTENSION Last administered on 03/06/17 09:36; Start 03/05/17 at 06:00 Pantoprazole Sodium (Protonix Vial) 40 mg DAILYAC IVP Last administered on 03/06 07:51; Start 03/05/17 at 11:00 Chlorhexidine Gluconate 15 ml 15 ml BID SWSP Last administered on 03/06/17 07: 51; Start 03/05/17 at 11:00 Potassium Chloride (KCl Premix 20meq) 50 ml @ 50 mls/hr Q1H IV Last administered on 03/05/17 16:17; Start 03/05/17 at 13:30; Stop 03/05/17 at 15:29 ; Status DC Active Scripts Active Feosol (Ferrous Sulfate) 325 Mg Tablet 325 Mg PO BIDWMEALS 30 Days Vitamin B-12 (Cyanocobalamin (Vitamin B-12)) 1,000 Mcg Tablet 1,000 Mcg PO DAILY 30 Days Amox Tr-K Clv 875-125 Mg Tab (Amoxicillin/Potassium Clav) 1 Each Tablet 1 Tab PO BID 5 Days Reported Percocet 5-325 Mg Tablet (Oxycodone/Acetaminophen) 1 Each Tablet 1 Tab PO PRN Q6HRS PRN Metformin Hcl 850 Mg Tablet 1 Tab PO BID Furosemide 40 Mg Tablet 1 Tab PO DAILY Gabapentin 100 Mg Capsule 100 Mg PO QHS Pantoprazole Sodium 40 Mg Tablet.dr 1 Tab PO DAILY Coumadin (Warfarin Sodium) 10 Mg Tablet 1 Tab PO QHS Take on Mondays, Tuesdays, and Wednesdays Oxybutynin Chloride 5 Mg Tablet 1 Tab PO BID Coumadin (Warfarin Sodium) 7.5 Mg Tablet 1 Tab PO QHS To be taken on , Fridays, Saturdays, and Sundays Vitals/I & O Vital Sign - Last 24 Hours 03/05/17 03/05/17 03/05/17 03/05/17 12:00 12:00 12:39 13:00 Temp 97.7 97.7 Pulse 82 81 Resp 24 B/P 141/74 109/53 Pulse Ox 100 100 100 O2 Delivery Ventilator Mechanical Ventilator Ventilator Ventilator 03/05/17 03/05/17 03/05/17 03/05/17 14:00 15:00 16:00 16:00 Temp 97.5 97.5 Pulse 82 84 82 Resp 24 24 B/P 105/58 92/53 97/54 Pulse Ox 100 100 100 O2 Delivery Ventilator Ventilator Ventilator Mechanical Ventilator 03/05/17 03/05/17 03/05/17 03/05/17 16:05 17:00 17:56 18:00 Pulse 84 84 Resp 24 24 B/P 86/51 95/53 Pulse Ox 100 100 100 100 O2 Delivery Ventilator Ventilator Ventilator Ventilator 03/05/17 03/05/17 03/05/17 03/05/17 19:00 20:00 20:00 20:45 Temp 97.9 97.9 Pulse 83 86 Resp 24 24 B/P 84/52 103/62 Pulse Ox 100 100 100 O2 Delivery Ventilator Mechanical Ventilator Ventilator Ventilator 03/05/17 03/05/17 03/05/17 03/06/17 21:00 22:00 23:00 00:00 Pulse 87 89 89 Resp 24 24 24 B/P 104/58 107/57 113/62 Pulse Ox 100 100 100 O2 Delivery Ventilator Ventilator Ventilator Mechanical Ventilator 03/06/17 03/06/17 03/06/17 03/06/17 00:00 00:01 01:00 02:00 Temp 97.7 97.7 Pulse 89 90 89 Resp 24 24 24 B/P 115/69 115/65 118/67 Pulse Ox 100 100 100 100 O2 Delivery Ventilator Ventilator Ventilator Ventilator 03/06/17 03/06/17 03/06/17 03/06/17 02:13 03:00 04:00 04:00 Temp 97.7 97.7 Pulse 88 90 Resp 24 24 B/P 114/69 133/70 Pulse Ox 100 100 100 O2 Delivery Ventilator Ventilator Mechanical Ventilator Ventilator 03/06/17 03/06/17 03/06/17 03/06/17 04:18 05:00 06:00 07:00 Pulse 90 91 90 Resp 24 24 24 B/P 129/69 140/70 140/78 Pulse Ox 100 100 100 100 O2 Delivery Ventilator Ventilator Ventilator Ventilator 03/06/17 03/06/17 03/06/17 03/06/17 07:47 08:00 08:00 08:54 Temp 97.7 97.7 Pulse 98 Resp 24 B/P 120/69 Pulse Ox 100 100 100 O2 Delivery Ventilator Ventilator Mechanical Ventilator Ventilator 03/06/17 03/06/17 03/06/17 09:00 10:00 11:00 Pulse 94 105 95 Resp 24 24 24 B/P 97/58 119/67 91/51 Pulse Ox 100 100 100 O2 Delivery Ventilator Ventilator Ventilator Intake and Output 03/05/17 03/05/17 03/06/17 15:00 23:00 07:00 Intake Total 850 ml 3554 ml 4527 ml Output Total 4125 ml 1100 ml 3350 ml Balance -3275 ml 2454 ml 1177 ml Nutrition Consultation Dietary Evaluation: Recommendations by RD: Increase Calorie Intake, PPN/TPN Comments: Rec. 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
[2017-03-06 13:08] LABS: CREATININE 1.6 mg/dL (0.7-1.3); GFR 59.8; MAGNESIUM 1.7 mg/dL (1.8-2.4); PHOSPHORUS 2.1 mg/dL (2.6-4.7); POTASSIUM 3.9 mmol/L (3.5-5.1)
[2017-03-06] MEDS ORDERED: MAGNESIUM SULFATE 4GM 100 ML IV ONE (19:00)
[2017-03-06] MEDS: VASOPRESSIN 40 UNIT in IV DEXTROSE 5% 100 ML IV PRN (19:44)
[2017-03-06] MEDS: POTASSIUM PHOSPHATE DIBASIC 10 MMOL in IV NORMAL SALINE 100ML 100 ML IV SCH ×2 (19:49→21:10)
[2017-03-07] VITALS (24 sets, daily range): BP systolic 86–166; BP diastolic 48–79
[2017-03-07] MEDS: IV DEXTROSE 5% 1,000 ML IV SCH ×5 (01:41→17:00)
[2017-03-07] MEDS: INSULIN REGULAR VIAL 150 UNIT in 0.9 % SODIUM CHLORIDE 150ML 150 ML IV PRN ×4 (01:43→20:37)
[2017-03-07] MEDS: PIPERACILLIN/TAZOBACTAM 3.375 GM in IV NORMAL SALINE 50ML 50 ML IV SCH ×4 (02:38→21:00)
[2017-03-07] MEDS: NOREPINEPHRINE VIAL 8 MG in IV DEXTROSE 5% 250 ML IV PRN ×3 (04:26→17:03)
[2017-03-07 06:16] LABS: BASO % 0 % (0-3); EOS % 5 % (0-3); HEMOGLOBIN 10.6 g/dL (13.0-17.5); LYMPH # 1.3 x10^3/uL (1.0-4.8); LYMPH % 17 % (24-48); MEAN CORPUSCULAR HEMOGLOBIN 25 pg (25-35); MEAN CORPUSCULAR HGB CONC 31 g/dL (31-37); MEAN CORPUSCULAR VOLUME 79 fL (79-100); MONO % 4 % (0-9); NEUT % 74 % (31-73); PLATELET COUNT 114 x10^3/uL (140-400); RED BLOOD COUNT 4.33 x10^6/uL (4.30-5.70); RED CELL DISTRIBUTION WIDTH 16.7 % (11.5-14.5); WHITE BLOOD COUNT 7.7 x10^3/uL (4.0-11.0)
[2017-03-07 06:24] LABS: INR 1.5 (0.8-1.1); PROTHROMBIN TIME PATIENT 16.9 SEC (11.7-14.0)
[2017-03-07 06:34] LABS: ALBUMIN 1.8 g/dL (3.4-5.0); ALBUMIN/GLOBULIN RATIO 0.4 (1.0-1.7); CALCIUM 6.8 mg/dL (8.5-10.1); CREATININE 1.4 mg/dL (0.7-1.3); GFR 69.8; POTASSIUM 3.5 mmol/L (3.5-5.1); TOTAL BILIRUBIN 0.4 mg/dL (0.2-1.0); TOTAL PROTEIN 6.4 g/dL (6.4-8.2)
--- NOTE | 2017-03-07 06:55 | PDOC ---
Infectious Disease Note Subjective Subjective Off sedation. Remains unresponsive ROS ROS Unobtainable Vital Sign Vital Signs Vital Signs Date Time Temp Pulse Resp B/P Pulse Ox O2 Delivery O2 Flow Rate FiO2 03/07/17 06:00 107 24 90/60 100 Ventilator 03/07/17 04:00 98.2 98.2 Physical Exam PHYSICAL EXAM GENERAL: intubated HEENT: Pupils dilated nonreactive. Left > right. ETT, OGT LUNGS: Less rhonchi HEART: S1S2 ABD: BS quiet, soft, Rectal tube : Lacey EXT: Generalized edema. 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 No gag reflex SKIN: Multiple wounds. RIJ. clean Labs Lab Laboratory Tests Test 03/06/17 07:53 03/06/17 08:00 03/06/17 09:03 03/06/17 10:12 Glucose (Fingerstick) 191mg/dL (70-99) 161mg/dL (70-99) 218mg/dL (70-99) O2 Saturation 94% (92-99) Arterial Blood pH 7.36 (7.35-7.45) Arterial Blood pCO2 at Patient Temp 32mmHg (35-46) Arterial Blood pO2 at Patient Temp 74mmHg (85-108) Arterial Blood HCO3 17mmol/L (21-28) Arterial Blood Base Excess -7mmol/L (-3-3) FiO2 40 Test 03/06/17 11:19 03/06/17 12:29 03/06/17 12:30 03/06/17 13:43 Glucose (Fingerstick) 213mg/dL (70-99) 187mg/dL (70-99) 177mg/dL (70-99) Sodium Level 165mmol/L (136-145) Potassium Level 3.9mmol/L (3.5-5.1) Chloride Level 128mmol/L (98-107) Carbon Dioxide Level 22mmol/L (21-32) Anion Gap 15 (6-14) Blood Urea Nitrogen 16mg/dL (8-26) Creatinine 1.6mg/dL (0.7-1.3) Estimated GFR (Cockcroft-Gault) 59.8 Glucose Level 201mg/dL (70-99) Calcium Level 7.0mg/dL (8.5-10.1) Phosphorus Level 2.1mg/dL (2.6-4.7) Magnesium Level 1.7mg/dL (1.8-2.4) Test 03/06/17 14:50 03/06/17 15:54 03/06/17 16:59 03/06/17 18:02 Glucose (Fingerstick) 156mg/dL (70-99) 169mg/dL (70-99) 166mg/dL (70-99) 154mg/dL (70-99) Test 03/06/17 18:58 03/06/17 20:04 03/06/17 21:08 03/06/17 22:12 Glucose (Fingerstick) 150mg/dL (70-99) 146mg/dL (70-99) 135mg/dL (70-99) 178mg/dL (70-99) Test 03/06/17 23:19 03/07/17 00:25 03/07/17 01:38 03/07/17 02:36 Glucose (Fingerstick) 192mg/dL (70-99) 151mg/dL (70-99) 151mg/dL (70-99) 158mg/dL (70-99) Test 03/07/17 03:41 03/07/17 04:50 03/07/17 06:00 Glucose (Fingerstick) 148mg/dL (70-99) 153mg/dL (70-99) Prothrombin Time 16.9SEC (11.7-14.0) Prothromb Time International Ratio 1.5 (0.8-1.1) Sodium Level 152mmol/L (136-145) Potassium Level 3.5mmol/L (3.5-5.1) Chloride Level 118mmol/L (98-107) Carbon Dioxide Level 19mmol/L (21-32) Anion Gap 15 (6-14) Blood Urea Nitrogen 14mg/dL (8-26) Creatinine 1.4mg/dL (0.7-1.3) Estimated GFR (Cockcroft-Gault) 69.8 BUN/Creatinine Ratio 10 (6-20) Glucose Level 165mg/dL (70-99) Calcium Level 6.8mg/dL (8.5-10.1) Phosphorus Level 2.3mg/dL (2.6-4.7) Magnesium Level 2.0mg/dL (1.8-2.4) Total Bilirubin 0.4mg/dL (0.2-1.0) Aspartate Amino Transf (AST/SGOT) 53U/L (15-37) Alanine Aminotransferase (ALT/SGPT) 69U/L (16-63) Alkaline Phosphatase 90U/L (46-116) Total Protein 6.4g/dL (6.4-8.2) Albumin 1.8g/dL (3.4-5.0) Albumin/Globulin Ratio 0.4 (1.0-1.7) Objective Assessment 02/22 + cults GPC 03/03 GNR in urine ? true vs contamination Hyperosmolar coma S/P Code blue pupils dilated - off sedation and not responsive Lactic acidosis Leukocytosis Fever DM Sacral decub Carlos heel wounds , left much worse polymicrobial Kleb/proteus/Group B Paraplegia JEFFERY MRSA nares positive Plan Plan of Care D/c Zyvox Dose Vanc Cont Zosyn off load BS control f/u am labs/cultures Await family decisions prognosis poor JAYME CORTES MD Mar 07, 2017 06:55
[2017-03-07] MEDS ORDERED: VANCOMYCIN 2 GM in IV NORMAL SALINE 500ML BAG 500 ML IV ONE (08:00)
[2017-03-07] MEDS: POTASSIUM CHLORIDE 20MEQ 50 ML IV SCH ×2 (08:44→11:02)
[2017-03-07] MEDS: POTASSIUM PHOSPHATE DIBASIC 10 MMOL in IV NORMAL SALINE 100ML 100 ML IV SCH ×2 (08:44→11:34)
[2017-03-07] MEDS: PANTOPRAZOLE IV PUSH 40 MG VIAL. IVP SCH (09:30)
[2017-03-07] MEDS: CHLORHEXIDINE 0.12% 15 ML MOUTHWASH. SWSP SCH ×2 (09:32→21:00)
[2017-03-07] MEDS: VASOPRESSIN 40 UNIT in IV DEXTROSE 5% 100 ML IV PRN (09:55)
[2017-03-07 09:56] LABS: HCO3 ABG 16 mmol/L (21-28); PCO2 ABG 32 mmHg (35-46); PH ABG 7.32 (7.35-7.45); PO2 ABG 83 mmHg (85-108); SAT O2 ABG 95 % (92-99)
--- NOTE | 2017-03-07 10:34 | PDOC ---
PROGRESS NOTES Subjective Subjective seen in ICU.on vent Objective Objective Vital Signs Date Time Temp Pulse Resp B/P Pulse Ox O2 Delivery O2 Flow Rate FiO2 03/07/17 09:00 86 24 136/70 100 Ventilator 03/07/17 08:00 98.1 98.1 Intake and Output 03/07/17 07:00 Intake Total 05361 ml Output Total 6145 ml Balance 4490 ml Intake IV Total 8335 ml Other 2300 ml Output Urine Total 5595 ml Stool Total 550 ml Physical Exam Abdomen: Normal bowel sounds, Soft, No tenderness, No hepatosplenomegaly, No masses Heart: Regular rate, Normal S1, Normal S2, No murmurs, Gallops General: Other (ON VENT) HEENT: Atraumatic, Other (ET TUBE) Lungs: Other (diminished breath sounds) COMMENT vanessa heal ulcer Diagnosis DIAGNOSIS pupils dilated and fixed Problem List Problems Medical Problems: (1) Acute respiratory failure Status: Acute (2) Acute respiratory failure Status: Acute (3) Cardiac arrest Status: Acute (4) Hyperglycemia Status: Acute DIABETES: Type I (DKA) RENAL FAILURE: Acute, Other (DEHYDRATION WITH HYPERNATREMIA) Assessment Assessment Problems Medical Problems: (1) Acute respiratory failure Status: Acute (2) Acute respiratory failure Status: Acute (3) Cardiac arrest Status: Acute (4) Hyperglycemia Status: Acute sepsis. bacteremia. wounds hypotension on pressors on vent, intubated. possible brain ? 1. Status post code blue, outside the hospital. 2. Fever and uncontrolled diabetes. DKA. Blood sugars 2000 range. 3. Metabolic acidosis.Lactic acidosis.Hyperosmolar coma. 4. 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 5. Resulting paraplegia. 6. Sacral ulcer.heal ulcer. 7. Self catheter for bladder retention PLAN: Neuro consult appreciated. test to determine if brain today. spoke with pts father, palliative service . DM - insulin drip,sugars 179-191.Insulin high dose 42 units/hour Hypernatremia - Na 154.continue D5W.Patient is also getting lot of free water. Hypokalemia- better. Acute renal failure- creat 1.6 Improving. Prognosis is extremely poor. Anoxic encephalopathy. On Zosyn,Zyvox.spoke with ID today. On high dose Levophed for hypotension. Condition, treatment and options discussed with pt's father at bedside.and other family members. Problems: Plan Plan of Care Problems Medical Problems: (1) Acute respiratory failure Status: Acute (2) Acute respiratory failure Status: Acute (3) Cardiac arrest Status: Acute (4) Hyperglycemia Status: Acute Comment Review of Relevant I have reviewed the following items reina (where applicable) has been applied. Labs Laboratory Tests Test 03/06/17 11:19 03/06/17 12:29 03/06/17 12:30 03/06/17 13:43 Glucose (Fingerstick) 213mg/dL (70-99) 187mg/dL (70-99) 177mg/dL (70-99) Sodium Level 165mmol/L (136-145) Potassium Level 3.9mmol/L (3.5-5.1) Chloride Level 128mmol/L (98-107) Carbon Dioxide Level 22mmol/L (21-32) Anion Gap 15 (6-14) Blood Urea Nitrogen 16mg/dL (8-26) Creatinine 1.6mg/dL (0.7-1.3) Estimated GFR (Cockcroft-Gault) 59.8 Glucose Level 201mg/dL (70-99) Calcium Level 7.0mg/dL (8.5-10.1) Phosphorus Level 2.1mg/dL (2.6-4.7) Magnesium Level 1.7mg/dL (1.8-2.4) Test 03/06/17 14:50 03/06/17 15:54 03/06/17 16:59 03/06/17 18:02 Glucose (Fingerstick) 156mg/dL (70-99) 169mg/dL (70-99) 166mg/dL (70-99) 154mg/dL (70-99) Test 03/06/17 18:58 03/06/17 20:04 03/06/17 21:08 03/06/17 22:12 Glucose (Fingerstick) 150mg/dL (70-99) 146mg/dL (70-99) 135mg/dL (70-99) 178mg/dL (70-99) Test 03/06/17 23:19 03/07/17 00:25 03/07/17 01:38 03/07/17 02:36 Glucose (Fingerstick) 192mg/dL (70-99) 151mg/dL (70-99) 151mg/dL (70-99) 158mg/dL (70-99) Test 03/07/17 03:41 03/07/17 04:50 03/07/17 06:00 03/07/17 07:13 Glucose (Fingerstick) 148mg/dL (70-99) 153mg/dL (70-99) 127mg/dL (70-99) White Blood Count 7.7x10^3/uL (4.0-11.0) Red Blood Count 4.33x10^6/uL (4.30-5.70) Hemoglobin 10.6g/dL (13.0-17.5) Hematocrit 34.0% (39.0-53.0) Mean Corpuscular Volume 79fL (79-100) Mean Corpuscular Hemoglobin 25pg (25-35) Mean Corpuscular Hemoglobin Concent 31g/dL (31-37) Red Cell Distribution Width 16.7% (11.5-14.5) Platelet Count 114x10^3/uL (140-400) Neutrophils (%) (Auto) 74% (31-73) Lymphocytes (%) (Auto) 17% (24-48) Monocytes (%) (Auto) 4% (0-9) Eosinophils (%) (Auto) 5% (0-3) Basophils (%) (Auto) 0% (0-3) Neutrophils # (Auto) 5.6x10^3uL (1.8-7.7) Lymphocytes # (Auto) 1.3x10^3/uL (1.0-4.8) Monocytes # (Auto) 0.3x10^3/uL (0.0-1.1) Eosinophils # (Auto) 0.4x10^3/uL (0.0-0.7) Basophils # (Auto) 0.0x10^3/uL (0.0-0.2) Prothrombin Time 16.9SEC (11.7-14.0) Prothromb Time International Ratio 1.5 (0.8-1.1) Sodium Level 152mmol/L (136-145) Potassium Level 3.5mmol/L (3.5-5.1) Chloride Level 118mmol/L (98-107) Carbon Dioxide Level 19mmol/L (21-32) Anion Gap 15 (6-14) Blood Urea Nitrogen 14mg/dL (8-26) Creatinine 1.4mg/dL (0.7-1.3) Estimated GFR (Cockcroft-Gault) 69.8 BUN/Creatinine Ratio 10 (6-20) Glucose Level 165mg/dL (70-99) Calcium Level 6.8mg/dL (8.5-10.1) Phosphorus Level 2.3mg/dL (2.6-4.7) Magnesium Level 2.0mg/dL (1.8-2.4) Total Bilirubin 0.4mg/dL (0.2-1.0) Aspartate Amino Transf (AST/SGOT) 53U/L (15-37) Alanine Aminotransferase (ALT/SGPT) 69U/L (16-63) Alkaline Phosphatase 90U/L (46-116) Total Protein 6.4g/dL (6.4-8.2) Albumin 1.8g/dL (3.4-5.0) Albumin/Globulin Ratio 0.4 (1.0-1.7) Test 03/07/17 08:53 03/07/17 10:06 Glucose (Fingerstick) 134mg/dL (70-99) 153mg/dL (70-99) Microbiology 03/04/17 Blood Culture - Preliminary, Resulted NO GROWTH AFTER 2 DAYS 03/03/17 Urine Culture - Final, Complete 03/03/17 Urine Culture Result 1 (ALLAN) - Final, Complete 03/04/17 Gram Stain - Final, Complete Medications Current Medications Magnesium Sulfate/ Dextrose (Magnesium Sulfate PREMIX 4GM) 100 ml @ 25 mls/hr 1X ONCE IV Last administered on 03/06/17 19:50; Start 03/06/17 at 19:00; Stop 03/06/17 at 22:59; Status DC Potassium Phosphate 10 mmol/ Sodium Chloride 103.3333 ml @ 51.667 m... Q2H IV Last administered on 03/06/17 21:10; Start 03/06/17 at 19:00; Stop 03/06/17 at 22:59; Status DC Potassium Phosphate 10 mmol/ Sodium Chloride 103.3333 ml @ 51.667 m... Q2H IV Last administered on 03/07/17 08:44; Start 03/07/17 at 08:00; Stop 03/07/17 at 11:59 Potassium Chloride (KCl Premix 20meq) 50 ml @ 50 mls/hr Q1H IV Last administered on 03/07/17 08:44; Start 03/07/17 at 08:00; Stop 03/07/17 at 09:59 ; Status DC Vancomycin HCl 1 each 1 each PRN DAILY PRN MC SEE COMMENTS; Start 03/07/17 at 07:00 Vancomycin HCl 2 gm/Sodium Chloride 500 ml @ 250 mls/hr 1X ONCE IV Last administered on 03/07/17 08:47; Start 03/07/17 at 08:00; Stop 03/07/17 at 09:59 ; Status DC Vitals/I & O Vital Sign - Last 24 Hours 03/06/17 03/06/17 03/06/17 03/06/17 11:00 11:40 11:51 11:53 Pulse 95 Resp 24 B/P 91/51 Pulse Ox 100 100 100 100 O2 Delivery Ventilator Ventilator Ventilator 03/06/17 03/06/17 03/06/17 03/06/17 12:00 12:00 13:00 13:30 Temp 97.5 97.5 Pulse 94 96 Resp 24 24 B/P 95/57 93/55 Pulse Ox 100 100 100 O2 Delivery Mechanical Ventilator Ventilator Ventilator Ventilator 03/06/17 03/06/17 03/06/17 03/06/17 14:00 15:00 15:47 16:00 Pulse 107 95 Resp 24 24 B/P 105/60 114/63 Pulse Ox 100 100 100 O2 Delivery Ventilator Ventilator Ventilator Mechanical Ventilator 03/06/17 03/06/17 03/06/17 03/06/17 16:00 17:00 17:55 18:00 Temp 97.8 97.8 Pulse 98 98 100 Resp 24 24 24 B/P 90/51 85/48 93/57 Pulse Ox 100 100 100 100 O2 Delivery Ventilator Ventilator Ventilator Ventilator 03/06/17 03/06/17 03/06/17 03/06/17 19:00 20:00 20:00 20:16 Temp 98.0 98.0 Pulse 100 100 Resp 24 24 B/P 160/77 93/55 Pulse Ox 100 100 100 O2 Delivery Ventilator Mechanical Ventilator Ventilator Ventilator 4/03/06/17 03/06/17 03/06/17 21:00 22:00 23:00 23:15 Pulse 100 99 102 Resp 24 24 24 B/P 70/45 111/55 102/62 Pulse Ox 100 100 100 100 O2 Delivery Ventilator Ventilator Ventilator Ventilator 03/06/17 03/07/17 03/07/17 03/07/17 23:59 00:00 01:00 02:00 Temp 98.5 98.5 Pulse 93 92 92 Resp 24 24 24 B/P 166/79 144/74 109/54 Pulse Ox 100 100 100 O2 Delivery Mechanical Ventilator Ventilator Ventilator Ventilator 03/07/17 03/07/17 03/07/17 03/07/17 02:19 03:00 04:00 04:00 Temp 98.2 98.2 Pulse 91 90 Resp 24 24 B/P 106/57 144/74 Pulse Ox 100 100 100 O2 Delivery Ventilator Ventilator Ventilator Mechanical Ventilator 03/07/17 03/07/17 03/07/17 03/07/17 04:29 05:00 06:00 07:00 Pulse 90 107 88 Resp 24 24 24 B/P 117/62 90/60 144/72 Pulse Ox 100 100 100 100 O2 Delivery Ventilator Ventilator Ventilator Ventilator 03/07/17 03/07/17 03/07/17 08:00 08:00 09:00 Temp 98.1 98.1 Pulse 86 86 Resp 24 24 B/P 132/67 136/70 Pulse Ox 100 100 O2 Delivery Mechanical Ventilator Ventilator Ventilator Intake and Output 03/06/17 03/06/17 03/07/17 15:00 23:00 07:00 Intake Total 1100 ml 4212 ml 5323 ml Output Total 2785 ml 2025 ml 1335 ml Balance -1685 ml 2187 ml 3988 ml Nutrition Consultation Dietary Evaluation: Recommendations by RD: Increase Calorie Intake, PPN/TPN Comments: Rec. 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
--- NOTE | 2017-03-07 10:55 | PDOC ---
PROGRESS NOTES Assessment Problems Medical Problems: (1) Acute respiratory failure Status: Acute (2) Acute respiratory failure Status: Acute (3) Cardiac arrest Status: Acute (4) Hyperglycemia Status: Acute Brain suspected. Plan EEG Apnea test Subjective none Objective Vital Signs Date Time Temp Pulse Resp B/P Pulse Ox O2 Delivery O2 Flow Rate FiO2 03/07/17 10:00 99 24 143/74 100 Ventilator 03/07/17 08:00 98.1 98.1 Intake and Output 03/07/17 07:00 Intake Total 34568 ml Output Total 6145 ml Balance 4490 ml Intake IV Total 8335 ml Other 2300 ml Output Urine Total 5595 ml Stool Total 550 ml PHYSICAL EXAM NeurologyBrain note Prerequisites (all must be checked) Coma, irreversible and cause known. Neuroimaging explains coma. [employer] depressant drug effect absent (if indicated toxicology screen; if barbiturates given, serum level <10 g/mL). No evidence of residual paralytics (electrical stimulation if paralytics used). Absence of severe acid-base, electrolyte, endocrine abnormality. Normothermia or mild hypothermia (core temperature >36C). Systolic blood pressure 100 mm Hg. No spontaneous respirations. Examination (all must be checked) Pupils nonreactive to bright light. Corneal reflex absent. Oculocephalic reflex absent (tested only if C-spine integrity ensured). Oculovestibular reflex absent. No facial movement to noxious stimuli at supraorbital nerve, temporomandibular joint. Gag reflex absent. Cough reflex absent to tracheal suctioning. Absence of motor response to noxious stimuli in all four limbs (spinally mediated reflexes are permissible). Review of Relevant I have reviewed the following items reina (where applicable) has been applied. Labs Laboratory Tests Test 03/05/17 11:04 03/05/17 11:15 03/05/17 12:08 03/05/17 13:08 Glucose (Fingerstick) 152mg/dL (70-99) 199mg/dL (70-99) 193mg/dL (70-99) White Blood Count 13.5x10^3/uL (4.0-11.0) Red Blood Count 5.05x10^6/uL (4.30-5.70) Hemoglobin 12.3g/dL (13.0-17.5) Hematocrit 39.1% (39.0-53.0) Mean Corpuscular Volume 77fL (79-100) Mean Corpuscular Hemoglobin 24pg (25-35) Mean Corpuscular Hemoglobin Concent 32g/dL (31-37) Red Cell Distribution Width 16.5% (11.5-14.5) Platelet Count 196x10^3/uL (140-400) Sodium Level 168mmol/L (136-145) Potassium Level 3.5mmol/L (3.5-5.1) Chloride Level 131mmol/L (98-107) Carbon Dioxide Level 22mmol/L (21-32) Anion Gap 15 (6-14) Blood Urea Nitrogen 21mg/dL (8-26) Creatinine 1.8mg/dL (0.7-1.3) Estimated GFR (Cockcroft-Gault) 52.2 Glucose Level 166mg/dL (70-99) Serum Osmolality 344mOsm/Kg (279-304) Calcium Level 7.1mg/dL (8.5-10.1) Phosphorus Level 2.6mg/dL (2.6-4.7) Magnesium Level 2.0mg/dL (1.8-2.4) Test 03/05/17 14:10 03/05/17 15:11 03/05/17 16:18 03/05/17 17:30 Glucose (Fingerstick) 182mg/dL (70-99) 187mg/dL (70-99) 166mg/dL (70-99) Sodium Level 165mmol/L (136-145) Potassium Level 3.8mmol/L (3.5-5.1) Chloride Level 128mmol/L (98-107) Carbon Dioxide Level 23mmol/L (21-32) Anion Gap 14 (6-14) Blood Urea Nitrogen 20mg/dL (8-26) Creatinine 1.8mg/dL (0.7-1.3) Estimated GFR (Cockcroft-Gault) 52.2 Glucose Level 181mg/dL (70-99) Serum Osmolality 336mOsm/Kg (279-304) Calcium Level 6.8mg/dL (8.5-10.1) Phosphorus Level 2.6mg/dL (2.6-4.7) Magnesium Level 1.9mg/dL (1.8-2.4) Test 03/05/17 17:33 03/05/17 18:40 03/05/17 19:50 03/05/17 20:56 Glucose (Fingerstick) 176mg/dL (70-99) 181mg/dL (70-99) 173mg/dL (70-99) 179mg/dL (70-99) Test 03/05/17 21:30 03/05/17 21:59 03/05/17 23:04 03/06/17 00:20 Sodium Level 163mmol/L (136-145) Potassium Level 3.4mmol/L (3.5-5.1) Chloride Level 127mmol/L (98-107) Carbon Dioxide Level 23mmol/L (21-32) Anion Gap 13 (6-14) Blood Urea Nitrogen 19mg/dL (8-26) Creatinine 1.7mg/dL (0.7-1.3) Estimated GFR (Cockcroft-Gault) 55.8 Glucose Level 177mg/dL (70-99) Calcium Level 7.0mg/dL (8.5-10.1) Phosphorus Level 2.5mg/dL (2.6-4.7) Magnesium Level 1.7mg/dL (1.8-2.4) Glucose (Fingerstick) 172mg/dL (70-99) 192mg/dL (70-99) 214mg/dL (70-99) Test 03/06/17 01:23 03/06/17 01:30 03/06/17 02:30 03/06/17 03:34 Glucose (Fingerstick) 218mg/dL (70-99) 203mg/dL (70-99) 179mg/dL (70-99) Sodium Level 161mmol/L (136-145) Potassium Level 3.8mmol/L (3.5-5.1) Chloride Level 127mmol/L (98-107) Carbon Dioxide Level 23mmol/L (21-32) Anion Gap 11 (6-14) Blood Urea Nitrogen 18mg/dL (8-26) Creatinine 1.8mg/dL (0.7-1.3) Estimated GFR (Cockcroft-Gault) 52.2 Glucose Level 211mg/dL (70-99) Calcium Level 7.0mg/dL (8.5-10.1) Phosphorus Level 2.5mg/dL (2.6-4.7) Magnesium Level 1.9mg/dL (1.8-2.4) Test 03/06/17 04:38 03/06/17 05:30 03/06/17 06:30 03/06/17 07:53 Glucose (Fingerstick) 176mg/dL (70-99) 179mg/dL (70-99) 191mg/dL (70-99) 191mg/dL (70-99) White Blood Count 10.7x10^3/uL (4.0-11.0) Red Blood Count 4.92x10^6/uL (4.30-5.70) Hemoglobin 12.1g/dL (13.0-17.5) Hematocrit 39.0% (39.0-53.0) Mean Corpuscular Volume 79fL (79-100) Mean Corpuscular Hemoglobin 25pg (25-35) Mean Corpuscular Hemoglobin Concent 31g/dL (31-37) Red Cell Distribution Width 16.4% (11.5-14.5) Platelet Count 160x10^3/uL (140-400) Neutrophils (%) (Auto) 68% (31-73) Lymphocytes (%) (Auto) 23% (24-48) Monocytes (%) (Auto) 4% (0-9) Eosinophils (%) (Auto) 5% (0-3) Basophils (%) (Auto) 0% (0-3) Neutrophils # (Auto) 7.3x10^3uL (1.8-7.7) Lymphocytes # (Auto) 2.5x10^3/uL (1.0-4.8) Monocytes # (Auto) 0.4x10^3/uL (0.0-1.1) Eosinophils # (Auto) 0.6x10^3/uL (0.0-0.7) Basophils # (Auto) 0.0x10^3/uL (0.0-0.2) Sodium Level 164mmol/L (136-145) Potassium Level 4.4mmol/L (3.5-5.1) Chloride Level 129mmol/L (98-107) Carbon Dioxide Level 19mmol/L (21-32) Anion Gap 16 (6-14) Blood Urea Nitrogen 17mg/dL (8-26) Creatinine 1.6mg/dL (0.7-1.3) Estimated GFR (Cockcroft-Gault) 59.8 BUN/Creatinine Ratio 11 (6-20) Glucose Level 200mg/dL (70-99) Calcium Level 7.3mg/dL (8.5-10.1) Total Bilirubin 0.5mg/dL (0.2-1.0) Aspartate Amino Transf (AST/SGOT) 54U/L (15-37) Alanine Aminotransferase (ALT/SGPT) 96U/L (16-63) Alkaline Phosphatase 91U/L (46-116) Total Protein 7.1g/dL (6.4-8.2) Albumin 2.0g/dL (3.4-5.0) Albumin/Globulin Ratio 0.4 (1.0-1.7) Test 03/06/17 08:00 03/06/17 09:03 03/06/17 10:12 03/06/17 11:19 O2 Saturation 94% (92-99) Arterial Blood pH 7.36 (7.35-7.45) Arterial Blood pCO2 at Patient Temp 32mmHg (35-46) Arterial Blood pO2 at Patient Temp 74mmHg (85-108) Arterial Blood HCO3 17mmol/L (21-28) Arterial Blood Base Excess -7mmol/L (-3-3) FiO2 40 Glucose (Fingerstick) 161mg/dL (70-99) 218mg/dL (70-99) 213mg/dL (70-99) Test 03/06/17 12:29 03/06/17 12:30 03/06/17 13:43 03/06/17 14:50 Glucose (Fingerstick) 187mg/dL (70-99) 177mg/dL (70-99) 156mg/dL (70-99) Sodium Level 165mmol/L (136-145) Potassium Level 3.9mmol/L (3.5-5.1) Chloride Level 128mmol/L (98-107) Carbon Dioxide Level 22mmol/L (21-32) Anion Gap 15 (6-14) Blood Urea Nitrogen 16mg/dL (8-26) Creatinine 1.6mg/dL (0.7-1.3) Estimated GFR (Cockcroft-Gault) 59.8 Glucose Level 201mg/dL (70-99) Calcium Level 7.0mg/dL (8.5-10.1) Phosphorus Level 2.1mg/dL (2.6-4.7) Magnesium Level 1.7mg/dL (1.8-2.4) Test 03/06/17 15:54 03/06/17 16:59 03/06/17 18:02 03/06/17 18:58 Glucose (Fingerstick) 169mg/dL (70-99) 166mg/dL (70-99) 154mg/dL (70-99) 150mg/dL (70-99) Test 03/06/17 20:04 03/06/17 21:08 03/06/17 22:12 03/06/17 23:19 Glucose (Fingerstick) 146mg/dL (70-99) 135mg/dL (70-99) 178mg/dL (70-99) 192mg/dL (70-99) Test 03/07/17 00:25 03/07/17 01:38 03/07/17 02:36 03/07/17 03:41 Glucose (Fingerstick) 151mg/dL (70-99) 151mg/dL (70-99) 158mg/dL (70-99) 148mg/dL (70-99) Test 03/07/17 04:50 03/07/17 06:00 03/07/17 07:13 03/07/17 08:53 Glucose (Fingerstick) 153mg/dL (70-99) 127mg/dL (70-99) 134mg/dL (70-99) White Blood Count 7.7x10^3/uL (4.0-11.0) Red Blood Count 4.33x10^6/uL (4.30-5.70) Hemoglobin 10.6g/dL (13.0-17.5) Hematocrit 34.0% (39.0-53.0) Mean Corpuscular Volume 79fL (79-100) Mean Corpuscular Hemoglobin 25pg (25-35) Mean Corpuscular Hemoglobin Concent 31g/dL (31-37) Red Cell Distribution Width 16.7% (11.5-14.5) Platelet Count 114x10^3/uL (140-400) Neutrophils (%) (Auto) 74% (31-73) Lymphocytes (%) (Auto) 17% (24-48) Monocytes (%) (Auto) 4% (0-9) Eosinophils (%) (Auto) 5% (0-3) Basophils (%) (Auto) 0% (0-3) Neutrophils # (Auto) 5.6x10^3uL (1.8-7.7) Lymphocytes # (Auto) 1.3x10^3/uL (1.0-4.8) Monocytes # (Auto) 0.3x10^3/uL (0.0-1.1) Eosinophils # (Auto) 0.4x10^3/uL (0.0-0.7) Basophils # (Auto) 0.0x10^3/uL (0.0-0.2) Prothrombin Time 16.9SEC (11.7-14.0) Prothromb Time International Ratio 1.5 (0.8-1.1) Sodium Level 152mmol/L (136-145) Potassium Level 3.5mmol/L (3.5-5.1) Chloride Level 118mmol/L (98-107) Carbon Dioxide Level 19mmol/L (21-32) Anion Gap 15 (6-14) Blood Urea Nitrogen 14mg/dL (8-26) Creatinine 1.4mg/dL (0.7-1.3) Estimated GFR (Cockcroft-Gault) 69.8 BUN/Creatinine Ratio 10 (6-20) Glucose Level 165mg/dL (70-99) Calcium Level 6.8mg/dL (8.5-10.1) Phosphorus Level 2.3mg/dL (2.6-4.7) Magnesium Level 2.0mg/dL (1.8-2.4) Total Bilirubin 0.4mg/dL (0.2-1.0) Aspartate Amino Transf (AST/SGOT) 53U/L (15-37) Alanine Aminotransferase (ALT/SGPT) 69U/L (16-63) Alkaline Phosphatase 90U/L (46-116) Total Protein 6.4g/dL (6.4-8.2) Albumin 1.8g/dL (3.4-5.0) Albumin/Globulin Ratio 0.4 (1.0-1.7) Test 03/07/17 10:06 Glucose (Fingerstick) 153mg/dL (70-99) Laboratory Tests Test 03/06/17 11:19 03/06/17 12:29 03/06/17 12:30 03/06/17 13:43 Glucose (Fingerstick) 213mg/dL (70-99) 187mg/dL (70-99) 177mg/dL (70-99) Sodium Level 165mmol/L (136-145) Potassium Level 3.9mmol/L (3.5-5.1) Chloride Level 128mmol/L (98-107) Carbon Dioxide Level 22mmol/L (21-32) Anion Gap 15 (6-14) Blood Urea Nitrogen 16mg/dL (8-26) Creatinine 1.6mg/dL (0.7-1.3) Estimated GFR (Cockcroft-Gault) 59.8 Glucose Level 201mg/dL (70-99) Calcium Level 7.0mg/dL (8.5-10.1) Phosphorus Level 2.1mg/dL (2.6-4.7) Magnesium Level 1.7mg/dL (1.8-2.4) Test 03/06/17 14:50 03/06/17 15:54 03/06/17 16:59 03/06/17 18:02 Glucose (Fingerstick) 156mg/dL (70-99) 169mg/dL (70-99) 166mg/dL (70-99) 154mg/dL (70-99) Test 03/06/17 18:58 03/06/17 20:04 03/06/17 21:08 03/06/17 22:12 Glucose (Fingerstick) 150mg/dL (70-99) 146mg/dL (70-99) 135mg/dL (70-99) 178mg/dL (70-99) Test 03/06/17 23:19 03/07/17 00:25 03/07/17 01:38 03/07/17 02:36 Glucose (Fingerstick) 192mg/dL (70-99) 151mg/dL (70-99) 151mg/dL (70-99) 158mg/dL (70-99) Test 03/07/17 03:41 03/07/17 04:50 03/07/17 06:00 03/07/17 07:13 Glucose (Fingerstick) 148mg/dL (70-99) 153mg/dL (70-99) 127mg/dL (70-99) White Blood Count 7.7x10^3/uL (4.0-11.0) Red Blood Count 4.33x10^6/uL (4.30-5.70) Hemoglobin 10.6g/dL (13.0-17.5) Hematocrit 34.0% (39.0-53.0) Mean Corpuscular Volume 79fL (79-100) Mean Corpuscular Hemoglobin 25pg (25-35) Mean Corpuscular Hemoglobin Concent 31g/dL (31-37) Red Cell Distribution Width 16.7% (11.5-14.5) Platelet Count 114x10^3/uL (140-400) Neutrophils (%) (Auto) 74% (31-73) Lymphocytes (%) (Auto) 17% (24-48) Monocytes (%) (Auto) 4% (0-9) Eosinophils (%) (Auto) 5% (0-3) Basophils (%) (Auto) 0% (0-3) Neutrophils # (Auto) 5.6x10^3uL (1.8-7.7) Lymphocytes # (Auto) 1.3x10^3/uL (1.0-4.8) Monocytes # (Auto) 0.3x10^3/uL (0.0-1.1) Eosinophils # (Auto) 0.4x10^3/uL (0.0-0.7) Basophils # (Auto) 0.0x10^3/uL (0.0-0.2) Prothrombin Time 16.9SEC (11.7-14.0) Prothromb Time International Ratio 1.5 (0.8-1.1) Sodium Level 152mmol/L (136-145) Potassium Level 3.5mmol/L (3.5-5.1) Chloride Level 118mmol/L (98-107) Carbon Dioxide Level 19mmol/L (21-32) Anion Gap 15 (6-14) Blood Urea Nitrogen 14mg/dL (8-26) Creatinine 1.4mg/dL (0.7-1.3) Estimated GFR (Cockcroft-Gault) 69.8 BUN/Creatinine Ratio 10 (6-20) Glucose Level 165mg/dL (70-99) Calcium Level 6.8mg/dL (8.5-10.1) Phosphorus Level 2.3mg/dL (2.6-4.7) Magnesium Level 2.0mg/dL (1.8-2.4) Total Bilirubin 0.4mg/dL (0.2-1.0) Aspartate Amino Transf (AST/SGOT) 53U/L (15-37) Alanine Aminotransferase (ALT/SGPT) 69U/L (16-63) Alkaline Phosphatase 90U/L (46-116) Total Protein 6.4g/dL (6.4-8.2) Albumin 1.8g/dL (3.4-5.0) Albumin/Globulin Ratio 0.4 (1.0-1.7) Test 03/07/17 08:53 03/07/17 10:06 Glucose (Fingerstick) 134mg/dL (70-99) 153mg/dL (70-99) Microbiology 03/04/17 Blood Culture - Preliminary, Resulted NO GROWTH AFTER 2 DAYS 03/03/17 Urine Culture - Final, Complete 03/03/17 Urine Culture Result 1 (ALLAN) - Final, Complete 03/04/17 Gram Stain - Final, Complete Medications Current Medications Midazolam HCl 100 ml @ 0 mls/hr 1X ONCE IV Last administered on 03/03/17 14: 42; Start 03/03/17 at 13:45; Stop 03/03/17 at 13:46; Status DC Sodium Bicarbonate/ Sodium Chloride (Iv Sodium Chloride 0.45%) 1,150 ml @ 125 mls/hr 1X ONCE IV Last administered on 03/03/17 18:40; Start 03/03/17 at 13: 45; Stop 03/03/17 at 22:56; Status DC Etomidate (Amidate) 20 mg STK-MED ONCE IV ; Start 03/03/17 at 13:35; Stop at 13:36; Status DC Insulin Human Regular 10 unit 10 unit 1X ONCE IV Last administered on 14:37; Start 03/03/17 at 14:45; Stop 03/03/17 at 14:46; Status DC Insulin Human Regular 150 unit/ Sodium Chloride 151.5 ml @ 0 mls/hr CONT PRN IV SEE I/O RECORD; Start 03/03/17 at 14:00; Stop 03/03/17 at 17:20; Status DC Insulin Human Regular 150 ml @ As Directed STK-MED ONCE IV ; Start 03/03/17 at 14:05; Stop 03/03/17 at 14:06; Status DC Potassium Chloride 100 ml @ 100 mls/hr Q1H IV ; Start 03/03/17 at 17:00; Stop 03/03/17 at 17:43; Status DC Sodium Chloride 1,000 ml @ 1,000 mls/hr Q1H IV ; Start 03/03/17 at 16:49; Stop 03/03/17 at 17:48; Status DC Insulin Human Regular 150 unit/ Sodium Chloride 151.5 ml @ 0 mls/hr CONT PRN PRN IV PER PROTOCOL; Start 03/03/17 at 17:00; Stop 03/03/17 at 17:20; Status DC Potassium Chloride 100 ml @ 100 mls/hr PRN Q1HR PRN IV SEE COMMENTS Last administered on 03/04/17 01:35; Start 03/03/17 at 17:00 Potassium Chloride 100 ml @ 100 mls/hr PRN Q1HR PRN IV SEE COMMENTS Last administered on 03/05/17 05:42; Start 03/03/17 at 17:00 Potassium Chloride 100 ml @ 100 mls/hr PRN Q1HR PRN IV SEE COMMENTS; Start at 17:00 Insulin Human Regular 150 unit/ Sodium Chloride 151.5 ml @ 0 mls/hr CONT PRN PRN IV PER PROTOCOL Last administered on 03/07/17 05:56; Start 03/03/17 at 17: 00 Potassium Chloride 100 ml @ 100 mls/hr PRN Q1HR PRN IV SEE COMMENTS; Start at 17:00; Stop 03/03/17 at 20:11; Status DC Potassium Chloride 100 ml @ 100 mls/hr PRN Q1HR PRN IV SEE COMMENTS; Start at 17:00; Stop 03/03/17 at 20:11; Status DC Potassium Chloride 100 ml @ 100 mls/hr PRN Q1HR PRN IV SEE COMMENTS; Start at 17:00; Stop 03/03/17 at 20:12; Status DC Vancomycin HCl/ Sodium Chloride (Iv Sodium Chloride 0.9% 500ml Bag) 500 ml @ 250 mls/hr 1X ONCE IV Last administered on 03/03/17 18:33; Start 03/03/17 at 18:00; Stop 03/03/17 at 19:59; Status DC Vancomycin HCl 1 each 1 each PRN DAILY PRN MC SEE COMMENTS Last administered on 03/03/17 20:02; Start 03/03/17 at 17:00; Stop 03/04/17 at 08:51; Status DC Ertapenem/Sodium Chloride (Invanz/Iv Sodium Chloride 0.9% 50ml) 50 ml @ 100 mls /hr Q24H IV ; Start 03/03/17 at 17:30; Stop 03/04/17 at 08:51; Status DC Midazolam HCl 5 mg 5 mg STK-MED ONCE .ROUTE ; Start 03/03/17 at 17:40; Stop at 17:41; Status DC Potassium Chloride 50 ml @ 50 mls/hr Q1H IV Last administered on 03/03/17 23: 52; Start 03/03/17 at 18:00; Stop 03/03/17 at 21:59; Status DC Midazolam HCl 100 ml @ 0 mls/hr CONT PRN IV SEE I/O RECORD Last administered on 03/04/17 01:20; Start 03/03/17 at 18:15 Norepinephrine Bitartrate/Sodium Chloride (Levophed Vial/ Iv Sodium Chloride 0.9 % 250ml) 258 ml @ 0 mls/hr CONT PRN IV SEE I/O RECORD Last administered on 03/05 00:13; Start 03/03/17 at 19:15; Stop 03/05/17 at 05:52; Status DC Vancomycin HCl 1 each 1 each 1X ONCE MC ; Start 03/05/17 at 17:30; Stop at 17:30; Status DC Vancomycin HCl/ Sodium Chloride (Iv Sodium Chloride 0.9% 500ml Bag) 500 ml @ 250 mls/hr Q24H IV ; Start 03/04/17 at 18:00; Stop 03/04/17 at 18:00; Status DC Enoxaparin Sodium 40 mg 40 mg Q24H SQ ; Start 03/03/17 at 21:00; Status Cancel Potassium Phosphate 40 mmol/ Sodium Chloride 263.3333 ml @ 62.5 mls/hr 1X ONCE IV Last administered on 03/03/17 23:51; Start 03/03/17 at 23:30; Stop at 03:42; Status DC Potassium Chloride (KCl Premix 20meq) 50 ml @ 50 mls/hr PRN Q1HR PRN IV K LESS THAN 3 Last administered on 03/06/17 04:35; Start 03/03/17 at 22:45 Acetaminophen (Tylenol) 325 mg PRN Q6HRS PRN ND MILD PAIN / TEMP Last administered on 03/03/17 23:50; Start 03/03/17 at 23:15 Enoxaparin Sodium (Lovenox Per Pharmacy Treatment Dosing) 1 each PRN DAILY PRN MC SEE COMMENTS; Start 03/04/17 at 01:00 Enoxaparin Sodium (Lovenox 120mg Syringe) 120 mg Q12HR SQ Last administered on 03/04/17 10:17; Start 03/04/17 at 01:00; Stop 03/04/17 at 13:29; Status DC Info 1 each 1 each PRN DAILY PRN MC SEE COMMENTS Last administered on 07:42; Start 03/04/17 at 01:00 Sodium Chloride 1,000 ml @ 250 mls/hr Q4H IV Last administered on 03/04/17 10 :24; Start 03/04/17 at 01:00; Stop 03/05/17 at 09:48; Status DC Piperacillin Sod/ Tazobactam Sod 3.375 gm/Sodium Chloride 50 ml @ 100 mls/hr Q6H IV Last administered on 03/07/17 09:29; Start 03/04/17 at 09:00 Linezolid 300 ml @ 300 mls/hr Q12HR IV Last administered on 03/06/17 21:11; Start 03/04/17 at 09:00; Stop 03/07/17 at 06:55; Status DC Potassium Chloride 50 ml @ 50 mls/hr Q1H IV Last administered on 03/04/17 12: 33; Start 03/04/17 at 11:30; Stop 03/04/17 at 13:29; Status DC Sodium Phosphate/ Dextrose 256.6667 ml @ 64.167 m... 1X ONCE IV Last administered on 03/04/17 12:23; Start 03/04/17 at 11:30; Stop 03/04/17 at 15:29 ; Status DC Sodium Bicarbonate 50 meq STK-MED ONCE .ROUTE ; Start 03/03/17 at 12:00; Stop at 11:39; Status DC Enoxaparin Sodium 120 mg 120 mg DAILY SQ ; Start 03/05/17 at 09:00; Stop at 09:00; Status DC Norepinephrine Bitartrate 8 mg/ Sodium Chloride 258 ml @ 1.93 mls/hr ONCE ONCE IV Last administered on 03/04/17 19:21; Start 03/04/17 at 14:45; Stop at 17:25; Status DC Vasopressin 40 unit/Dextrose 102 ml @ 6 mls/hr CONT PRN IV SEE I/O RECORD; Start 03/04/17 at 15:15; Stop 03/04/17 at 15:15; Status DC Vasopressin 40 unit/Dextrose 102 ml @ 6 mls/hr ONCE ONCE IV ; Start 03/04/17 at 15:15; Stop 03/05/17 at 08:14; Status DC Vasopressin/ Dextrose (Vasostrict) 102 ml @ 6 mls/hr CONT PRN IV SEE I/O RECORD Last administered on 03/07/17 09:55; Start 03/04/17 at 15:15 Enoxaparin Sodium 120 mg 120 mg BID SQ Last administered on 03/07/17 09:33; Start 03/04/17 at 21:00 Potassium Chloride 50 ml @ 50 mls/hr Q1HR IV Last administered on 03/04/17 23: 31; Start 03/04/17 at 21:00; Stop 03/04/17 at 23:59; Status DC Dextrose/Sodium Chloride 1,000 ml @ 250 mls/hr Q4H IV Last administered on 01:19; Start 03/04/17 at 21:00; Stop 03/05/17 at 01:32; Status DC Dextrose 1,000 ml @ 250 mls/hr Q4H IV Last administered on 03/07/17 09:33; Start 03/05/17 at 01:30 Norepinephrine Bitartrate/ Dextrose (Levophed Vial) 258 ml @ 0 mls/hr CONT PRN IV HYPOTENSION Last administered on 03/07/17 04:26; Start 03/05/17 at 06:00 Pantoprazole Sodium (Protonix Vial) 40 mg DAILYAC IVP Last administered on 03/07 09:30; Start 03/05/17 at 11:00 Chlorhexidine Gluconate 15 ml 15 ml BID SWSP Last administered on 03/07/17 09: 32; Start 03/05/17 at 11:00 Potassium Chloride (KCl Premix 20meq) 50 ml @ 50 mls/hr Q1H IV Last administered on 03/05/17 16:17; Start 03/05/17 at 13:30; Stop 03/05/17 at 15:29 ; Status DC Amiodarone HCl (Cordarone) 150 mg STK-MED ONCE .ROUTE ; Start 03/04/17 at 10:00 ; Stop 03/06/17 at 16:42; Status DC Epinephrine HCl (Adrenalin) 3 mg STK-MED ONCE .ROUTE ; Start 03/04/17 at 10:00; Stop 03/06/17 at 16:42; Status DC Sodium Bicarbonate 50 meq STK-MED ONCE .ROUTE ; Start 03/04/17 at 10:00; Stop at 16:42; Status DC Dopamine HCl/ Dextrose 400 mg STK-MED ONCE IV ; Start 03/04/17 at 10:00; Stop at 16:42; Status DC Magnesium Sulfate/ Dextrose 2 gm 2 gm STK-MED ONCE IV ; Start 03/04/17 at 10:00 ; Stop 03/06/17 at 16:42; Status DC Potassium Phosphate 10 mmol/ Sodium Chloride 103.3333 ml @ 51.667 m... Q2H IV Last administered on 03/06/17 21:10; Start 03/06/17 at 19:00; Stop 03/06/17 at 22:59; Status DC Magnesium Sulfate/ Dextrose (Magnesium Sulfate PREMIX 4GM) 100 ml @ 25 mls/hr 1X ONCE IV Last administered on 03/06/17 19:50; Start 03/06/17 at 19:00; Stop 03/06/17 at 22:59; Status DC Vancomycin HCl 1 each 1 each PRN DAILY PRN MC SEE COMMENTS; Start 03/07/17 at 07:00 Vancomycin HCl 2 gm/Sodium Chloride 500 ml @ 250 mls/hr 1X ONCE IV Last administered on 03/07/17 08:47; Start 03/07/17 at 08:00; Stop 03/07/17 at 09:59 ; Status DC Potassium Phosphate 10 mmol/ Sodium Chloride 103.3333 ml @ 51.667 m... Q2H IV Last administered on 03/07/17 08:44; Start 03/07/17 at 08:00; Stop 03/07/17 at 11:59 Potassium Chloride (KCl Premix 20meq) 50 ml @ 50 mls/hr Q1H IV Last administered on 03/07/17 08:44; Start 03/07/17 at 08:00; Stop 03/07/17 at 09:59 ; Status DC Active Scripts Active Feosol (Ferrous Sulfate) 325 Mg Tablet 325 Mg PO BIDWMEALS 30 Days Vitamin B-12 (Cyanocobalamin (Vitamin B-12)) 1,000 Mcg Tablet 1,000 Mcg PO DAILY 30 Days Amox Tr-K Clv 875-125 Mg Tab (Amoxicillin/Potassium Clav) 1 Each Tablet 1 Tab PO BID 5 Days Reported Percocet 5-325 Mg Tablet (Oxycodone/Acetaminophen) 1 Each Tablet 1 Tab PO PRN Q6HRS PRN Metformin Hcl 850 Mg Tablet 1 Tab PO BID Furosemide 40 Mg Tablet 1 Tab PO DAILY Gabapentin 100 Mg Capsule 100 Mg PO QHS Pantoprazole Sodium 40 Mg Tablet.dr 1 Tab PO DAILY Coumadin (Warfarin Sodium) 10 Mg Tablet 1 Tab PO QHS Take on Mondays, Tuesdays, and Wednesdays Oxybutynin Chloride 5 Mg Tablet 1 Tab PO BID Coumadin (Warfarin Sodium) 7.5 Mg Tablet 1 Tab PO QHS To be taken on , Fridays, Saturdays, and Sundays Vitals/I & O Vital Sign - Last 24 Hours 03/06/17 03/06/17 03/06/17 03/06/17 11:00 11:40 11:51 11:53 Pulse 95 Resp 24 B/P 91/51 Pulse Ox 100 100 100 100 O2 Delivery Ventilator Ventilator Ventilator 03/06/17 03/06/17 03/06/17 03/06/17 12:00 12:00 13:00 13:30 Temp 97.5 97.5 Pulse 94 96 Resp 24 24 B/P 95/57 93/55 Pulse Ox 100 100 100 O2 Delivery Mechanical Ventilator Ventilator Ventilator Ventilator 03/06/17 03/06/17 03/06/17 03/06/17 14:00 15:00 15:47 16:00 Pulse 107 95 Resp 24 24 B/P 105/60 114/63 Pulse Ox 100 100 100 O2 Delivery Ventilator Ventilator Ventilator Mechanical Ventilator 03/06/17 03/06/17 03/06/17 03/06/17 16:00 17:00 17:55 18:00 Temp 97.8 97.8 Pulse 98 98 100 Resp 24 24 B/P 90/51 85/48 93/57 Pulse Ox 100 100 100 100 O2 Delivery Ventilator Ventilator Ventilator Ventilator 03/06/17 03/06/17 03/06/17 03/06/17 19:00 20:00 20:00 20:16 Temp 98.0 98.0 Pulse 100 100 Resp 24 24 B/P 160/77 93/55 Pulse Ox 100 100 100 O2 Delivery Ventilator Mechanical Ventilator Ventilator Ventilator 03/06/17 03/06/17 03/06/17 03/06/17 21:00 22:00 23:00 23:15 Pulse 100 99 102 Resp 24 24 24 B/P 70/45 111/55 102/62 Pulse Ox 100 100 100 100 O2 Delivery Ventilator Ventilator Ventilator Ventilator 03/06/17 03/07/17 03/07/17 03/07/17 23:59 00:00 01:00 02:00 Temp 98.5 98.5 Pulse 93 92 92 Resp 24 24 24 B/P 166/79 144/74 109/54 Pulse Ox 100 100 100 O2 Delivery Mechanical Ventilator Ventilator Ventilator Ventilator 03/07/17 03/07/17 03/07/17 03/07/17 02:19 03:00 04:00 04:00 Temp 98.2 98.2 Pulse 91 90 Resp 24 24 B/P 106/57 144/74 Pulse Ox 100 100 100 O2 Delivery Ventilator Ventilator Ventilator Mechanical Ventilator 03/07/17 03/07/17 03/07/17 03/07/17 04:29 05:00 06:00 07:00 Pulse 90 107 88 Resp 24 24 24 B/P 117/62 90/60 144/72 Pulse Ox 100 100 100 100 O2 Delivery Ventilator Ventilator Ventilator Ventilator 03/07/17 03/07/17 03/07/17 03/07/17 08:00 08:00 09:00 09:35 Temp 98.1 98.1 Pulse 86 86 Resp 24 24 B/P 132/67 136/70 Pulse Ox 100 100 100 O2 Delivery Mechanical Ventilator Ventilator Ventilator Ventilator 03/07/17 10:00 Pulse 99 Resp 24 B/P 143/74 Pulse Ox 100 O2 Delivery Ventilator Intake and Output 03/06/17 03/06/17 03/07/17 15:00 23:00 07:00 Intake Total 1100 ml 4212 ml 5323 ml Output Total 2785 ml 2025 ml 1335 ml Balance -1685 ml 2187 ml 3988 ml ARIANNA HESS MD Mar 07, 2017 10:55
[2017-03-07 11:35] LABS: FIO2 ABG 40
[2017-03-07] MEDS: VANCOMYCIN PER PHARMACY MC PRN ×2 (12:44→12:53)
[2017-03-07] MEDS: ANTI-COAG MONITOR BY PHARMACY. MC PRN ×2 (12:55→12:56)
[2017-03-07 13:43] LABS: POTASSIUM 2.9 mmol/L (3.5-5.1)
--- NOTE | 2017-03-07 13:57 | PDOC ---
SUBJECTIVE ROS ^Na and elyte ABN remains intubtated and encephalopathic OBJECTIVE Vital Signs Vital Signs Date Time Temp Pulse Resp B/P Pulse Ox O2 Delivery O2 Flow Rate FiO2 03/07/17 13:30 100 Ventilator 03/07/17 13:00 89 24 136/74 03/07/17 12:00 98.0 98.0 I & 0 Intake and Output 03/07/17 07:00 Intake Total 89798 ml Output Total 6145 ml Balance 4490 ml Intake IV Total 8335 ml Other 2300 ml Output Urine Total 5595 ml Stool Total 550 ml PHYSICAL EXAM Physical Exam GEN: Intubated on the vent, encephalopathic, In no distress EYES: Vision Unchanged, Conjunctiva Normal EN: No EN Drainage, Mucous Membranes moist NECK: no JVD, no JVP, Supple, no Thyromegaly CVS: S1S2, no Murmur, No Gallop, No Rub,no Edema RESP: no Rales, no Rhonchi,no Acc. Muscle Use GI: BS + ve, NO Bruit, Non Tender, Non Distended : no CVA tenderness, no Suprapubic Tenderness DIAGNOSIS/ASSESSMENT Assessment & Plan ^Na - ? Asso with Polyuria ct free water repletion Polyuria - now slowing down so no DDAVP added Low magdalena - suspect asso with Low alb Low phos - will need some form of nutrition soon, IV K phos x 1 Problems: COMMENT/RELEVANT DATA Meds Current Medications Medications (Trade) Dose Ordered Sig/Carlito Start Time Stop Time Status Last Admin Dose Admin Acetaminophen (Tylenol) 325 mg PRN Q6HRS PRN 03/03/17 23:15 03/03/17 23:50 325 MG Amiodarone HCl (Cordarone) 150 mg STK-MED ONCE 03/04/17 10:00 03/06/17 16:42 DC Chlorhexidine Gluconate 15 ml 15 ml BID 03/05/17 11:00 03/07/17 09:32 15 ML Dextrose 1,000 ml @ 250 mls/hr Q4H 03/05/17 01:30 03/07/17 12:45 250 MLS/HR Dextrose/Sodium Chloride 1,000 ml @ 250 mls/hr Q4H 03/04/17 21:00 03/05/17 01:32 DC 03/05/17 01:19 250 MLS/HR Dopamine HCl/ Dextrose 400 mg STK-MED ONCE 03/04/17 10:00 03/06/17 16:42 DC Enoxaparin Sodium (Lovenox 120mg Syringe) 120 mg Q12HR 03/04/17 01:00 03/04/17 13:29 DC 03/04/17 10:17 120 MG Enoxaparin Sodium (Lovenox Per Pharmacy Treatment Dosing) 1 each PRN DAILY PRN 03/04/17 01:00 Enoxaparin Sodium 40 mg 40 mg Q24H 03/03/17 21:00 Cancel Enoxaparin Sodium 120 mg 120 mg BID 03/04/17 21:00 03/07/17 09:33 120 MG Epinephrine HCl (Adrenalin) 3 mg STK-MED ONCE 03/04/17 10:00 03/06/17 16:42 DC Ertapenem/Sodium Chloride (Invanz/Iv Sodium Chloride 0.9% 50ml) 50 ml @ 100 mls/hr Q24H 03/03/17 17:30 03/04/17 08:51 DC Etomidate (Amidate) 20 mg STK-MED ONCE 03/03/17 13:35 03/03/17 13:36 DC Info 1 each 1 each PRN DAILY PRN 03/04/17 01:00 03/07/17 12:56 1 EACH Insulin Human Regular 150 ml @ As Directed STK-MED ONCE 03/03/17 14:05 03/03/17 14:06 DC Insulin Human Regular 10 unit 10 unit 1X ONCE 03/03/17 14:45 03/03/17 14:46 DC 03/03/17 14:37 10 UNIT Insulin Human Regular 150 unit/ Sodium Chloride 151.5 ml @ 0 mls/hr CONT PRN PRN 03/03/17 17:00 03/07/17 05:56 46.5 MLS/HR Linezolid 300 ml @ 300 mls/hr Q12HR 03/04/17 09:00 03/07/17 06:55 DC 03/06/17 21:11 300 MLS/HR Magnesium Sulfate/ Dextrose (Magnesium Sulfate PREMIX 4GM) 100 ml @ 25 mls/hr 1X ONCE 03/06/17 19:00 03/06/17 22:59 DC 03/06/17 19:50 25 MLS/HR Magnesium Sulfate/ Dextrose 2 gm 2 gm STK-MED ONCE 03/04/17 10:00 03/06/17 16:42 DC Midazolam HCl 100 ml @ 0 mls/hr CONT PRN 03/03/17 18:15 03/04/17 01:20 5 MLS/HR Midazolam HCl 5 mg 5 mg STK-MED ONCE 03/03/17 17:40 03/03/17 17:41 DC Norepinephrine Bitartrate 8 mg/ Sodium Chloride 258 ml @ 1.93 mls/hr ONCE ONCE 03/04/17 14:45 03/05/17 17:25 DC 03/04/17 19:21 58.05 MLS/HR Norepinephrine Bitartrate/ Dextrose (Levophed Vial) 258 ml @ 0 mls/hr CONT PRN 03/05/17 06:00 03/07/17 04:26 48.37 MLS/HR Norepinephrine Bitartrate/Sodium Chloride (Levophed Vial/ Iv Sodium Chloride 0.9% 250ml) 258 ml @ 0 mls/hr CONT PRN 03/03/17 19:15 03/05/17 05:52 DC 03/05/17 00:13 48.37 MLS/HR Pantoprazole Sodium (Protonix Vial) 40 mg DAILYAC 03/05/17 11:00 03/07/17 09:30 40 MG Piperacillin Sod/ Tazobactam Sod 3.375 gm/Sodium Chloride 50 ml @ 100 mls/hr Q6H 03/04/17 09:00 03/07/17 09:29 100 MLS/HR Potassium Phosphate 10 mmol/ Sodium Chloride 103.3333 ml @ 51.667 m... Q2H 03/07/17 08:00 03/07/17 11:59 DC 03/07/17 11:34 51.667 MLS/HR Potassium Phosphate/Sodium Chloride (Potassium Phosphate/Iv Sodium Chloride 0.9% 250ml) 263.3333 ml @ 62.5 mls/hr 1X ONCE 03/03/17 23:30 03/04/17 03:42 DC 03/03/17 23:51 62.5 MLS/HR Potassium Chloride 50 ml @ 50 mls/hr Q1H 03/07/17 08:00 03/07/17 09:59 DC 03/07/17 11:02 50 MLS/HR Potassium Chloride (KCl Premix 20meq) 50 ml @ 50 mls/hr Q1H 03/05/17 13:30 03/05/17 15:29 DC 03/05/17 16:17 50 MLS/HR Sodium Bicarbonate 50 meq 50 meq STK-MED ONCE 03/03/17 12:00 03/04/17 11:39 DC Sodium Bicarbonate/ Sodium Chloride (Iv Sodium Chloride 0.45%) 1,150 ml @ 125 mls/hr 1X ONCE 03/03/17 13:45 03/03/17 22:56 DC 03/03/17 18:40 125 MLS/HR Sodium Bicarbonate 50 meq STK-MED ONCE 03/04/17 10:00 03/06/17 16:42 DC Sodium Chloride 1,000 ml @ 250 mls/hr Q4H 03/04/17 01:00 03/05/17 09:48 DC 03/04/17 10:24 250 MLS/HR Sodium Phosphate/ Dextrose 256.6667 ml @ 64.167 m... 1X ONCE 03/04/17 11:30 03/04/17 15:29 DC 03/04/17 12:23 64.167 MLS/HR Vancomycin HCl 1 each 1X ONCE 03/08/17 08:30 03/08/17 08:31 Vancomycin HCl 1 each 1 each PRN DAILY PRN 03/07/17 07:00 03/07/17 12:53 1 EACH Vancomycin HCl 2 gm/Sodium Chloride 500 ml @ 250 mls/hr 1X ONCE 03/07/17 08:00 03/07/17 09:59 DC 03/07/17 08:47 250 MLS/HR Vancomycin HCl/ Sodium Chloride (Iv Sodium Chloride 0.9% 500ml Bag) 500 ml @ 250 mls/hr Q8H 03/07/17 17:00 Vasopressin 40 unit/Dextrose 102 ml @ 6 mls/hr ONCE ONCE 03/04/17 15:15 03/05/17 08:14 DC Vasopressin/ Dextrose (Vasostrict) 102 ml @ 6 mls/hr CONT PRN 03/04/17 15:15 03/07/17 09:55 6 MLS/HR Lab Laboratory Tests Test 03/06/17 14:50 03/06/17 15:54 03/06/17 16:59 03/06/17 18:02 Glucose (Fingerstick) 156mg/dL (70-99) 169mg/dL (70-99) 166mg/dL (70-99) 154mg/dL (70-99) Test 03/06/17 18:58 03/06/17 20:04 03/06/17 21:08 03/06/17 22:12 Glucose (Fingerstick) 150mg/dL (70-99) 146mg/dL (70-99) 135mg/dL (70-99) 178mg/dL (70-99) Test 03/06/17 23:19 03/07/17 00:25 03/07/17 01:38 03/07/17 02:36 Glucose (Fingerstick) 192mg/dL (70-99) 151mg/dL (70-99) 151mg/dL (70-99) 158mg/dL (70-99) Test 03/07/17 03:41 03/07/17 04:50 03/07/17 06:00 03/07/17 07:13 Glucose (Fingerstick) 148mg/dL (70-99) 153mg/dL (70-99) 127mg/dL (70-99) White Blood Count 7.7x10^3/uL (4.0-11.0) Red Blood Count 4.33x10^6/uL (4.30-5.70) Hemoglobin 10.6g/dL (13.0-17.5) Hematocrit 34.0% (39.0-53.0) Mean Corpuscular Volume 79fL (79-100) Mean Corpuscular Hemoglobin 25pg (25-35) Mean Corpuscular Hemoglobin Concent 31g/dL (31-37) Red Cell Distribution Width 16.7% (11.5-14.5) Platelet Count 114x10^3/uL (140-400) Neutrophils (%) (Auto) 74% (31-73) Lymphocytes (%) (Auto) 17% (24-48) Monocytes (%) (Auto) 4% (0-9) Eosinophils (%) (Auto) 5% (0-3) Basophils (%) (Auto) 0% (0-3) Neutrophils # (Auto) 5.6x10^3uL (1.8-7.7) Lymphocytes # (Auto) 1.3x10^3/uL (1.0-4.8) Monocytes # (Auto) 0.3x10^3/uL (0.0-1.1) Eosinophils # (Auto) 0.4x10^3/uL (0.0-0.7) Basophils # (Auto) 0.0x10^3/uL (0.0-0.2) Prothrombin Time 16.9SEC (11.7-14.0) Prothromb Time International Ratio 1.5 (0.8-1.1) Sodium Level 152mmol/L (136-145) Potassium Level 3.5mmol/L (3.5-5.1) Chloride Level 118mmol/L (98-107) Carbon Dioxide Level 19mmol/L (21-32) Anion Gap 15 (6-14) Blood Urea Nitrogen 14mg/dL (8-26) Creatinine 1.4mg/dL (0.7-1.3) Estimated GFR (Cockcroft-Gault) 69.8 BUN/Creatinine Ratio 10 (6-20) Glucose Level 165mg/dL (70-99) Calcium Level 6.8mg/dL (8.5-10.1) Phosphorus Level 2.3mg/dL (2.6-4.7) Magnesium Level 2.0mg/dL (1.8-2.4) Total Bilirubin 0.4mg/dL (0.2-1.0) Aspartate Amino Transf (AST/SGOT) 53U/L (15-37) Alanine Aminotransferase (ALT/SGPT) 69U/L (16-63) Alkaline Phosphatase 90U/L (46-116) Total Protein 6.4g/dL (6.4-8.2) Albumin 1.8g/dL (3.4-5.0) Albumin/Globulin Ratio 0.4 (1.0-1.7) Test 03/07/17 08:53 03/07/17 09:35 03/07/17 10:06 03/07/17 11:03 Glucose (Fingerstick) 134mg/dL (70-99) 153mg/dL (70-99) 140mg/dL (70-99) O2 Saturation 95% (92-99) Arterial Blood pH 7.32 (7.35-7.45) Arterial Blood pCO2 at Patient Temp 32mmHg (35-46) Arterial Blood pO2 at Patient Temp 83mmHg (85-108) Arterial Blood HCO3 16mmol/L (21-28) Arterial Blood Base Excess -9mmol/L (-3-3) FiO2 40 Test 03/07/17 11:59 03/07/17 13:02 Glucose (Fingerstick) 147mg/dL (70-99) 180mg/dL (70-99) MARIBELL LLOYD MD Mar 07, 2017 13:57
[2017-03-07] MEDS: POTASSIUM PHOSPHATE DIBASIC 13.6 MMOL in IV NORMAL SALINE 100ML 100 ML IV SCH ×3 (14:00→18:00)
--- NOTE | 2017-03-07 14:19 | PDOC ---
PULMONARY PROGRESS NOTES Subjective PT NON RESPONSIVE Vitals Vital Signs Date Time Temp Pulse Resp B/P Pulse Ox O2 Delivery O2 Flow Rate FiO2 03/07/17 13:30 100 Ventilator 03/07/17 13:00 89 24 136/74 03/07/17 12:00 98.0 98.0 HEENT: Other (nc at pupils are fixed oreally intubated nose clear neck no lap thyromegaly) Lungs: Crackles Cardiovascular: S1, S2 Abdomen: Soft, Non-tender, Other (no mass) Extremities: Other (edema) Skin: Warm Labs Laboratory Tests Test 03/05/17 15:11 03/05/17 16:18 03/05/17 17:30 03/05/17 17:33 Glucose (Fingerstick) 187mg/dL (70-99) 166mg/dL (70-99) 176mg/dL (70-99) Sodium Level 165mmol/L (136-145) Potassium Level 3.8mmol/L (3.5-5.1) Chloride Level 128mmol/L (98-107) Carbon Dioxide Level 23mmol/L (21-32) Anion Gap 14 (6-14) Blood Urea Nitrogen 20mg/dL (8-26) Creatinine 1.8mg/dL (0.7-1.3) Estimated GFR (Cockcroft-Gault) 52.2 Glucose Level 181mg/dL (70-99) Serum Osmolality 336mOsm/Kg (279-304) Calcium Level 6.8mg/dL (8.5-10.1) Phosphorus Level 2.6mg/dL (2.6-4.7) Magnesium Level 1.9mg/dL (1.8-2.4) Test 03/05/17 18:40 03/05/17 19:50 03/05/17 20:56 03/05/17 21:30 Glucose (Fingerstick) 181mg/dL (70-99) 173mg/dL (70-99) 179mg/dL (70-99) Sodium Level 163mmol/L (136-145) Potassium Level 3.4mmol/L (3.5-5.1) Chloride Level 127mmol/L (98-107) Carbon Dioxide Level 23mmol/L (21-32) Anion Gap 13 (6-14) Blood Urea Nitrogen 19mg/dL (8-26) Creatinine 1.7mg/dL (0.7-1.3) Estimated GFR (Cockcroft-Gault) 55.8 Glucose Level 177mg/dL (70-99) Calcium Level 7.0mg/dL (8.5-10.1) Phosphorus Level 2.5mg/dL (2.6-4.7) Magnesium Level 1.7mg/dL (1.8-2.4) Test 03/05/17 21:59 03/05/17 23:04 03/06/17 00:20 03/06/17 01:23 Glucose (Fingerstick) 172mg/dL (70-99) 192mg/dL (70-99) 214mg/dL (70-99) 218mg/dL (70-99) Test 03/06/17 01:30 03/06/17 02:30 03/06/17 03:34 03/06/17 04:38 Sodium Level 161mmol/L (136-145) Potassium Level 3.8mmol/L (3.5-5.1) Chloride Level 127mmol/L (98-107) Carbon Dioxide Level 23mmol/L (21-32) Anion Gap 11 (6-14) Blood Urea Nitrogen 18mg/dL (8-26) Creatinine 1.8mg/dL (0.7-1.3) Estimated GFR (Cockcroft-Gault) 52.2 Glucose Level 211mg/dL (70-99) Calcium Level 7.0mg/dL (8.5-10.1) Phosphorus Level 2.5mg/dL (2.6-4.7) Magnesium Level 1.9mg/dL (1.8-2.4) Glucose (Fingerstick) 203mg/dL (70-99) 179mg/dL (70-99) 176mg/dL (70-99) Test 03/06/17 05:30 03/06/17 06:30 03/06/17 07:53 03/06/17 08:00 White Blood Count 10.7x10^3/uL (4.0-11.0) Red Blood Count 4.92x10^6/uL (4.30-5.70) Hemoglobin 12.1g/dL (13.0-17.5) Hematocrit 39.0% (39.0-53.0) Mean Corpuscular Volume 79fL (79-100) Mean Corpuscular Hemoglobin 25pg (25-35) Mean Corpuscular Hemoglobin Concent 31g/dL (31-37) Red Cell Distribution Width 16.4% (11.5-14.5) Platelet Count 160x10^3/uL (140-400) Neutrophils (%) (Auto) 68% (31-73) Lymphocytes (%) (Auto) 23% (24-48) Monocytes (%) (Auto) 4% (0-9) Eosinophils (%) (Auto) 5% (0-3) Basophils (%) (Auto) 0% (0-3) Neutrophils # (Auto) 7.3x10^3uL (1.8-7.7) Lymphocytes # (Auto) 2.5x10^3/uL (1.0-4.8) Monocytes # (Auto) 0.4x10^3/uL (0.0-1.1) Eosinophils # (Auto) 0.6x10^3/uL (0.0-0.7) Basophils # (Auto) 0.0x10^3/uL (0.0-0.2) Sodium Level 164mmol/L (136-145) Potassium Level 4.4mmol/L (3.5-5.1) Chloride Level 129mmol/L (98-107) Carbon Dioxide Level 19mmol/L (21-32) Anion Gap 16 (6-14) Blood Urea Nitrogen 17mg/dL (8-26) Creatinine 1.6mg/dL (0.7-1.3) Estimated GFR (Cockcroft-Gault) 59.8 BUN/Creatinine Ratio 11 (6-20) Glucose Level 200mg/dL (70-99) Glucose (Fingerstick) 179mg/dL (70-99) 191mg/dL (70-99) 191mg/dL (70-99) Calcium Level 7.3mg/dL (8.5-10.1) Total Bilirubin 0.5mg/dL (0.2-1.0) Aspartate Amino Transf (AST/SGOT) 54U/L (15-37) Alanine Aminotransferase (ALT/SGPT) 96U/L (16-63) Alkaline Phosphatase 91U/L (46-116) Total Protein 7.1g/dL (6.4-8.2) Albumin 2.0g/dL (3.4-5.0) Albumin/Globulin Ratio 0.4 (1.0-1.7) O2 Saturation 94% (92-99) Arterial Blood pH 7.36 (7.35-7.45) Arterial Blood pCO2 at Patient Temp 32mmHg (35-46) Arterial Blood pO2 at Patient Temp 74mmHg (85-108) Arterial Blood HCO3 17mmol/L (21-28) Arterial Blood Base Excess -7mmol/L (-3-3) FiO2 40 Test 03/06/17 09:03 03/06/17 10:12 03/06/17 11:19 03/06/17 12:29 Glucose (Fingerstick) 161mg/dL (70-99) 218mg/dL (70-99) 213mg/dL (70-99) 187mg/dL (70-99) Test 03/06/17 12:30 03/06/17 13:43 03/06/17 14:50 03/06/17 15:54 Sodium Level 165mmol/L (136-145) Potassium Level 3.9mmol/L (3.5-5.1) Chloride Level 128mmol/L (98-107) Carbon Dioxide Level 22mmol/L (21-32) Anion Gap 15 (6-14) Blood Urea Nitrogen 16mg/dL (8-26) Creatinine 1.6mg/dL (0.7-1.3) Estimated GFR (Cockcroft-Gault) 59.8 Glucose Level 201mg/dL (70-99) Calcium Level 7.0mg/dL (8.5-10.1) Phosphorus Level 2.1mg/dL (2.6-4.7) Magnesium Level 1.7mg/dL (1.8-2.4) Glucose (Fingerstick) 177mg/dL (70-99) 156mg/dL (70-99) 169mg/dL (70-99) Test 03/06/17 16:59 03/06/17 18:02 03/06/17 18:58 03/06/17 20:04 Glucose (Fingerstick) 166mg/dL (70-99) 154mg/dL (70-99) 150mg/dL (70-99) 146mg/dL (70-99) Test 03/06/17 21:08 03/06/17 22:12 03/06/17 23:19 03/07/17 00:25 Glucose (Fingerstick) 135mg/dL (70-99) 178mg/dL (70-99) 192mg/dL (70-99) 151mg/dL (70-99) Test 03/07/17 01:38 03/07/17 02:36 03/07/17 03:41 03/07/17 04:50 Glucose (Fingerstick) 151mg/dL (70-99) 158mg/dL (70-99) 148mg/dL (70-99) 153mg/dL (70-99) Test 03/07/17 06:00 03/07/17 07:13 03/07/17 08:53 03/07/17 09:35 White Blood Count 7.7x10^3/uL (4.0-11.0) Red Blood Count 4.33x10^6/uL (4.30-5.70) Hemoglobin 10.6g/dL (13.0-17.5) Hematocrit 34.0% (39.0-53.0) Mean Corpuscular Volume 79fL (79-100) Mean Corpuscular Hemoglobin 25pg (25-35) Mean Corpuscular Hemoglobin Concent 31g/dL (31-37) Red Cell Distribution Width 16.7% (11.5-14.5) Platelet Count 114x10^3/uL (140-400) Neutrophils (%) (Auto) 74% (31-73) Lymphocytes (%) (Auto) 17% (24-48) Monocytes (%) (Auto) 4% (0-9) Eosinophils (%) (Auto) 5% (0-3) Basophils (%) (Auto) 0% (0-3) Neutrophils # (Auto) 5.6x10^3uL (1.8-7.7) Lymphocytes # (Auto) 1.3x10^3/uL (1.0-4.8) Monocytes # (Auto) 0.3x10^3/uL (0.0-1.1) Eosinophils # (Auto) 0.4x10^3/uL (0.0-0.7) Basophils # (Auto) 0.0x10^3/uL (0.0-0.2) Prothrombin Time 16.9SEC (11.7-14.0) Prothromb Time International Ratio 1.5 (0.8-1.1) Sodium Level 152mmol/L (136-145) Potassium Level 3.5mmol/L (3.5-5.1) Chloride Level 118mmol/L (98-107) Carbon Dioxide Level 19mmol/L (21-32) Anion Gap 15 (6-14) Blood Urea Nitrogen 14mg/dL (8-26) Creatinine 1.4mg/dL (0.7-1.3) Estimated GFR (Cockcroft-Gault) 69.8 BUN/Creatinine Ratio 10 (6-20) Glucose Level 165mg/dL (70-99) Calcium Level 6.8mg/dL (8.5-10.1) Phosphorus Level 2.3mg/dL (2.6-4.7) Magnesium Level 2.0mg/dL (1.8-2.4) Total Bilirubin 0.4mg/dL (0.2-1.0) Aspartate Amino Transf (AST/SGOT) 53U/L (15-37) Alanine Aminotransferase (ALT/SGPT) 69U/L (16-63) Alkaline Phosphatase 90U/L (46-116) Total Protein 6.4g/dL (6.4-8.2) Albumin 1.8g/dL (3.4-5.0) Albumin/Globulin Ratio 0.4 (1.0-1.7) Glucose (Fingerstick) 127mg/dL (70-99) 134mg/dL (70-99) O2 Saturation 95% (92-99) Arterial Blood pH 7.32 (7.35-7.45) Arterial Blood pCO2 at Patient Temp 32mmHg (35-46) Arterial Blood pO2 at Patient Temp 83mmHg (85-108) Arterial Blood HCO3 16mmol/L (21-28) Arterial Blood Base Excess -9mmol/L (-3-3) FiO2 40 Test 03/07/17 10:06 03/07/17 11:03 03/07/17 11:59 03/07/17 13:02 Glucose (Fingerstick) 153mg/dL (70-99) 140mg/dL (70-99) 147mg/dL (70-99) 180mg/dL (70-99) Laboratory Tests Test 03/06/17 14:50 03/06/17 15:54 03/06/17 16:59 03/06/17 18:02 Glucose (Fingerstick) 156mg/dL (70-99) 169mg/dL (70-99) 166mg/dL (70-99) 154mg/dL (70-99) Test 03/06/17 18:58 03/06/17 20:04 03/06/17 21:08 03/06/17 22:12 Glucose (Fingerstick) 150mg/dL (70-99) 146mg/dL (70-99) 135mg/dL (70-99) 178mg/dL (70-99) Test 03/06/17 23:19 03/07/17 00:25 03/07/17 01:38 03/07/17 02:36 Glucose (Fingerstick) 192mg/dL (70-99) 151mg/dL (70-99) 151mg/dL (70-99) 158mg/dL (70-99) Test 03/07/17 03:41 03/07/17 04:50 03/07/17 06:00 03/07/17 07:13 Glucose (Fingerstick) 148mg/dL (70-99) 153mg/dL (70-99) 127mg/dL (70-99) White Blood Count 7.7x10^3/uL (4.0-11.0) Red Blood Count 4.33x10^6/uL (4.30-5.70) Hemoglobin 10.6g/dL (13.0-17.5) Hematocrit 34.0% (39.0-53.0) Mean Corpuscular Volume 79fL (79-100) Mean Corpuscular Hemoglobin 25pg (25-35) Mean Corpuscular Hemoglobin Concent 31g/dL (31-37) Red Cell Distribution Width 16.7% (11.5-14.5) Platelet Count 114x10^3/uL (140-400) Neutrophils (%) (Auto) 74% (31-73) Lymphocytes (%) (Auto) 17% (24-48) Monocytes (%) (Auto) 4% (0-9) Eosinophils (%) (Auto) 5% (0-3) Basophils (%) (Auto) 0% (0-3) Neutrophils # (Auto) 5.6x10^3uL (1.8-7.7) Lymphocytes # (Auto) 1.3x10^3/uL (1.0-4.8) Monocytes # (Auto) 0.3x10^3/uL (0.0-1.1) Eosinophils # (Auto) 0.4x10^3/uL (0.0-0.7) Basophils # (Auto) 0.0x10^3/uL (0.0-0.2) Prothrombin Time 16.9SEC (11.7-14.0) Prothromb Time International Ratio 1.5 (0.8-1.1) Sodium Level 152mmol/L (136-145) Potassium Level 3.5mmol/L (3.5-5.1) Chloride Level 118mmol/L (98-107) Carbon Dioxide Level 19mmol/L (21-32) Anion Gap 15 (6-14) Blood Urea Nitrogen 14mg/dL (8-26) Creatinine 1.4mg/dL (0.7-1.3) Estimated GFR (Cockcroft-Gault) 69.8 BUN/Creatinine Ratio 10 (6-20) Glucose Level 165mg/dL (70-99) Calcium Level 6.8mg/dL (8.5-10.1) Phosphorus Level 2.3mg/dL (2.6-4.7) Magnesium Level 2.0mg/dL (1.8-2.4) Total Bilirubin 0.4mg/dL (0.2-1.0) Aspartate Amino Transf (AST/SGOT) 53U/L (15-37) Alanine Aminotransferase (ALT/SGPT) 69U/L (16-63) Alkaline Phosphatase 90U/L (46-116) Total Protein 6.4g/dL (6.4-8.2) Albumin 1.8g/dL (3.4-5.0) Albumin/Globulin Ratio 0.4 (1.0-1.7) Test 03/07/17 08:53 03/07/17 09:35 03/07/17 10:06 03/07/17 11:03 Glucose (Fingerstick) 134mg/dL (70-99) 153mg/dL (70-99) 140mg/dL (70-99) O2 Saturation 95% (92-99) Arterial Blood pH 7.32 (7.35-7.45) Arterial Blood pCO2 at Patient Temp 32mmHg (35-46) Arterial Blood pO2 at Patient Temp 83mmHg (85-108) Arterial Blood HCO3 16mmol/L (21-28) Arterial Blood Base Excess -9mmol/L (-3-3) FiO2 40 Test 03/07/17 11:59 03/07/17 13:02 Glucose (Fingerstick) 147mg/dL (70-99) 180mg/dL (70-99) Medications Active Scripts Medications Dose Route/Sig Days Date Category Dose Instructions Feosol (Ferrous Sulfate) 325 Mg Tablet 325 Mg PO BIDWMEALS 30 04/29/16 Rx Vitamin B-12 (Cyanocobalamin (Vitamin B-12)) 1,000 Mcg Tablet 1,000 Mcg PO DAILY 30 04/29/16 Rx Amox Tr-K Clv 875-125 Mg Tab (Amoxicillin/Potassium Clav) 1 Each Tablet 1 Tab PO BID 5 04/29/16 Rx Percocet 5-325 Mg Tablet (Oxycodone/Acetaminophen) 1 Each Tablet 1 Tab PO PRN Q6HRS PRN 04/28/16 Reported Metformin Hcl 850 Mg Tablet 1 Tab PO BID 04/28/16 Reported Furosemide 40 Mg Tablet 1 Tab PO DAILY 04/28/16 Reported Gabapentin 100 Mg Capsule 100 Mg PO QHS 04/28/16 Reported Pantoprazole Sodium 40 Mg Tablet.dr 1 Tab PO DAILY 04/28/16 Reported Coumadin (Warfarin Sodium) 10 Mg Tablet 1 Tab PO QHS 04/28/16 Reported Take on Mondays, Tuesdays, and Wednesdays Oxybutynin Chloride 5 Mg Tablet 1 Tab PO BID 04/28/16 Reported Coumadin (Warfarin Sodium) 7.5 Mg Tablet 1 Tab PO QHS 04/28/16 Reported To be taken on , Fridays, Saturdays, and Sundays Comments Impression . IMPRESSION: 1. Acute respiratory failure, status post out of the hospital cardiac arrest. 2. Hyperosmolar coma. 3. Left-sided deep venous thrombosis. 4. History of aortic valve replacement and descending thoracic aortic aneurysm repair. 5. History of paraplegia. 6. Bilateral heel wounds. 7. Sacral wounds. 8. Diabetes. 9. Metabolic and toxic encephalopathy. 10. Hypernatremia. 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 12. Chronic kidney disease. 13. Acute kidney disease. Plan . UNABLE TO PERFORM APNEA TEST PT BECAME HEMODYNAMICALLY UNSTABLE D/C NEURO EEG IS PENDING TENA BETH MD Mar 07, 2017 14:19
--- NOTE | 2017-03-07 14:31 | EEG ---
DATE OF SERVICE: 03/07/2017 ATTENDING PHYSICIAN: Dr. Cece Nunez. EEG NUMBER: [id number], performed on 03/07/2017. OBJECTIVE: The patient is a 36-year-old male with suspected brain . DESCRIPTION: This is a digital study. Electrodes are placed according to the international 10-20 system. Bipolar and referential montages are available. Sensitivity can be set at various levels including 2 microvolts/mm. Activation procedures typically include hyperventilation and intermittent photic stimulation. INTERPRETATION: The record consists of near isoelectric activity without reactivity. Stimulation does not reveal any changes in the underlying abnormality. Hyperventilation and intermittent photic stimulation are not performed. IMPRESSION: This electroencephalogram is consistent with a diagnosis of brain and shows electrocerebral silence. Thank you for letting us help with the patient's care. ARIANNA HESS MD DR: TING/[facility]acle JOB#: [id number] / [id number] MARINO
[2017-03-07] MEDS: VANCOMYCIN 1.75 GM in IV NORMAL SALINE 500ML BAG 500 ML IV SCH (17:00)
--- NOTE | 2017-03-07 17:04 | PDOC2 ---
PALLIATIVE CARE Palliative Care Note Palliative Care Patient seen at 0930 this am and again with Dr Mayra Nunez spoke with patient's father Tonny Reviewed current medical condition, test planned for today. Patient remains on Vent 40% 1430 Dr. Mackey spoke with patient's father Tonny. Informed of results of EEG and Apnea Test. Patient brain per notes 1416. Family Support provided. 1730 MTLigia Delvalle RN met with patient's sister--Senait patient's father. Discussed plan of care. Family wishes to keep information (MTN) private. LORI ASHLEY Mar 07, 2017 17:04
[2017-03-08] VITALS (12 sets, daily range): BP systolic 84–113; BP diastolic 49–62
[2017-03-08] MEDS: VANCOMYCIN 1.75 GM in IV NORMAL SALINE 500ML BAG 500 ML IV SCH (01:10)
[2017-03-08] MEDS: NOREPINEPHRINE VIAL 8 MG in IV DEXTROSE 5% 250 ML IV PRN ×2 (01:11→05:35)
[2017-03-08] MEDS: VASOPRESSIN 40 UNIT in IV DEXTROSE 5% 100 ML IV PRN (01:11)
[2017-03-08] MEDS: INSULIN REGULAR VIAL 150 UNIT in 0.9 % SODIUM CHLORIDE 150ML 150 ML IV PRN (01:12)
[2017-03-08] MEDS: PIPERACILLIN/TAZOBACTAM 3.375 GM in IV NORMAL SALINE 50ML 50 ML IV SCH (02:42)
[2017-03-08] MEDS: IV DEXTROSE 5% 1,000 ML IV SCH (05:34)
--- NOTE | 2017-03-08 06:35 | PDOC ---
Infectious Disease Note Subjective Subjective Off sedation. Remains unresponsive ROS ROS Unobtainable Vital Sign Vital Signs Vital Signs Date Time Temp Pulse Resp B/P Pulse Ox O2 Delivery O2 Flow Rate FiO2 03/08/17 06:00 100 24 98/54 100 Ventilator 03/08/17 04:00 99.1 99.1 03/07/17 10:50 6.0 Physical Exam PHYSICAL EXAM GENERAL: intubated HEENT: Pupils dilated nonreactive. Left > right. ETT, OGT LUNGS: Less rhonchi HEART: S1S2 ABD: BS quiet, soft, Rectal tube : Lacey EXT: Generalized edema. Feet cool [employer]: Unresponsive to verbal and tactile stimuli. No gag reflex SKIN: Multiple wounds. RIJ. clean Labs Lab Laboratory Tests Test 03/07/17 07:13 03/07/17 08:53 03/07/17 09:35 03/07/17 10:06 Glucose (Fingerstick) 127mg/dL (70-99) 134mg/dL (70-99) 153mg/dL (70-99) O2 Saturation 95% (92-99) Arterial Blood pH 7.32 (7.35-7.45) Arterial Blood pCO2 at Patient Temp 32mmHg (35-46) Arterial Blood pO2 at Patient Temp 83mmHg (85-108) Arterial Blood HCO3 16mmol/L (21-28) Arterial Blood Base Excess -9mmol/L (-3-3) FiO2 40 Test 03/07/17 11:03 03/07/17 11:59 03/07/17 13:02 03/07/17 15:31 Glucose (Fingerstick) 140mg/dL (70-99) 147mg/dL (70-99) 180mg/dL (70-99) 196mg/dL (70-99) Test 03/07/17 16:51 03/07/17 18:04 03/07/17 19:08 03/07/17 20:13 Glucose (Fingerstick) 192mg/dL (70-99) 178mg/dL (70-99) 174mg/dL (70-99) 195mg/dL (70-99) Test 03/07/17 21:18 03/07/17 22:38 03/07/17 23:41 03/08/17 00:44 Glucose (Fingerstick) 193mg/dL (70-99) 173mg/dL (70-99) 183mg/dL (70-99) 167mg/dL (70-99) Test 03/08/17 01:47 03/08/17 02:44 03/08/17 03:38 03/08/17 04:35 Glucose (Fingerstick) 139mg/dL (70-99) 120mg/dL (70-99) 96mg/dL (70-99) 91mg/dL (70-99) Test 03/08/17 05:25 03/08/17 06:25 Glucose (Fingerstick) 87mg/dL (70-99) 85mg/dL (70-99) Objective Assessment 02/22 + cults GPC 03/03 - STCN Ecoli in urine ? true vs contamination Hyperosmolar coma S/P Code blue pupils dilated - off sedation and not responsive - Declared brain 03/07 Lactic acidosis Leukocytosis Fever DM Sacral decub Carlos heel wounds , left much worse polymicrobial Kleb/proteus/Group B Paraplegia JEFFERY MRSA nares positive Plan Plan of Care Dose Vanc Cont Zosyn off load BS control f/u am labs/cultures Await family decisions. ? Withdrawl today prognosis poor JAYME CORTES MD Mar 08, 2017 06:35
[2017-03-08] MEDS: VANCOMYCIN PER PHARMACY MC PRN ×2 (09:45→09:49)
--- NOTE | 2017-03-08 09:59 | PDOC2 ---
PALLIATIVE CARE Palliative Care Note Palliative Care Patient remains on Vent. Pressor. Attempted to reach Tonny--father. No answer. Message to return call. Spoke with Dr. Nunez regarding plan. Addressed code status with Dr Nunez. Dr. Nunez will address in orders. Spoke with Irma MOYA Director of ICU and Ligia MOYA --made aware of plans. Ligia spoke with patients sister Jacki. Family arrived at 1200. Discussed procedure to extubate with father, and sisters. Patient was extubated at 1222. No heart beat at 1233. Support provided to family. Appreciative of care. Family will let staff know home later. OLRI ASHLEY Mar 08, 2017 09:59
--- NOTE | 2017-03-08 10:19 | PDOC ---
PROGRESS NOTES Assessment Problems Medical Problems: (1) Acute respiratory failure Status: Acute (2) Acute respiratory failure Status: Acute (3) Cardiac arrest Status: Acute (4) Hyperglycemia Status: Acute Patient is still brain-. 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 Then the family has made him a full code again and is planning to come in at 230 today. Subjective None Objective Vital Signs Date Time Temp Pulse Resp B/P Pulse Ox O2 Delivery O2 Flow Rate FiO2 03/08/17 08:10 100 Ventilator 03/08/17 07:00 100 24 101/55 03/08/17 04:00 99.1 99.1 03/07/17 10:50 6.0 Intake and Output 03/08/17 07:00 Intake Total 9549 ml Output Total 815 ml Balance 8734 ml Intake IV Total 6802 ml Blood Product IV Normal Saline Flush 1547 ml Other 1200 ml Output Urine Total 815 ml # Voids 1 # Bowel Movements 1 PHYSICAL EXAM Pupils nonreactive to bright light. Corneal reflex absent. Oculocephalic reflex absent (tested only if C-spine integrity ensured). Oculovestibular reflex absent. No facial movement to noxious stimuli at supraorbital nerve, temporomandibular joint. Gag reflex absent. Cough reflex absent to tracheal suctioning. Absence of motor response to noxious stimuli in all four limbs Review of Relevant I have reviewed the following items reina (where applicable) has been applied. Labs Laboratory Tests Test 03/06/17 11:19 03/06/17 12:29 03/06/17 12:30 03/06/17 13:43 Glucose (Fingerstick) 213mg/dL (70-99) 187mg/dL (70-99) 177mg/dL (70-99) Sodium Level 165mmol/L (136-145) Potassium Level 3.9mmol/L (3.5-5.1) Chloride Level 128mmol/L (98-107) Carbon Dioxide Level 22mmol/L (21-32) Anion Gap 15 (6-14) Blood Urea Nitrogen 16mg/dL (8-26) Creatinine 1.6mg/dL (0.7-1.3) Estimated GFR (Cockcroft-Gault) 59.8 Glucose Level 201mg/dL (70-99) Calcium Level 7.0mg/dL (8.5-10.1) Phosphorus Level 2.1mg/dL (2.6-4.7) Magnesium Level 1.7mg/dL (1.8-2.4) Test 03/06/17 14:50 03/06/17 15:54 03/06/17 16:59 03/06/17 18:02 Glucose (Fingerstick) 156mg/dL (70-99) 169mg/dL (70-99) 166mg/dL (70-99) 154mg/dL (70-99) Test 03/06/17 18:58 03/06/17 20:04 03/06/17 21:08 03/06/17 22:12 Glucose (Fingerstick) 150mg/dL (70-99) 146mg/dL (70-99) 135mg/dL (70-99) 178mg/dL (70-99) Test 03/06/17 23:19 03/07/17 00:25 03/07/17 01:38 03/07/17 02:36 Glucose (Fingerstick) 192mg/dL (70-99) 151mg/dL (70-99) 151mg/dL (70-99) 158mg/dL (70-99) Test 03/07/17 03:41 03/07/17 04:50 03/07/17 06:00 03/07/17 07:13 Glucose (Fingerstick) 148mg/dL (70-99) 153mg/dL (70-99) 127mg/dL (70-99) White Blood Count 7.7x10^3/uL (4.0-11.0) Red Blood Count 4.33x10^6/uL (4.30-5.70) Hemoglobin 10.6g/dL (13.0-17.5) Hematocrit 34.0% (39.0-53.0) Mean Corpuscular Volume 79fL (79-100) Mean Corpuscular Hemoglobin 25pg (25-35) Mean Corpuscular Hemoglobin Concent 31g/dL (31-37) Red Cell Distribution Width 16.7% (11.5-14.5) Platelet Count 114x10^3/uL (140-400) Neutrophils (%) (Auto) 74% (31-73) Lymphocytes (%) (Auto) 17% (24-48) Monocytes (%) (Auto) 4% (0-9) Eosinophils (%) (Auto) 5% (0-3) Basophils (%) (Auto) 0% (0-3) Neutrophils # (Auto) 5.6x10^3uL (1.8-7.7) Lymphocytes # (Auto) 1.3x10^3/uL (1.0-4.8) Monocytes # (Auto) 0.3x10^3/uL (0.0-1.1) Eosinophils # (Auto) 0.4x10^3/uL (0.0-0.7) Basophils # (Auto) 0.0x10^3/uL (0.0-0.2) Prothrombin Time 16.9SEC (11.7-14.0) Prothromb Time International Ratio 1.5 (0.8-1.1) Sodium Level 152mmol/L (136-145) Potassium Level 3.5mmol/L (3.5-5.1) Chloride Level 118mmol/L (98-107) Carbon Dioxide Level 19mmol/L (21-32) Anion Gap 15 (6-14) Blood Urea Nitrogen 14mg/dL (8-26) Creatinine 1.4mg/dL (0.7-1.3) Estimated GFR (Cockcroft-Gault) 69.8 BUN/Creatinine Ratio 10 (6-20) Glucose Level 165mg/dL (70-99) Calcium Level 6.8mg/dL (8.5-10.1) Phosphorus Level 2.3mg/dL (2.6-4.7) Magnesium Level 2.0mg/dL (1.8-2.4) Total Bilirubin 0.4mg/dL (0.2-1.0) Aspartate Amino Transf (AST/SGOT) 53U/L (15-37) Alanine Aminotransferase (ALT/SGPT) 69U/L (16-63) Alkaline Phosphatase 90U/L (46-116) Total Protein 6.4g/dL (6.4-8.2) Albumin 1.8g/dL (3.4-5.0) Albumin/Globulin Ratio 0.4 (1.0-1.7) Test 03/07/17 08:53 03/07/17 09:35 03/07/17 10:06 03/07/17 11:03 Glucose (Fingerstick) 134mg/dL (70-99) 153mg/dL (70-99) 140mg/dL (70-99) O2 Saturation 95% (92-99) Arterial Blood pH 7.32 (7.35-7.45) Arterial Blood pCO2 at Patient Temp 32mmHg (35-46) Arterial Blood pO2 at Patient Temp 83mmHg (85-108) Arterial Blood HCO3 16mmol/L (21-28) Arterial Blood Base Excess -9mmol/L (-3-3) FiO2 40 Test 03/07/17 11:59 03/07/17 13:02 03/07/17 15:31 03/07/17 16:51 Glucose (Fingerstick) 147mg/dL (70-99) 180mg/dL (70-99) 196mg/dL (70-99) 192mg/dL (70-99) Test 03/07/17 18:04 03/07/17 19:08 03/07/17 20:13 03/07/17 21:18 Glucose (Fingerstick) 178mg/dL (70-99) 174mg/dL (70-99) 195mg/dL (70-99) 193mg/dL (70-99) Test 03/07/17 22:38 03/07/17 23:41 03/08/17 00:44 03/08/17 01:47 Glucose (Fingerstick) 173mg/dL (70-99) 183mg/dL (70-99) 167mg/dL (70-99) 139mg/dL (70-99) Test 03/08/17 02:44 03/08/17 03:38 03/08/17 04:35 03/08/17 05:25 Glucose (Fingerstick) 120mg/dL (70-99) 96mg/dL (70-99) 91mg/dL (70-99) 87mg/dL (70-99) Test 03/08/17 06:25 Glucose (Fingerstick) 85mg/dL (70-99) Laboratory Tests Test 03/07/17 11:03 03/07/17 11:59 03/07/17 13:02 03/07/17 15:31 Glucose (Fingerstick) 140mg/dL (70-99) 147mg/dL (70-99) 180mg/dL (70-99) 196mg/dL (70-99) Test 03/07/17 16:51 03/07/17 18:04 03/07/17 19:08 03/07/17 20:13 Glucose (Fingerstick) 192mg/dL (70-99) 178mg/dL (70-99) 174mg/dL (70-99) 195mg/dL (70-99) Test 03/07/17 21:18 03/07/17 22:38 03/07/17 23:41 03/08/17 00:44 Glucose (Fingerstick) 193mg/dL (70-99) 173mg/dL (70-99) 183mg/dL (70-99) 167mg/dL (70-99) Test 03/08/17 01:47 03/08/17 02:44 03/08/17 03:38 03/08/17 04:35 Glucose (Fingerstick) 139mg/dL (70-99) 120mg/dL (70-99) 96mg/dL (70-99) 91mg/dL (70-99) Test 03/08/17 05:25 03/08/17 06:25 Glucose (Fingerstick) 87mg/dL (70-99) 85mg/dL (70-99) Microbiology 03/04/17 Blood Culture - Preliminary, Resulted NO GROWTH AFTER 3 DAYS 03/03/17 Urine Culture - Final, Complete 03/03/17 Urine Culture Result 1 (ALLAN) - Final, Complete 03/04/17 Gram Stain - Final, Complete Medications Current Medications Midazolam HCl 100 ml @ 0 mls/hr 1X ONCE IV Last administered on 03/03/17t 14: 42; Start 03/03/17 at 13:45; Stop 03/03/17 at 13:46; Status DC Sodium Bicarbonate/ Sodium Chloride (Iv Sodium Chloride 0.45%) 1,150 ml @ 125 mls/hr 1X ONCE IV Last administered on 03/03/17t 18:40; Start 03/03/17 at 13: 45; Stop 03/03/17 at 22:56; Status DC Etomidate (Amidate) 20 mg STK-MED ONCE IV ; Start 03/03/17 at 13:35; Stop at 13:36; Status DC Insulin Human Regular 10 unit 10 unit 1X ONCE IV Last administered on 14:37; Start 03/03/17 at 14:45; Stop 03/03/17 at 14:46; Status DC Insulin Human Regular 150 unit/ Sodium Chloride 151.5 ml @ 0 mls/hr CONT PRN IV SEE I/O RECORD; Start 03/03/17 at 14:00; Stop 03/03/17 at 17:20; Status DC Insulin Human Regular 150 ml @ As Directed STK-MED ONCE IV ; Start 03/03/17 at 14:05; Stop 03/03/17 at 14:06; Status DC Potassium Chloride 100 ml @ 100 mls/hr Q1H IV ; Start 03/03/17 at 17:00; Stop 03/03/17 at 17:43; Status DC Sodium Chloride 1,000 ml @ 1,000 mls/hr Q1H IV ; Start 03/03/17 at 16:49; Stop 03/03/17 at 17:48; Status DC Insulin Human Regular 150 unit/ Sodium Chloride 151.5 ml @ 0 mls/hr CONT PRN PRN IV PER PROTOCOL; Start 03/03/17 at 17:00; Stop 03/03/17 at 17:20; Status DC Potassium Chloride 100 ml @ 100 mls/hr PRN Q1HR PRN IV SEE COMMENTS Last administered on 03/04/17 01:35; Start 03/03/17 at 17:00; Stop 03/07/17 at 23:31 ; Status DC Potassium Chloride 100 ml @ 100 mls/hr PRN Q1HR PRN IV SEE COMMENTS Last administered on 03/05/17 05:42; Start 03/03/17 at 17:00; Stop 03/07/17 at 23:31 ; Status DC Potassium Chloride 100 ml @ 100 mls/hr PRN Q1HR PRN IV SEE COMMENTS; Start at 17:00; Stop 03/07/17 at 23:31; Status DC Insulin Human Regular 150 unit/ Sodium Chloride 151.5 ml @ 0 mls/hr CONT PRN PRN IV PER PROTOCOL Last administered on 03/08/17 01:12; Start 03/03/17 at 17: 00 Potassium Chloride 100 ml @ 100 mls/hr PRN Q1HR PRN IV SEE COMMENTS; Start at 17:00; Stop 03/03/17 at 20:11; Status DC Potassium Chloride 100 ml @ 100 mls/hr PRN Q1HR PRN IV SEE COMMENTS; Start at 17:00; Stop 03/03/17 at 20:11; Status DC Potassium Chloride 100 ml @ 100 mls/hr PRN Q1HR PRN IV SEE COMMENTS; Start at 17:00; Stop 03/03/17 at 20:12; Status DC Vancomycin HCl/ Sodium Chloride (Iv Sodium Chloride 0.9% 500ml Bag) 500 ml @ 250 mls/hr 1X ONCE IV Last administered on 03/03/17 18:33; Start 03/03/17 at 18:00; Stop 03/03/17 at 19:59; Status DC Vancomycin HCl 1 each 1 each PRN DAILY PRN MC SEE COMMENTS Last administered on 03/03/17 20:02; Start 03/03/17 at 17:00; Stop 03/04/17 at 08:51; Status DC Ertapenem/Sodium Chloride (Invanz/Iv Sodium Chloride 0.9% 50ml) 50 ml @ 100 mls /hr Q24H IV ; Start 03/03/17 at 17:30; Stop 03/04/17 at 08:51; Status DC Midazolam HCl 5 mg 5 mg STK-MED ONCE .ROUTE ; Start 03/03/17 at 17:40; Stop at 17:41; Status DC Potassium Chloride 50 ml @ 50 mls/hr Q1H IV Last administered on 03/03/17 23: 52; Start 03/03/17 at 18:00; Stop 03/03/17 at 21:59; Status DC Midazolam HCl 100 ml @ 0 mls/hr CONT PRN IV SEE I/O RECORD Last administered on 03/04/17 01:20; Start 03/03/17 at 18:15; Stop 03/08/17 at 05:56; Status DC Norepinephrine Bitartrate/Sodium Chloride (Levophed Vial/ Iv Sodium Chloride 0.9 % 250ml) 258 ml @ 0 mls/hr CONT PRN IV SEE I/O RECORD Last administered on 03/05 00:13; Start 03/03/17 at 19:15; Stop 03/05/17 at 05:52; Status DC Vancomycin HCl 1 each 1 each 1X ONCE MC ; Start 03/05/17 at 17:30; Stop at 17:30; Status DC Vancomycin HCl/ Sodium Chloride (Iv Sodium Chloride 0.9% 500ml Bag) 500 ml @ 250 mls/hr Q24H IV ; Start 03/04/17 at 18:00; Stop 03/04/17 at 18:00; Status DC Enoxaparin Sodium 40 mg 40 mg Q24H SQ ; Start 03/03/17 at 21:00; Status Cancel Potassium Phosphate 40 mmol/ Sodium Chloride 263.3333 ml @ 62.5 mls/hr 1X ONCE IV Last administered on 03/03/17 23:51; Start 03/03/17 at 23:30; Stop at 03:42; Status DC Potassium Chloride (KCl Premix 20meq) 50 ml @ 50 mls/hr PRN Q1HR PRN IV K LESS THAN 3 Last administered on 03/06/17 04:35; Start 03/03/17 at 22:45; Stop 03/07 at 23:31; Status DC Acetaminophen (Tylenol) 325 mg PRN Q6HRS PRN CA MILD PAIN / TEMP Last administered on 03/03/17 23:50; Start 03/03/17 at 23:15 Enoxaparin Sodium (Lovenox Per Pharmacy Treatment Dosing) 1 each PRN DAILY PRN MC SEE COMMENTS; Start 03/04/17 at 01:00; Stop 03/08/17 at 05:56; Status DC Enoxaparin Sodium (Lovenox 120mg Syringe) 120 mg Q12HR SQ Last administered on 03/04/17 10:17; Start 03/04/17 at 01:00; Stop 03/04/17 at 13:29; Status DC Info 1 each 1 each PRN DAILY PRN MC SEE COMMENTS Last administered on 12:56; Start 03/04/17 at 01:00; Stop 03/08/17 at 05:56; Status DC Sodium Chloride 1,000 ml @ 250 mls/hr Q4H IV Last administered on 03/04/17 10 :24; Start 03/04/17 at 01:00; Stop 03/05/17 at 09:48; Status DC Piperacillin Sod/ Tazobactam Sod 3.375 gm/Sodium Chloride 50 ml @ 100 mls/hr Q6H IV Last administered on 03/08/17 02:42; Start 03/04/17 at 09:00 Linezolid 300 ml @ 300 mls/hr Q12HR IV Last administered on 03/06/17 21:11; Start 03/04/17 at 09:00; Stop 03/07/17 at 06:55; Status DC Potassium Chloride 50 ml @ 50 mls/hr Q1H IV Last administered on 03/04/17 12: 33; Start 03/04/17 at 11:30; Stop 03/04/17 at 13:29; Status DC Sodium Phosphate/ Dextrose 256.6667 ml @ 64.167 m... 1X ONCE IV Last administered on 03/04/17 12:23; Start 03/04/17 at 11:30; Stop 03/04/17 at 15:29 ; Status DC Sodium Bicarbonate 50 meq STK-MED ONCE .ROUTE ; Start 03/03/17 at 12:00; Stop at 11:39; Status DC Enoxaparin Sodium 120 mg 120 mg DAILY SQ ; Start 03/05/17 at 09:00; Stop at 09:00; Status DC Norepinephrine Bitartrate 8 mg/ Sodium Chloride 258 ml @ 1.93 mls/hr ONCE ONCE IV Last administered on 03/04/17 19:21; Start 03/04/17 at 14:45; Stop at 17:25; Status DC Vasopressin 40 unit/Dextrose 102 ml @ 6 mls/hr CONT PRN IV SEE I/O RECORD; Start 03/04/17 at 15:15; Stop 03/04/17 at 15:15; Status DC Vasopressin 40 unit/Dextrose 102 ml @ 6 mls/hr ONCE ONCE IV ; Start 03/04/17 at 15:15; Stop 03/05/17 at 08:14; Status DC Vasopressin/ Dextrose (Vasostrict) 102 ml @ 6 mls/hr CONT PRN IV SEE I/O RECORD Last administered on 03/08/17 01:11; Start 03/04/17 at 15:15 Enoxaparin Sodium 120 mg 120 mg BID SQ Last administered on 03/07/17 09:33; Start 03/04/17 at 21:00; Stop 03/08/17 at 05:56; Status DC Potassium Chloride 50 ml @ 50 mls/hr Q1HR IV Last administered on 03/04/17 23: 31; Start 03/04/17 at 21:00; Stop 03/04/17 at 23:59; Status DC Dextrose/Sodium Chloride 1,000 ml @ 250 mls/hr Q4H IV Last administered on 01:19; Start 03/04/17 at 21:00; Stop 03/05/17 at 01:32; Status DC Dextrose 1,000 ml @ 100 mls/hr Q10H IV Last administered on 03/08/17 05:34; Start 03/05/17 at 01:30 Norepinephrine Bitartrate/ Dextrose (Levophed Vial) 258 ml @ 0 mls/hr CONT PRN IV HYPOTENSION Last administered on 03/08/17 05:35; Start 03/05/17 at 06:00 Pantoprazole Sodium (Protonix Vial) 40 mg DAILYAC IVP Last administered on 03/07 09:30; Start 03/05/17 at 11:00; Stop 03/08/17 at 05:56; Status DC Chlorhexidine Gluconate 15 ml 15 ml BID SWSP Last administered on 03/07/17 09: 32; Start 03/05/17 at 11:00; Stop 03/08/17 at 05:56; Status DC Potassium Chloride (KCl Premix 20meq) 50 ml @ 50 mls/hr Q1H IV Last administered on 03/05/17 16:17; Start 03/05/17 at 13:30; Stop 03/05/17 at 15:29 ; Status DC Amiodarone HCl (Cordarone) 150 mg STK-MED ONCE .ROUTE ; Start 03/04/17 at 10:00 ; Stop 03/06/17 at 16:42; Status DC Epinephrine HCl (Adrenalin) 3 mg STK-MED ONCE .ROUTE ; Start 03/04/17 at 10:00; Stop 03/06/17 at 16:42; Status DC Sodium Bicarbonate 50 meq STK-MED ONCE .ROUTE ; Start 03/04/17 at 10:00; Stop at 16:42; Status DC Dopamine HCl/ Dextrose 400 mg STK-MED ONCE IV ; Start 03/04/17 at 10:00; Stop at 16:42; Status DC Magnesium Sulfate/ Dextrose 2 gm 2 gm STK-MED ONCE IV ; Start 03/04/17 at 10:00 ; Stop 03/06/17 at 16:42; Status DC Potassium Phosphate 10 mmol/ Sodium Chloride 103.3333 ml @ 51.667 m... Q2H IV Last administered on 03/06/17 21:10; Start 03/06/17 at 19:00; Stop 03/06/17 at 22:59; Status DC Magnesium Sulfate/ Dextrose (Magnesium Sulfate PREMIX 4GM) 100 ml @ 25 mls/hr 1X ONCE IV Last administered on 03/06/17 19:50; Start 03/06/17 at 19:00; Stop 03/06/17 at 22:59; Status DC Vancomycin HCl 1 each 1 each PRN DAILY PRN MC SEE COMMENTS Last administered on 03/08/17 09:49; Start 03/07/17 at 07:00 Vancomycin HCl 2 gm/Sodium Chloride 500 ml @ 250 mls/hr 1X ONCE IV Last administered on 03/07/17 08:47; Start 03/07/17 at 08:00; Stop 03/07/17 at 09:59 ; Status DC Potassium Phosphate 10 mmol/ Sodium Chloride 103.3333 ml @ 51.667 m... Q2H IV Last administered on 03/07/17 11:34; Start 03/07/17 at 08:00; Stop 03/07/17 at 11:59; Status DC Potassium Chloride 50 ml @ 50 mls/hr Q1H IV Last administered on 03/07/17 11: 02; Start 03/07/17 at 08:00; Stop 03/07/17 at 09:59; Status DC Vancomycin HCl/ Sodium Chloride (Iv Sodium Chloride 0.9% 500ml Bag) 500 ml @ 250 mls/hr Q8H IV Last administered on 03/08/17 01:10; Start 03/07/17 at 17:00 Vancomycin HCl 1 each 1 each 1X ONCE MC ; Start 03/08/17 at 08:30; Stop at 08:31; Status DC Potassium Phosphate/Sodium Chloride (Potassium Phosphate/Iv Sodium Chloride 0.9 % 100ml) 104.5333 ml @ 52.267 m... Q2H IV Last administered on 03/07/17t 14:00 ; Start 03/07/17 at 14:00; Stop 03/07/17 at 19:59; Status DC Active Scripts Active Feosol (Ferrous Sulfate) 325 Mg Tablet 325 Mg PO BIDWMEALS 30 Days Vitamin B-12 (Cyanocobalamin (Vitamin B-12)) 1,000 Mcg Tablet 1,000 Mcg PO DAILY 30 Days Amox Tr-K Clv 875-125 Mg Tab (Amoxicillin/Potassium Clav) 1 Each Tablet 1 Tab PO BID 5 Days Reported Percocet 5-325 Mg Tablet (Oxycodone/Acetaminophen) 1 Each Tablet 1 Tab PO PRN Q6HRS PRN Metformin Hcl 850 Mg Tablet 1 Tab PO BID Furosemide 40 Mg Tablet 1 Tab PO DAILY Gabapentin 100 Mg Capsule 100 Mg PO QHS Pantoprazole Sodium 40 Mg Tablet.dr 1 Tab PO DAILY Coumadin (Warfarin Sodium) 10 Mg Tablet 1 Tab PO QHS Take on Mondays, Tuesdays, and Wednesdays Oxybutynin Chloride 5 Mg Tablet 1 Tab PO BID Coumadin (Warfarin Sodium) 7.5 Mg Tablet 1 Tab PO QHS To be taken on , Fridays, Saturdays, and Sundays Vitals/I & O Vital Sign - Last 24 Hours 03/07/17 03/07/17 03/07/17 03/07/17 10:40 10:50 10:54 11:00 Pulse 114 Resp 24 B/P 153/77 Pulse Ox 99 68 100 O2 Delivery Ventilator cannula tubing dowm ET tube Ventilator Ventilator O2 Flow Rate 6.0 03/07/17 03/07/17 03/07/17 03/07/17 12:00 12:00 13:00 13:30 Temp 98.0 98.0 Pulse 78 89 Resp 24 24 B/P 126/68 136/74 Pulse Ox 100 100 100 O2 Delivery Mechanical Ventilator Ventilator Ventilator Ventilator 03/07/17 03/07/17 03/07/17 03/07/17 14:00 15:00 16:00 16:00 Temp 98.1 98.1 Pulse 90 90 92 Resp 24 24 24 B/P 113/63 143/64 105/53 Pulse Ox 100 100 100 O2 Delivery Ventilator Ventilator Mechanical Ventilator Ventilator 03/07/17 03/07/17 03/07/17 03/07/17 17:00 17:17 18:00 19:00 Temp 98.4 98.4 Pulse 106 106 96 Resp 24 24 24 B/P 110/62 89/49 112/56 Pulse Ox 100 99 100 99 O2 Delivery Ventilator Ventilator Ventilator Ventilator 03/07/17 03/07/17 03/07/17 03/07/17 20:00 20:19 20:30 21:00 Pulse 99 99 Resp 24 24 B/P 86/48 93/51 Pulse Ox 100 100 98 O2 Delivery Ventilator Mechanical Ventilator Ventilator Ventilator 03/07/17 03/07/17 03/07/17 03/07/17 22:00 23:00 23:20 23:59 Temp 98.7 98.7 Pulse 99 112 Resp 24 24 B/P 96/48 137/67 Pulse Ox 99 100 100 O2 Delivery Ventilator Ventilator Ventilator Mechanical Ventilator 03/08/17 03/08/17 03/08/17 03/08/17 00:00 01:00 01:05 02:00 Pulse 100 100 100 Resp 24 24 24 B/P 89/49 92/49 106/57 Pulse Ox 100 100 100 100 O2 Delivery Ventilator Ventilator Ventilator Ventilator 03/08/17 03/08/17 03/08/17 03/08/17 03:00 03:10 04:00 04:00 Temp 99.1 99.1 Pulse 100 107 Resp 24 24 B/P 84/50 106/56 Pulse Ox 100 100 99 O2 Delivery Ventilator Ventilator Mechanical Ventilator Ventilator 03/08/17 03/08/17 03/08/17 03/08/17 05:00 05:40 06:00 07:00 Pulse 101 100 100 Resp 24 24 24 B/P 95/53 98/54 101/55 Pulse Ox 100 100 100 100 O2 Delivery Ventilator Ventilator Ventilator Ventilator 03/08/17 03/08/17 08:00 08:10 Pulse Ox 100 O2 Delivery Mechanical Ventilator Ventilator Intake and Output 03/07/17 03/07/17 03/08/17 15:00 23:00 07:00 Intake Total 854 ml 6474 ml 2221 ml Output Total 365 ml 450 ml Balance 489 ml 6024 ml 2221 ml ARIANNA HESS MD Mar 08, 2017 10:19
--- NOTE | 2017-03-08 10:39 | PDOC ---
PROGRESS NOTES Subjective Subjective on vent on pressors ,not responsive Objective Objective Vital Signs Date Time Temp Pulse Resp B/P Pulse Ox O2 Delivery O2 Flow Rate FiO2 03/08/17 08:10 100 Ventilator 03/08/17 07:00 100 24 101/55 03/08/17 04:00 99.1 99.1 03/07/17 10:50 6.0 Intake and Output 03/08/17 07:00 Intake Total 9549 ml Output Total 815 ml Balance 8734 ml Intake IV Total 6802 ml Blood Product IV Normal Saline Flush 1547 ml Other 1200 ml Output Urine Total 815 ml # Voids 1 # Bowel Movements 1 Physical Exam Abdomen: Soft Heart: Other (tachycardia) General: Other (ON VENT) HEENT: Other (ET TUBE) Lungs: Other (diminished breath sounds) COMMENT vanessa heal ulcer Diagnosis DIAGNOSIS pupils dilated and fixed Problem List Problems Medical Problems: (1) Acute respiratory failure Status: Acute (2) Acute respiratory failure Status: Acute (3) Cardiac arrest Status: Acute (4) Hyperglycemia Status: Acute DIABETES: Type I (DKA) RENAL FAILURE: Acute, Other (DEHYDRATION WITH HYPERNATREMIA) Assessment Assessment Problems Medical Problems: (1) Acute respiratory failure Status: Acute (2) Acute respiratory failure Status: Acute (3) Cardiac arrest Status: Acute (4) Hyperglycemia Status: Acute Last night [facility] decided he was not a candidate for organ donor. sepsis. bacteremia. wounds hypotension on pressors on vent, intubated. possible brain -EEG consistent with brain 1. Status post code blue, outside the hospital. 2. Fever and uncontrolled diabetes. DKA. Blood sugars 2000 range. 3. Metabolic acidosis.Lactic acidosis.Hyperosmolar coma. 4. 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 5. Resulting paraplegia. 6. Sacral ulcer.heal ulcer. 7. Self catheter for bladder retention PLAN: Neuro consult appreciated, EEG- brain . plans for pts daughter to visit him today. no code blue due to brain .continue vent until her visit palliative team involved in discussions . hopefully can extubate and have natural . spoke with pts father, palliative service . DM - insulin drip,sugars off insulin drip. Hypokalemia- better. Acute renal failure- creat 1.6 Improving. Prognosis is extremely poor. On Zosyn,Zyvox.spoke with ID today. On high dose Levophed for hypotension. Condition, treatment and options discussed with pt's father at bedside.and other family members. Problems: Plan Plan of Care Problems Medical Problems: (1) Acute respiratory failure Status: Acute (2) Acute respiratory failure Status: Acute (3) Cardiac arrest Status: Acute (4) Hyperglycemia Status: Acute Comment Review of Relevant I have reviewed the following items reina (where applicable) has been applied. Labs Laboratory Tests Test 03/07/17 11:03 03/07/17 11:59 03/07/17 13:02 03/07/17 15:31 Glucose (Fingerstick) 140mg/dL (70-99) 147mg/dL (70-99) 180mg/dL (70-99) 196mg/dL (70-99) Test 03/07/17 16:51 03/07/17 18:04 03/07/17 19:08 03/07/17 20:13 Glucose (Fingerstick) 192mg/dL (70-99) 178mg/dL (70-99) 174mg/dL (70-99) 195mg/dL (70-99) Test 03/07/17 21:18 03/07/17 22:38 03/07/17 23:41 03/08/17 00:44 Glucose (Fingerstick) 193mg/dL (70-99) 173mg/dL (70-99) 183mg/dL (70-99) 167mg/dL (70-99) Test 03/08/17 01:47 03/08/17 02:44 03/08/17 03:38 03/08/17 04:35 Glucose (Fingerstick) 139mg/dL (70-99) 120mg/dL (70-99) 96mg/dL (70-99) 91mg/dL (70-99) Test 03/08/17 05:25 03/08/17 06:25 Glucose (Fingerstick) 87mg/dL (70-99) 85mg/dL (70-99) Microbiology 03/04/17 Blood Culture - Preliminary, Resulted NO GROWTH AFTER 3 DAYS 03/03/17 Urine Culture - Final, Complete 03/03/17 Urine Culture Result 1 (ALLAN) - Final, Complete 03/04/17 Gram Stain - Final, Complete Medications Current Medications Potassium Phosphate/Sodium Chloride (Potassium Phosphate/Iv Sodium Chloride 0.9 % 100ml) 104.5333 ml @ 52.267 m... Q2H IV Last administered on 03/07/17 14:00 ; Start 03/07/17 at 14:00; Stop 03/07/17 at 19:59; Status DC Vancomycin HCl 1 each 1 each 1X ONCE MC ; Start 03/08/17 at 08:30; Stop at 08:31; Status DC Vancomycin HCl/ Sodium Chloride (Iv Sodium Chloride 0.9% 500ml Bag) 500 ml @ 250 mls/hr Q8H IV Last administered on 03/08/17 01:10; Start 03/07/17 at 17:00 Vitals/I & O Vital Sign - Last 24 Hours 03/07/17 03/07/17 03/07/17 03/07/17 10:40 10:50 10:54 11:00 Pulse 114 Resp 24 B/P 153/77 Pulse Ox 99 68 100 O2 Delivery Ventilator cannula tubing dowm ET tube Ventilator Ventilator O2 Flow Rate 6.0 03/07/17 03/07/17 03/07/17 03/07/17 12:00 12:00 13:00 13:30 Temp 98.0 98.0 Pulse 78 89 Resp B/P 126/68 136/74 Pulse Ox 100 100 100 O2 Delivery Mechanical Ventilator Ventilator Ventilator Ventilator 03/07/17 03/07/17 03/07/17 03/07/17 14:00 15:00 16:00 16:00 Temp 98.1 98.1 Pulse 90 90 92 Resp 24 B/P 113/63 143/64 105/53 Pulse Ox 100 100 100 O2 Delivery Ventilator Ventilator Mechanical Ventilator Ventilator 03/07/17 03/07/17 03/07/17 03/07/17 17:00 17:17 18:00 19:00 Temp 98.4 98.4 Pulse 106 106 96 Resp 24 B/P 110/62 89/49 112/56 Pulse Ox 100 99 100 99 O2 Delivery Ventilator Ventilator Ventilator Ventilator 03/07/17 03/07/17 03/07/17 03/07/17 20:00 20:19 20:30 21:00 Pulse 99 99 Resp 24 B/P 86/48 93/51 Pulse Ox 100 100 98 O2 Delivery Ventilator Mechanical Ventilator Ventilator Ventilator 03/07/17 03/07/17 03/07/17 03/07/17 22:00 23:00 23:20 23:59 Temp 98.7 98.7 Pulse 99 112 Resp 24 24 B/P 96/48 137/67 Pulse Ox 99 100 100 O2 Delivery Ventilator Ventilator Ventilator Mechanical Ventilator 03/08/17 03/08/17 03/08/17 03/08/17 00:00 01:00 01:05 02:00 Pulse 100 100 100 Resp 24 24 24 B/P 89/49 92/49 106/57 Pulse Ox 100 100 100 100 O2 Delivery Ventilator Ventilator Ventilator Ventilator 03/08/17 03/08/17 03/08/17 03/08/17 03:00 03:10 04:00 04:00 Temp 99.1 99.1 Pulse 100 107 Resp 24 24 B/P 84/50 106/56 Pulse Ox 100 100 99 O2 Delivery Ventilator Ventilator Mechanical Ventilator Ventilator 03/08/17 03/08/17 03/08/17 03/08/17 05:00 05:40 06:00 07:00 Pulse 101 100 100 Resp 24 24 24 B/P 95/53 98/54 101/55 Pulse Ox 100 100 100 100 O2 Delivery Ventilator Ventilator Ventilator Ventilator 03/08/17 03/08/17 08:00 08:10 Pulse Ox 100 O2 Delivery Mechanical Ventilator Ventilator Intake and Output 03/07/17 03/07/17 03/08/17 15:00 23:00 07:00 Intake Total 854 ml 6474 ml 2221 ml Output Total 365 ml 450 ml Balance 489 ml 6024 ml 2221 ml Nutrition Consultation Dietary Evaluation: Recommendations by RD: Increase Calorie Intake, PPN/TPN Comments: Rec. TF's if remains on the ventilator: Diabetisource AC, goal rate 65 ml/hr Start at 20 ml/hr, increase by 20 ml/hr q8h to goal rate flushes 200 cc q4h if no IVF's running Expected Outcomes/Goals: TF initiation vs comfort care per family Malnutrition Findings: Reduced Classification Clerk Strength: N/A Malnutrition related to morbid: No Weight Status: Obese PRINCE GIRARD MD Mar 08, 2017 10:39
--- NOTE | 2017-03-08 11:11 | PDOC ---
SUBJECTIVE ROS ^Na - remains on Vent OBJECTIVE Vital Signs Vital Signs Date Time Temp Pulse Resp B/P Pulse Ox O2 Delivery O2 Flow Rate FiO2 03/08/17 10:00 102 24 113/58 100 Ventilator 03/08/17 08:00 99.0 99.0 03/07/17 10:50 6.0 I & 0 Intake and Output 03/08/17 07:00 Intake Total 9549 ml Output Total 815 ml Balance 8734 ml Intake IV Total 6802 ml Blood Product IV Normal Saline Flush 1547 ml Other 1200 ml Output Urine Total 815 ml # Voids 1 # Bowel Movements 1 PHYSICAL EXAM Physical Exam General Appearance: on the vent intubated Neck: No JVD or JVP Chest: CTA Carlos Heart: S1 S2 Abdomen - Soft NTND Extremities - + Edema DIAGNOSIS/ASSESSMENT Assessment & Plan ^Na - better with free water repletion Plans for Palliation being contempalted - no further diagnostic testing per family Will s/o Problems: COMMENT/RELEVANT DATA Meds Current Medications Medications (Trade) Dose Ordered Sig/Carlito Start Time Stop Time Status Last Admin Dose Admin Acetaminophen (Tylenol) 325 mg PRN Q6HRS PRN 03/03/17 23:15 03/03/17 23:50 325 MG Amiodarone HCl (Cordarone) 150 mg STK-MED ONCE 03/04/17 10:00 03/06/17 16:42 DC Chlorhexidine Gluconate 15 ml 15 ml BID 03/05/17 11:00 03/08/17 05:56 DC 03/07/17 09:32 15 ML Dextrose 1,000 ml @ 100 mls/hr Q10H 03/05/17 01:30 03/08/17 05:34 100 MLS/HR Dextrose/Sodium Chloride 1,000 ml @ 250 mls/hr Q4H 03/04/17 21:00 03/05/17 01:32 DC 03/05/17 01:19 250 MLS/HR Dopamine HCl/ Dextrose 400 mg STK-MED ONCE 03/04/17 10:00 03/06/17 16:42 DC Enoxaparin Sodium (Lovenox 120mg Syringe) 120 mg Q12HR 03/04/17 01:00 03/04/17 13:29 DC 03/04/17 10:17 120 MG Enoxaparin Sodium (Lovenox Per Pharmacy Treatment Dosing) 1 each PRN DAILY PRN 03/04/17 01:00 03/08/17 05:56 DC Enoxaparin Sodium 40 mg 40 mg Q24H 03/03/17 21:00 Cancel Enoxaparin Sodium 120 mg 120 mg BID 03/04/17 21:00 03/08/17 05:56 DC 03/07/17 09:33 120 MG Epinephrine HCl (Adrenalin) 3 mg STK-MED ONCE 03/04/17 10:00 03/06/17 16:42 DC Ertapenem/Sodium Chloride (Invanz/Iv Sodium Chloride 0.9% 50ml) 50 ml @ 100 mls/hr Q24H 03/03/17 17:30 03/04/17 08:51 DC Etomidate (Amidate) 20 mg STK-MED ONCE 03/03/17 13:35 03/03/17 13:36 DC Info 1 each 1 each PRN DAILY PRN 03/04/17 01:00 03/08/17 05:56 DC 03/07/17 12:56 1 EACH Insulin Human Regular 150 ml @ As Directed STK-MED ONCE 03/03/17 14:05 03/03/17 14:06 DC Insulin Human Regular 10 unit 10 unit 1X ONCE 03/03/17 14:45 03/03/17 14:46 DC 03/03/17 14:37 10 UNIT Insulin Human Regular 150 unit/ Sodium Chloride 151.5 ml @ 0 mls/hr CONT PRN PRN 03/03/17 17:00 03/08/17 01:12 63.1 MLS/HR Linezolid 300 ml @ 300 mls/hr Q12HR 03/04/17 09:00 03/07/17 06:55 DC 03/06/17 21:11 300 MLS/HR Magnesium Sulfate/ Dextrose 100 ml @ 25 mls/hr 1X ONCE 03/06/17 19:00 03/06/17 22:59 DC 03/06/17 19:50 25 MLS/HR Magnesium Sulfate/ Dextrose 2 gm 2 gm STK-MED ONCE 03/04/17 10:00 03/06/17 16:42 DC Midazolam HCl 100 ml @ 0 mls/hr CONT PRN 03/03/17 18:15 03/08/17 05:56 DC 03/04/17 01:20 5 MLS/HR Midazolam HCl 5 mg 5 mg STK-MED ONCE 03/03/17 17:40 03/03/17 17:41 DC Norepinephrine Bitartrate 8 mg/ Sodium Chloride 258 ml @ 1.93 mls/hr ONCE ONCE 03/04/17 14:45 03/05/17 17:25 DC 03/04/17 19:21 58.05 MLS/HR Norepinephrine Bitartrate/ Dextrose (Levophed Vial) 258 ml @ 0 mls/hr CONT PRN 03/05/17 06:00 03/08/17 05:35 42.57 MLS/HR Norepinephrine Bitartrate/Sodium Chloride (Levophed Vial/ Iv Sodium Chloride 0.9% 250ml) 258 ml @ 0 mls/hr CONT PRN 03/03/17 19:15 03/05/17 05:52 DC 03/05/17 00:13 48.37 MLS/HR Pantoprazole Sodium (Protonix Vial) 40 mg DAILYAC 03/05/17 11:00 03/08/17 05:56 DC 03/07/17 09:30 40 MG Piperacillin Sod/ Tazobactam Sod 3.375 gm/Sodium Chloride 50 ml @ 100 mls/hr Q6H 03/04/17 09:00 03/08/17 02:42 100 MLS/HR Potassium Phosphate 10 mmol/ Sodium Chloride 103.3333 ml @ 51.667 m... Q2H 03/07/17 08:00 03/07/17 11:59 DC 03/07/17 11:34 51.667 MLS/HR Potassium Phosphate/Sodium Chloride (Potassium Phosphate/Iv Sodium Chloride 0.9% 100ml) 104.5333 ml @ 52.267 m... Q2H 03/07/17 14:00 03/07/17 19:59 DC 03/07/17 14:00 52.267 MLS/HR Potassium Phosphate/Sodium Chloride (Potassium Phosphate/Iv Sodium Chloride 0.9% 250ml) 263.3333 ml @ 62.5 mls/hr 1X ONCE 03/03/17 23:30 03/04/17 03:42 DC 03/03/17 23:51 62.5 MLS/HR Potassium Chloride 50 ml @ 50 mls/hr Q1H 03/07/17 08:00 03/07/17 09:59 DC 03/07/17 11:02 50 MLS/HR Potassium Chloride (KCl Premix 20meq) 50 ml @ 50 mls/hr Q1H 03/05/17 13:30 03/05/17 15:29 DC 03/05/17 16:17 50 MLS/HR Sodium Bicarbonate 50 meq 50 meq STK-MED ONCE 03/03/17 12:00 03/04/17 11:39 DC Sodium Bicarbonate/ Sodium Chloride (Iv Sodium Chloride 0.45%) 1,150 ml @ 125 mls/hr 1X ONCE 03/03/17 13:45 03/03/17 22:56 DC 03/03/17 18:40 125 MLS/HR Sodium Bicarbonate 50 meq STK-MED ONCE 03/04/17 10:00 03/06/17 16:42 DC Sodium Chloride 1,000 ml @ 250 mls/hr Q4H 03/04/17 01:00 03/05/17 09:48 DC 03/04/17 10:24 250 MLS/HR Sodium Phosphate/ Dextrose 256.6667 ml @ 64.167 m... 1X ONCE 03/04/17 11:30 03/04/17 15:29 DC 03/04/17 12:23 64.167 MLS/HR Vancomycin HCl 1 each 1X ONCE 03/05/17 17:30 03/05/17 17:30 DC Vancomycin HCl 1 each 1 each 1X ONCE 03/08/17 08:30 03/08/17 08:31 DC Vancomycin HCl 2 gm/Sodium Chloride 500 ml @ 250 mls/hr 1X ONCE 03/07/17 08:00 03/07/17 09:59 DC 03/07/17 08:47 250 MLS/HR Vancomycin HCl/ Sodium Chloride (Iv Sodium Chloride 0.9% 500ml Bag) 500 ml @ 250 mls/hr Q8H 03/07/17 17:00 03/08/17 01:10 250 MLS/HR Vasopressin 40 unit/Dextrose 102 ml @ 6 mls/hr ONCE ONCE 03/04/17 15:15 03/05/17 08:14 DC Vasopressin/ Dextrose (Vasostrict) 102 ml @ 6 mls/hr CONT PRN 03/04/17 15:15 03/08/17 01:11 6 MLS/HR Lab Laboratory Tests Test 03/07/17 11:59 03/07/17 13:02 03/07/17 15:31 03/07/17 16:51 Glucose (Fingerstick) 147mg/dL (70-99) 180mg/dL (70-99) 196mg/dL (70-99) 192mg/dL (70-99) Test 03/07/17 18:04 03/07/17 19:08 03/07/17 20:13 03/07/17 21:18 Glucose (Fingerstick) 178mg/dL (70-99) 174mg/dL (70-99) 195mg/dL (70-99) 193mg/dL (70-99) Test 03/07/17 22:38 03/07/17 23:41 03/08/17 00:44 03/08/17 01:47 Glucose (Fingerstick) 173mg/dL (70-99) 183mg/dL (70-99) 167mg/dL (70-99) 139mg/dL (70-99) Test 03/08/17 02:44 03/08/17 03:38 03/08/17 04:35 03/08/17 05:25 Glucose (Fingerstick) 120mg/dL (70-99) 96mg/dL (70-99) 91mg/dL (70-99) 87mg/dL (70-99) Test 03/08/17 06:25 Glucose (Fingerstick) 85mg/dL (70-99) MARIBELL LLOYD MD Mar 08, 2017 11:11
--- NOTE | 2017-03-08 11:42 | PDOC ---
PULMONARY PROGRESS NOTES Subjective PT NON RESPONSIVE HIGH DOSE PRESSORS Vitals Vital Signs Date Time Temp Pulse Resp B/P Pulse Ox O2 Delivery O2 Flow Rate FiO2 03/08/17 10:00 102 24 113/58 100 Ventilator 03/08/17 08:00 99.0 99.0 03/07/17 10:50 6.0 HEENT: Other (nc at pupils are fixed oreally intubated nose clear neck no lap thyromegaly) Lungs: Other Cardiovascular: S1, S2 Abdomen: Soft, Non-tender, Other (no mass) Extremities: Other (edema) Skin: Warm Labs Laboratory Tests Test 03/06/17 12:29 03/06/17 12:30 03/06/17 13:43 03/06/17 14:50 Glucose (Fingerstick) 187mg/dL (70-99) 177mg/dL (70-99) 156mg/dL (70-99) Sodium Level 165mmol/L (136-145) Potassium Level 3.9mmol/L (3.5-5.1) Chloride Level 128mmol/L (98-107) Carbon Dioxide Level 22mmol/L (21-32) Anion Gap 15 (6-14) Blood Urea Nitrogen 16mg/dL (8-26) Creatinine 1.6mg/dL (0.7-1.3) Estimated GFR (Cockcroft-Gault) 59.8 Glucose Level 201mg/dL (70-99) Calcium Level 7.0mg/dL (8.5-10.1) Phosphorus Level 2.1mg/dL (2.6-4.7) Magnesium Level 1.7mg/dL (1.8-2.4) Test 03/06/17 15:54 03/06/17 16:59 03/06/17 18:02 03/06/17 18:58 Glucose (Fingerstick) 169mg/dL (70-99) 166mg/dL (70-99) 154mg/dL (70-99) 150mg/dL (70-99) Test 03/06/17 20:04 03/06/17 21:08 03/06/17 22:12 03/06/17 23:19 Glucose (Fingerstick) 146mg/dL (70-99) 135mg/dL (70-99) 178mg/dL (70-99) 192mg/dL (70-99) Test 03/07/17 00:25 03/07/17 01:38 03/07/17 02:36 03/07/17 03:41 Glucose (Fingerstick) 151mg/dL (70-99) 151mg/dL (70-99) 158mg/dL (70-99) 148mg/dL (70-99) Test 03/07/17 04:50 03/07/17 06:00 03/07/17 07:13 03/07/17 08:53 Glucose (Fingerstick) 153mg/dL (70-99) 127mg/dL (70-99) 134mg/dL (70-99) White Blood Count 7.7x10^3/uL (4.0-11.0) Red Blood Count 4.33x10^6/uL (4.30-5.70) Hemoglobin 10.6g/dL (13.0-17.5) Hematocrit 34.0% (39.0-53.0) Mean Corpuscular Volume 79fL (79-100) Mean Corpuscular Hemoglobin 25pg (25-35) Mean Corpuscular Hemoglobin Concent 31g/dL (31-37) Red Cell Distribution Width 16.7% (11.5-14.5) Platelet Count 114x10^3/uL (140-400) Neutrophils (%) (Auto) 74% (31-73) Lymphocytes (%) (Auto) 17% (24-48) Monocytes (%) (Auto) 4% (0-9) Eosinophils (%) (Auto) 5% (0-3) Basophils (%) (Auto) 0% (0-3) Neutrophils # (Auto) 5.6x10^3uL (1.8-7.7) Lymphocytes # (Auto) 1.3x10^3/uL (1.0-4.8) Monocytes # (Auto) 0.3x10^3/uL (0.0-1.1) Eosinophils # (Auto) 0.4x10^3/uL (0.0-0.7) Basophils # (Auto) 0.0x10^3/uL (0.0-0.2) Prothrombin Time 16.9SEC (11.7-14.0) Prothromb Time International Ratio 1.5 (0.8-1.1) Sodium Level 152mmol/L (136-145) Potassium Level 3.5mmol/L (3.5-5.1) Chloride Level 118mmol/L (98-107) Carbon Dioxide Level 19mmol/L (21-32) Anion Gap 15 (6-14) Blood Urea Nitrogen 14mg/dL (8-26) Creatinine 1.4mg/dL (0.7-1.3) Estimated GFR (Cockcroft-Gault) 69.8 BUN/Creatinine Ratio 10 (6-20) Glucose Level 165mg/dL (70-99) Calcium Level 6.8mg/dL (8.5-10.1) Phosphorus Level 2.3mg/dL (2.6-4.7) Magnesium Level 2.0mg/dL (1.8-2.4) Total Bilirubin 0.4mg/dL (0.2-1.0) Aspartate Amino Transf (AST/SGOT) 53U/L (15-37) Alanine Aminotransferase (ALT/SGPT) 69U/L (16-63) Alkaline Phosphatase 90U/L (46-116) Total Protein 6.4g/dL (6.4-8.2) Albumin 1.8g/dL (3.4-5.0) Albumin/Globulin Ratio 0.4 (1.0-1.7) Test 03/07/17 09:35 03/07/17 10:06 03/07/17 11:03 03/07/17 11:59 O2 Saturation 95% (92-99) Arterial Blood pH 7.32 (7.35-7.45) Arterial Blood pCO2 at Patient Temp 32mmHg (35-46) Arterial Blood pO2 at Patient Temp 83mmHg (85-108) Arterial Blood HCO3 16mmol/L (21-28) Arterial Blood Base Excess -9mmol/L (-3-3) FiO2 40 Glucose (Fingerstick) 153mg/dL (70-99) 140mg/dL (70-99) 147mg/dL (70-99) Test 03/07/17 13:02 03/07/17 15:31 03/07/17 16:51 03/07/17 18:04 Glucose (Fingerstick) 180mg/dL (70-99) 196mg/dL (70-99) 192mg/dL (70-99) 178mg/dL (70-99) Test 03/07/17 19:08 03/07/17 20:13 03/07/17 21:18 03/07/17 22:38 Glucose (Fingerstick) 174mg/dL (70-99) 195mg/dL (70-99) 193mg/dL (70-99) 173mg/dL (70-99) Test 03/07/17 23:41 03/08/17 00:44 03/08/17 01:47 03/08/17 02:44 Glucose (Fingerstick) 183mg/dL (70-99) 167mg/dL (70-99) 139mg/dL (70-99) 120mg/dL (70-99) Test 03/08/17 03:38 03/08/17 04:35 03/08/17 05:25 03/08/17 06:25 Glucose (Fingerstick) 96mg/dL (70-99) 91mg/dL (70-99) 87mg/dL (70-99) 85mg/dL (70-99) Laboratory Tests Test 03/07/17 11:59 03/07/17 13:02 03/07/17 15:31 03/07/17 16:51 Glucose (Fingerstick) 147mg/dL (70-99) 180mg/dL (70-99) 196mg/dL (70-99) 192mg/dL (70-99) Test 03/07/17 18:04 03/07/17 19:08 03/07/17 20:13 03/07/17 21:18 Glucose (Fingerstick) 178mg/dL (70-99) 174mg/dL (70-99) 195mg/dL (70-99) 193mg/dL (70-99) Test 03/07/17 22:38 03/07/17 23:41 03/08/17 00:44 03/08/17 01:47 Glucose (Fingerstick) 173mg/dL (70-99) 183mg/dL (70-99) 167mg/dL (70-99) 139mg/dL (70-99) Test 03/08/17 02:44 03/08/17 03:38 03/08/17 04:35 03/08/17 05:25 Glucose (Fingerstick) 120mg/dL (70-99) 96mg/dL (70-99) 91mg/dL (70-99) 87mg/dL (70-99) Test 03/08/17 06:25 Glucose (Fingerstick) 85mg/dL (70-99) Medications Active Scripts Medications Dose Route/Sig Days Date Category Dose Instructions Feosol (Ferrous Sulfate) 325 Mg Tablet 325 Mg PO BIDWMEALS 30 04/29/16 Rx Vitamin B-12 (Cyanocobalamin (Vitamin B-12)) 1,000 Mcg Tablet 1,000 Mcg PO DAILY 30 04/29/16 Rx Amox Tr-K Clv 875-125 Mg Tab (Amoxicillin/Potassium Clav) 1 Each Tablet 1 Tab PO BID 5 04/29/16 Rx Percocet 5-325 Mg Tablet (Oxycodone/Acetaminophen) 1 Each Tablet 1 Tab PO PRN Q6HRS PRN 04/28/16 Reported Metformin Hcl 850 Mg Tablet 1 Tab PO BID 04/28/16 Reported Furosemide 40 Mg Tablet 1 Tab PO DAILY 04/28/16 Reported Gabapentin 100 Mg Capsule 100 Mg PO QHS 04/28/16 Reported Pantoprazole Sodium 40 Mg Tablet.dr 1 Tab PO DAILY 04/28/16 Reported Coumadin (Warfarin Sodium) 10 Mg Tablet 1 Tab PO QHS 04/28/16 Reported Take on Mondays, Tuesdays, and Wednesdays Oxybutynin Chloride 5 Mg Tablet 1 Tab PO BID 04/28/16 Reported Coumadin (Warfarin Sodium) 7.5 Mg Tablet 1 Tab PO QHS 04/28/16 Reported To be taken on , Fridays, Saturdays, and Sundays Comments Impression . 1. Acute respiratory failure, status post out of the hospital cardiac arrest. 2. Hyperosmolar coma. 3. Left-sided deep venous thrombosis. 4. History of aortic valve replacement and descending thoracic aortic aneurysm repair. 5. History of paraplegia. 6. Bilateral heel wounds. 7. Sacral wounds. 8. Diabetes. 9. Metabolic and toxic encephalopathy. 10. Hypernatremia. 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 12. Chronic kidney disease. 13. Acute kidney disease. Plan . PT DECLARED BRAIN BY NEUROLOGY YESTERDAY D/W PALLIATIVE CARE FAMILY TO WITHDRAW CARE TODAY AMANDA ZAMAN MD Mar 08, 2017 11:42
--- NOTE | 2017-03-09 13:41 | PDOC ---
Provider Note Provider Note summary dictated. #[id number] PRINCE GIRARD MD Mar 09, 2017 13:41
--- NOTE | 2017-03-09 23:27 | DS ---
DATE OF DISCHARGE: 03/08/2017 DATE OF : 03/08/2017 REASON FOR ADMISSION TO THE HOSPITAL: Outside the hospital cardiac arrest, shortness of breath, respiratory failure, bradycardia, asystole outside the hospital, paramedics was called and had a CPR, several ounce of epinephrine was given and was brought to the Emergency Room and the patient had sugar of more than 2000. The patient has a history of Takayasu vasculitis, had aortic valve surgery x 3 and also thoracic aortic aneurysm ruptured last year at , which was repaired and that led him to paralysis. He is on wheelchair and presently as per the family has been sick for 1 week and want to come into the hospital until last minutes when the girlfriend called the paramedics and came in, he was outside the hospital code blue. The patient was admitted to the ICU on vent, sugar was more than 2000. The patient was put on insulin drip per protocol. Consultation was done with Pulmonary for critical care and management, Renal for electrode management and also Infectious Disease. The patient had blood cultures, shows Staphylococcus lugdunensis and the patient has polymicrobial wounds at left heel and left sacral ulcers, which shows proteus, klebsiella, and strep B. The patient had a CT head, was negative, was unresponsive in spite of aggressive measures. His blood sugars were coming down nicely with DKA protocol and the patient was seen by Neurology. The patient had an EEG, which shows brain and consultation was done with palliative team. Initially, [facility] came in to see if he is a donor , because of vasculitis, not a good candidate for donor. On discussion with the family and with the father of the patient, finally we have extubated the patient and the patient naturally. FINAL DIAGNOSES: 1. Outside the hospital code blue. 2. Diabetic ketoacidosis. 3. Hyperosmolar coma. 4. Paraplegia history 2016. 5. Sepsis, staph bacteremia. 6. Polymicrobial wound infection in the heel and the sacrum. 7. History of Takayasu vasculitis. 8. History of aortic valve surgery least 3 times and ruptured thoracic aortic aneurysm last year, led him to paralysis. 9. Self catheterization at home. 10. Diabetes type 2. The patient from natural causes. PRINCE GIRARD MD DR: CHETNA/[facility] JOB#: [id number] / [id number] MARINO
== END 2017-03-08 12:33 | disposition expired | DRG 870 ==
LOC: ER 12:33 → ED HOLD 13:42 → 1 WEST ICU 18:06 → UNDODISIN 03-07 14:16
PROVIDERS: ADMIT Internal Medicine; ATTEND Internal Medicine
PROC: 5A1955Z Respiratory Ventilation, Greater than 96 Consecutive Hours (ICD-10-PCS; principal; 2017-03-03)
PROC: 0BH17EZ Insertion of Endotracheal Airway into Trachea, Via Natural or Artificial Opening (ICD-10-PCS; 2017-03-03)
PROC: 5A12012 Performance of Cardiac Output, Single, Manual (ICD-10-PCS; 2017-03-03)
PROC: 05HM33Z Insertion of Infusion Device into Right Internal Jugular Vein, Percutaneous Approach (ICD-10-PCS; 2017-03-03)
PROC: B543ZZA Ultrasonography of Right Jugular Veins, Guidance (ICD-10-PCS; 2017-03-03)
DX: A41.9 Sepsis, unspecified organism (principal); E13.10 Other specified diabetes mellitus with ketoacidosis without coma; G92 Toxic encephalopathy; J96.01 Acute respiratory failure with hypoxia; N17.9 Acute kidney failure, unspecified; E87.0 Hyperosmolality and hypernatremia; G82.20 Paraplegia, unspecified; M31.4 Aortic arch syndrome [Takayasu]; N39.0 Urinary tract infection, site not specified; I46.9 Cardiac arrest, cause unspecified; E11.22 Type 2 diabetes mellitus with diabetic chronic kidney disease; E11.40 Type 2 diabetes mellitus with diabetic neuropathy, unspecified; E83.51 Hypocalcemia; E78.5 Hyperlipidemia, unspecified; E86.0 Dehydration; E87.6 Hypokalemia; F17.200 Nicotine dependence, unspecified, uncomplicated; I11.9 Hypertensive heart disease without heart failure; I77.6 Arteritis, unspecified; L89.159 Pressure ulcer of sacral region, unspecified stage; L89.619 Pressure ulcer of right heel, unspecified stage; L89.629 Pressure ulcer of left heel, unspecified stage; N18.9 Chronic kidney disease, unspecified; Z74.01 Bed confinement status; Z79.01 Long term (current) use of anticoagulants; Z79.4 Long term (current) use of insulin; Z82.49 Family history of ischemic heart disease and other diseases of the circulatory system; Z86.718 Personal history of other venous thrombosis and embolism; Z86.79 Personal history of other diseases of the circulatory system; Z95.2 Presence of prosthetic heart valve; Z83.3 Family history of diabetes mellitus; G89.29 Other chronic pain; Z51.5 Encounter for palliative care
CPT/HCPCS: 31500; 36415; 36556; 36600; 51702; 70450; 71010; 74000; 76770; 80048; 80053; 80061; 80076; 81001; 82805; 82947; 83036; 83605; 83735; 83880; 83930; 83935; 84100; 84145; 84443; 84484; 85027; 85610; 87040; 87071; 87075; 87086; 87186; 87205; 87641; 93005; 93308; 93970; 94002; 94003; 95816; 96374; 96375; C9113; G0481; J0171; J0282; J1265; J1650; J1815; J2020; J2250; J2543; J3370; J3475; J3480; J3490; J7040; J7050; 99291-25; J7030